=== PATIENT | female | born 1960 | race Caucasian/White ===

== ENCOUNTER 2022-01-15 16:01 | Outpatient (REF) | payer OTHER, SELFPAY | END 2022-01-15 16:02 | disposition home or self-care (01) | LOC: HO.MAMMO 16:01 | PROVIDERS: PCP Family Medicine; Visit Provider Family Medicine | DX: Z13.89 Encounter for screening for other disorder (principal) ==

== ENCOUNTER 2022-06-01 08:02 | Outpatient (REF) | payer OTHER, SELFPAY | END 2022-06-01 08:03 | disposition home or self-care (01) | LOC: HO.HOSX 08:02 | PROVIDERS: Visit Provider Physician Assistant | DX: Z13.89 Encounter for screening for other disorder (principal) ==

== ENCOUNTER 2023-08-17 17:59 | Outpatient (REF) | payer OTHER, SELFPAY ==
[2023-08-17 18:18] LABS: Appearance Urine Clear; Color Urine Dark Yellow; Glucose Urine UA 100 mg/dL (Negative); Leukocyte Esterase Urine Trace (Negative); Nitrite Urine Negative (Negative); Specific Gravity - Urine 1.025 (1.005-1.025); UMIC TRIGGER UA YES; Urine Blood Small (1+) (Negative); Urine Ketones Trace mg/dL (Negative); Urine Protein 300 (3+) mg/dL (Neg-Trace)
[2023-08-17 18:38] LABS: Creatinine Urine 217.95 mg/dL
[2023-08-17 18:56] LABS: Bacteria Urine Trace (None Seen); Granular Casts Urine Present; RBC Urine 0-2 /HPF (0-2); WBC Urine 0-5 /HPF (0-5)
== END 2023-08-17 18:00 | disposition home or self-care (01) ==
LOC: HO.HHCLNP 17:59
PROVIDERS: Visit Provider Family Medicine
DX: N39.3 Stress incontinence (female) (male) (principal); E11.65 Type 2 diabetes mellitus with hyperglycemia
CPT/HCPCS: 81001; 82043; 82570; 87086

== ENCOUNTER 2024-01-27 10:33 | Outpatient (REF) | payer OTHER, SELFPAY | END 2024-01-27 10:34 | disposition home or self-care (01) | LOC: HO.HOSX 10:33 | PROVIDERS: Visit Provider Orthopaedic Surgery | DX: Z13.89 Encounter for screening for other disorder (principal) ==

== ENCOUNTER 2024-02-23 07:32 | Outpatient (REF) | payer OTHER, SELFPAY | END 2024-02-23 07:33 | disposition home or self-care (01) | LOC: HO.HOSX 07:32 | PROVIDERS: Visit Provider Orthopaedic Surgery | DX: Z13.89 Encounter for screening for other disorder (principal) ==

== ENCOUNTER 2024-02-27 03:28 | Emergency (ER) | payer OTHER, SELFPAY ==
[2024-02-27 03:36] VITALS: BP 148/92; BP 154/73; PULSE 110; PULSE 94; RESP 16; TEMP 36.8; O2SAT 95; O2SAT 97; BMI 37.0
[2024-02-27 04:28] LABS: Basophils Absolute Auto 0.1 X10*3/uL (0.0-0.2); Basophils Percent Auto 0.8 % (0-2); Eosinophils Absolute Auto 0.2 X10*3/uL (0.0-0.4); Eosinophils Percent Auto 1.4 % (0-4); Hematocrit 45.7 % (37.0-47.0); Hemoglobin 15.8 g/dl (12.0-16.0); Imm Gran Abs Auto 0.11 X10*3/uL (0.00-0.03); Imm Gran Pct Auto 0.8 % (0.0-0.4); Lymphocytes Absolute Auto 3.2 X10*3/uL (1.2-4.9); Lymphocytes Percent Auto 24.3 % (20-40); MANUAL DIFF FLAG NO; Mean Corpuscular HGB Conc 34.6 g/dl (31.0-35.0); Mean Corpuscular Hemoglobin 31.2 pg (27.0-33.0); Mean Corpuscular Volume 90.3 fL (80.0-98.0); Mean Platelet Volume 9.9 fL (9.4-12.3); Monocytes Absolute Auto 1.2 X10*3/uL (0.1-1.2); Monocytes Percent Auto 9.2 % (2-11); Neutrophils Absolute Auto 8.4 x10*3/uL (2.0-8.3); Neutrophils Percent Auto 63.5 % (45-73); Platelet Count 296 X10*3/uL (160-400); Red Blood Count 5.06 X10*6/uL (4.20-5.50); Red Cell Distribution Width 13.6 % (11.0-16.0); White Blood Count 13.2 X10*3/uL (4.8-10.8)
[2024-02-27 04:43] LABS: Alanine Aminotransferase 30 U/L (0-31); Albumin Level 4.6 g/dL (3.5-5.0); Alkaline Phosphatase 104 U/L (39-117); Anion Gap 18 (12-20); Aspartate Amino Transferase 29 U/L (5-31); Bilirubin Total 0.6 mg/dL (0.0-1.0); Blood Urea Nitrogen 17 mg/dL (9-16); Calcium 10.2 mg/dL (8.4-10.2); Carbon Dioxide 21 mmol/L (22-29); Chloride 104 mmol/L (96-108); Creatinine Clr Calc Pharmacy 45.5; Estimated Glomerular Filt Rate 38; Glucose Random 130 mg/dL (60-115); Potassium 3.6 mmol/L (3.3-5.1); Sodium 139 mmol/L (135-145); Total Protein 7.9 g/dL (6.5-8.0)
== END 2024-02-27 09:09 | disposition left against medical advice (07) ==
PROVIDERS: Emergency Provider Emergency Medicine
DX: R60.0 Localized edema (principal); M79.672 Pain in left foot; M79.671 Pain in right foot; L53.9 Erythematous condition, unspecified; Z53.21 Procedure and treatment not carried out due to patient leaving prior to being seen by health care provider
CPT/HCPCS: 36415; 80053; 85025; 99281; 99283

== ENCOUNTER 2024-02-27 20:26 | Inpatient (IN) | payer OTHER, SELFPAY ==
--- NOTE | ~2024-02-27 | CT_ITS ---
EXAMINATION: CT head/brain wo IV con CT cervical spine wo IV con INDICATION INFORMATION: AMS, double vision hx of fall COMPARISON: Cervical spine radiograph 07/16/2017 TECHNIQUE: Separate noncontrast CT examinations of the head and cervical spine were performed. Coronal and sagittal reformats were obtained at the acquisition workstation. This CT examination was performed using dose optimization techniques as appropriate, variously including the following: * Automated exposure control * Adjustment of mA and/or kV according to patient size (this includes techniques or standardized protocols for targeted exams where dose is matched to indication/reason for exam; i.e. extremities or head) * Use of iterative reconstruction technique DLP: 1227 mGy-cm FINDINGS: HEAD: There is no evidence of acute intracranial hemorrhage or territorial infarction. [place] to white matter differentiation is well preserved. No abnormal mass effect or midline shift is seen. No extra-axial fluid collections are identified. No hydrocephalus. No significant volume loss. There is no abnormal attenuation within the brain parenchyma. The cerebellar tonsils are well positioned. No acute osseous or soft tissue abnormality. Visualized portions of the orbits are unremarkable. The mastoid air cells and visualized portions of the paranasal sinuses are well aerated. CERVICAL SPINE: No evidence of acute fracture or traumatic subluxation of the cervical spine. There is straightening of the normal cervical curvature with otherwise maintained sagittal alignment. Vertebral body heights and intervertebral disc spaces are maintained. The atlantoaxial and atlantooccipital articulations are intact. No prevertebral soft tissue swelling. There is no cervical lymphadenopathy. The visualized thyroid gland is unremarkable. The visualized lung apices are clear. CT/CT cervical spine wo IV con IMPRESSION: No acute intracranial pathology. No acute osseous abnormality within the cervical spine.
--- NOTE | ~2024-02-27 | XR_ITS ---
EXAMINATION: XR RIBS, BILATERAL CLINICAL INFORMATION: Follow-up fall, right rib pain COMPARISON: None available. TECHNIQUE: Chest one view. 5 views of bilateral ribs FINDINGS: Chest: Lungs are clear. No consolidation, pneumothorax, or pleural effusion. The cardiomediastinal silhouette and pulmonary vasculature are normal. Osseous structures are unremarkable. Multiple views of bilateral ribs reveal no visible acute fracture or bony abnormality.. XR/XR ribs BI min 4V w CXR1V IMPRESSION: Unremarkable chest examination. Unremarkable bilateral rib exam with no visible fracture.
[2024-02-27 20:32] VITALS: BP 136/76; BP 141/83; PULSE 82; PULSE 97; RESP 20; TEMP 36.8; O2SAT 95; O2SAT 99; BMI 42.5
--- NOTE | 2024-02-27 20:42 | ECG_ITS ---
Test Reason : DIZY Blood Pressure : / mmHG Vent. Rate : 088 BPM Atrial Rate : 088 BPM P-R Int : 178 ms QRS Dur : 090 ms QT Int : 382 ms P-R-T Axes : 058 -25 038 degrees QTc Int : 462 ms Normal sinus rhythm Normal ECG When compared with ECG of 13-DEC-2012 13:10, Incomplete right bundle branch block is no longer Present Referred By: Whitney Wu Electronically Signed By:Nate Taylor
--- NOTE | 2024-02-27 20:42 | ED.GENADULT ---
HPI - General Adult General Chief complaint: Extremity Injury, Lower Stated complaint: light headed/dizzy x2days, feet are numb, diabetic Time Seen by Provider: 02/27/24 20:41 Source: patient, EMS and RN notes reviewed Mode of arrival: EMS Limitations: altered mental status History of Present Illness ED Provider: Julieta Wu NP HPI narrative: Patient is a 63-year-old female with history of DM, asthma, HTN, hyperlipidemia, hypothyroidism, GERD, nicotine dependence, depression presenting to the emergency department with complaint of bilateral lower leg swelling, numbness and redness as well as dizziness and difficulty ambulating. She states that yesterday her neighbor, Lena, came over and she was falling into the doorway. Once in the emergency department she began complaining of double vision. Patient is not oriented and is poor historian. Mother reported to RN that patient was diagnosed with DM around 6 months ago and patient has had confusion for the past month. Reportedly patient has been receiving an unknown injection for weight loss. MD complaint: altered mental status, leg swelling Onset (ago): unknown Location: lower extremity Associated symptoms: confusion Related Data Home Medications ?Medication ?Instructions ?Recorded ?Confirmed aspirin 81 mg tablet,delayed 81 mg PO DAILY 07/13/20 07/13/20 release (Adult Low Dose Aspirin) calcium carbonate (Calcium 500) 500 mg PO DAILY 07/13/20 07/13/20 cetirizine 10 mg capsule (All Day 10 mg PO DAILY 07/13/20 07/13/20 Allergy (cetirizine)) clonazepam 1 mg tablet 1 mg PO DAILY 07/13/20 07/13/20 docusate sodium 100 mg capsule 100 mg PO DAILY 07/13/20 07/13/20 (DOK) levothyroxine 50 mcg tablet 50 mcg PO DAILY 07/13/20 07/13/20 lisinopril 10 mg tablet 10 mg PO DAILY 07/13/20 07/13/20 montelukast 10 mg tablet 10 mg PO DAILY 07/13/20 07/13/20 olanzapine 10 mg tablet 10 mg PO DAILY 07/13/20 07/13/20 pantoprazole 20 mg tablet,delayed 20 mg PO DAILY 07/13/20 07/13/20 release ropinirole 0.25 mg tablet 0.25 mg PO BEDTIME 07/13/20 07/13/20 rosuvastatin 40 mg tablet 40 mg PO DAILY 07/13/20 07/13/20 sertraline 100 mg tablet 100 mg PO DAILY 07/13/20 07/13/20 Allergies Allergy/AdvReac Type Severity Reaction Status Date / Time No Known Allergies Allergy Verified 02/27/24 20:44 [No Known Allergies*] Review of Systems Review of Systems: As per HPI. Yes all other systems are reviewed and are negative Neurologic: Denies Abnormal speech present and Reports confusion Psychiatric: Psychiatric: Reports confusion [facility] Past Medical History Medical History (Updated 02/28/24 @ 00:20 by Whitney Wu NP) GERD (gastroesophageal reflux disease) Glaucoma Asthma Depression Hypothyroidism Hyperlipidemia Hypertension Personal history of nicotine dependence Surgical History (Updated 02/17/22 @ 13:52 by Aurelia Soto PA-C) History of History of colonoscopy History of shoulder surgery (~2012) History of total hysterectomy with bilateral salpingo-oophorectomy (BSO) (~2005) Social History Social History Advance Directives: No Advance Directives Information Provided: No Physical Exam ED Vital Signs: Vital Signs - 24 hr 02/27/24 20:32 02/27/24 22:00 Temperature 98.2 F 97.6 F Pulse Rate 82 86 Respiratory Rate 20 20 Blood Pressure 141/83 H 145/86 H Pulse Oximetry 95 96 Oxygen Delivery Method Room Air Room Air BMI result Body Mass Index 42.5 Vital signs have been reviewed and appear to be correct. Blood pressure slightly elevated. Heart rate normal. Respiratory rate normal. Temperature normal. Oxygen saturation normal. Const General: cooperative, no acute distress, alert, awake and confusion Nutritional Appearance: overweight Orientation/consciousness: oriented to person and confusion Limitations: altered mental status HENMT Head: Yes normocephalic and Yes atraumatic Ears: hearing grossly normal bilaterally, external ears normal, TM's normal bilaterally and EAC's normal General nose exam: Normal external nose present Mouth: Normal oral and palatal mucosa present Throat: Yes uvula midline Eyes Pupils: Equal, round and reactive pupils present Neck Neck: Yes normal visual inspection, Yes full ROM, Yes no lymphadenopathy, Yes no meningeal signs, Yes trachea midline and Yes supple Chest Chest palpation & inspection: normal inspection of the chest and tenderness rib right posterior-axillary line involving the 7th rib, involving the 8th rib, involving the 9th rib and involving the 10th rib Resp Effort & Inspection: normal respiratory effort Auscultation: clear to auscultation bilaterally Cardio Rate: regular rate Rhythm: regular rhythm Heart sounds: S1 normal heart sound present and S2 normal heart sound present Peripheral pulses: Peripheral pulses 2+ throughout GI Palpation (GI): Soft to palpation and nontender Auscultation: normoactive bowel sounds General: Yes no CVA tenderness Back/Spine/Pelvis Back: no CVA tenderness Cervical Spine: normal cervical lordosis, cervical ROM normal, No Cervical spine tenderness and No step off deformity Thoracic/Lumbar Spine: thoracic and lumbar spine normal to inspection, No thoracic spinal tenderness and No lumbar spinal tenderness Skin Other: circumferential erythema and warmth to bilateral lower extremities General skin exam: elasticity normal and turgor normal Neuro General: oriented to person, tone normal, moves all extremities, Normal light touch and pain sensation, no meningeal signs, no focal motor deficits, CN's II-XI intact bilaterally, deep tendon reflexes 2+ bilaterally and confusion Cranial nerves: Yes Equal, round and reactive pupils present Speech: No Abnormal speech present Motor exam (neuro): 5/5 motor strength present throughout, Pronator motor function not present, no tremor noted, no asterixis, Motor fasciculations not present, Normal motor muscle tone present throughout and Motor abnormalities not present Extrem General: Yes full ROM and Yes capillary refill normal Right lower extremity: lower leg Details: erythema (circumferential lower leg), non-pitting edema Details: 1+ and warmth Location: of the proximal lower leg, of the mid lower leg and of the distal lower leg and foot Details: vascular exam Details: dorsalis pedis pulse present and posterior tibial pulse present Left lower extremity: lower leg Details: erythema (circumferential lower leg), non-pitting edema Details: 1+ and warmth Location: of the proximal lower leg, of the mid lower leg and of the distal lower leg and foot Details: vascular exam Details: dorsalis pedis pulse present and posterior tibial pulse present NIH Stroke Scale Internal: Initial- Upon Arrival Time: 22:18 Level of Consciousness: Alert Level of Consciousness Questions: Answers neither question correctly Level of Consciousness Commands: Performs neither task correctly Best Gaze: Normal Visual: No visual loss Facial Palsy: Normal Motor Arm (Right): No drift Motor Arm (Left): No drift Motor Leg (Right): No drift Motor Leg (Left): No drift Limb Ataxia: Absent Sensory: Normal Best Language: No aphasia Dysarthia: Normal Extinction and Inattention: No abnormality Score: 4 Medical Decision Making Medical Decision Making [facility] Narrative: Patient is a 63-year-old female with history of DM, asthma, HTN, hyperlipidemia, hypothyroidism, GERD, nicotine dependence, depression presenting to the emergency department with complaint of bilateral lower leg swelling, numbness and redness as well as dizziness and difficulty ambulating. On exam patient is awake, A+Ox1, VS WNL, afebrile, physical exam findings as above. NIHSS of 4, unknown onset of symptoms, mother reports confusion for 1 month and patient reports dizziness since yesterday or possibly earlier. Given reported symptoms and physical exam findings, initial differential includes CVA/ICH, electrolyte abnormality, drug or alcohol intoxication, encephalopathy, malignancy/mass, thyrotoxicosis, infection such as UTI or pneumonia, viral illness, adverse medication reaction, chronic venous stasis. Unknown if patient has history of psychiatric illness. Very limited past medical history available. Labs notable for slight leukocytosis without left shift, no significant electrolyte abnormalities, normal blood glucose level, CK of 1145. IV fluids ordered. Viral swabs negative. EKG shows normal sinus rhythm. X-ray chest notable for no evidence of pneumonia. X-ray ribs notable for no fractures. My interpretation is in agreement with the radiologist's interpretation. Urinalysis notable for 3+ blood, 21-50 WBCs, 4+ bacteria, 11-20 epithelial cells. While this could represent contamination, in the setting of altered mental status, will treat for UTI, IV ceftriaxone ordered. Urine drug screen pending. Admission discussed with Dr. Fraga who accepts patient to medicine service. Differential Diagnosis Differential Diagnoses: The differential diagnosis associated with the presentation includes As per [facility]. Admission/Observation Consideration of admission/observation: Escalation of care including admission/observation considered Consult Healthcare Provider Management of the patient was discussed with: Hospitalist Lab Data [facility] Lab Attestation statement: I reviewed the patient's lab results. As per [facility]. 02/27/24 21:18 02/27/24 21:18 Labs: Lab Results 02/27/24 02/27/24 02/27/24 Range/Units 21:03 21:18 23:04 WBC 11.3 H (4.8-10.8) X10*3/uL RBC 5.07 (4.20-5.50) X10*6/uL Hgb 15.6 (12.0-16.0) g/dl Hct 46.2 (37.0-47.0) % MCV 91.1 (80.0-98.0) fL MCH 30.8 (27.0-33.0) pg MCHC 33.8 (31.0-35.0) g/dl RDW 13.7 (11.0-16.0) % Plt Count 278 (160-400) X10*3/uL MPV 9.9 (9.4-12.3) fL Immature Gran % (Auto) 0.7 H (0.0-0.4) % Neut % (Auto) 71.6 (45-73) % Lymph % (Auto) 18.9 L (20-40) % [place] % (Auto) 6.8 (2-11) % Eos % (Auto) 1.3 (0-4) % Baso % (Auto) 0.7 (0-2) % Lymph # (Auto) 2.1 (1.2-4.9) X10*3/uL [place] # (Auto) 0.8 (0.1-1.2) X10*3/uL Eos # (Auto) 0.2 (0.0-0.4) X10*3/uL Baso # (Auto) 0.1 (0.0-0.2) X10*3/uL Abs Immat Gran (auto) 0.08 H (0.00-0.03) X10*3/uL Absolute Neuts (auto) 8.1 (2.0-8.3) x10*3/uL Absolute Nucleated RBC 0.000 (0.0-0.012) X10*3/uL Nucleated RBC % (auto) 0.0 (0.0-0.2) /100WBC PT 13.1 (11.1-13.3) SEC INR 1.1 (0.9-1.1) VBG pH (7.32-7.43) VBG pCO2 mmHg VBG pO2 mmHg VBG HCO3 (22-26) mmol/L VBG O2 Saturation % VBG Base Excess mmol/L Sodium 141 (135-145) mmol/L Potassium 3.4 (3.3-5.1) mmol/L Chloride 104 (96-108) mmol/L Carbon Dioxide 22 (22-29) mmol/L Anion Gap 18 (12-20) BUN 15 (9-16) mg/dL Creatinine 1.29 (0.5-1.4) mg/dL Estim Creat Clear Calc 54.1 Estimated GFR 42 POC Glucose 119 H (60-115) mg/dL Random Glucose 117 H (60-115) mg/dL Calcium 10.3 H (8.4-10.2) mg/dL Total Bilirubin 0.7 (0.0-1.0) mg/dL AST 33 H (5-31) U/L ALT 30 (0-31) U/L Alkaline Phosphatase 106 (39-117) U/L Ammonia 22 (13-55) umol/L Total Creatine Kinase 1145 H (26-140) U/L Troponin I High Sens < 2.7 (<3.5-17.0) ng/L Total Protein 8.2 H (6.5-8.0) g/dL Albumin 4.7 (3.5-5.0) g/dL TSH 1.79 (0.32-4.0) uIU/mL Urine Color Yellow Urine Appearance Turbid Urine pH 5.5 (5.0-9.0) Ur Specific [place] 1.025 (1.005-1.025) Urine Protein 300 (3+) H (Neg-Trace) mg/dL Urine Glucose (UA) Negative (Negative) mg/dL Urine Ketones 15 (Negative) mg/dL Urine Blood Large (3+) H (Negative) Urine Nitrite Negative (Negative) Ur Leukocyte Esterase Negative (Negative) Urine RBC 11-20 H (0-2) /HPF Urine WBC 21-50 H (0-5) /HPF Ur Squamous Epith Cells 11-20 (0-2) /HPF Urine Bacteria 4+ (None Seen) Hyaline Casts >20 (0-2) /LPF Ethyl Alcohol < 10 mg/dL Influenza Type A (PCR) NEGATIVE (Negative) Influenza Type B (PCR) NEGATIVE (Negative) RSV RNA Qual (PCR) NEGATIVE (Negative) SARS-CoV-2 RNA (RT-PCR) NEGATIVE (Negative) 02/27/24 Range/Units 23:08 WBC (4.8-10.8) X10*3/uL RBC (4.20-5.50) X10*6/uL Hgb (12.0-16.0) g/dl Hct (37.0-47.0) % MCV (80.0-98.0) fL MCH (27.0-33.0) pg MCHC (31.0-35.0) g/dl RDW (11.0-16.0) % Plt Count (160-400) X10*3/uL MPV (9.4-12.3) fL Immature Gran % (Auto) (0.0-0.4) % Neut % (Auto) (45-73) % Lymph % (Auto) (20-40) % [place] % (Auto) (2-11) % Eos % (Auto) (0-4) % Baso % (Auto) (0-2) % Lymph # (Auto) (1.2-4.9) X10*3/uL [place] # (Auto) (0.1-1.2) X10*3/uL Eos # (Auto) (0.0-0.4) X10*3/uL Baso # (Auto) (0.0-0.2) X10*3/uL Abs Immat Gran (auto) (0.00-0.03) X10*3/uL Absolute Neuts (auto) (2.0-8.3) x10*3/uL Absolute Nucleated RBC (0.0-0.012) X10*3/uL Nucleated RBC % (auto) (0.0-0.2) /100WBC PT (11.1-13.3) SEC INR (0.9-1.1) VBG pH 7.39 (7.32-7.43) VBG pCO2 36 mmHg VBG pO2 67 mmHg VBG HCO3 22 (22-26) mmol/L VBG O2 Saturation 92.0 % VBG Base Excess -1.7 mmol/L Sodium (135-145) mmol/L Potassium (3.3-5.1) mmol/L Chloride (96-108) mmol/L Carbon Dioxide (22-29) mmol/L Anion Gap (12-20) BUN (9-16) mg/dL Creatinine (0.5-1.4) mg/dL Estim Creat Clear Calc Estimated GFR POC Glucose (60-115) mg/dL Random Glucose (60-115) mg/dL Calcium (8.4-10.2) mg/dL Total Bilirubin (0.0-1.0) mg/dL AST (5-31) U/L ALT (0-31) U/L Alkaline Phosphatase (39-117) U/L Ammonia (13-55) umol/L Total Creatine Kinase (26-140) U/L Troponin I High Sens (<3.5-17.0) ng/L Total Protein (6.5-8.0) g/dL Albumin (3.5-5.0) g/dL TSH (0.32-4.0) uIU/mL Urine Color Urine Appearance Urine pH (5.0-9.0) Ur Specific [place] (1.005-1.025) Urine Protein (Neg-Trace) mg/dL Urine Glucose (UA) (Negative) mg/dL Urine Ketones (Negative) mg/dL Urine Blood (Negative) Urine Nitrite (Negative) Ur Leukocyte Esterase (Negative) Urine RBC (0-2) /HPF Urine WBC (0-5) /HPF Ur Squamous Epith Cells (0-2) /HPF Urine Bacteria (None Seen) Hyaline Casts (0-2) /LPF Ethyl Alcohol mg/dL Influenza Type A (PCR) (Negative) Influenza Type B (PCR) (Negative) RSV RNA Qual (PCR) (Negative) SARS-CoV-2 RNA (RT-PCR) (Negative) Independent Interpretation I performed an independent interpretation of an: EKG (normal sinus rhythm, rate 88bpm, normal [place] interval and QTc), Plain X-Ray and CT Scan Interpretation: No evidence of pneumonia or rib fractures on chest x-ray. No evidence of ICH or other acute abnormality on CT head, no fracture noted on CT C-spine. Radiology Impression Discussion of test interpretation with radiology: I have reviewed the radiologist's reading. Radiologist Impression: XR/XR ribs BI min 4V w CXR1V IMPRESSION: Unremarkable chest examination. Unremarkable bilateral rib exam with no visible fracture. CT/CT head/brain wo IV con IMPRESSION: No acute intracranial pathology. No acute osseous abnormality within the cervical spine. Independent Historian Clinical information obtained from an independent historian. History obtained from or confirmed by: Parent (mother spoke with RN via telephone) External Record Review External record reviewed: Inpatient record, Office record and Outpatient record Prescription Management I considered prescription management with: Antibiotic Discharge Plan Discharge Patient Disposition: Admitted As Inpatient Prescriptions: No Action aspirin [Adult Low Dose Aspirin] 81 mg tablet,delayed release (DR/EC) 81 mg PO DAILY calcium carbonate [Calcium 500] 500 mg calcium (1,250 mg) tablet 500 mg PO DAILY All Day Allergy (cetirizine) 10 mg capsule 10 mg PO DAILY clonazepam 1 mg tablet 1 mg PO DAILY docusate sodium [DOK] 100 mg capsule 100 mg PO DAILY levothyroxine 50 mcg tablet 50 mcg PO DAILY lisinopril 10 mg tablet 10 mg PO DAILY montelukast 10 mg tablet 10 mg PO DAILY olanzapine 10 mg tablet 10 mg PO DAILY pantoprazole 20 mg tablet,delayed release (DR/EC) 20 mg PO DAILY ropinirole 0.25 mg tablet 0.25 mg PO BEDTIME Rx Instructions: administer 1-3 hours before bedtime rosuvastatin 40 mg tablet 40 mg PO DAILY sertraline 100 mg tablet 100 mg PO DAILY Print Language: Tuvaluan
[2024-02-27 21:07] LABS: Glucose, Whole Blood 119 mg/dL (60-115)
[2024-02-27 21:26] LABS: MANUAL DIFF FLAG NO
[2024-02-27 21:28] LABS: Basophils Absolute Auto 0.1 X10*3/uL (0.0-0.2); Basophils Percent Auto 0.7 % (0-2); Eosinophils Absolute Auto 0.2 X10*3/uL (0.0-0.4); Eosinophils Percent Auto 1.3 % (0-4); Hematocrit 46.2 % (37.0-47.0); Hemoglobin 15.6 g/dl (12.0-16.0); Imm Gran Abs Auto 0.08 X10*3/uL (0.00-0.03); Imm Gran Pct Auto 0.7 % (0.0-0.4); Lymphocytes Absolute Auto 2.1 X10*3/uL (1.2-4.9); Lymphocytes Percent Auto 18.9 % (20-40); Mean Corpuscular HGB Conc 33.8 g/dl (31.0-35.0); Mean Corpuscular Hemoglobin 30.8 pg (27.0-33.0); Mean Corpuscular Volume 91.1 fL (80.0-98.0); Mean Platelet Volume 9.9 fL (9.4-12.3); Monocytes Absolute Auto 0.8 X10*3/uL (0.1-1.2); Monocytes Percent Auto 6.8 % (2-11); Neutrophils Absolute Auto 8.1 x10*3/uL (2.0-8.3); Neutrophils Percent Auto 71.6 % (45-73); Platelet Count 278 X10*3/uL (160-400); Red Blood Count 5.07 X10*6/uL (4.20-5.50); Red Cell Distribution Width 13.7 % (11.0-16.0); White Blood Count 11.3 X10*3/uL (4.8-10.8)
[2024-02-27 21:33] LABS: INTERNATIONAL NORM RATIO 1.1 (0.9-1.1); Prothrombin Time 13.1 SEC (11.1-13.3)
[2024-02-27 21:43] LABS: Alanine Aminotransferase 30 U/L (0-31); Albumin Level 4.7 g/dL (3.5-5.0); Alkaline Phosphatase 106 U/L (39-117); Anion Gap 18 (12-20); Aspartate Amino Transferase 33 U/L (5-31); Bilirubin Total 0.7 mg/dL (0.0-1.0); Blood Urea Nitrogen 15 mg/dL (9-16); Calcium 10.3 mg/dL (8.4-10.2); Carbon Dioxide 22 mmol/L (22-29); Chloride 104 mmol/L (96-108); Creatinine Clr Calc Pharmacy 54.1; Estimated Glomerular Filt Rate 42; Glucose Random 117 mg/dL (60-115); Potassium 3.4 mmol/L (3.3-5.1); Sodium 141 mmol/L (135-145); Total Protein 8.2 g/dL (6.5-8.0)
[2024-02-27 21:50] LABS: Troponin-I High Sensitivity < 2.7 ng/L (<3.5-17.0)
[2024-02-27 22:00] VITALS: BP 145/86; PULSE 86; RESP 20; TEMP 36.4; O2SAT 96
[2024-02-27 22:05] LABS: Influenza A PCR NEGATIVE (Negative); Influenza B PCR NEGATIVE (Negative); Resp Syncy Virus RNA Qual PCR NEGATIVE (Negative); SARS COV2 PCR INHOUSE NEGATIVE (Negative)
[2024-02-27 22:29] LABS: Ethanol < 10 mg/dL
--- NOTE | 2024-02-27 22:36 | PC.NURSE ---
pt ambulating well with walker and assist to bathroom
[2024-02-27 22:42] LABS: TSH reflex Free T4 1.79 uIU/mL (0.32-4.0)
[2024-02-27 23:15] LABS: Appearance Urine Turbid; Color Urine Yellow; Glucose Urine UA Negative (Negative); Leukocyte Esterase Urine Negative (Negative); Nitrite Urine Negative (Negative); PH 5.5 (5.0-9.0); Specific Gravity - Urine 1.025 (1.005-1.025); UMIC TRIGGER UACC YES; Urine Blood Large (3+) (Negative); Urine Ketones 15 mg/dL (Negative); Urine Protein 300 (3+) mg/dL (Neg-Trace)
[2024-02-27 23:17] LABS: VBG Base Excess -1.7 mmol/L; VBG HCO3 22 mmol/L (22-26); VBG pCO2 36 mmHg; VBG pH 7.39 (7.32-7.43); VBG pO2 67 mmHg
[2024-02-27 23:18] LABS: Ammonia 22 umol/L (13-55)
[2024-02-27 23:18] LABS: Venous Blood Gas Refer to POC result
[2024-02-27 23:28] LABS: Bacteria Urine 4+ (None Seen); Hyaline Casts Urine >20 /LPF (0-2); UACC Culture Trigger YES; WBC Urine 21-50 /HPF (0-5)
[2024-02-28] VITALS: BP 138/81; PULSE 79; RESP 16; TEMP 36.7; O2SAT 95
[2024-02-28] MEDS: 0.9 % Sodium Chloride 1,000 ML 999 ML IV (01:10)
[2024-02-28] MEDS: cefTRIAXone sodium 1 GM in 0.9 % Sodium Chloride 50 ML IV (01:12)
[2024-02-28] MEDS: vancomycin/NS 2,000 MG/500 ML PLAST..BAG 250 MG IV (01:47)
[2024-02-28] MEDS: Lactated Ringers 1,000 ML 80 ML IVCONT (02:55)
--- NOTE | 2024-02-28 03:52 | P.HPHOSP_ITS ---
History of Present Illness Date of Service: 02/28/24 Attending physician on admission: Junior Landeros Chief Complaint: Left leg swelling Laurie Reis is a 63 years old woman with past medical history significant for hypothyroidism, asthma, hyperlipidemia, sciatica/chronic back pain, morbid obesity, type 2 diabetes mellitus, depression and hyperlipidemia was brought to the emergency department via EMS due to worsening lower extremity edema, erythema and pain since yesterday afternoon. The patient seems to be confused. He said that she was scratched by her cat in the left tight. According to ED provider the patient was complaining of double vision. Patient denied any headache, chest pain, shortness on breath, abdominal pain, nausea, vomiting or diarrhea. In the ED, she was found to have stable vital signs. Blood workup showed leukocytosis that has been trending down 13.2 --> 12.3. Hemoglobin and platelets are normal. Initial creatinine was 1.42, repeat is 1.29. BUN is now normal. There are significant electrolyte imbalances. Total CK is 1145. Troponin is negative. TSH is normal. Urinalysis is consistent with UTI and and microscopic hematuria. Viral testing is negative for COVID-19, RSV and influenza. Head and C-spine CT scan showed no acute abnormalities. CXR is unremarkable. ECG showed normal sinus rhythm with no acute ischemic changes. ED tx: NS 1 L bolus, ceftriaxone 1 g IV Review of Systems 2 Review of Systems: Yes Unobtainable due to mental status FOR[facility], [facility] Medical History (Updated 02/28/24 @ 04:35 by Junior Landeros MD) GERD (gastroesophageal reflux disease) Glaucoma Asthma Depression Hypothyroidism Hyperlipidemia Hypertension Personal history of nicotine dependence Surgical History (Updated 02/17/22 @ 13:52 by Aurelia Soto PA-C) History of History of colonoscopy History of shoulder surgery (~2012) History of total hysterectomy with bilateral salpingo-oophorectomy (BSO) (~2005) Social History Advance Directives: No Advance Directives Information Provided: No Meds Allergies Allergy/AdvReac Type Severity Reaction Status Date / Time No Known Allergies Allergy Verified 02/27/24 20:44 [No Known Allergies*] Active Medications: Current Medications Acetaminophen (Acetaminophen 325 Mg Tablet) 975 mg PO Q6H PRN PRN Reason: mild pain, headache or fever Heparin Sodium (Porcine) (Heparin Sodium,Porcine 5,000 Unit/Ml Vial) 5,000 unit SUBCUT Q8H [facility] Lactated Ringer's (Lr) 1,000 mls @ 80 mls/hr IVCONT .[id number] [facility] Stop: 02/28/24 11:14 Last Admin: 02/28/24 02:55 Dose: 80 mls/hr Ceftriaxone Sodium 1 gm/ (Sodium Chloride) 50 mls @ 100 mls/hr IV Q24H [facility] Ondansetron HCl (Ondansetron Hcl 4 Mg/2 Ml Vial) 4 mg IVPUSH Q8H PRN PRN Reason: Nausea and Vomiting Pharmacy Consult (Consult Rx Vancomycin Dosing) 1 each MISCELLANE DAILY PRN PRN Reason: Consult order Sodium Chloride (0.9 % Sodium Chloride Flush 3 Ml Syringe) 3 ml IVFLUSH QSHIFT [facility] Home Medications ?Medication ?Instructions ?Recorded ?Confirmed ?Last Taken ?Type aspirin 81 mg tablet,delayed 81 mg PO DAILY 07/13/20 07/13/20 Unknown History release (Adult Low Dose Aspirin) calcium carbonate (Calcium 500) 500 mg PO DAILY 07/13/20 07/13/20 Unknown History cetirizine 10 mg capsule (All Day 10 mg PO DAILY 07/13/20 07/13/20 Unknown History Allergy (cetirizine)) clonazepam 1 mg tablet 1 mg PO DAILY 07/13/20 07/13/20 Unknown History docusate sodium 100 mg capsule 100 mg PO DAILY 07/13/20 07/13/20 Unknown History (DOK) levothyroxine 50 mcg tablet 50 mcg PO DAILY 07/13/20 07/13/20 Unknown History lisinopril 10 mg tablet 10 mg PO DAILY 07/13/20 07/13/20 Unknown History montelukast 10 mg tablet 10 mg PO DAILY 07/13/20 07/13/20 Unknown History olanzapine 10 mg tablet 10 mg PO DAILY 07/13/20 07/13/20 Unknown History pantoprazole 20 mg tablet,delayed 20 mg PO DAILY 07/13/20 07/13/20 Unknown History release ropinirole 0.25 mg tablet 0.25 mg PO BEDTIME 07/13/20 07/13/20 Unknown History rosuvastatin 40 mg tablet 40 mg PO DAILY 07/13/20 07/13/20 Unknown History sertraline 100 mg tablet 100 mg PO DAILY 07/13/20 07/13/20 Unknown History Physical Exam 2 Vital Signs and Narrative: Vital Signs: Last Vital Signs Temp 98.0 F 02/28/24 00:00 Pulse 79 02/28/24 00:00 Resp 16 02/28/24 00:00 BP 138/81 02/28/24 00:00 Pulse Ox 95 02/28/24 00:00 O2 Del Method Room Air 02/28/24 00:00 BMI result Body Mass Index 42.5 Constitutional - Awake and Alert. Confused. Cooperative. Obese. HEENT - Pupils equally round. Normal sclerae. Heart - S1S2, RRR. Distant sounds. Lungs - Normal lung expansion, Normal respiratory effort, No respiratory distress, CTA bilaterally Abdomen - NT / ND; +BS; No rebound or guarding Extremities - Bilateral lower extremities pitting edema. Left lower extremity: Erythema, increased warmth, some tenderness. Distal pulses 2 + intact. Left thigh: Healing lesions.. Skin - Warm/Dry Neurological - Alert & oriented only to person. No focal weakness grossly noted. Moving all extremities. Normal speech. Psychological - No agitation. Results Labs 02/27/24 21:18 02/27/24 21:18 Labs: Laboratory Results - last 24 hr 02/27/24 02/27/24 02/27/24 21:03 21:18 23:04 MCV 91.1 MCH 30.8 MCHC 33.8 RDW 13.7 Plt Count 278 MPV 9.9 Immature Gran % (Auto) 0.7 H Neut % (Auto) 71.6 Lymph % (Auto) 18.9 L Hardy % (Auto) 6.8 Eos % (Auto) 1.3 Baso % (Auto) 0.7 Lymph # (Auto) 2.1 Hardy # (Auto) 0.8 Eos # (Auto) 0.2 Baso # (Auto) 0.1 Abs Immat Gran (auto) 0.08 H Absolute Neuts (auto) 8.1 Absolute Nucleated RBC 0.000 Nucleated RBC % (auto) 0.0 PT 13.1 INR 1.1 VBG pH VBG pCO2 VBG pO2 VBG HCO3 VBG O2 Saturation VBG Base Excess Anion Gap 18 Estim Creat Clear Calc 54.1 Estimated GFR 42 POC Glucose 119 H Random Glucose 117 H Calcium 10.3 H Total Bilirubin 0.7 AST 33 H ALT 30 Alkaline Phosphatase 106 Ammonia 22 Total Creatine Kinase 1145 H Troponin I High Sens < 2.7 Total Protein 8.2 H Albumin 4.7 TSH 1.79 Urine Color Yellow Urine Appearance Turbid Urine pH 5.5 Ur Specific [place] 1.025 Urine Protein 300 (3+) H Urine Glucose (UA) Negative Urine Ketones 15 Urine Blood Large (3+) H Urine Nitrite Negative Ur Leukocyte Esterase Negative Urine RBC 11-20 H Urine WBC 21-50 H Ur Squamous Epith Cells 11-20 Urine Bacteria 4+ Hyaline Casts >20 Ethyl Alcohol < 10 Influenza Type A (PCR) NEGATIVE Influenza Type B (PCR) NEGATIVE RSV RNA Qual (PCR) NEGATIVE SARS-CoV-2 RNA (RT-PCR) NEGATIVE 02/27/24 23:08 MCV MCH MCHC RDW Plt Count MPV Immature Gran % (Auto) Neut % (Auto) Lymph % (Auto) Hardy % (Auto) Eos % (Auto) Baso % (Auto) Lymph # (Auto) Hardy # (Auto) Eos # (Auto) Baso # (Auto) Abs Immat Gran (auto) Absolute Neuts (auto) Absolute Nucleated RBC Nucleated RBC % (auto) PT INR VBG pH 7.39 VBG pCO2 36 VBG pO2 67 VBG HCO3 22 VBG O2 Saturation 92.0 VBG Base Excess -1.7 Anion Gap Estim Creat Clear Calc Estimated GFR POC Glucose Random Glucose Calcium Total Bilirubin AST ALT Alkaline Phosphatase Ammonia Total Creatine Kinase Troponin I High Sens Total Protein Albumin TSH Urine Color Urine Appearance Urine pH Ur Specific [place] Urine Protein Urine Glucose (UA) Urine Ketones Urine Blood Urine Nitrite Ur Leukocyte Esterase Urine RBC Urine WBC Ur Squamous Epith Cells Urine Bacteria Hyaline Casts Ethyl Alcohol Influenza Type A (PCR) Influenza Type B (PCR) RSV RNA Qual (PCR) SARS-CoV-2 RNA (RT-PCR) Imaging Radiologist's Impressions: Impressions Cervical Spine CT 02/27/24 22:15 IMPRESSION: No acute intracranial pathology. No acute osseous abnormality within the cervical spine. Head CT 02/27/24 22:15 IMPRESSION: No acute intracranial pathology. No acute osseous abnormality within the cervical spine. Ribs w/Chest X-Ray 02/27/24 22:30 IMPRESSION: Unremarkable chest examination. Unremarkable bilateral rib exam with no visible fracture. Assessment and Plan (1) Elevated CK: Status: Acute (2) Urinary tract infection: Qualifiers: Urinary tract infection type: acute cystitis Hematuria presence: w ithout hematuria Qualified Code(s): N30.00 - Acute cystitis without hematuria Status: Acute (3) Altered mental status: Qualifiers: Altered mental status type: disorientation Qualified Code(s): R41.0 - Disorientation, unspecified Status: Acute (4) Left leg cellulitis: Status: Acute Plan Laurie Reis is a 63 y/o woman admitted with: * Acute encephalopathy secondary to acute infections: UTI and left lower extremity cellulitis (scratched by a cat?). Admit to hospitalist service. Start empiric IV antibiotic therapy with Unasyn and vancomycin. Blood and urine cultures obtained -will follow results. Avoid sedatives such as pregabalin and clonazepam. * Acute kidney injury, improving s/p IVFs. Likely secondary to furosemide, lisinopril. Hold these medications. Continue to monitor renal function. Avoid nephrotoxic agents. * Rhabdomyolysis. Gentle IV fluids. Continue to monitor CPK. * Hypothyroidism. TSH is normal. Continue levothyroxine. * Type 2 diabetes mellitus. Hold metformin for now as the patient has MINA. Insulin sliding scale. Diabetic diet. * Hyperlipidemia. Continue statin. * Essential hypertension. Continue home meds, except lisinopril due to elevated creatinine. * Depression. Continue sertraline. * Morbid obesity. BMI 42.5 kg/m2. Weight loss. * Asthma. Asymptomatic at this time. DuoNeb as needed. Continue montelukast. DVT prophylaxis: Heparin Code status: Full Patient will need hospitalization for at least 2 midnights for UTI and left lower extremity cellulitis and UTI treatment with IV antibiotic therapy in the setting of acute encephalopathy/confusion in the setting of multiple underlying comorbidities. Quality Stroke Does the patient have a stroke diagnosis?: No VTE Prior VTE?: No VTE Risk Level:: Medical - moderate - high VTE Device Contraindication: Treatment Not Indicated VTE Drug Contraindication: N/A - Med Ordered
--- NOTE | 2024-02-28 04:40 | PC.NURSE ---
pt seeing thing that are not there do you see those people on the ceiling?, why is it raining here?, pt appears confused, calling family all night despite the time and getting upset they don't answer. emotionally labile, slightly paranoid, scared we are kicking her out. attempt to reassure pt many times.
[2024-02-28 05:05] LABS: MANUAL DIFF FLAG NO
[2024-02-28 05:06] LABS: Basophils Absolute Auto 0.1 X10*3/uL (0.0-0.2); Basophils Percent Auto 0.6 % (0-2); Eosinophils Absolute Auto 0.2 X10*3/uL (0.0-0.4); Eosinophils Percent Auto 1.8 % (0-4); Hematocrit 40.5 % (37.0-47.0); Hemoglobin 13.7 g/dl (12.0-16.0); Imm Gran Abs Auto 0.07 X10*3/uL (0.00-0.03); Imm Gran Pct Auto 0.6 % (0.0-0.4); Lymphocytes Absolute Auto 2.5 X10*3/uL (1.2-4.9); Lymphocytes Percent Auto 22.7 % (20-40); Mean Corpuscular HGB Conc 33.8 g/dl (31.0-35.0); Mean Corpuscular Hemoglobin 30.6 pg (27.0-33.0); Mean Corpuscular Volume 90.6 fL (80.0-98.0); Monocytes Absolute Auto 0.9 X10*3/uL (0.1-1.2); Monocytes Percent Auto 8.5 % (2-11); Neutrophils Absolute Auto 7.2 x10*3/uL (2.0-8.3); Neutrophils Percent Auto 65.8 % (45-73); Platelet Count 248 X10*3/uL (160-400); Red Blood Count 4.47 X10*6/uL (4.20-5.50); Red Cell Distribution Width 13.6 % (11.0-16.0); White Blood Count 10.9 X10*3/uL (4.8-10.8)
[2024-02-28 05:28] LABS: Alanine Aminotransferase 22 U/L (0-31); Albumin Level 3.8 g/dL (3.5-5.0); Alkaline Phosphatase 88 U/L (39-117); Anion Gap 19 (12-20); Aspartate Amino Transferase 26 U/L (5-31); Bilirubin Total 0.5 mg/dL (0.0-1.0); Blood Urea Nitrogen 14 mg/dL (9-16); Calcium 8.8 mg/dL (8.4-10.2); Carbon Dioxide 16 mmol/L (22-29); Chloride 110 mmol/L (96-108); Creatinine Clr Calc Pharmacy 61.9; Estimated Glomerular Filt Rate 49; Glucose Random 112 mg/dL (60-115); Potassium 3.5 mmol/L (3.3-5.1); Sodium 141 mmol/L (135-145); Total Protein 6.6 g/dL (6.5-8.0)
--- NOTE | 2024-02-28 06:54 | PHA.PROG ---
Admission Date/Time: February 28, 2024 00:57 Indication: SKIN INFECTION Weight in k.862 kg Adjusted body weight in Kg: [place] body weight in Kg: Obesity Dosing Indication % IBW: Serum Creatinine - Last 168 Hours 02/27/24 02/28/24 21:18 04:54 Creatinine 1.29 1.13 Estimated CrCl and GFR - Last 168 Hours 02/27/24 02/28/24 21:18 04:54 Estim Creat Clear Calc 54.1 61.9 Estimated GFR 42 49 Vancomycin Loading Dose: 2000 MG Current Vancomycin Dosing Regimen: 1250 MG Q24H Vancomycin Monitoring using AUC goal of 400 - 600 range with trough as surrogate marker: BRT=720, TROUGH=14.2 Date and Time for next Vancomycin Level to be drawn: 02/29/24 @2100 Pharmacist Comments on Vancomycin Plan: Vancomycin dosing will take advantage of [employer] as a clinical decision support tool that uses Bayesian modeling to calculate individual patient's pharmacokinetic parameters and forecast the patient's drug concentration time course with the target goal AUC 24 range of 400 - 600 mg/L/hr.
[2024-02-28 08:13] LABS: Glucose, Whole Blood 177 mg/dL (60-115)
[2024-02-28 08:41] VITALS: BP 131/69; PULSE 82; RESP 17; TEMP 36.4; O2SAT 96
--- NOTE | 2024-02-28 09:16 | PM.EVENT ---
Event Note Date of Service: 02/28/24 Event Note: Seen and evaluated feels better overall mildly anxious Cr improving, CK trending down Not septic DC IVF as she is building more fluids in LE Keep Abx , follow Cx follow BMP Time Spent With Patient Time: Total time managing care of this patient today ____ minutes.
[2024-02-28] MEDS: Insulin Lispro 100 UNIT/ML 3 ML VIAL SUBCUT ×2 (10:34→17:22)
[2024-02-28] MEDS: Heparin Sodium,Porcine 5,000 UNIT/ML VIAL 5000 UNIT SUBCUT ×2 (10:34→17:24)
[2024-02-28] MEDS: Ampicillin Sodium/Sulbactam Na 1.5 GM in 0.9 % Sodium Chloride 100 ML IV ×3 (10:35→21:15)
[2024-02-28] MEDS: Ammonium Lactate 12 % Lotion 226 GM BOTTLE 1 APPL TOPICAL ×2 (10:35→21:37)
--- NOTE | 2024-02-28 11:15 | PC.NURSE ---
pt moved to ED overflow. pt is alert, not oriented and confused. abx infused per orders. no complaints at this time.
[2024-02-28 12:10] LABS: Glucose, Whole Blood 137 mg/dL (60-115)
--- NOTE | 2024-02-28 13:03 | PHA.MEDREC ---
Pharmacy Consult ? Medication Reconciliation Pharmacy has completed the medication reconciliation. used list from [facility]. Spoke with mother on the phone and she confirmed that she does the injection (Trulicity) on Tuesdays.
--- NOTE | 2024-02-28 13:33 | PC.NURSE ---
pt incontinent of urine. full bed change and pt cleaned. pt noted to have red rash underneath folds of abdomen. barrier cream applied. purewick placed.
[2024-02-28 13:43] VITALS: BP 135/68; PULSE 93; RESP 20; TEMP 37.4; O2SAT 93
--- NOTE | 2024-02-28 15:54 | MHC.CM.PN ---
CM MET WITH PT IN ED OVERFLOW SHE APPEARS SLIGHTLY CONFUSED BUT SAYS NO WHEN CM ASKS IF ANYONE ELSE CAN BE CONTACTED PT REPORTS SHE LIVES ALONE AND IS INDEPENDENT WITH CARE SHE DENIES HAVING ANY IN HOME SERVICES, BUT SAYS SHE NEEDS SOME PT USES A WALKER TO AMBULATE SHE SAYS SHE HAS A HCP, COPY REQUESTED PCP: BILL LOPEZ IMM DELIVERED DCP: HOME WITH [facility] REFERRAL SHUTTLE TRANSPORT
[2024-02-28] MEDS: Sertraline HCL 100 MG TABLET PO (16:07)
[2024-02-28] MEDS: Omeprazole 20 MG CAPSULE.DR PO (16:07)
[2024-02-28 16:55] LABS: Glucose, Whole Blood 154 mg/dL (60-115)
[2024-02-28 17:56] LABS: Amphetamine Screen Urine Not Detected (Not Detect); Barbiturates, Urine Not Detected (Not Detect); Benzodiazepines Screen Urine Not Detected (Not Detect); Buprenorphine Scr Not Detected (Not Detect); Cannabinoid Screen Urine Not Detected (Not Detect); Cocaine Screen Urine Not Detected (Not Detect); Fentanyl, urine Not Detected (Not Detect); Methadone Screen, Urine Not Detected (Not Detect); Opiate Screen Urine Not Detected (Not Detect); Oxycodone Screen Urine Not Detected (Not Detect); Phencyclidine Screen Urine Not Detected (Not Detect)
[2024-02-28 20:40] LABS: Glucose, Whole Blood 135 mg/dL (60-115)
[2024-02-28] MEDS: Docusate Sodium 100 MG CAPSULE PO (21:16)
[2024-02-28] MEDS: clonazePAM 1 MG TABLET PO (21:16)
[2024-02-28] MEDS: Melatonin 3 MG TABLET 9 MG PO (21:16)
[2024-02-28 21:17] VITALS: BP 145/73
[2024-02-28] MEDS: Perphenazine 4 MG TABLET PO (21:17)
[2024-02-28] MEDS: Prazosin HCL 1 MG CAPSULE PO (21:17)
[2024-02-28] MEDS: Doxepin HCl 25 MG CAPSULE 50 MG PO (21:17)
[2024-02-28] MEDS: Fluticasone Propionate Nasal 16 GM SPRAY 1 SPRAY NOSTRIL-B (21:17)
[2024-02-28] MEDS: rOPINIRole HCL 1 MG TABLET PO (21:22)
[2024-02-28] MEDS: Pregabalin 75 MG CAPSULE PO (21:22)
[2024-02-28 21:23] VITALS: BP 145/73; PULSE 92; RESP 20; TEMP 37.7; O2SAT 95
--- NOTE | 2024-02-28 21:36 | PC.NURSE ---
assumed care at 1900. pt confused yelling out and trying to get oob, staff assisted pt back to bed, bed alarm on for safety
[2024-02-29] MEDS: 0.9 % Sodium Chloride Flush 3 ML SYRINGE IVFLUSH ×4 (00:08→23:37)
--- NOTE | 2024-02-29 00:45 | PC.NURSE ---
Lab called to reported pt has + blood cultures. Lab reported they will notify the hospitalist
[2024-02-29] MEDS: vancomycin HCL 1,250 MG in 0.9 % Sodium Chloride 250 ML 166.67 MG IV (01:51)
[2024-02-29] MEDS: Heparin Sodium,Porcine 5,000 UNIT/ML VIAL 5000 UNIT SUBCUT ×3 (01:55→17:16)
--- NOTE | 2024-02-29 01:55 | PC.NURSE ---
pt confused grabbing at staff, medicated per MAR
--- NOTE | 2024-02-29 02:30 | PC.NURSE ---
pt restless looking for her cellphone, pt took purwick out and was incontinent of urine, bed changed, a new purwick placed, repositioned for comfort and bed alarmed for safety. pt skin assessed, redness under abd and groin area reddened clear barrier cream applied
[2024-02-29] MEDS: Ampicillin Sodium/Sulbactam Na 1.5 GM in 0.9 % Sodium Chloride 100 ML IV ×4 (03:28→21:42)
--- NOTE | 2024-02-29 03:33 | PC.NURSE ---
pt medicated per MAR
--- NOTE | 2024-02-29 03:35 | PC.NURSE ---
pt medicated per MAR
--- NOTE | 2024-02-29 03:48 | PC.NURSE ---
Addendum entered by Kee Baker RN 02/29/24 04:07: sitter present Original Note: pt confused, combative with staff, pt bed alarm went off, pt observed standing, pt put back to bed with max 2 assist. Hospitalist notified and Nursing security shift supervisor notified . pt needs a sitter
--- NOTE | 2024-02-29 04:35 | PC.NURSE ---
pt verbally abusive to sitter
--- NOTE | 2024-02-29 04:45 | PC.NURSE ---
pt refused stephenie
[2024-02-29 04:50] VITALS: O2SAT 92
[2024-02-29] MEDS: OLANZapine 10 MG VIAL 5 MG IM (05:15)
--- NOTE | 2024-02-29 05:25 | PC.NURSE ---
pt trying to get OOB , sitter and tech to assist, security called, medicated with 5mg of Zyprexa IM. pt continues to yell and tries to climb OOB
--- NOTE | 2024-02-29 05:53 | PC.NURSE ---
pt continue to be combative refused labs and medications this am
[2024-02-29 07:14] LABS: Glucose, Whole Blood 156 mg/dL (60-115)
[2024-02-29 07:34] VITALS: BP 120/55; PULSE 73; RESP 17; TEMP 36.6; O2SAT 96
[2024-02-29] MEDS: Insulin Lispro 100 UNIT/ML 3 ML VIAL SUBCUT (07:40)
[2024-02-29] MEDS: Ammonium Lactate 12 % Lotion 226 GM BOTTLE 1 APPL TOPICAL ×2 (07:41→21:49)
[2024-02-29 09:10] LABS: Creatinine Clr Calc Pharmacy 72.8; Estimated Glomerular Filt Rate 59
[2024-02-29 09:18] LABS: Anion Gap 14 (12-20); Blood Urea Nitrogen 15 mg/dL (9-16); Calcium 9.1 mg/dL (8.4-10.2); Carbon Dioxide 21 mmol/L (22-29); Chloride 110 mmol/L (96-108); Creatinine Clr Calc Pharmacy 75.1; Estimated Glomerular Filt Rate > 60; Glucose Random 134 mg/dL (60-115); Potassium 3.3 mmol/L (3.3-5.1); Sodium 142 mmol/L (135-145)
[2024-02-29] MEDS: Pregabalin 75 MG CAPSULE PO ×2 (09:30→21:43)
[2024-02-29] MEDS: Aspirin Enteric Coated 81 MG TABLET.DR PO (09:30)
[2024-02-29] MEDS: Perphenazine 4 MG TABLET PO ×2 (09:30→21:43)
[2024-02-29] MEDS: Famotidine 20 MG TABLET PO (09:30)
[2024-02-29] MEDS: Docusate Sodium 100 MG CAPSULE PO ×2 (09:30→21:42)
[2024-02-29] MEDS: Sertraline HCL 100 MG TABLET PO (09:30)
[2024-02-29] MEDS: lisinopriL 10 MG TABLET PO (09:31)
[2024-02-29] MEDS: Montelukast Sodium 10 MG TABLET PO (09:31)
[2024-02-29] MEDS: clonazePAM 1 MG TABLET PO ×2 (09:31→21:43)
--- NOTE | 2024-02-29 09:43 | P.PNIM_ITS ---
Subjective Subjective Date of Service: 02/29/24 Interval History: more agitated and restless overnight requiring Zyprexa and Sitter 1 set blood cx growing GPC kidney function improved Review of Systems Review of Systems: Yes all other systems are reviewed and are negative Physical Exam 2 Vital Signs: Vital Signs: Last Vital Signs Temp 98 F 02/29/24 07:34 Pulse 73 02/29/24 07:34 Resp 17 02/29/24 07:34 BP 120/55 L 02/29/24 07:34 Pulse Ox 96 02/29/24 07:34 O2 Del Method Room Air 02/29/24 07:34 BMI result Body Mass Index 42.5 Const: Other: Constitutional : Awake, slow and sleepy, obese, not in distress Neck : Normal inspection, Supple Cardiovascular : RRR, no JVP, no lower extremity edema Respiratory : good bilateral air entry, no crackles, wheezes or rhonchi Gastrointestinal: soft, lax, Normal bowel sounds, Non tender Skin : Warm, Dry Neurological : Alert & confused, No focal deficit Objective Data Active Medications Acetaminophen (Acetaminophen 325 Mg Tablet) 975 mg PO Q6H PRN PRN Reason: mild pain, headache or fever Albuterol Sulfate (Albuterol Sulfate 90 Mcg 8 Gm Inhaler) 2 puff INHALE Q6H PRN PRN Reason: Shortness Of Breath Or Wheezing Aspirin (Aspirin Enteric Coated 81 Mg Tablet.Dr) 81 mg PO DAILY [facility] Last Admin: 02/29/24 09:30 Dose: 81 mg Documented By: DOUGLAS Baclofen (Baclofen 20 Mg Tablet) 20 mg PO BID PRN PRN Reason: Muscle Spasm Baclofen (Baclofen 20 Mg Tablet) 20 mg PO DAILY PRN PRN Reason: Muscle Spasm Clonazepam (Clonazepam 1 Mg Tablet) 1 mg PO BID [facility] Last Admin: 02/29/24 09:31 Dose: 1 mg Documented By: DOUGLAS Docusate Sodium (Docusate Sodium 100 Mg Capsule) 100 mg PO BID [facility] Last Admin: 02/29/24 09:30 Dose: 100 mg Documented By: DOUGLAS Doxepin HCl (Doxepin Hcl 25 Mg Capsule) 50 mg PO BEDTIME [facility] Last Admin: 02/28/24 21:17 Dose: 50 mg Documented By: ROSS Famotidine (Famotidine 20 Mg Tablet) 20 mg PO DAILY [facility] Last Admin: 02/29/24 09:30 Dose: 20 mg Documented By: DOUGLAS Fluticasone Propionate (Fluticasone Propionate Nasal 16 Gm [place]) 1 spray NOSTRIL-B BID [facility] Last Admin: 02/29/24 09:42 Dose: Not Given Documented By: DOUGLAS Non-Admin Reason: Patient Refused Glucose (Glucose Gel 15 Gm Gel..Gram.) 15 gm PO Q15M PRN; Protocol PRN Reason: per Hypoglycemia Standing Ord. Heparin Sodium (Porcine) (Heparin Sodium,Porcine 5,000 Unit/Ml Vial) 5,000 unit SUBCUT Q8H [facility] Last Admin: 02/29/24 09:31 Dose: 5,000 unit Documented By: DOUGLAS Ampicillin Sodium/Sulbactam (Sodium 1.5 gm/ Sodium Chloride) 100 mls @ 200 mls/hr IV Q6H [facility] Last Admin: 02/29/24 09:25 Dose: 200 mls/hr Documented By: DOUGLAS Dextrose (D10) 250 mls @ 750 mls/hr IV Q15M PRN; Protocol PRN Reason: per Hypoglycemia Standing Ord. Vancomycin HCl 1,250 mg/ (Sodium Chloride) 250 mls @ 166.667 mls/hr IV Q24H [facility] Last Infusion: 02/29/24 03:23 Dose: Infused Documented By: ROSS Insulin Human Lispro (Insulin Lispro 100 Unit/Ml 3 Ml Vial) 0 unit SUBCUT QIDACHS [facility]; Protocol Last Admin: 02/29/24 07:40 Dose: 2 unit Documented By: DOUGLAS Lactic Acid (Ammonium Lactate 12 % Lotion 226 Gm Bottle) 1 appl TOPICAL BID [facility]; Protocol Last Admin: 02/29/24 07:41 Dose: 1 appl Documented By: DOUGLAS Levothyroxine Sodium (Levothyroxine Sodium 50 Mcg Tablet) 50 mcg PO DAILY@0600 [facility] Last Admin: 02/29/24 05:52 Dose: Not Given Documented By: ROSS Non-Admin Reason: Patient Refused Lisinopril (Lisinopril 10 Mg Tablet) 10 mg PO DAILY [facility]; Protocol Last Admin: 02/29/24 09:31 Dose: 10 mg Documented By: DOUGLAS Melatonin (Melatonin 3 Mg Tablet) 9 mg PO BEDTIME PRN PRN Reason: insomnia Last Admin: 02/28/24 21:16 Dose: 9 mg Documented By: ROSS Montelukast Sodium (Montelukast Sodium 10 Mg Tablet) 10 mg PO DAILY [facility] Last Admin: 02/29/24 09:31 Dose: 10 mg Documented By: DOUGLAS Nicotine (Nicotine 21 Mg Patch.Td24) 21 mg TRANSDERMA DAILY [facility] Last Admin: 02/29/24 09:25 Dose: Not Given Documented By: DOUGLAS Non-Admin Reason: Patient Refused Non-Formulary Medication (Cromolyn) 1 drop EYE-BOTH Q6H [facility] Omeprazole (Omeprazole 20 Mg Capsule.Dr) 20 mg PO BID@0630,1630 [facility] Last Admin: 02/29/24 06:39 Dose: Not Given Documented By: ROSS Non-Admin Reason: Patient Refused Ondansetron HCl (Ondansetron Hcl 4 Mg/2 Ml Vial) 4 mg IVPUSH Q8H PRN PRN Reason: Nausea and Vomiting Perphenazine (Perphenazine 4 Mg Tablet) 4 mg PO BID [facility] Last Admin: 02/29/24 09:30 Dose: 4 mg Documented By: DOUGLAS Pharmacy Consult (Consult Rx Vancomycin Dosing) 1 each MISCELLANE DAILY PRN PRN Reason: Consult order Prazosin HCl (Prazosin Hcl 1 Mg Capsule) 1 mg PO BEDTIME [facility]; Protocol Last Admin: 02/28/24 21:17 Dose: 1 mg Documented By: ROSS Pregabalin (Pregabalin 75 Mg Capsule) 75 mg PO BID [facility] Last Admin: 02/29/24 09:30 Dose: 75 mg Documented By: DOUGLAS Ropinirole HCl (Ropinirole Hcl 1 Mg Tablet) 1 mg PO BEDTIME [facility] Last Admin: 02/28/24 21:22 Dose: 1 mg Documented By: ROSS Sertraline HCl (Sertraline Hcl 100 Mg Tablet) 100 mg PO DAILY [facility] Last Admin: 02/29/24 09:30 Dose: 100 mg Documented By: DOUGLAS Sodium Chloride (0.9 % Sodium Chloride Flush 3 Ml Syringe) 3 ml IVFLUSH QSHIFT [facility] Last Admin: 02/29/24 07:41 Dose: 3 ml Documented By: DOUGLAS Labs 02/28/24 04:54 02/29/24 08:38 Labs: Laboratory Results - last 24 hr 02/28/24 02/28/24 02/28/24 12:06 16:49 17:36 Anion Gap Estim Creat Clear Calc Estimated GFR POC Glucose 137 H 154 H Random Glucose Calcium Total Creatine Kinase Urine Opiates Screen Not Detected Ur Buprenorphine Scrn Not Detected Ur Oxycodone Screen Not Detected Urine Methadone Screen Not Detected Urine Fentanyl Screen Not Detected Ur Barbiturates Screen Not Detected Ur Phencyclidine Scrn Not Detected Ur Amphetamines Screen Not Detected U Benzodiazepines Scrn Not Detected Urine Cocaine Screen Not Detected U Marijuana (THC) Screen Not Detected 02/28/24 02/29/24 02/29/24 20:29 07:11 08:38 Anion Gap 14 Estim Creat Clear Calc 75.1 Estimated GFR POC Glucose 135 H 156 H Random Glucose Calcium Total Creatine Kinase Urine Opiates Screen Ur Buprenorphine Scrn Ur Oxycodone Screen Urine Methadone Screen Urine Fentanyl Screen Ur Barbiturates Screen Ur Phencyclidine Scrn Ur Amphetamines Screen U Benzodiazepines Scrn Urine Cocaine Screen U Marijuana (THC) Screen 02/29/24 02/29/24 08:38 08:38 Anion Gap Estim Creat Clear Calc 72.8 Estimated GFR > 60 59 POC Glucose Random Glucose 134 H Calcium 9.1 Total Creatine Kinase 692 H Urine Opiates Screen Ur Buprenorphine Scrn Ur Oxycodone Screen Urine Methadone Screen Urine Fentanyl Screen Ur Barbiturates Screen Ur Phencyclidine Scrn Ur Amphetamines Screen U Benzodiazepines Scrn Urine Cocaine Screen U Marijuana (THC) Screen Microbiology Microbiology Results: Microbiology 02/27/24 Unknown Urine Culture - Final Urine clean catch - Urine valdivia top 02/28/24 00:58 Blood Culture - Preliminary Blood - Venous No growth after 24 hours. 02/28/24 00:58 Blood Culture - Preliminary Blood - Venous Prelim: GPR Gram Stain only Assessment and Plan (1) Left leg cellulitis: Status: Acute (2) Elevated CK: Status: Acute (3) Urinary tract infection: Status: Acute (4) Rhabdomyolysis: Status: Acute (5) Acute kidney injury: Status: Acute Plan Laurie Reis is a 63 y/o woman admitted with: # Acute encephalopathy secondary to acute UTI and left lower extremity cellulitis (scratched by a cat?) IV Unasyn and vancomycin GPC in 1 set of Blood cx, to repeat pending urine cultures Avoid sedatives such as pregabalin and clonazepam. follow Vanco trough # Acute kidney injury resolved Likely secondary to furosemide, lisinopril. Avoid nephrotoxic agents. follow BMP # Rhabdomyolysis. improved, CK trended down DC IV fluids # Acute inpatient delerium requiried IM Zyprexa Keep sitter, dc if doing better reorientation, change room to one with a window PRN Zyprexa if needed # Hypothyroidism. TSH is normal. Continue levothyroxine. # Type 2 diabetes mellitus. Hold metformin for now as the patient has MINA. Insulin sliding scale. Diabetic diet. # Hyperlipidemia. Continue statin. # Essential hypertension. Continue home meds, except lisinopril due to elevated creatinine. # Depression. Continue sertraline. # Morbid obesity. BMI 42.5 kg/m2. advised Weight loss. # Asthma. Asymptomatic at this time. DuoNeb as needed. Continue montelukast. DVT prophylaxis: Heparin Code status: Full Patient will need hospitalization overnight for UTI and left lower extremity cellulitis and UTI treatment with IV antibiotic therapy in the setting of acute encephalopathy/confusion in the setting of multiple underlying comorbidities. Quality Stroke Does the patient have a stroke diagnosis?: No VTE Prior VTE?: No VTE Risk Level:: Medical - moderate - high VTE Device Contraindication: Treatment Not Indicated VTE Drug Contraindication: N/A - Med Ordered
[2024-02-29 11:09] LABS: Glucose, Whole Blood 94 mg/dL (60-115)
[2024-02-29 14:10] VITALS: BP 106/58; PULSE 64; RESP 16; TEMP 36.6; O2SAT 92
--- NOTE | 2024-02-29 16:54 | PC.NURSE ---
Patient awake and getting out of bed, patient not redirectable, is able to stand with minimal assistance. Patient assisted to commode and was able to urinate and have a bowel movement. Patient currently walking around room cleaning counter and bedside table. Patient continues to not be redirectable, but is stable on her feet. Dr Noel aware patient is out of bed, states that as long as patient is stable on her feet she can get out of bed.
[2024-02-29] MEDS: Omeprazole 20 MG CAPSULE.DR PO (17:17)
[2024-02-29 17:23] LABS: Glucose, Whole Blood 141 mg/dL (60-115)
[2024-02-29 20:48] LABS: Glucose, Whole Blood 79 mg/dL (60-115)
[2024-02-29 21:00] VITALS: BP 121/57; PULSE 65; RESP 18; TEMP 37.2; O2SAT 98
[2024-02-29 21:23] LABS: Glucose, Whole Blood 93 mg/dL (60-115)
[2024-02-29 21:42] VITALS: BP 121/57
[2024-02-29] MEDS: Prazosin HCL 1 MG CAPSULE PO (21:42)
[2024-02-29] MEDS: rOPINIRole HCL 1 MG TABLET PO (21:43)
[2024-02-29] MEDS: Doxepin HCl 25 MG CAPSULE 50 MG PO (21:43)
[2024-02-29] MEDS: Fluticasone Propionate Nasal 16 GM SPRAY 1 SPRAY NOSTRIL-B (21:43)
[2024-02-29] MEDS: Melatonin 3 MG TABLET 9 MG PO (22:32)
[2024-02-29 22:49] LABS: Glucose, Whole Blood 156 mg/dL (60-115)
[2024-02-29 23:22] VITALS: BP 100/46; PULSE 74; RESP 19; TEMP 36.6; O2SAT 92
[2024-02-29] MEDS: vancomycin HCL 1,500 MG in 0.9 % Sodium Chloride 500 ML 333.33 MG IV (23:37)
[2024-03-01] MEDS: Heparin Sodium,Porcine 5,000 UNIT/ML VIAL 5000 UNIT SUBCUT ×2 (01:05→08:54)
[2024-03-01 02:40] VITALS: BP 98/54; PULSE 80; RESP 19; TEMP 36.5; O2SAT 92
[2024-03-01] MEDS: Ampicillin Sodium/Sulbactam Na 1.5 GM in 0.9 % Sodium Chloride 100 ML IV ×2 (02:50→09:16)
[2024-03-01] MEDS: Levothyroxine Sodium 50 MCG TABLET PO (06:03)
[2024-03-01] MEDS: Omeprazole 20 MG CAPSULE.DR PO (06:03)
[2024-03-01 07:02] LABS: Hemoglobin 12.6 g/dl (12.0-16.0); Mean Corpuscular HGB Conc 33.2 g/dl (31.0-35.0); Mean Corpuscular Hemoglobin 30.9 pg (27.0-33.0); Mean Corpuscular Volume 93.1 fL (80.0-98.0); Mean Platelet Volume 10.5 fL (9.4-12.3); Platelet Count 213 X10*3/uL (160-400); Red Blood Count 4.08 X10*6/uL (4.20-5.50); Red Cell Distribution Width 14.2 % (11.0-16.0); White Blood Count 7.4 X10*3/uL (4.8-10.8)
[2024-03-01 07:13] LABS: Creatinine Clr Calc Pharmacy 74.4; Estimated Glomerular Filt Rate > 60
[2024-03-01 07:14] LABS: Anion Gap 15 (12-20); Blood Urea Nitrogen 13 mg/dL (9-16); Calcium 8.7 mg/dL (8.4-10.2); Carbon Dioxide 21 mmol/L (22-29); Chloride 108 mmol/L (96-108); Creatinine Clr Calc Pharmacy 79.4; Estimated Glomerular Filt Rate > 60; Glucose Random 109 mg/dL (60-115); Potassium 3.3 mmol/L (3.3-5.1); Sodium 141 mmol/L (135-145)
[2024-03-01 07:23] VITALS: BP 117/56; PULSE 74; RESP 18; TEMP 36.3; O2SAT 92
[2024-03-01 07:33] LABS: Glucose, Whole Blood 103 mg/dL (60-115)
[2024-03-01] MEDS: Sertraline HCL 100 MG TABLET PO (08:54)
[2024-03-01] MEDS: Famotidine 20 MG TABLET PO (08:54)
[2024-03-01] MEDS: clonazePAM 1 MG TABLET PO (08:54)
[2024-03-01] MEDS: Pregabalin 75 MG CAPSULE PO (08:54)
[2024-03-01 08:55] VITALS: BP 117/56
[2024-03-01] MEDS: lisinopriL 10 MG TABLET PO (08:55)
[2024-03-01] MEDS: Perphenazine 4 MG TABLET PO (08:55)
[2024-03-01] MEDS: Montelukast Sodium 10 MG TABLET PO (08:55)
[2024-03-01] MEDS: Docusate Sodium 100 MG CAPSULE PO (08:55)
[2024-03-01] MEDS: Aspirin Enteric Coated 81 MG TABLET.DR PO (08:55)
[2024-03-01] MEDS: 0.9 % Sodium Chloride Flush 3 ML SYRINGE IVFLUSH (08:56)
[2024-03-01] MEDS: Ammonium Lactate 12 % Lotion 226 GM BOTTLE 1 APPL TOPICAL (08:56)
[2024-03-01] MEDS: Fluticasone Propionate Nasal 16 GM SPRAY 1 SPRAY NOSTRIL-B (09:16)
--- NOTE | 2024-03-01 11:15 | MHC.CM.PN ---
pt home via shuttle [facility] notified of dc
[2024-03-01 11:21] LABS: Glucose, Whole Blood 76 mg/dL (60-115)
--- NOTE | 2024-03-01 11:44 | P.DS_ITS ---
DS: Providers Provider Date of Service: 03/01/24 Date of admission: 02/28/24 00:57 Primary care physician: Angelica Osborne MD DS: Diagnosis Discharge Diagnosis (1) Left leg cellulitis: Status: Acute (2) Elevated CK: Status: Acute (3) Urinary tract infection: Status: Acute (4) Rhabdomyolysis: Status: Acute (5) Acute kidney injury: Status: Acute DS: Summary Hospital Course Hospital Course: Admission note MISSY Reis is a 63 years old woman with past medical history significant for hyp othyroidism, asthma, hyperlipidemia, sciatica/chronic back pain, morbid obesity, type 2 diabetes mellitus, depression and hyperlipidemia was brought to the emergency department via EMS due to worsening lower extremity edema, erythema and pain since yesterday afternoon. The patient seems to be confused. He said that she was scratched by her cat in the left tight. According to ED provider the patient was complaining of double vision. Patient denied any headache, chest pain, shortness on breath, abdominal pain, nausea, vomiting or diarrhea. In the ED, she was found to have stable vital signs. Blood workup showed leukocytosis that has been trending down 13.2 --> 12.3. Hemoglobin and platelets are normal. Initial creatinine was 1.42, repeat is 1.29. BUN is now normal. There are significant electrolyte imbalances. Total CK is 1145. Troponin is negative. TSH is normal. Urinalysis is consistent with UTI and and microscopic hematuria. Viral testing is negative for COVID-19, RSV and influenza. Head and C-spine CT scan showed no acute abnormalities. CXR is unremarkable. ECG showed normal sinus rhythm with no acute ischemic changes. ED tx: NS 1 L bolus, ceftriaxone 1 g IV Hospital course # Acute encephalopathy secondary to acute UTI and left lower extremity cellulitis which resolved after treated with IV Unasyn and vancomycin as 1 set of Blood cx grew GNR likely contaminent with repeated labs negative up to time of discharge. cellulitis improved with less pain, erythema and swelling. # Acute kidney injury Likely secondary to furosemide, lisinopril that improved with IV fluids and holding nephrotoxic agents. follow BMP as outpatient. # acute Rhabdomyolysis. improved as CK trended down with IV fluids. # Acute inpatient delerium requiried IM Zyprexa with good response. more alert and itneractive after coming up to medical floor. oriented x3. Discharge plan Continue antibiotics for 1 more week keep your legs elevated apply moisturing cream follow with primary care as outpatient Time Attestation Discharge Coordination Time (in mins): 38 Quality: Safe Use of Opioids Does Pt have an Active Cancer Diagnosis on the Problem List?: No Quality: Stroke Does the patient have a stroke diagnosis?: No Physical Exam Vital Signs: Vital Signs: Last Vital Signs Temp 97.3 F 03/01/24 07:23 Pulse 74 03/01/24 07:23 Resp 18 03/01/24 07:23 BP 117/56 L 03/01/24 08:55 Pulse Ox 92 03/01/24 07:23 O2 Del Method Room Air 03/01/24 07:23 O2 Flow Rate 2 02/29/24 14:10 BMI result Body Mass Index 42.5 Const: Other: Constitutional : Awake, slow and sleepy, obese, not in distress Neck : Normal inspection, Supple Cardiovascular : RRR, no JVP, no lower extremity edema Respiratory : good bilateral air entry, no crackles, wheezes or rhonchi Gastrointestinal: soft, lax, Normal bowel sounds, Non tender Skin : Warm, Dry Neurological : Alert & confused, No focal deficit DS: Data Data Completed and Pending Labs on day of discharge: Laboratory Results - last 24 hr 02/29/24 02/29/24 02/29/24 17:14 20:37 20:46 WBC RBC Hgb Hct MCV MCH MCHC RDW Plt Count MPV Absolute Nucleated RBC Nucleated RBC % (auto) Sodium Potassium Chloride Carbon Dioxide Anion Gap BUN Creatinine Estim Creat Clear Calc Estimated GFR POC Glucose 141 H 79 Random Glucose Calcium Random Vancomycin 10.0 L 02/29/24 02/29/24 03/01/24 21:20 22:45 05:42 WBC 7.4 RBC 4.08 L Hgb 12.6 Hct 38.0 MCV 93.1 MCH 30.9 MCHC 33.2 RDW 14.2 Plt Count 213 MPV 10.5 Absolute Nucleated RBC 0.000 Nucleated RBC % (auto) 0.0 Sodium 141 Potassium 3.3 Chloride 108 Carbon Dioxide 21 L Anion Gap 15 BUN 13 Creatinine 0.88 Estim Creat Clear Calc Estimated GFR POC Glucose 93 156 H Random Glucose Calcium Random Vancomycin 03/01/24 03/01/24 03/01/24 05:42 05:42 05:42 WBC RBC Hgb Hct MCV MCH MCHC RDW Plt Count MPV Absolute Nucleated RBC Nucleated RBC % (auto) Sodium Potassium Chloride Carbon Dioxide Anion Gap BUN Creatinine 0.94 Estim Creat Clear Calc 79.4 74.4 Estimated GFR > 60 > 60 POC Glucose Random Glucose 109 Calcium 8.7 Random Vancomycin 03/01/24 03/01/24 07:25 11:15 WBC RBC Hgb Hct MCV MCH MCHC RDW Plt Count MPV Absolute Nucleated RBC Nucleated RBC % (auto) Sodium Potassium Chloride Carbon Dioxide Anion Gap BUN Creatinine Estim Creat Clear Calc Estimated GFR POC Glucose 103 76 Random Glucose Calcium Random Vancomycin Preliminary micro results at discharge 02/28/24 00:58 Blood Culture - Preliminary Blood - Venous Gram positive filippo 02/29/24 08:39 Blood Culture - Preliminary Blood - Venous No growth after 24 hours. 02/29/24 08:43 Blood Culture - Preliminary Blood - Venous No growth after 24 hours. 02/28/24 00:58 Blood Culture - Preliminary Blood - Venous No growth after 48 hours. Imaging Chest x-ray: Radiologist's impression: ITS Impressions Cervical Spine CT 02/27/24 22:15 IMPRESSION: No acute intracranial pathology. No acute osseous abnormality within the cervical spine. Head CT 02/27/24 22:15 IMPRESSION: No acute intracranial pathology. No acute osseous abnormality within the cervical spine. Ribs w/Chest X-Ray 02/27/24 22:30 IMPRESSION: Unremarkable chest examination. Unremarkable bilateral rib exam with no visible fracture. Discharge Plan Discharge Anticipated Discharge Date/Time: 03/01/24 11:37 Patient Disposition: Home, Self-Care Discharge Diagnosis: Acute kidney injury Cellulitis Referrals: Angelica Osborne MD [Primary Care Provider] - 1 Week Discharge Medications: New doxycycline monohydrate 100 mg capsule 100 mg PO BID Qty: 14 0RF cefuroxime axetil 500 mg tablet 500 mg PO BID Qty: 14 0RF Continued doxepin 50 mg capsule 50 mg PO BEDTIME ropinirole 1 mg tablet 1 mg PO BEDTIME prazosin 1 mg capsule 1 mg PO BEDTIME cromolyn 4 % drops 1 drp ophthalmic (eye) Q6H acetaminophen 650 mg tablet extended release 650 mg PO Q8H PRN (Reason: Pain) baclofen 20 mg tablet 20 mg PO BID PRN (Reason: Muscle Spasm) baclofen 20 mg tablet 20 mg PO DAILY PRN (Reason: Muscle Spasm) famotidine 20 mg tablet 20 mg PO DAILY perphenazine 4 mg tablet 4 mg PO BID nicotine 21 mg/24 hr patch 24 hour 1 patch topical QAM docusate sodium 100 mg capsule 100 mg PO BID albuterol sulfate [Ventolin HFA] 90 mcg/actuation HFA aerosol inhaler 2 inh inhalation Q6H PRN (Reason: Shortness Of Breath Or Wheezing) fluticasone propionate 50 mcg/actuation spray,suspension 1 spray intranasal BID metformin 500 mg tablet extended release 24 hr 1,000 mg PO BID nicotine (polacrilex) 2 mg lozenge 2 mg PO Q1-2H PRN (Reason: Nicotine Cravings) pregabalin 75 mg capsule 75 mg PO BID calcium carbonate-vitamin D3 600 mg-10 mcg (400 unit) tablet 1 tab PO BID melatonin 5 mg tablet 10 mg PO BEDTIME PRN (Reason: insomnia) Trulicity 1.5 mg/0.5 mL pen injector 1.5 mg subcut TU aspirin [Adult Low Dose Aspirin] 81 mg tablet,delayed release (DR/EC) 81 mg PO DAILY clonazepam 1 mg tablet 1 mg PO BID levothyroxine 50 mcg tablet 50 mcg PO DAILY lisinopril 10 mg tablet 10 mg PO DAILY montelukast 10 mg tablet 10 mg PO DAILY pantoprazole 20 mg tablet,delayed release (DR/EC) 20 mg PO BID rosuvastatin 40 mg tablet 40 mg PO BEDTIME sertraline 100 mg tablet 100 mg PO QAM Discharge Orders: Discharge Order (Routine); Ordered 03/01/24 Ordered By: Sue Noel Diet: Advance to usual diet Activity on Discharge: As tolerated Stand Alone Forms: Patient Portal Discharge page Print Language: Djiboutian Other Ambulatory Orders: Basic Metabolic Panel (Routine) Timeframe: 1 Week Facility: [facility] - Location: Laboratory Ordered By: Sue Noel Care Plan Goals: Continue antibiotics for 1 more week keep your legs elevated apply moisturing cream follow with primary care as outpatient Health Concerns: Read below Plan of Treatment: Read below Assessment: Read below
== END 2024-03-01 12:22 | disposition home or self-care (01) | DRG 603 ==
LOC: HO.ED 02-28 00:50 → HO.EDOVER 02-28 01:21 → HO.S3 02-29 21:36
PROVIDERS: Registered Nurse Emergency; Admitting Provider Internal Medicine; Emergency Provider Internal Medicine; PCP Family Medicine; Visit Provider Student in an Organized Health Care Education/Training Program
DX: L03.116 Cellulitis of left lower limb (principal); N39.0 Urinary tract infection, site not specified; F05 Delirium due to known physiological condition; M62.82 Rhabdomyolysis; N17.9 Acute kidney failure, unspecified; Z68.41 Body mass index [BMI] 40.0-44.9, adult; G93.49 Other encephalopathy; E03.9 Hypothyroidism, unspecified; F17.210 Nicotine dependence, cigarettes, uncomplicated; E78.5 Hyperlipidemia, unspecified; E66.01 Morbid (severe) obesity due to excess calories; R31.29 Other microscopic hematuria; I10 Essential (primary) hypertension; J45.909 Unspecified asthma, uncomplicated; Z71.6 Tobacco abuse counseling; Z20.822 Contact with and (suspected) exposure to COVID-19; Z79.82 Long term (current) use of aspirin; Z79.84 Long term (current) use of oral hypoglycemic drugs; Z79.85 Long-term (current) use of injectable non-insulin antidiabetic drugs; Z79.890 Hormone replacement therapy; Z79.899 Other long term (current) drug therapy
CPT/HCPCS: 0241U; 36415; 70450; 71111; 72125; 80048; 80053; 80202; 80307; 81001; 82140; 82550; 82565; 82803; 82947; 84443; 84484; 85025; 85027; 85610; 87040; 87086; 87205; 93005; 99285; J0295; J0696; J1644; J2359; J3370; J3371; J7120

== ENCOUNTER → 2024-02-27 20:42 | Outpatient (BNV) | payer OTHER, SELFPAY | PROVIDERS: Admitting Provider Internal Medicine; Emergency Provider Internal Medicine; Visit Provider Internal Medicine Cardiovascular Disease | DX: R42 Dizziness and giddiness (principal) | CPT/HCPCS: 93010 ==

== ENCOUNTER → 2024-02-28 00:57 | Outpatient (BNV) | payer OTHER, SELFPAY | PROVIDERS: Admitting Provider Internal Medicine; Emergency Provider Internal Medicine; Visit Provider Internal Medicine | DX: L03.116 Cellulitis of left lower limb (principal); N30.00 Acute cystitis without hematuria; R74.8 Abnormal levels of other serum enzymes; M62.82 Rhabdomyolysis; N17.9 Acute kidney failure, unspecified | CPT/HCPCS: 99222; 99232; 99239; 99499 ==

== ENCOUNTER 2024-04-18 11:23 | Outpatient (REF) | payer OTHER, SELFPAY | END 2024-04-18 11:24 | disposition home or self-care (01) | LOC: HO.HOSX 11:23 | PROVIDERS: Visit Provider Orthopaedic Surgery | DX: Z13.89 Encounter for screening for other disorder (principal) ==

== ENCOUNTER 2024-05-16 10:08 | Outpatient (REF) | payer OTHER, SELFPAY | END 2024-05-16 10:09 | disposition home or self-care (01) | LOC: HO.HOSX 10:08 | PROVIDERS: Visit Provider Orthopaedic Surgery | DX: Z13.89 Encounter for screening for other disorder (principal) ==

== ENCOUNTER 2024-11-06 16:05 | Outpatient (REF) | payer OTHER, SELFPAY ==
[2024-11-06 18:11] LABS: Alanine Aminotransferase 30 U/L (0-31); Albumin Level 4.4 g/dL (3.5-5.0); Alkaline Phosphatase 94 U/L (39-117); Anion Gap 10 (12-20); Aspartate Amino Transferase 23 U/L (5-31); Bilirubin Direct 0.1 mg/dL (0.0-0.5); Bilirubin Total 0.4 mg/dL (0.0-1.0); Blood Urea Nitrogen 11 mg/dL (9-16); Calcium 9.5 mg/dL (8.4-10.2); Carbon Dioxide 28 mmol/L (22-29); Chloride 105 mmol/L (96-108); Cholesterol 138 mg/dL (<200); Estimated Glomerular Filt Rate > 60; Glucose Random 85 mg/dL (60-115); HDL Cholesterol 36 mg/dL (>40); LDL Cholesterol Calculated 68 mg/dL (<100); Sodium 139 mmol/L (135-145); Total Protein 7.8 g/dL (6.5-8.0); Triglycerides 172 mg/dL (<150)
[2024-11-06 18:26] LABS: Creatinine Urine 106.99 mg/dL; Microalbum/Creatinine Ratio Ur 60.7 ug/mg cr (<30)
[2024-11-06 18:27] LABS: B Type Natriuretic Peptide 34 pg/mL (<100)
[2024-11-06 18:29] LABS: TSH reflex Free T4 0.66 uIU/mL (0.32-4.0)
[2024-11-06 19:07] LABS: Reflex LDLD? No
--- OUTSIDE RECORDS SUMMARY | 2024-11-06 19:43 | XMS_ITS | Encounter Summary ---
Author Organization [employer] Address [address] [place] [address] Care Team Providers Care Math And Science Division Chair Name Role Phone Angelica Osborne MD Primary Care Provider [phone] Mao Mota PharmD Unavailable [phone] Armando De La Cruz ROOF ASSEMBLER Unavailable Unavailable Reason for Visit * Reason Onset Date Comments appt/partials periodic exam 08/17/2024 Encounter Details Date Type Department Care Team (Late st Contact Info) Description 08/17/2024 Telephone [facility] [address] [place], [place] [phone] Narendra Michele, PB [address] [place], [place] [phone] appt/partials periodic exam Social History Tobacco Use Types Packs/Day Years Used Date Smoking Tobacco: Every Day Cigarettes 1.5 44 Passive Smoke Exposure: Current Smokeless Tobacco: Never Comments:Smokes 1-2 packs a day Depression Answer Date Recorded Patient Health Questionnaire-9 Score 0 03/23/2024 Patient Health Questionnaire-9 Score 0 03/23/2024 Last PHQ-9: Questionnaire Data Not on file 0 03/23/2024 Housing Stability Answer Date Recorded What is your housing situation today? I have bee nickerson 07/26/[address] you li ve. Do you have problems with any of the following? None of the above 07/26/2023 Food Insecurity Answer Date Recorded Within the past 12 months, y ou worried that your food would run out before you got money to buy more: Sometimes True 2022 Within the past 12 months,th e food you bought just didn't last and you didn't have enough money to get more: Sometimes True 07/26/2023 Transportation Answer Date Recorded In the past 12 months, has l ack of transportation kept you from medical appts, meetings, work or from getting things needed for daily living? No 07/26/2023 Utilities Answer Date Recorded In the past 12 months, has t he electric, gas, oil or water company threatened to shut off services in your home? No 07/26/2023 Depression Answer Date Recorded Patient Health Questionnaire-2 Score 0 03/23/2024 Comments Unknown Sex and Gender Information Value Date Recorded Sex Assigned at Female 08/10/2022 10:17 AM EDT Legal Sex Female 10:17 AM EDT Gender Identity Female 08/10/2022 10:17 AM EDT Sexual Orientation Choose not to disclose 2021 10:17 AM EDT documented as of this encounter Miscellaneous Notes * Telephone Encounter - Kellee Lazar - 08/17/2024 12:09 PM EST Patient wait listed on 08/01 for periodic exam and to talk with provider on new partials. She called in again today but there is currently nothing available on PAR side. It was explained to patient upon review that it would be a repair visit unless she is intending to pay out of pocket because the partials she currently has are a only a couple years old. She is interested in the repair. Please reach out to patient DR documented in this encounter Plan of Treatment Upcoming Encounters Date Type Department Care Team (Late st Contact Info) Description 11/17/2024 3:30 PM EST Office Visit [facility] [address] [place] [address] Yves Barron DDS [address] [place] [address] documented as of this encounter Goals Goal Patient Goal Type Associated Problems Recent Progress Patient-Stated? Author Quit using tobacco (cigarettes, smokeless, etc) Tobacco Use No Mao Mota, PharmD documented as of this encounter Visit Diagnoses Not on filedocumented in this encounter Additional Health Concerns Assessment Noted Time PHQ-9 Depression Total Score: 0 03/23/20 24 2:25 PM EDT documented as of this encounter Care Teams Math And Science Division Chair Relationship Specialty Start Date End Date Angelica Osborne MD [address] [place] [phone] PCP - General Family Medicine 10/11/18 Mao Mota, MerD [address] [place] [address] Pharmacist Internal Medicine 08/31/23 Armando De La Cruz FNP [address] [place] [address] Nurse Practitioner Family Medicine 08/31/23 documented as of this encounter
--- OUTSIDE RECORDS SUMMARY | 2024-11-06 19:43 | XMS_ITS | Encounter Summary ---
Author Organization [employer] [facility] Address [address] [facility] 7t [place] [address] Care Team Providers Care Construction Area Manager Name Role Phone Angelica Osborne MD Primary Care Provider [phone] Mao Mota PharmD Unavailable [phone] Armando De La Cruz CASINO GAMING WORKER Unavailable Unavailable Reason for Visit * Reason Comments Med Refill Encounter Details Date Type Department Care Team (Late st Contact Info) Description 10/06/2022 Refill [facility] MEDICINE [address] [place] [address] Angelica Osborne MD [address] [place], [place] [phone] Pain Social History Tobacco Use Types Packs/Day Years Used Date Smoking Tobacco: Never Assessed Comments Unknown Sex and Gender Information Value Date Recorded Sex Assigned at Female 08/10/2022 10:17 AM EDT Legal Sex Female 10:17 AM EDT Gender Identity Female 08/10/2022 10:17 AM EDT Sexual Orientation Choose not to disclose 2021 10:17 AM EDT documented as of this encounter Plan of Treatment Upcoming Encounters Date Type Department Care Team (Late st Contact Info) Description 11/17/2024 3:30 PM EST Office Visit [facility] ADULT DENTAL [address] [place] [address] Yves Barron DDS [address] [place] [address] documented as of this encounter Visit Diagnoses Diagnosis Pain Generalized pain documented in this encounter Care Teams Construction Area Manager Relationship Specialty Start Date End Date Angelica Osborne MD [address] [place] [address] PCP - General Family Medicine 10/11/18 Mao Mota, MerD [address] [place] [address] Pharmacist Internal Medicine 08/31/23 Armando De La Cruz FNP [address] [place] [address] Nurse Practitioner Family Medicine 08/31/23 documented as of this encounter
--- OUTSIDE RECORDS SUMMARY | 2024-11-06 19:43 | XMS_ITS | Encounter Summary ---
Author Organization [employer] Address [address] [facility] 7[address] [place] [address] Care Team Providers Care Boilers Inspector Name Role Phone Angelica Osborne MD Primary Care Provider [phone] Mao Mota PharmD Unavailable [phone] Armando De La Cruz ELECTRICIAN POWERHOUSE Unavailable Unavailable Encounter Details Date Type Department Care Team (Late Contact Info) Description 03/22/2023 Orders Only [facility] MEDICINE [address] [place], [place] [phone] Oadlys Frank LPN Social History Tobacco Use Types Packs/Day Years Used Date Smoking Tobacco: Every Day Cigarettes 0.5 44 Comments Unknown Sex and Gender Information Value Date Recorded Sex Assigned at Female 08/10/2022 10:17 AM EDT Legal Sex Female 10:17 AM EDT Gender Identity Female 08/10/2022 10:17 AM EDT Sexual Orientation Choose not to disclose 2021 10:17 AM EDT COVID-19 Exposure Response Date Recorded In the last 10 days, have yo u been in contact with someone who was confirmed or suspected to have Coronavirus/COVID-19? No / Unsure 03/09/2023 2:41 PM EDT documented as of this encounter Plan of Treatment Upcoming Encounters Date Type Department Care Team (Late Contact Info) Description 11/17/2024 3:30 PM EST Office Visit [facility] ADULT DENTAL [address] [place], [place] [phone] Yves Barron DDS [address] [place], [place] [phone] documented as of this encounter Visit Diagnoses Not on filedocumented in this encounter Additional Health Concerns Assessment Noted Time PHQ-9 Depression Total Score: 2 02/16/20 23 3:26 PM EDT documented as of this encounter Care Teams Boilers Inspector Relationship Specialty Start Date End Date Angelica Osborne MD [address] [place] [phone] PCP - General Family Medicine 10/11/18 Mao Mota, MerD [address] [place] [phone] Pharmacist Internal Medicine 08/31/23 Armando De La Cruz FNP [address] [place] [address] Nurse Practitioner Family Medicine 08/31/23 documented as of this encounter
--- OUTSIDE RECORDS SUMMARY | 2024-11-06 19:43 | XMS_ITS | Encounter Summary ---
Author Organization [employer] Address [address] [facility] 7t [place] [address] Care Team Providers Care Antisubmarine Weapons Officer Name Role Phone Angelica Osborne MD Primary Care Provider [phone] Mao Mota PharmD Unavailable [phone] Armando De La Cruz SUPERVISING FILM OR VIDEOTAPE EDITOR Unavailable Unavailable Reason for Visit * Reason Onset Date Comments Appointment Request 02/01/2023 Encounter Details Date Type Department Care Team (Late st Contact Info) Description 02/01/2023 Telephone [facility] MEDICINE [address] [place], [place] [phone] Angelica Osborne MD [address] [place], [place] [phone] Appointment Request Social History Tobacco Use Types Packs/Day Years [...] encounter Miscellaneous Notes * Telephone Encounter - Ramiro Rossi - 02/01/2023 3:51 PM EDT Tc from pt requesting to R/S appt on 02/02/23 ( HTN/asthma (r/s from 01/04/23) ) Please contact pt at [phone] documented in this encounter Plan of Treatment Upcoming Encounters Date Type Department Care Team (Late st Contact Info) Description 11/17/2024 3:30 PM EST Office Visit [facility] ADULT DENTAL [address] [place] [address] Yves Barron DDS [address] [place], [place] documented as of this encounter Visit Diagnoses Not on filedocumented in this encounter Additional Health Concerns Assessment Noted Time PHQ-9 Depression Total Score: 0 10/20/19 3:40 PM EST documented as of this encounter Care Teams Antisubmarine Weapons Officer Relationship Specialty Start Date End Date Angelica Osborne MD [address] [place], [place] PCP - General Family Medicine 10/11/18 Mao Mota, MerD [address] [place] [address] Pharmacist Internal Medicine 08/31/23 Armando De La Cruz FNP [address] [place] [address] Nurse Practitioner Family Medicine 08/31/23 documented as of this encounter
--- OUTSIDE RECORDS SUMMARY | 2024-11-06 19:43 | XMS_ITS | Encounter Summary ---
Author Organization [employer] Address [address] 7[address] [place] [address] Care Team Providers Care Precision Assembler Bench Name Role Phone Angelica Osborne MD Primary Care Provider [phone] Mao Mota PharmD Unavailable [phone] Armando De La Cruz REHAB THERAPIST Unavailable Unavailable Encounter Details Date Type Department Care Team ([facility] st Contact Info) Description 08/16/2024 Telephone [facility] MEDICINE [address] [place], [place] [phone] Angelica Osborne MD [address] [place], [place] [phone] Social History Tobacco Use Types Packs/Day Years [...] encounter Miscellaneous Notes * Telephone Encounter - Lena Guy RN - 08/17/2024 9:19 AM EST TC [place] to [facility] [place]uling to clarify the reason for ordering [facility] US Lower Extremity Venous Duplex. Per provider the imaging was ordered In part to r/o DVT-low suspicion for chronicitybut also venous insufficiency . Per [facility] the ordering reason needs to be either one or the other as both have different appt times. (Either to rule out DVT or venous insufficiency) * Telephone Encounter - Agatha Palma - 08/16/2024 12:16 PM EST Tc from [place] with [facility] scheduling requesting Clarification on order sent 08/11/24. Would like to know if order was made to rule out DVT. Best contact # [phone]. documented in this encounter Plan of Treatment Upcoming Encounters Date Type Department Care Team (Late st Contact Info) Description 11/17/2024 3:30 PM EST Office Visit [facility] ADULT DENTAL [address] [place] [address] Yves Barron DDS [address] [place] [address] documented as of this encounter Goals Goal [...] documented as of this encounter Care Teams Precision Assembler Bench Relationship Specialty Start Date End Date Angelica Osborne MD [address] [place] [address] PCP - General Family Medicine 10/11/18 Mao Mota, PharmD [address] [place] [address] Pharmacist Internal Medicine 08/31/23 Armando De La Cruz FNP [address] [place] [phone] Nurse Practitioner Family Medicine 08/31/23 documented as of this encounter
--- OUTSIDE RECORDS SUMMARY | 2024-11-06 19:43 | XMS_ITS | Encounter Summary ---
Author Organization [employer] Address [address] [facility] 7t [place] [address] Care Team Providers Care Pharmacy Technician Name Role Phone Angelica Osborne MD Primary Care Provider [phone] Mao Mota PharmD Unavailable [phone] Armando De La Cruz ASSOCIATE PROFESSOR OF GEOLOGY Unavailable Unavailable Encounter Details Date Type Department Care Team (Late st Contact Info) Description 02/17/2023 Telephone [facility] [address] [place], [place] [phone] Angelica Osborne MD [address] [place], [place] [phone] Social History Tobacco Use Types Packs/Day Years [...] Visit [facility] ADULT DENTAL [address] [place], [place] [phone] Yves Barron DDS [address] [place], [place] [phone] documented as of this encounter Visit Diagnoses Not on filedocumented in this encounter Additional Health Concerns Assessment Noted Time PHQ-9 Depression Total Score: 2 02/16/20 3:26 PM EDT documented as of this encounter Care Teams Pharmacy Technician Relationship Specialty Start Date End Date Angelica Osborne MD [address] [place] [address] PCP - General Family Medicine 10/11/18 Mao Mota, Margaux [address] [place] [address] Pharmacist Internal Medicine 08/31/23 Armando De La Cruz FNP [address] [place] [address] Nurse Practitioner Family Medicine 08/31/23 documented as of this encounter
--- OUTSIDE RECORDS SUMMARY | 2024-11-06 19:43 | XMS_ITS | Encounter Summary ---
Author Organization [employer] Address [address] [facility] [address] [place] [address] Care Team Providers Care Ball Point Splitter Name Role Phone Angelica Osborne MD Primary Care Provider [phone] Mao Mota PharmD Unavailable [phone] Armando De La Cruz DOT ETCHER Unavailable Unavailable Reason for Visit * Reason Onset Date Comments Appointment Request 08/10/2024 Encounter Details Date Type Department Care Team (Late st Contact Info) Description 08/10/2024 Telephone [facility] MEDICINE 230 [place], [place] [phone] Angelica Osborne MD 230 [place] [address] Appointment Request Social History Tobacco Use Types [...] encounter Miscellaneous Notes * Telephone Encounter - Angelica Chen - 08/10/2024 1:39 PM EDT Tc from pt requesting to r/s follow up extended appt scheduled for today 08/10/24, appt was a no show. Pt is requesting afternoons. Please contact at [phone] documented in this encounter Plan of Treatment Upcoming Encounters Date Type Department Care Team (Late st Contact Info) Description 11/17/2024 3:30 PM EST Office Visit [facility] ADULT DENTAL [address] [place] [address] Yves Barron DDS 230 [place] [address] documented as of this encounter Goals Goal Patient Goal Type Associated Problems Recent Progress Patient-Stated? Author Quit using tobacco (cigarettes, smokeless, etc) Tobacco Use No Mao Mota, MerD documented as of this encounter Visit Diagnoses Not on filedocumented in this encounter Additional Health Concerns Assessment Noted Time PHQ-9 Depression Total Score: 0 03/23/20 24 2:25 PM EDT documented as of this encounter Care Teams Ball Point Splitter Relationship Specialty Start Date End Date Angelica Osborne MD [address] [place] [address] PCP - General Family Medicine 10/11/18 Mao Mota, PharmD [address] [place] [address] Pharmacist Internal Medicine 08/31/23 Armando De La Cruz FNP [address] [place] [address] Nurse Practitioner Family Medicine 08/31/23 documented as of this encounter
--- OUTSIDE RECORDS SUMMARY | 2024-11-06 19:43 | XMS_ITS | Encounter Summary ---
Author Organization [employer] Address [address] [facility] 7t [place] [address] Care Team Providers Care Staff Design Engineer Name Role Phone Angelica Osborne MD Primary Care Provider [phone] Mao Mota PharmD Unavailable [phone] Armando De La Cruz CHANNEL PROCESS SUPERVISOR Unavailable Unavailable Reason for Visit * Reason Comments Med Refill Encounter Details Date Type Department Care Team (Late st Contact Info) Description 08/23/2024 Refill [facility] MEDICINE 230 [place], [place] [phone] Angelica Osborne MD 230 [place], [place] [phone] Type 2 diabetes mellitus with hyperglycemia, without long-term current use of insulin ([facility]) Social History Tobacco Use Types Packs/Day Years [...] 11/17/2024 3:30 PM EST Office Visit [facility] ADULT DENTAL 230 [place] [address] Yves Barron DDS 230 [place] [address] documented as of this encounter Goals Goal Patient Goal Type Associated Problems Recent Progress Patient-Stated? Author Quit using tobacco (cigarettes, smokeless, etc) Tobacco Use No Mao Mota, MerD documented as of this encounter Visit Diagnoses Diagnosis Type 2 diabetes mellitus with hyperglycemia, without long-term current use of insulin ([facility]) documented in this encounter Additional Health Concerns Assessment Noted Time PHQ-9 Depression Total Score: 0 03/23/20 24 2:25 PM EDT documented as of this encounter Care Teams Staff Design Engineer Relationship Specialty Start Date End Date Angelica Osborne MD [address] [place] [address] PCP - General Family Medicine 10/11/18 Mao Mota, MerD [address] [place] [address] Pharmacist Internal Medicine 08/31/23 Armando De La Cruz FNP 230 [place] [address] Nurse Practitioner Family Medicine 08/31/23 documented as of this encounter
--- OUTSIDE RECORDS SUMMARY | 2024-11-06 19:44 | XMS_ITS | Encounter Summary ---
Author Organization [employer] Address [address] [facility] [address] [place] [address] Care Team Providers Care Rn Infusion Name Role Phone Angelica Osborne MD Primary Care Provider [phone] Mao Mota PharmD Unavailable [phone] Armando De La Cruz STUDENT ACCOUNTS COORDINATOR Unavailable Unavailable Reason for Visit * Reason Onset Date Comments Nurse Triage 09/06/2023 Encounter Details Date Type Department Care Team (Late st Contact Info) Description 09/06/[address] [facility] MEDICINE 230 [place], [place] [phone] Angelica Osborne MD 230 [place] [address] Nurse Triage Social History Tobacco Use Types Packs/Day Years Used Date Smoking Tobacco: Every Day Cigarettes 1.5 44 Passive Smoke Exposure: Current Smokeless Tobacco: Never Comments:Smokes 1-2 packs a day Depression Answer Date Recorded Patient Health Questionnaire-9 Score 3 06/08/2023 Housing Stability Answer Date Recorded What is [...] Date Recorded Patient Health Questionnaire-2 Score 0 06/08/2023 Comments Unknown Sex and Gender Information Value Date Recorded Sex Assigned at Female 08/10/2022 10:17 AM EDT Legal Sex Female 10:17 AM EDT Gender Identity Female 08/10/2022 10:17 AM EDT Sexual Orientation Choose not to disclose 2021 10:17 AM EDT documented as of this encounter Miscellaneous Notes * Telephone Encounter - Rebekah Noble RN - 09/06/2023 4:17 PM EST Triage call Pt reports right earache. Pt denies drainage. Pt reports the pain comes from pimples that are in the ear the canal area and they get swollen and cause blockage. Pt denies redness, swelling on outside of ear. Pt is offered WIC today but declines request apt next month. Apt with PSYCH RN Christopher 09/17/23 @ 115pm. Advised to try ice/ heat to ear for discomfort, tylenol/ibuprofen. Protocol Used: Earache (Adult) Protocol-Based Disposition: See in Office or Video Visit Today or Tomorrow Override (Final) Disposition: See in Office or Video Visit within 2 Weeks Override Reason: Other Override Notes: patient requests apt next month Positive Triage Questions: * All other earaches (Exceptions: Earache lasting < 1 hour, and earache from air travel.) * Patient wants to be seen * All higher-acuity triage questions were negative Care Advice Discussed: * Pain Medicines * Pain Medicines - Extra Notes and Warnings * Apply Cold to the Area for Pain * Avoid Earplugs * Contagiousness * Reasons To Call Back - Earache last more than 1 hour - High fever, severe headache, or stiff neck occurs - You become worse * Telephone Encounter - Elian Rocha - 09/06/2023 3:54 PM EST Symptom: Earache and discharge from right ear Outcome: Schedule an urgent appointment (within 1 hour) or talk to a nurse or provider soon Reason: Severe pain now The caller accepted this outcome documented in this encounter Plan of Treatment Upcoming Encounters Date Type Department Care Team (Late st Contact Info) Description 11/17/2024 3:30 PM EST Office Visit [facility] ADULT DENTAL [address] [place] [address] Yves Barron DDS [address] [place] [address] documented as of this encounter Goals Goal Patient Goal Type Associated Problems Recent Progress Patient-Stated? Author Quit using tobacco (cigarettes, smokeless, etc) Tobacco Use No Mao Mota, PharmD documented as of this encounter Visit Diagnoses Not on filedocumented in this encounter Additional Health Concerns Assessment Noted Time PHQ-9 Depression Total Score: 3 06/08/20 23 2:22 PM EDT documented as of this encounter Care Teams Rn Infusion Relationship Specialty Start Date End Date Angelica Osborne MD 230 [place] [address] PCP - General Family Medicine 10/11/18 Mao Mota, PharmD [address] [place] [address] Pharmacist Internal Medicine 08/31/23 Armando De La Cruz FNP [address] [place] [address] Nurse Practitioner Family Medicine 08/31/23 documented as of this encounter
--- OUTSIDE RECORDS SUMMARY | 2024-11-06 19:44 | XMS_ITS | Encounter Summary ---
Author Organization [employer] Address [address] [facility] [address] [place] [address] Care Team Providers Care Director Operating Name Role Phone Angelica Osborne MD Primary Care Provider [phone] Mao Mota PharmD Unavailable [phone] Armando De La Cruz COMPUTER TYPESETTER KEYLINER Unavailable Unavailable Encounter Details Date Type Department Care Team (Latest Contact Info) Description 11/06/2024 Travel Social History Tobacco Use Types Packs/Day Years [...] t he electric, gas, oil or water [employer] threatened to shut off services in your [...] Description 11/17/2024 3:30 PM EST Office Visit [facility] ADULT DENTAL 230 [place], [place] [phone] Yves Barron DDS 230 [place] [address] documented as of this encounter Goals Goal [...] documented as of this encounter Care Teams Director Operating Relationship Specialty Start Date End Date Angelica Osborne MD 230 [place] [address] PCP - General Family Medicine 10/11/18 Mao Mota, PharmD [address] [place] [address] Pharmacist Internal Medicine 08/31/23 Armando De La Cruz FNP [address] [place] [address] Nurse Practitioner Family Medicine 08/31/23 documented as of this encounter
--- OUTSIDE RECORDS SUMMARY | 2024-11-06 19:44 | XMS_ITS | Encounter Summary ---
Author Organization [employer] Address 75 [facility] 7t [place] [address] Care Team Providers Care Jewelry Consultant Name Role Phone Angelica Osborne MD Primary Care Provider [phone] Mao Mota PharmD Unavailable [phone] Armando De La Cruz SECURITY SUPERVISOR Unavailable Unavailable Reason for Visit * Reason Onset Date Comments Med Refill Appointment 04/07/2023 LVM-Re: her appt for today as [id number] @2pm. Encounter Details Date Type Department Care Team (Late Contact Info) Description 04/07/2023 Refill [facility] MEDICINE [address] [place], [place] [phone] Angelica Osborne MD 230 [place], [place] [phone] Social History Tobacco Use Types Packs/Day Years [...] Description 11/17/2024 3:30 PM EST Office Visit [facility] ADULT DENTAL [address] [place] [address] Yves Braron DDS [address] [place] [address] documented as of this encounter Visit Diagnoses Not on filedocumented in this encounter Additional Health Concerns Assessment Noted Time PHQ-9 Depression Total Score: 2 02/16/20 23 3:26 PM EDT documented as of this encounter Care Teams Jewelry Consultant Relationship Specialty Start Date End Date Angelica Osborne MD [address] [place], [place] [phone] PCP - General Family Medicine 10/11/18 Mao Mota, MerD [address] [place] [address] Pharmacist Internal Medicine 08/31/23 Armando De La Cruz FNP [address] [place] [address] Nurse Practitioner Family Medicine 08/31/23 documented as of this encounter
--- OUTSIDE RECORDS SUMMARY | 2024-11-06 19:44 | XMS_ITS | Clinical Summary ---
Author Organization [facility] Address [address] [place] [address] Care Team Providers Care Fly Finisher Name Role Phone Unavailable Primary Care Provider Unavailabl e Social History Tobacco Use Types Packs/Day Years Used Date Smoking Tobacco: Never Assessed Sex and Gender Information Value Date Recorded Sex Assigned at Not on file Gender Identity Not on file Sexual Orientation Not on file Plan of Treatment Health Maintenance Due Date Last Done Comments Breast Cancer Screening 1962 DTaP,Tdap,and Td Vaccines (1 - Tdap) 1981 Cervical Cancer Screening: P ap Smear 1983 Zoster Vaccines (1 of 2) 2012 COVID-19 Vaccine (2023-2 5 season) 2024 Influenza Vaccine (#1) 2024 RSV Immunization Patients 60 + Years Old (1 - 1-dose 75+ series) 2037 HIB Vaccines Aged Out No longer eligi ble based on patient's age to complete this topic HPV Vaccines Aged Out No longer eligi ble based on patient's age to complete this topic Hepatitis A Vaccines Aged Out No long er eligible based on patient's age to complete this topic Hepatitis B Vaccines Aged Out No long er eligible based on patient's age to complete this topic IPV Vaccines Aged Out No longer eligi ble based on patient's age to complete this topic MMR Vaccines Aged Out No longer eligi ble based on patient's age to complete this topic Meningococcal ACWY Vaccine Aged Out N o longer eligible based on patient's age to complete this topic Pneumococcal Vaccine: Pediat rics (0 to 5 Years) and At-Risk Patients (6 to 64 Years) Aged Out No longer eligible b ased on patient's age to complete this topic RSV Immunization Patients Un mike 20 months Aged Out No longer eligible b ased on patient's age to complete this topic Varicella Vaccines Aged Out No longer eligible based on patient's age to complete this topic
--- OUTSIDE RECORDS SUMMARY | 2024-11-06 19:44 | XMS_ITS | Encounter Summary ---
Author Organization [employer] Address [address] [facility] [address]t [place] [address] Care Team Providers Care Gold Leaf Layer Name Role Phone Angelica Osborne MD Primary Care Provider Mao Mota PharmD Unavailable [phone] Armando De La Cruz DEPORTATION EXAMINER Unavailable Unavailable Reason for Visit * Reason Onset Date Comments Appointment Confirmation 10/13/2024 I sahu d the patient and there was no answer. I wanted to confirm her us appt for 10/31 and confirm if she needed transportation. There was no answer so left a vm to patient stating about the appointment and to please call us back for transportation. Encounter Details Date Type Department Care Team (Late st Contact Info) Description 10/13/2024 Telephone [facility] 230 [place], [place] [phone] [place], [place] Appointment Confirmation (I called the patient and there was no answer. I wanted to confirm her us appt for 10/31 and confirm if she needed transportation. There was no answer so left a vm to patient stating about the appointment and to please call us back for transportation.) Social History Tobacco Use Types Packs/Day Years [...] encounter Miscellaneous Notes * Telephone Encounter - Vickey Lima MA - 10/13/2024 9:50 AM EST I called the patient and there was no answer. I wanted to confirm her us appt for 10/31 and confirm if she needed transportation. There was no answer so left a vm to patient stating about the appointment and to please call us back for transportation. documented in this encounter Plan of Treatment Upcoming Encounters Date Type Department Care Team (Late st Contact Info) Description 11/17/2024 3:30 PM EST Office Visit [facility] ADULT DENTAL [address] [place] [address] Yves Barron DDS [address] [place] [address] documented as of this encounter Goals Goal [...] documented as of this encounter Care Teams Gold Leaf Layer Relationship Specialty Start Date End Date Angelica Osborne MD [address] [place] [address] PCP - General Family Medicine 10/11/18 Mao Mota, PharmD [address] [place] [address] Pharmacist Internal Medicine 08/31/23 Armando De La Cruz FNP [address] [place] [address] Nurse Practitioner Family Medicine 08/31/23 documented as of this encounter
--- OUTSIDE RECORDS SUMMARY | 2024-11-06 19:44 | XMS_ITS | Encounter Summary ---
Author Organization [employer] Address [address] [facility] [address] 7[address] [place] [address] Care Team Providers Care Supervisor Press Room Name Role Phone Angelica Osborne MD Primary Care Provider [phone] Mao Mota PharmD Unavailable [phone] Armando De La Cruz TABLET COATER Unavailable Unavailable Reason for Visit * Reason Onset Date Comments Nurse Triage 12/13/2023 Encounter Details Date Type Department Care Team (Late st Contact Info) Description 12/13/2023 Telephone [facility] MEDICINE 230 [place], [place] [phone] Angelica Osborne MD 230 [place] [address] Nurse Triage Social History Tobacco Use Types Packs/Day Years Used Date Smoking Tobacco: Every Day Cigarettes 1.5 44 Passive Smoke Exposure: Current Smokeless Tobacco: Never Comments:Smokes 1-2 packs a day Depression Answer Date Recorded Patient Health Questionnaire-9 Score 4 12/07/2023 Patient Health Questionnaire-9 Score 4 12/07/2023 Last PHQ-9: Questionnaire Data Not on file 0 12/07/2023 Housing Stability Answer Date Recorded What is [...] Date Recorded Patient Health Questionnaire-2 Score 0 12/07/2023 Comments Unknown Sex and Gender Information Value Date Recorded Sex Assigned at Female 08/10/2022 10:17 AM EDT Legal Sex Female 10:17 AM EDT Gender Identity Female 08/10/2022 10:17 AM EDT Sexual Orientation Choose not to disclose 2021 10:17 AM EDT documented as of this encounter Miscellaneous Notes * Telephone Encounter - Rebekah Noble RN - 12/13/2023 2:00 PM EST Triage call Pt reports bilateral knee pain, unable to ambulate very far. Bilateral knees reported to be reddened , swollen and warm to touch. Pt reports no pain medication and tylenol/motrin ineffective. Pt is offered to come to [facility] today but, declines. Pt is unable to come to clinic. Insted visit is requested. Pt agrees with this visit and Insurance is verified as active. Protocol Used: Knee Pain (Adult) Protocol-Based Disposition: See in Office or Video Visit Today Video visit not offered Positive Triage Questions: * Severe pain (e.g., excruciating, unable to walk) * Very swollen knee joint * All higher-acuity triage questions were negative Care Advice Discussed: * Reassurance and Education - Knee Pain * Pain Medicines * Pain Medicines - Extra Notes and Warnings * Reasons To Call Back - Moderate pain (e.g., limping) lasts more than 3 days - Mild pain lasts more than 7 days - Signs of infection occur (e.g., spreading redness, warmth, fever) - You become worse * Use a Cold Pack for Pain * Use Heat After 48 Hours for Pain * Telephone Encounter - Kemi Urena - 12/13/2023 1:23 PM EST Symptom: Knee Pain - Not From Injury Outcome: Schedule an urgent appointment (within 1 hour) or talk to a nurse or provider soon Reason: Trouble walking The caller accepted this outcome Please contact pt at [phone] documented in this encounter Plan of Treatment Upcoming Encounters Date Type Department Care Team (Late st Contact Info) Description 11/17/2024 3:30 PM EST Office Visit [facility] ADULT DENTAL 230 [place] [address] Yves Barron DDS 230 [place] [address] documented as of this encounter Goals Goal Patient Goal Type Associated Problems Recent Progress Patient-Stated? Author Quit using tobacco (cigarettes, smokeless, etc) Tobacco Use No Mao Mota, PharmD documented as of this encounter Visit Diagnoses Not on filedocumented in this encounter Additional Health Concerns Assessment Noted Time PHQ-9 Depression Total Score: 4 12/07/19 24 11:31 AM EST documented as of this encounter Care Teams Supervisor Press Room Relationship Specialty Start Date End Date Angelica Osborne MD [address] [place] [address] PCP - General Family Medicine 10/11/18 Mao Mota, PharmD [address] [place] [address] Pharmacist Internal Medicine 08/31/23 Armando De La Cruz FNP [address] [place], [place] Nurse Practitioner Family Medicine 08/31/23 documented as of this encounter
--- OUTSIDE RECORDS SUMMARY | 2024-11-06 19:44 | XMS_ITS | Encounter Summary ---
Author Organization [employer] Address [address] [facility] [address] [place] [address] Care Team Providers Care Wrapping Checker Name Role Phone Angelica Osborne MD Primary Care Provider [phone] Mao Mota PharmD Unavailable [phone] Armando De La Cruz INVENTORY TRANSCRIBER Unavailable Unavailable Reason for Visit * Reason Onset Date Comments Lab Orders 10/09/2024 Encounter Details Date Type Department Care Team (Late st Contact Info) Description 10/09/2024 Telephone [facility] MEDICINE 230 [place], [place] [phone] Angelica Osborne MD 230 [place], [place] [phone] Lab Orders Social History Tobacco Use Types Packs/Day Years [...] encounter Miscellaneous Notes * Telephone Encounter - Carole Grier RN - 10/10/2024 9:21 AM EST Telephone call to pt to check to see if she has appt scheduled for ultrasound or TTE. Per triage note yesterday, pt reached out and was given the number to contact [facility] ultrasound dept and said that she would do so. Will retask to call again. * Telephone Encounter - Carole Grier RN - 10/09/2024 2:08 PM EST Telephone call x2 to pt, no answer, left voicemail to call back [facility]. Will retask to call again. Per chart, TTE is still pending review by [facility] and ultrasound was approved. Will reach out to diagnostic specialists for status update. * Telephone Encounter - Carole Grier RN - 10/09/2024 10:01 AM EST Telephone call x1 to pt to confirm if STAT imaging completed for TTE and bilateral lower leg US. Noanswer, left voicemail to call back. Per [employer], no recent imaging. Will task to call again. * Telephone Encounter - Carole Grier RN - 10/09/2024 9:58 AM EST ----- Message from Brian Rocha MD sent at 10/05/2024 2:18 PM EST ----- Pt of Dr. Osborne, pt referred for care management. I ordered a TTE and Bilat LE US to rule out DVT. Please make sure pt has them done and of not please discuss with PCP. documented in this encounter Plan of Treatment Upcoming Encounters Date Type Department Care Team (Late st Contact Info) Description 11/17/2024 3:30 PM EST Office Visit [facility] ADULT DENTAL 230 [place] [address] Yves Barron DDS [address] [place] [address] documented as of this encounter Goals Goal Patient Goal Type Associated Problems Recent Progress Patient-Stated? Author Quit using tobacco (cigarettes, smokeless, etc) Tobacco Use No Mao Mota, Margaux documented as of this encounter Visit Diagnoses Not on filedocumented in this encounter Additional Health Concerns Assessment Noted Time PHQ-9 Depression Total Score: 0 03/23/20 24 2:25 PM EDT documented as of this encounter Care Teams Wrapping Checker Relationship Specialty Start Date End Date Angelica Osborne MD [address] [place] [address] PCP - General Family Medicine 10/11/18 Mao Mota, PharmD [address] [place] [address] Pharmacist Internal Medicine 08/31/23 Armando De La Cruz FNP [address] [place] [address], [place] [address] Nurse Practitioner Family Medicine 08/31/23 documented as of this encounter
--- OUTSIDE RECORDS SUMMARY | 2024-11-06 19:44 | XMS_ITS | Encounter Summary ---
Author Organization [employer] Address [address] [place] [address] Care Team Providers Care Banking Paralegal Name Role Phone Angelica Osborne MD Primary Care Provider [phone] Mao Mota PharmD Unavailable [phone] Armando De La Cruz Unavailable Unavailable Reason for Visit * Reason Comments Med Refill Encounter Details Date Type Department Care Team (Late st Contact Info) Description 11/05/2023 Refill [facility] [address] [place] [address] Armando De La Cruz FNP Major depression with psychotic features (CMS/HCC) Social History Tobacco Use Types Packs/Day Years Used Date Smoking Tobacco: Every Day Cigarettes 1.5 44 Passive Smoke Exposure: Current Smokeless Tobacco: Never Comments:Smokes 1-2 packs a day Depression Answer Date Recorded Patient Health Questionnaire-9 Score 0 09/20/2023 Patient Health Questionnaire-9 Score 0 09/20/2023 Last PHQ-9: Questionnaire Data Not on file 1 11/21/2022 Housing Stability Answer Date Recorded What is [...] Date Recorded Patient Health Questionnaire-2 Score 0 09/20/2023 Comments Unknown Sex and Gender Information Value [...] Description 11/17/2024 3:30 PM EST Office Visit [facility] [address] [place] [address] Yves Barron DDS [address] [place] [address] documented as of this encounter Goals Goal Patient Goal Type Associated Problems Recent Progress Patient-Stated? Author Quit using tobacco (cigarettes, smokeless, etc) Tobacco Use No Mao Mota, MerD documented as of this encounter Visit Diagnoses Diagnosis Major depression with psychotic features (CMS/HCC) documented in this encounter Additional Health Concerns Assessment Noted Time PHQ-9 Depression Total Score: 0 09/20/20 23 3:31 PM EST documented as of this encounter Care Teams Banking Paralegal Relationship Specialty Start Date End Date Angelica Osborne MD [address] [place] [address] PCP - General Family Medicine 10/11/18 Mao Mota, PharmD [address] [place] [address] 139[address] Pharmacist Internal Medicine 08/31/23 Armando De La Cruz FNP [address] [place] [address] Nurse Practitioner Family Medicine 08/31/23 documented as of this encounter
--- OUTSIDE RECORDS SUMMARY | 2024-11-06 19:44 | XMS_ITS | Encounter Summary ---
Author Organization [employer] Address [address] [place] [address] Care Team Providers Care Registered Nurse Fetal Name Role Phone Angelica Osborne MD Primary Care Provider [phone] Mao Mota PharmD Unavailable [phone] Armando De La Cruz PLANT CHANGER Unavailable Unavailable Encounter Details Date Type Department Care Team (Latest Contact Info) Description 11/06/2024 3:30 PM EST Office Visit [facility] MEDICINE [address] [place], [place] [phone] Angelica Osborne MD [address] [place], [place] [phone] Essential hypertension (Primary Dx); Mild persistent asthma without complication; Fibromyalgia; Bilateral lower extremity edema; Type 2 diabetes mellitus with hyperglycemia, without long-term current use of insulin (CMS/HCC); Acquired hypothyroidism; Transaminitis; Tobacco dependence; Smoking greater than 20 pack years; Major depression with psychotic features (CMS/HCC); Lumbar back pain with radiculopathy affecting lower extremity; Dyslipidemia Social History Tobacco Use Types Packs/Day Years Used Date Smoking Tobacco: Every Day Cigarettes 1.5 44 Passive Smoke Exposure: Current Smokeless Tobacco: Never Tobacco Cessation:Ready to Q uit: Not Asked; Counseling Given: Not Answered Comments:Smokes 1-2 packs a day Depression Answer [...] AM EDT documented as of this encounter Last Filed Vital Signs Vital Sign Reading Time Taken Comments Blood Pressure 121/73 11/06/2024 3:29 PM EST Pulse 88 11/06/2024 3:29 PM EST Temperature 36.5 ??C (97.7 ??F) 11/06/2024 3:29 PM ES T Respiratory Rate 20 11/06/2024 3:29 PM EST Oxygen Saturation 95% 11/06/2024 3:29 PM EST Inhaled Oxygen Concentration - - Weight 98.5 kg (217 lb 3.2 oz) 11/06/2024 3:29 P M EST Height 160 cm (5' 3 ) 11/06/2024 3:29 PM EST Body Mass Index 38.48 11/06/2024 3:29 PM EST documented in this encounter Miscellaneous Notes * Assessment & Plan Note - Kan Rankin - 11/06/2024 4:18 PM ESTAssociated Problem(s): Tobacco dependence Work on smoking cessation Pt declined lung CA screening * Assessment & Plan Note - Kan Rankin - 11/06/2024 4:18 PM ESTAssociated Problem(s): Smoking greater than 20 pack years - Smoking > 20 pack years - Referred to lung cancer screening chest CT, but pt declined - will readdress at next visit * Assessment & Plan Note - Kan Rankin - 11/06/2024 4:18 PM ESTAssociated Problem(s): Major depression with psychotic features (CMS/HCC) She is notsleeping well, apparently missing Doxepin 50 mg, urged her to request all meds be dispensed in Med[facility]. No changes at this time, continue Prazosin 1 mg at bedtime, Perphenazine 4 mg BID, Clonazepam 1 mg BID, Sertraline 100 mg daily, Doxepin 50 mg at bedtime, Melatonin 10 mg at bedtime, Ropinirole 1 mg at bedtime. Since this provider will be retiring, patient is now referred back to PCPfor further medication management. Any issues or concerns, call [facility]. All her questions were answered and I have wished her well. She agrees with the plan. * Assessment & Plan Note - Kan Rankin - 11/06/2024 4:17 PM ESTAssociated Problem(s): Lumbar back pain with radiculopathy affecting lower extremity -Pt is still having significant pain -increase pregabalin from 75 mg BID to 100 mg bid -Increase Baclofen 10 mg TID to 20 mg tid * Assessment & Plan Note - Kan Rankin - 11/06/2024 4:17 PM ESTAssociated Problem(s): Dyslipidemia - lipid profile on 03/09/23 TC 160; TG 367; HDL 45; LDL 71 - current medication: Rosuvastatin 40 mg at bedtime - continue working on lifestyle modification * Assessment & Plan Note - Kan Rankin - 11/06/2024 4:17 PM ESTAssociated Problem(s): Type 2 diabetes mellitus (CMS/HCC) hb1AC 7.9 02/2023 Fasting CBGS not checking , in the afternnon CBGS 200 after meals Today capillary hb1AC 7.1 and CBG 145 -TSH,chem,lipids,microalb, ordered by PCP yesterday -advised to have test in fasting -continue Metformin 1000 mg BID -discussed w pt about other PO options instead of GLP1 as farxiga vs trying to change from GLP1 to mounjaro to see if pt better tolerates med and to gain effect of weight loss -pt agrees to try Mounjaro -will start lowest dose to see if tolerates to continue increasing med ,advised to stop Trulicity once med is approved -advised to check CBGs in fasting and 2 h after biggest meal -has apt w PCP on 09/26/2024 * Assessment & Plan Note - Kan Rankin - 11/06/2024 4:16 PM ESTAssociated Problem(s): Acquired hypothyroidism - current replacement: levothyroxine 50 mcg daily - 03/09/23 TSH 2.77 mIU/L * Assessment & Plan Note - Kan Rankin - 11/06/2024 4:16 PM ESTAssociated Problem(s): Fibromyalgia - Pain in shoulders, back, neck, thighs, hips, and legs - MITA weakly positive 1:40, negative RF, normal ESR and CRP - Increase Lyrica (pregabalin) to 75 mg BID. Discussed about judicious use - Increase baclofen to 20 mg tid prn - Treatment Hx: Gabapentin was changed to pregabalin in 2022. Muscle relaxant was changed from cyclobenzaprine to baclofen in 2022 - encouraged to stay physically active - acupuncture was recommended * Assessment & Plan Note - Kan Rankin - 11/06/2024 4:16 PM ESTAssociated Problem(s): Bilateral lower extremity edema seems to have chronic LE swelling ,denies acute symptoms Possible from venous insufficiency but pt does sleeps w 3 pillows ,denies SOB nor CP,can not specify if needs pillow for back/neck conform or breathing Plan: advised to Raise legs when sleeping or resting TTE and Bl LE venous US referred today again ordered BNP Start laxis 20 mg daily (pt not taking it ) Advised to CMP done after resumed lasix to consider compression stokings if neg workup Will refer to Care management, She also would benefit from f/u with PCP soon * Assessment & Plan Note - Kan Rankin - 11/06/2024 4:15 PM ESTAssociated Problem(s): Essential hypertension -Goal BP < 140/90 per JNC-8, and <130/80 per ACC/AHA. -BP at goal today -Discussed about the importance of lifestyle modification and medication adherence. -Medication: lisinopril 10 mg daily -Continue checking home BP -Treatment Hx: Discontinued HCTZ in Jun 2017 due to declined renal function. Improved renal function after its discontinuation and judicious use of NSAIDs -Follow-up in 3 -6 mo * Assessment & Plan Note - Kan Rankin - 11/06/2024 4:15 PM ESTAssociated Problem(s): Asthma -Continue working on smoking cessation -Continue albuterol HFA prn -Consider PFT documented in this encounter Plan of Treatment Upcoming Encounters Date Type Department Care Team (Late st Contact Info) Description 11/17/2024 3:30 PM EST Office Visit [facility] ADULT D[facility] [address] [place] [employer], [place] [phone] Yves Barron, HAILY [address] [place] [address] documented as of this encounter Goals Goal Patient Goal Type Associated Problems Recent Progress Patient-Stated? Author Quit using tobacco (cigarettes, smokeless, etc) Tobacco Use Mao Sims, Margaux documented as of this encounter Procedures Procedure Name Priority Date/Time Associated Diagnosis Comments POCT GLYCOSYLATED HEMOGLOBIN (HGB A1C) Routine 11/06/2024 3:56 PM EST Type 2 diabetes mellitus with hyperglycemia, without long-term current use of insulin ([facility]) POCT GLUCOSE Routine 11/06/2024 3:56 PM EST Type 2 diabetes mellitus with hyperglycemia, without long-term current use of insulin ([facility]) documented in this encounter Results * (ABNORMAL) POCT glycosylated hemoglobin (Hgb A1c) (11/06/2024 3:56 PM EST) Hemoglobin A1C 7.1(A) 4.0 - 6.0 % QC Media Lot # [id number] Lot# Expiration Date Blood Capillary blood specimen / Unknown 11/06/2024 3:56 PM EST Result [facility] us Angelica Osborne MD POINT OF CARE TEST ENTER/EDIT OR DERABLES Final Result * POCT glucose manually resulted (11/06/2024 3:56 PM EST) Glucose Blood, POC 95 60 - 200 mg/dL QC Media Lot # [id number] Lot# Expiration Date ,025 Blood Capillary blood specimen / Unknown 11/06/2024 3:56 PM EST us Angelica Osborne MD POINT OF CARE TEST ENTER/EDIT OR DERABLES Final Result documented in this encounter Visit Diagnoses Diagnosis Essential hypertension- Primary Unspecified essential hypertension Mild persistent asthma without complication Fibromyalgia Unspecified myalgia and myositis Bilateral lower extremity edema Type 2 diabetes mellitus with hyperglycemia, without long-term current use of insulin (CMS/HCC) Acquired hypothyroidism Unspecified hypothyroidism Transaminitis Nonspecific elevation of levels of transaminase or lactic acid dehydrogenase (LDH) Tobacco dependence Tobacco use disorder Smoking greater than 20 pack years Major depression with psychotic features (CMS/HCC) Lumbar back pain with radiculopathy affecting lower extremity Dyslipidemia Other and unspecified hyperlipidemia documented in this encounter Additional Health Concerns Assessment Noted Time PHQ-9 Depression Total Score: 0 03/23/20 24 2:25 PM EDT documented as of this encounter Care Teams Registered Nurse Fetal Relationship Specialty Start Date End Date Angelica Osborne MD [address] [place] [address] PCP - General Family Medicine 10/11/18 Mao Mota, MerD [address] [place] [address]21 Pharmacist Internal Medicine 08/31/23 Armando De La Cruz FNP [address] [place] [address] Nurse Practitioner Family Medicine 08/31/23 documented as of this encounter
--- OUTSIDE RECORDS SUMMARY | 2024-11-06 19:44 | XMS_ITS | Encounter Summary ---
Author Organization [employer] Address [address] [place] [address] Care Team Providers Care Armoured Car Escort Name Role Phone Angelica Osborne MD Primary Care Provider [phone] Mao Mota PharmD Unavailable [phone] Armando De La Cruz GAUGER CHIEF DELIVERY Unavailable Unavailable Encounter Details Date Type Department Care Team ([facility] st Contact Info) Description 10/09/2024 Telephone [facility] MED[facility]INE [address] [place], [place] [phone] Angelica Osborne MD [address] [place], [place] [phone] Social History Tobacco Use Types Packs/Day Years [...] Description 11/17/2024 3:30 PM EST Office Visit [facility] ADULT D[facility] [address] [place] [address] Yves Barron DDS [address] [place] [address] documented as of this encounter Goals Goal [...] documented as of this encounter Care Teams Armoured Car Escort Relationship Specialty Start Date End Date Angelica Osborne MD [address] [place] [phone] PCP - General Family Medicine 10/11/18 Mao Mota, PharmD [address] [place] [address] Pharmacist Internal Medicine 08/31/23 Armando De La Cruz FNP [address] [place] [address] Nurse Practitioner Family Medicine 08/31/23 documented as of this encounter
--- OUTSIDE RECORDS SUMMARY | 2024-11-06 19:44 | XMS_ITS | Encounter Summary ---
Author Organization [employer] Address [address] [facility] 7t [place] [address] Care Team Providers Care Rib Stiffener And Heel Dipper Name Role Phone Angelica Osborne MD Primary Care Provider Mao Mota PharmD Unavailable [phone] Armando De La Cruz FLAMER AFTER LASTING Unavailable Unavailable Reason for Visit * Reason Onset Date Comments Medication Question 06/08/2023 Encounter Details Date Type Department Care Team (Late st Contact Info) Description 06/08/2023 Telephone [facility] MEDICINE [address] [place], [place] [phone] Angelica Osborne MD [address] [place], [place] [phone] Medication Question Social History Tobacco Use Types Packs/Day Years Used Date Smoking Tobacco: Every Day Cigarettes 0.5 44 Depression Answer Date Recorded Patient Health Questionnaire-9 Score 3 06/08/2023 Depression Answer Date Recorded Patient Health Questionnaire-2 Score 0 06/08/2023 Comments Unknown Sex and Gender Information Value Date Recorded Sex Assigned at Female 08/10/2022 10:17 AM EDT Legal Sex Female 10:17 AM EDT Gender Identity Female 08/10/2022 10:17 AM EDT Sexual Orientation Choose not to disclose 2021 10:17 AM EDT documented as of this encounter Miscellaneous Notes * Telephone Encounter - Darby Mann RN - 06/08/2023 1:49 PM EDT T/C returned to pt re below message. Advised pt she does not meet requirements for CGM, pt stated she wants to go on inulin bc her BG has been around 120-170 with it spiking to 200 every 2 weeks or more. Pt has upcoming appointment with PCP. Pt verbalized understanding and denied having any furtherquestions or concerns at this time. * Telephone Encounter - Caryn Diaznez - 06/08/2023 12:08 PM EDT Tc from patient requesting to get a new script for a reader and sensor instead of using the test strips. documented in this encounter Plan of Treatment Upcoming Encounters Date Type Department Care Team (Late st Contact Info) Description 11/17/2024 3:30 PM EST Office Visit [facility] ADULT DENTAL [address] [place] [address] Yves Barron DDS [address] [place] [address] documented as of this encounter Visit Diagnoses Not on filedocumented in this encounter Additional Health Concerns Assessment Noted Time PHQ-9 Depression Total Score: 3 06/08/20 23 2:22 PM EDT documented as of this encounter Care Teams Rib Stiffener And Heel Dipper Relationship Specialty Start Date End Date Angelica Osborne MD [address] [place] [address] PCP - General Family Medicine 10/11/18 Mao Moat, Margaux [address] [place] [address]265 Pharmacist Internal Medicine 08/31/23 Armando De La Cruz FNP [address] [place] [address] Nurse Practitioner Family Medicine 08/31/23 documented as of this encounter
--- OUTSIDE RECORDS SUMMARY | 2024-11-06 19:44 | XMS_ITS | Encounter Summary ---
Author Organization [employer] Address [address] 7[address] [place] [address] Care Team Providers Care Financial Project Manager Name Role Phone Angelica Osborne MD Primary Care Provider [phone] Mao Mota PharmD Unavailable [phone] Armando De La Cruz CAP JEWEL PLATE ASSEMBLER Unavailable Unavailable Reason for Visit * Reason Onset Date Comments appt slip mailed 11/01/2024 Encounter Details Date Type Department Care Team (Late st Contact Info) Description 11/01/2024 Telephone [facility] ADULT DENTAL [address] [place], [place] [phone] Yves Barron DDS [address] [place], [place] [phone] appt slip mailed Social History Tobacco Use Types Packs/Day Years [...] * Telephone Encounter - Kellee Lazar - 11/01/2024 10:55 AM EST Patient is requesting for an appt slip to be mailed to her home. documented in this encounter Plan of Treatment Upcoming Encounters Date Type Department Care Team (Late st Contact Info) Description 11/17/2024 3:30 PM EST Office Visit [facility] ADULT DENTAL [address] [place] [address] Yves Barron DDS [address] [place] [address] documented as of this encounter Goals Goal [...] documented as of this encounter Care Teams Financial Project Manager Relationship Specialty Start Date End Date Angelica Osborne MD [address] [place] [address] PCP - General Family Medicine 10/11/18 Mao Mota, MerD [address] [place] [address] Pharmacist Internal Medicine 08/31/23 Armando De La Cruz FNP [address] [place] [address] Nurse Practitioner Family Medicine 08/31/23 documented as of this encounter
--- OUTSIDE RECORDS SUMMARY | 2024-11-06 19:44 | XMS_ITS | Encounter Summary ---
Author Organization [employer] Address [address] 7[address] [place] [address] Care Team Providers Care Coffee Weigher Name Role Phone Aneglica Osborne MD Primary Care Provider [phone] Mao Mota PharmD Unavailable [phone] Armando De La Cruz CROP SPECIALIST Unavailable Unavailable Reason for Visit * Reason Onset Date Comments PA 06/27/2024 Durable Medical Equipment 06/27/2024 Shower chair Encounter Details Date Type Department Care Team (Late st Contact Info) Description 06/27/2024 Telephone [facility] MEDICINE [address] [place], [place] [phone] Angelica Osboren MD [address] [place], [place] [phone] [place]; Durable Medical Equipment (Shower chair) Social History Tobacco Use Types Packs/Day Years [...] encounter Miscellaneous Notes * Telephone Encounter - Luna Aguirre - 06/29/2024 9:53 AM EDT Please see message below and advise. If agree with DME, please provide dx and notes to support the need. Thank you * Telephone Encounter - Agatha Palma - 06/27/2024 1:33 PM EDT Tc from pt requesting a DME supply for a shower chair. documented in this encounter Plan of Treatment Upcoming Encounters Date Type Department Care Team (Late st Contact Info) Description 11/17/2024 3:30 PM EST Office Visit [facility] ADULT DENTAL [address] [place] [address] Yves Barron DDS [address] [place] [address] documented as of this encounter Goals Goal [...] documented as of this encounter Care Teams Coffee Weigher Relationship Specialty Start Date End Date Angelica Osborne MD [address] [place] [address] PCP - General Family Medicine 10/11/18 Mao Mota, MerD [address] [place] [address] Pharmacist Internal Medicine 08/31/23 Armando De La Cruz FNP [address] [place] [address] Nurse Practitioner Family Medicine 08/31/23 documented as of this encounter
--- OUTSIDE RECORDS SUMMARY | 2024-11-06 19:44 | XMS_ITS | Encounter Summary ---
Author Organization [employer] Address [address] [facility] [address] 7[address] [place] [address] Care Team Providers Care Strategic Partnership Specialist Name Role Phone Angelica Osborne MD Primary Care Provider [phone] Mao Mota PharmD Unavailable [phone] Armando De La Cruz SOCIAL MEDIA SPECIALIST Unavailable Unavailable Reason for Visit * Reason Onset Date Comments Nurse Triage 01/25/2024 Encounter Details Date Type Department Care Team (Late st Contact Info) Description 01/25/2024 Telephone [facility] MEDICINE [address] [place], [place] [phone] Angelica Osborne MD [address] [place], [place] [phone] Nurse Triage Social History Tobacco Use Types Packs/Day Years Used Date Smoking Tobacco: Every Day Cigarettes 1.5 44 Passive Smoke Exposure: Current Smokeless Tobacco: Never Comments:Smokes 1-2 packs a day Depression Answer Date Recorded Patient Health Questionnaire-9 Score 0 01/20/2024 Patient Health Questionnaire-9 Score 0 01/20/2024 Last PHQ-9: Questionnaire Data Not on file 0 01/20/2024 Housing Stability Answer Date Recorded What is [...] Date Recorded Patient Health Questionnaire-2 Score 0 01/20/2024 Comments Unknown Sex and Gender Information Value Date Recorded Sex Assigned at Female 08/10/2022 10:17 AM EDT Legal Sex Female 10:17 AM EDT Gender Identity Female 08/10/2022 10:17 AM EDT Sexual Orientation Choose not to disclose 2021 10:17 AM EDT documented as of this encounter Miscellaneous Notes * Telephone Encounter - Rebekah Noble RN - 01/25/2024 1:18 PM EDT Triage call Pt reports edema of bilateral feet and ankles. Pt reports difficulty walking and standing but, this apparently was what caused it to begin with. Pt reports applying ice isn't helping. Pt is advised to keep feet up while resting and Pt agrees. Pt reports some redness but, no warmth to touch. Pt reports pressing on the areas leaves a dent . Pt is advised to come to [facility] open till 8pm today, 830am-800pm tomorrow. Pt agrees with disposition and home care advised. Insurance is verified as active. Protocol Used: Leg Swelling and Edema (Adult) Protocol-Based Disposition: See in Office or Video Visit within 3 Days Video visit not offered Positive Triage Question: * Mild swelling of both ankles (i.e., pedal edema) AND new-onset or worsening * All higher-acuity triage questions were negative Care Advice Discussed: * Reasons To Call Back - Swelling becomes worse - Swelling becomes red or painful to the touch - Calf pain occurs and becomes constant - You become worse * Telephone Encounter - Elian Rocha - 01/25/2024 12:34 PM EDT Symptom: Foot or Ankle Swelling Outcome: Schedule an urgent appointment (within 1 hour) or talk to a nurse or provider soon Reason: Trouble walking The caller accepted this outcome documented in this encounter Plan of Treatment Upcoming Encounters Date Type Department Care Team (Late st Contact Info) Description 11/17/2024 3:30 PM EST Office Visit [facility] ADULT DENTAL [address] [place] [address] Yves Barron DDS [address] [place] [address] documented as of this encounter Goals Goal Patient Goal Type Associated Problems Recent Progress Patient-Stated? Author Quit using tobacco (cigarettes, smokeless, etc) Tobacco Use No Mao Mota, PharmD documented as of this encounter Visit Diagnoses Not on filedocumented in this encounter Additional Health Concerns Assessment Noted Time PHQ-9 Depression Total Score: 0 01/20/20 24 2:31 PM EDT documented as of this encounter Care Teams Strategic Partnership Specialist Relationship Specialty Start Date End Date Angelica Osborne MD [address] [place] [address] PCP - General Family Medicine 10/11/18 Mao Mota, PharmD [address] [place] [phone] Pharmacist Internal Medicine 08/31/23 Armando De La Cruz FNP [address] [place] [address] Nurse Practitioner Family Medicine 08/31/23 documented as of this encounter
--- OUTSIDE RECORDS SUMMARY | 2024-11-06 19:44 | XMS_ITS | Clinical Summary ---
Author Organization [employer] Address [address] [facility] [address] [place] [address] Care Team Providers Care Terminal Clerk Name Role Phone Angelica Osborne MD Primary Care Provider [phone] Mao Mota PharmD Unavailable [phone] Armando De La Cruz IT PORTFOLIO MANAGER Unavailable Unavailable Allergies No known active allergies Medications Diclofenac Sodium (Voltaren) 1 % gelIndications:Pa in Apply 2 g topically every 6 (six) hours if needed (for pain). 50 g 022 Active ketotifen (Zaditor) 0.025 % ophthalmic solution PLACE 1 INTO THE AFFECTED EYE(S) TWICE DAILY DIRECTED Active albuterol (2.5 MG/3ML) 0.083% nebulizer solution inhale 3 milliliter (2.5MG) by nebulization route every 4-6 hours as needed for difficulty breathing, up to 4 times/day as needed 90 mL 1 023 Active Alcohol Swabs (Alcohol Prep) padsIndications:T ype 2 diabetes mellitus with hyperglycemia, without long-term current use of insulin ([facility]) Check blood sugar every morning and as needed 100 each 11 023 Active Continuous Blood Gluc Transmit (Dexcom G6 transmitter) misc 1 each by Other route continuously. 1 each 023 Active Continuous Blood Gluc Sensor (Dexcom G6 Sensor) misc Use as directed 3 each 023 Active Continuous Blood Gluc Report Analyst (Dexcom G6 soda tester) device Use as directed 1 each 023 Active nicotine polacrilex (Nicotine Mini) 2 MG lozengeIndication s:Tobacco dependence Dissolve 1 lozenge by mouth every 1-2 hours as needed for cravings 72 lozenge 1 024 Active Additional Information Patient not taking.Reported on 08/11/2024 pantoprazole (ProtoNix) 20 MG EC tablet TAKE 1 TABLET BY MOUTH TWICE DAILY IN THE MORNING AND IN THE EVENING 180 tablet 3 024 Active Additional Information Patient not taking.Reported on 08/11/2024 levothyroxine (Synthroid, Levoxyl) 50 MCG tablet TAKE 1 TABLET BY MOUTH EVERY MORNING 90 tablet 3 024 Active rosuvastatin (Crestor) 40 MG tablet TAKE 1 TABLET BY MOUTH AT BEDTIME 90 tablet 3 024 Active docusate sodium (Colace) 100 MG capsuleIndication s:Constipation, unspecified constipation type TAKE 1 CAPSULE BY MOUTH TWICE DAILY IN THE MORNING AND IN THE EVENING 180 capsule 3 024 Active Additional Information Patient not taking.Reported on 08/11/2024 nicotine (Nicoderm, Step 1) 21 MG/24HR patchIndications: Tobacco dependence APPLY 1 PATCH TOPICALLY TO THE SKIN IN THE MORNING. DO NOT SMOKE WHILE USING PATCH. 42 patch 024 Active Additional Information Patient not taking.Reported on 08/11/2024 Aspirin Adult Low Strength 81 MG EC tablet TAKE 1 TABLET BY MOUTH EVERY MORNING 90 tablet 3 024 Active doxepin (SINEquan) 50 MG capsuleIndication s:Major depression with psychotic features (CMS/HCC) Take 1 capsule (50 mg) by mouth at bedtime. 90 capsule 3 024 Active melatonin (Melatonin Extra Strength) 10 MG tablet Take 1 tablet (10 mg) by mouth at bedtime. 90 tablet 3 024 Active perphenazine 4 MG tabletIndications :Major depression with psychotic features (CMS/HCC) Take 1 tablet (4 mg) by mouth 2 times daily. 180 tablet 3 024 Active prazosin (Minipress) 1 MG capsule Take 1 capsule (1 mg) by mouth at bedtime. For bad dreams. 90 capsule 3 024 Active rOPINIRole (Requip) 1 MG tablet Take 1 tablet (1 mg) by mouth at bedtime. 90 tablet 3 024 Active sertraline (Zoloft) 100 MG tabletIndications :Major depression with psychotic features ([facility]) Take 1 tablet (100 mg) by mouth in the morning. 90 tablet 3 Active lisinopril 10 MG tablet TAKE 1 TABLET BY MOUTH EVERY MORNING 90 tablet 3 Active Blood Glucose Monitoring Suppl (FreeStyle Lite) w/Device kitIndications:Ty pe 2 diabetes mellitus with hyperglycemia, without long-term current use of insulin ([facility]) 1 kit Once per day. 1 kit Active famotidine (Pepcid) 20 MG tablet TAKE 1 TABLET BY MOUTH ONCE DAILY 90 tablet 3 024 Active Calcium Carb-Cholecalcife rol 600-10 MG-MCG tablet TAKE 1 TABLET BY MOUTH TWICE DAILY IN THE MORNING AND IN THE EVENING 180 tablet 3 Active Additional Information Patient not taking.Reported on 08/11/2024 metFORMIN XR (Glucophage-XR) 500 MG 24 hr tabletIndications :Type 2 diabetes mellitus with hyperglycemia, without long-term current use of insulin ([facility]) TAKE 2 TABLETS BY MOUTH BEFORE BREAKFAST AND EVENING MEAL DO NOT BREAK, CRUSH, DISSOLVE OR CHEW 120 tablet 11 Active fluticasone (Flonase) 50 MCG/ACT nasal sprayIndications: Allergic rhinitis, unspecified seasonality, unspecified trigger INHALE 1 SPRAY IN EACH NOSTRIL TWICE DAILY IN THE MORNING AND IN THE EVENING 48 g Active cromolyn (Opticrom) 4 % ophthalmic solutionIndicatio ns:Other chronic allergic conjunctivitis of both eyes INSTILL 1 DROP INTO THE AFFECTED EYE(S) EVERY 6 HOURS DIRECTED 10 mL 1 024 Active Tirzepatide (Mounjaro) 2.5 MG/0.5ML solution auto-injectorIndi cations:Type 2 diabetes mellitus with hyperglycemia, without long-term current use of insulin ([facility]) Inject 2.5 mg under the skin 1 (one) time per week. 0.5 mL 2 Active baclofen (Lioresal) 20 MG tablet TAKE 1 TABLET BY MOUTH TWICE DAILY NEEDED MAY TAKE ADDITIONAL TABLET NEEDED FOR MUSCLE SPASMS 90 tablet 3 Active glucose blood (OneTouch Verio) test stripIndications: Type 2 diabetes mellitus with hyperglycemia, without long-term current use of insulin ([facility]) TEST BLOOD SUGAR EVERY MORNING BEFORE BREAKFAST DIRECTED 100 strip 11 Active Lancets (OneTouch Delica Plus [id number]) miscIndications:T ype 2 diabetes mellitus with hyperglycemia, without long-term current use of insulin ([facility]) TEST BLOOD SUGAR EVERY MORNING DIRECTED 100 each 11 Active Ventolin HFA 108 (90 Base) MCG/ACT inhaler INHALE 2 PUFFS EVERY 6 HOURS NEEDED FOR WHEEZING OR SHORTNESS OF BREATH 18 g 1 Active clonazePAM (KlonoPIN) 1 MG tabletIndications :Major depression with psychotic features ([facility]) Take 1 tablet (1 mg) by mouth 2 times daily. Do not start before 2024. 60 tablet 5 Active chlorhexidine (Peridex) 0.12 % solutionIndicatio ns:Ill-fitting dentures Swish 15 mL morning and night for 1 minute. Spit, do not swallow. Do not eat or drink for 30 minutes following use. 473 mL Active furosemide (Lasix) 20 MG tabletIndications :Bilateral lower extremity edema Take 1 tablet (20 mg) by mouth Once per day. 30 tablet Active bacitracin 500 UNIT/GM ointmentIndicatio ns:Scratches Use BID x 7 days 14 g 024 Active cetirizine (ZyrTEC) 10 MG tabletIndications :Allergic rhinitis, unspecified seasonality, unspecified trigger TAKE 1 TABLET BY MOUTH EVERY MORNING 90 tablet 1 024 Active montelukast (Singulair) 10 MG tablet TAKE 1 TABLET BY MOUTH EVERY EVENING 30 tablet 11 Active pregabalin (Lyrica) 100 MG capsule Take 1 capsule (100 mg) by mouth 2 times daily. 60 capsule 3 025 2025 Active acetaminophen (Tylenol Extra Strength) 500 MG tablet Take 2 tablets (1,000 mg) by mouth every 8 (eight) hours if needed for mild pain. 90 tablet 1 Active Urea 39 % cream Apply topically once daily 227 g Active acetaminophen (Tylenol 8 Hour) 650 MG ER tablet TAKE 1 TABLET BY MOUTH EVERY 8 HOURS NEEDED MILD PAIN 60 tablet 5 023 2024 Discontinued montelukast (Singulair) 10 MG tablet TAKE 1 TABLET BY MOUTH EVERY EVENING 30 tablet 11 024 2024 Discontinued cetirizine (ZyrTEC) 10 MG tabletIndications :Allergic rhinitis, unspecified seasonality, unspecified trigger Take 1 tablet (10 mg) by mouth in the morning. 90 tablet 1 024 2023 Discontinued pregabalin (Lyrica) 75 MG capsule TAKE 1 CAPSULE BY MOUTH TWICE DAILY 60 capsule 5 024 2024 Discontinued Active Problems Problem Noted Date Diagnosed Date Swollen ankles 10/05/2024 Post-nasal drip 10/05/2024 Ill-fitting dentures 10/05/2024 Scratches 10/05/2024 Assessment & Plan (10/05/2024 2:19 PM EST): Patient with multiple scratches right hand from her cat, no discharge, no tenderness Will send a triple ointment abx to prevent infection Bilateral lower extremity edema 08/12/2024 Assessment & Plan (11/06/2024 4:16 PM EST): seems to have chronic LE swelling ,denies [...] would benefit from f/u with PCP soon Assessment & Plan (10/05/2024 2:16 PM EST): Patient is here at out [facility] with c/o bilateral LE edema , seen for this here at [facility] as well by Dr. Gore back August 11. Unfortunately it appears pt did not follow through with any of the recommendations from Dr. Gore seems to have chronic LE swelling ,denies [...] would benefit from f/u with PCP soon Assessment & Plan (08/12/2024 3:28 PM EDT): -seems to have chronic LE swelling ,denies acute symptoms Possible from venous insufficiency but pt does sleeps w 3 pillows ,denies SOB nor CP,can not specify if needs pillow for back/neck conform or breathing -advised to Raise legs when sleeping or resting -TTE and Bl LE venous US referred today -ordered proBNP -Resume laxis 20 mg daily -Advised to get chem done order by PCP in 7 to 10 days after resumed lasix -to consider compression stokings if neg workup Personal history of nicotine dependence 08/04/20 Right knee pain 08/04/2024 Transaminitis 02/29/2024 Type 2 diabetes mellitus 03/10/2023 Assessment & Plan (11/06/2024 4:17 PM EST): hb1AC 7.9 02/2023 Fasting CBGS not checking [...] meal -has apt w PCP on 09/26/2024 Assessment & Plan (08/12/2024 3:27 PM EDT): hb1AC 7.9 02/2023 Fasting CBGS not checking [...] meal -has apt w PCP on 09/26/2024 Assessment & Plan (10/26/2023 12:32 PM EST): - Dx February 2023, A1C 7.9% on 03/09/23 and RBG > 200 - A1C 8.4% on 06/22/23, trendig up - Current Glucose monitoring system - Glucometer: Freestyle. Will send script for Davi since she will start injectable medication and may qualify for CGM. - Increase metformin ER 1000 mg bid - Increase dulaglutide 1.5 mg weekly - Lipid profile: 03/09/23 TC 160; TG 367; HDL 45; LDL 71 - Microalbumin: 08/18/23 ordered - Eye exam: Referred - Feet exam: 03/09/23 - Immunizations: Pt had an adverse reaction to COVID vaccine. Pt does not want COVID vaccine Assessment & Plan (08/22/2023 6:55 AM EST): - Dx February 2023, A1C 7.9% on 03/09/23 and RBG > 200 - A1C 8.4% on 06/22/23, trendig up - Current Glucose monitoring system - Glucometer: Freestyle. Will send script for Davi since she will start injectable medication and may qualify for CGM. - Increase metformin ER 1000 mg bid - Increase dulaglutide 1.5 mg weekly - Lipid profile: 03/09/23 TC 160; TG 367; HDL 45; LDL 71 - Microalbumin: 08/18/23 ordered - Eye exam: Referred - Feet exam: 03/09/23 - Immunizations: Pt had an adverse reaction to COVID vaccine. Pt does not want COVID vaccine Assessment & Plan (07/17/2023 6:55 AM EDT): - Dx February 2023, A1C 7.9% on 03/09/23 and RBG > 200 - A1C 8.4% on 06/22/23, trendig up - Current Glucose monitoring system - Glucometer: Freestyle. Will send script for Davi since she will start injectable medication and may qualify for CGM. - Continue metformin ER 500 mg bid, consider increasing to 1 g bid - Start dulaglutide 0.75 mg weekly - Lipid profile: 03/09/23 TC 160; TG 367; HDL 45; LDL 71 - Microalbumin: Pt has not done it yet - Eye exam: Refer - Feet exam: 03/09/23 - Immunizations: Pt had an adverse reaction to COVID vaccine. Pt does not want COVID vaccine Assessment & Plan (03/10/2023 1:35 PM EDT): - RBG > 200 meets the criteria for Dx of diabetes mellitus - Will check A1C and create a management plan - Work on lifestyle modifications - Glucose monitoring system - Glucometer: Freestyle. Script sent - Lipid profile: - Microalbumin: - Eye exam: - Feet exam: - Immunizations: Adverse reaction to COVID-19 vaccine 03/10/2023 Fibromyalgia 03/09/2023 Assessment & Plan (11/06/2024 4:16 PM EST): - Pain in shoulders, back, neck, thighs, [...] stay physically active - acupuncture was recommended Assessment & Plan (08/22/2023 6:54 AM EST): - Pain in shoulders, back, neck, thighs, [...] stay physically active - acupuncture was recommended Assessment & Plan (03/10/2023 1:55 PM EDT): - Pain in shoulders, back, neck, thighs, hips, and legs - MITA weakly positive 1:40, negative RF, normal ESR and CRP - Increase Lyrica (pregabalin) to 50 mg BID. Discussed about judicious use - Change muscle relaxant, from cyclobenzaprine to baclofen - encouraged to stay physically active Smoking greater than 20 pack years 03/09/2023 Assessment & Plan (11/06/2024 4:18 PM EST): - Smoking > 20 pack years - Referred to lung cancer screening chest CT, but pt declined - will readdress at next visit Assessment & Plan (07/17/2023 6:59 AM EDT): - Smoking > 20 pack years - Referred to lung cancer screening chest CT, but pt declined - will readdress at next visit Assessment & Plan (03/10/2023 2:16 PM EDT): - Smoking > 20 pack years - Refer to lung cancer screening chest CT Urinary incontinence 03/09/2023 Assessment & Plan (08/22/2023 6:51 AM EST): - likely mixed and multifactorial (hyperglycemia, stress, and neurogenic) - will check UCx and UA - Rx depends size 10 as requested Assessment & Plan (03/10/2023 1:46 PM EDT): - likely mixed and multifactorial (hyperglycemia, stress, and neurogenic) - will check UCx and UA Seasonal allergic rhinitis 03/09/2023 Assessment & Plan (03/09/2023 4:51 PM EDT): -continue cetirizine -continue current nasal spray -continue Singulair -continue working on smoking cessation Tobacco dependence 01/04/2023 Assessment & Plan (11/06/2024 4:18 PM EST): Work on smoking cessation Pt declined lung CA screening Assessment & Plan (10/26/2023 12:33 PM EST): Work on smoking cessation Pt declined lung CA screening Assessment & Plan (08/22/2023 6:56 AM EST): Work on smoking cessation Pt declined lung CA screening Assessment & Plan (07/17/2023 6:56 AM EDT): Work on smoking cessation Assessment & Plan (03/09/2023 4:46 PM EDT): Work on smoking cessation Restless leg syndrome 01/04/2023 Assessment & Plan (08/22/2023 6:47 AM EST): - continue ropinirole for RLS - pt is on pregabalin for fibromyalgia / chronic pain Assessment & Plan (03/10/2023 1:37 PM EDT): - continue ropinirole for RLS - pt is on pregabalin for fibromyalgia / chronic pain Benign paroxysmal positional vertigo 08/31/2017 Lumbar back pain with radicu lopathy affecting lower extremity 10/06/2016 Assessment & Plan (11/06/2024 4:17 PM EST): -Pt is still having significant pain -increase pregabalin from 75 mg BID to 100 mg bid -Increase Baclofen 10 mg TID to 20 mg tid Assessment & Plan (08/22/2023 6:58 AM EST): -Pt is still having significant pain -increase pregabalin from 50 mg BID to 75 mg bid -Increase Baclofen 10 mg TID to 20 mg tid Assessment & Plan (03/09/2023 4:45 PM EDT): -Pt is still having significant pain -pt requested Lyrica increase; will increase to 50 mg BID -will change Flexeril to Baclofen to 10 mg TID Dysthymia 11/26/2015 Acquired hypothyroidism 08/27/2015 Assessment & Plan (11/06/2024 4:16 PM EST): - current replacement: levothyroxine 50 mcg daily - 03/09/23 TSH 2.77 mIU/L Assessment & Plan (10/26/2023 12:32 PM EST): - current replacement: levothyroxine 50 mcg daily - 03/09/23 TSH 2.77 mIU/L Assessment & Plan (08/22/2023 6:56 AM EST): - current replacement: levothyroxine 50 mcg daily - 03/09/23 TSH 2.77 mIU/L Assessment & Plan (07/17/2023 6:56 AM EDT): - current replacement: levothyroxine 50 mcg daily - 03/09/23 TSH 2.77 - continue current replacement Assessment & Plan (03/10/2023 2:03 PM EDT): - current replacement: levothyroxine 50 mcg daily - check thyroid function test Essential hypertension 08/27/2015 Assessment & Plan (11/06/2024 4:15 PM EST): -Goal BP < 140/90 per JNC-8, and <130/80 per ACC/AHA. -BP at goal today -Discussed about the importance of lifestyle modification and medication adherence. -Medication: lisinopril 10 mg daily -Continue checking home BP -Treatment Hx: Discontinued HCTZ in Jun 2017 due to declined renal function. Improved renal function after its discontinuation and judicious use of NSAIDs -Follow-up in 3 -6 mo Assessment & Plan (10/26/2023 12:32 PM EST): -Goal BP < 140/90 per JNC-8, and <130/80 per ACC/AHA. -BP elevated today -Discussed about the importance of lifestyle modification and medication adherence. -Medication: lisinopril 10 mg daily -Continue checking home BP -Treatment Hx: Discontinued HCTZ in Jun 2017 due to declined renal function. Improved renal function after its discontinuation and judicious use of NSAIDs -Follow-up in 3 -6 mo Assessment & Plan (08/22/2023 6:49 AM EST): -Goal BP < 140/90 per JNC-8, and <130/80 per ACC/AHA. -BP elevated today -Discussed about the importance of lifestyle modification and medication adherence. -Medication: lisinopril 10 mg daily -Continue checking home BP -Treatment Hx: Discontinued HCTZ in Jun 2017 due to declined renal function. Improved renal function after its discontinuation and judicious use of NSAIDs -Follow-up in 3 -6 mo Assessment & Plan (07/17/2023 6:41 AM EDT): -Goal BP < 140/90 per JNC-8, and <130/80 per ACC/AHA. -BP elevated today -Discussed about the importance of lifestyle modification and medication adherence. -Medication: lisinopril 10 mg daily -Continue checking home BP -Treatment Hx: Discontinued HCTZ in Jun 2017 due to declined renal function. Improved renal function after its discontinuation and judicious use of NSAIDs -Follow-up in 3 -6 mo Assessment & Plan (03/10/2023 1:40 PM EDT): -Goal BP < 140/90 per JNC-8, and <130/80 per ACC/AHA. -BP elevated today -Discussed about the importance of lifestyle modification and medication adherence. -Medication: lisinopril 10 mg daily -Continue checking home BP -Treatment Hx: Discontinued HCTZ in Jun 2017 due to declined renal function. Improved renal function after its discontinuation and judicious use of NSAIDs -Follow-up in 3 -6 mo Migraine 02/25/2015 Dyslipidemia 12/04/2014 Assessment & Plan (11/06/2024 4:17 PM EST): - lipid profile on 03/09/23 TC 160; TG 367; HDL 45; LDL 71 - current medication: Rosuvastatin 40 mg at bedtime - continue working on lifestyle modification Assessment & Plan (10/26/2023 12:34 PM EST): - lipid profile on 03/09/23 TC 160; TG 367; HDL 45; LDL 71 - current medication: Rosuvastatin 40 mg at bedtime - continue working on lifestyle modification Assessment & Plan (08/22/2023 6:58 AM EST): - lipid profile on 03/09/23 TC 160; TG 367; HDL 45; LDL 71 - current medication: Rosuvastatin 40 mg at bedtime - continue working on lifestyle modification Assessment & Plan (07/17/2023 7:04 AM EDT): - lipid profile on 03/09/23 TC 160; TG 367; HDL 45; LDL 71 - current medication: Rosuvastatin 40 mg at bedtime - continue working on lifestyle modification Assessment & Plan (03/09/2023 4:46 PM EDT): - continue crestor - will check labs today - work on lifestyle modifications Obesity 09/21/2013 Allergic rhinitis 05/09/2012 Assessment & Plan (03/10/2023 2:06 PM EDT): - continue working on smoking cessation - continue cetirizine - continue montelukast - continue fluticasone nasal - continue ipratropium nasal - continue cromolyn eye gtt prn - continue ketotifen gtt prn Anxiety 05/09/2012 Assessment & Plan (03/10/2023 2:15 PM EDT): - MDD with anxiety Asthma 05/09/2012 Assessment & Plan (11/06/2024 4:15 PM EST): -Continue working on smoking cessation -Continue albuterol HFA prn -Consider PFT Assessment & Plan (03/09/2023 4:50 PM EDT): -Continue working on smoking cessation -Continue albuterol HFA prn -Consider PFT Constipation 05/09/2012 Assessment & Plan (08/22/2023 6:49 AM EST): - multifactorial (thyroid, sedentary lifestyle, diet, medications) - practice fiber-rich diet, keep medications minimum necessary - continue docusate - pt declines colonoscopy; ordering cologuard Assessment & Plan (03/10/2023 1:46 PM EDT): - multifactorial (thyroid, sedentary lifestyle, diet, medications) - practice fiber-rich diet, keep medications minimum necessary - continue docusate - pt declines colonoscopy; ordering cologuard Chronic sinusitis 05/09/2012 Glaucoma 05/09/2012 Headache 05/09/2012 Assessment & Plan (03/10/2023 1:38 PM EDT): - chronic, episodic - likely tension - improve sleep hygiene Insomnia 05/09/2012 Assessment & Plan (08/22/2023 6:48 AM EST): - continue melatonin - check home sleep study Assessment & Plan (03/10/2023 1:38 PM EDT): - continue melatonin - consider sleep study since pt has gained weight Shoulder pain 01/08/2009 Assessment & Plan (03/10/2023 1:52 PM EDT): - chronic - history of left shoulder surgery for left shoulder rotator cuff impingement in December 2012 Major depression with psychotic features 000 Assessment & Plan (11/06/2024 4:18 PM EST): She is notsleeping well, apparently missing Doxepin [...] retiring, patient is now referred back to PCP for further medication management. Any issues or concerns, call [facility]. All her questions were answered and I have wished her well. She agrees with the plan. Assessment & Plan (03/23/2024 3:28 PM EDT): She is notsleeping well, apparently missing Doxepin [...] retiring, patient is now referred back to PCP for further medication management. Any issues or concerns, call [facility]. All her questions were answered and I have wished her well. She agrees with the plan. Assessment & Plan (01/20/2024 3:24 PM EDT): Recently started having bad dreams that awaken her from sleep without obvious provoking factor: no new medications, no life changes. Taking all meds as directed (gets in Medboxes). Will add Prazosin 1 mg at bedtime. Continue Perphenazine 4 mg BID, Clonazepam 1 mg BID, Sertraline 100 mg daily, Doxepin 50 mg at bedtime, Melatonin 10 mg at bedtime, Ropinirole 1 mg at bedtime. On 09/20/2023 pt was informed that provider would be retiring, but we would make every effort to ensure continuity of care. Meanwhile F/U with me in 2 months. She agrees with the plan. Assessment & Plan (12/07/2023 12:26 PM EST): Not sleeping well, but suspect r/t poorly controlled DM and/or possible sleep apnea. Urged to discuss with Pharmacy [facility] and PCP. No med changes for now: Will continue Perphenazine 4 mg BID, Clonazepam 1 mg BID, Sertraline 100 mg daily, Doxepin 50 mg at bedtime, Melatonin 10 mg at bedtime, Ropinirole 1 mg at bedtime. On 09/20/2023 pt was informed that provider would be retiring, but we would make every effort to ensure continuity of care. F/U re sleep in 4-6 weeks. She agrees with the plan. Assessment & Plan (10/26/2023 12:33 PM EST): - following with Armando - Hx psychiatric hospitalization for MDD with suicidal ideation - current medications: Perphenazine; sertraline; clonazepam; doxepin; melatonin - continue following with Armando and therapist Assessment & Plan (09/20/2023 5:25 PM EST): Still doing well. Not interested in counseling. Will continue Perphenazine 4 mg BID, Clonazepam 1 mg BID, Sertraline 100 mg daily, Doxepin 50 mg at bedtime, Melatonin 10 mg at bedtime, Ropinirole 1 mg at bedtime. Today 09/20/2023 pt was informed that provider would be retiring in approx 1/2 year, but we would make every effort to ensure continuity of care. F/U 2 months. She agrees with the plan. Assessment & Plan (08/22/2023 6:57 AM EST): - following with Armando - Hx psychiatric hospitalization for MDD with suicidal ideation - current medications: Perphenazine; sertraline; clonazepam; doxepin; melatonin - continue following with Armando and therapist Assessment & Plan (06/08/2023 3:27 PM EDT): Still doing OK despite recent health issues including new Dx of DM. Continue Perphenazine 4 mg BID, Clonazepam 1 mg BID, Sertraline 100 mg daily, Doxepin 50 mg at bedtime, Melatonin 10 mg at bedtime, Ropinirole 1 mg at bedtime. F/U 2 months. She agrees with the plan. Assessment & Plan (03/10/2023 2:15 PM EDT): - following with Armando - Hx psychiatric hospitalization for MDD with suicidal ideation - current medications: Perphenazine; sertraline; clonazepam; doxepin; melatonin - continue following with Armando and therapist Assessment & Plan (02/15/2023 5:01 PM EDT): Not doing as well, with increased distractibility. Not sleeping well and decreased involvement in activities attributed to pain from sciatica. She will F/U with her PCP about this. No change in her medications at this time, continue Perphenazine 4 mg BID, Clonazepam 1 mg BID, Sertraline 100 mg daily, Doxepin 50 mg at bedtime, Melatonin 10 mg at bedtime, Ropinirole 1 mg at bedtime. F/U 2 months. She agrees with the plan. Assessment & Plan (12/01/2022 4:01 PM EST): Doing well. Continue medications as usual. F/U 2 months. She agrees with the plan. Assessment & Plan (10/20/2022 5:31 PM EST): Not doing as well with increased agitation. Pt herself believes she needs A mood stabilizer! Will increase to Perphenazine 4 mg BID. Other meds continued as usual. F/U 1 month. She agrees with the plan. Resolved Problems Problem Noted Date Diagnosed Date Resolved Date Hyperglycemia 03/09/2023 07/17/2023 Assessment & Plan (03/09/2023 4:47 PM EDT): Pt had significant weight gain - pt is taking perphenazine - will check HgA1c - if she has DM, will ask her to check BG everyday and discuss about medications Backache 05/09/2012 01/04/2023 Encounters Date Type Department Care Team Description 11/06/2024 3:30 PM EST Office Visit [facility] [address] [place] [phone] Angelica Osborne MD Essential hypertension (Primary Dx); Mild persistent asthma without complication; Fibromyalgia; Bilateral lower extremity edema; Type 2 diabetes mellitus with hyperglycemia, without long-term current use of insulin (CMS/HCC); Acquired hypothyroidism; Transaminitis; Tobacco dependence; Smoking greater than 20 pack years; Major depression with psychotic features (CMS/HCC); Lumbar back pain with radiculopathy affecting lower extremity; Dyslipidemia 11/06/2024 Travel 11/02/[address] [address] Angelica Osborne MD 11/01/2024 Telephone [facility]ULT DENTAL [address] [place] [phone] Yves Barron DDS appt slip mailed 10/13/2024 Telephone [facility] [address] [place] [phone] Vickey Lima [place] Appointment Confirmation (I called the patient and there was no answer. I wanted to confirm her us appt for 10/31 and confirm if she needed transportation. There was no answer so left a vm to patient stating about the appointment and to please call us back for transportation.) 10/10/2024 Refill [facility] [address] [place] [address] Angelica Osborne MD Allergic rhinitis, unspecified seasonality, unspecified trigger 10/09/[address] [address] Angelica Osborne MD Nurse Triage 10/09/[address] [address] Angelica Osborne MD 10/09/[address] [address] Angelica Osborne MD Lab Orders 10/05/2024 1:40 PM EST Office Visit [facility] [address] [address] Brian Longoria MD Bilateral lower extremity edema (Primary Dx); Scratches; Encounter for immunization 10/05/2024 11:30 AM EST Office Visit [facility] ADULT [facility]ENT[facility] [address] [place] [phone] Yves Barron DDS Swollen ankles (Primary Dx); Post-nasal drip; Ill-fitting dentures 10/05/2024 Telephone [facility] [address] [address] Vickey Lima [place] Appointment (Appointment for stat us) 09/21/[address] [address] Julia Urena MA chart prep 09/14/2024 Refill [facility] [address] [place] [address] Diana Zuniga MD 09/12/2024 Refill [facility] [address] [place] [address] Angelica Osborne MD Major depression with psychotic features ([facility]) 09/05/2024 Telephone [facility] [address] [place] [address] María Moreland DC Durable Medical Equipment 09/05/2024 Telephone [facility] [address] [place] [address] AnicetoMaría stone DC Durable Medical Equipment 09/05/2024 Refill [facility] [address] [place] [address] Angelica Osborne MD 09/01/2024 Telephone [facility] [address] [place] [address] Angelica Osborne MD Durable Medical Equipment 08/29/2024 Refill [facility] [address] [place] [address] Angelica Osborne MD Type 2 diabetes mellitus with hyperglycemia, without long-term current use of insulin ([facility]) 08/23/2024 Refill [facility] [address] [place] [address] Angelica Osborne MD Type 2 diabetes mellitus with hyperglycemia, without long-term current use of insulin ([facility]) 08/17/2024 Refill [facility] [address] [place] [address] Angelica Osborne MD 08/17/2024 Orders Only [facility] [address] [place] [address] Diana Zuniga MD Lower extremity edema (Primary Dx) 08/17/2024 Telephone [facility] [address] [place] [address] Narendra Michele, PB appt/partials periodic exam 08/17/2024 Refill [facility] [place] [address] Angelica Osborne MD 08/16/2024 Telephone [facility] [place] [place] [address] Angelica Osborne MD 08/11/2024 1:00 PM EDT Office Visit [facility] [place] [address] Diana Zuniga MD Type 2 diabetes mellitus with hyperglycemia, without long-term current use of insulin ([facility]) (Primary Dx); Lower extremity edema; Class 3 severe obesity due to excess calories with serious comorbidity and body mass index (BMI) of 40.0 to 44.9 in adult ([facility]); Bilateral lower extremity edema 08/11/2024 Travel 08/10/2024 Telephone [facility] [place] [address] Angelica Osborne MD Nurse Triage 08/10/[address] [address] Angelica Osborne MD Appointment Request 08/10/2024 Telephone [facility] [place], [place] [phone] Angelica Osborne MD No Show 08/09/2024 Refill [facility] [place], [place] [phone] Angelica Obsorne MD from Last 3 Months Immunizations Name Administration Dates Next Due Influenza Injectable Quadriv alant Preservative Free IIV4 MDCK 07/03/2022,07/01/2019 Influenza injectable quadriv alent preservative free 06/22/2023,07/15/2021,06/23/2020,06/21,07/19/2017,06/22/2016 Influenza, IIV3, injectable 07/07/2011,0 07/09/2010,09/03/2009,08/07,07/19/2007,08/30/2006 Influenza, Split (incl. leno fied surface antigen) 07/03/2013,07/21/2012 Influenza, seasonal, injecta ble, preservative free 10/05/2024,06/14/2016,06/10/2015 Moderna Covid-19 Vaccine 12+ 03/01/2021,01/01/20 21 Pneumococcal Conjugate PCV 20 03/09/2023 Pneumococcal Polysaccharide PPSV23 12/10/2011, TD (adult), 2 Lf tetanus tox oid, preservative free, adsorbed 05/01/2022,05/01/2022,11/25/2006 Tdap 12/10/2011 Zoster, Recombinant 05/20/2020,05/19/2020 Family History Medical History Relation Name Comments Diabetes type II Mother Diabetes type II Sister Heart disease Sister Relation Name Status Comments Mother Alive Sister Social History Tobacco Use Types Packs/Day Years [...] not to disclose 2021 10:17 AM EDT Last Filed Vital Signs Vital Sign Reading [...] Mass Index 38.48 11/06/2024 3:29 PM EST Plan of Treatment Upcoming Encounters Date Type Department Care Team (Late st Contact Info) Description 11/17/2024 3:30 PM EST Office Visit [facility] ADULT D[facility] [address] [place] [address] Yves Braron, DDS [address] [place] [address] Health Maintenance Due Date Last Done Comments CT Colonography 1962 Dental X-Ray: Bitewings 1962 FIT DNA/Cologuard 1962 FIT 1962 FOBT 1962 HIV Screening 1962 Sigmoidoscopy 1962 Diabetes: Foot Exam 1972 Eye Exam 1972 Hepatitis C Screening 1980 Hepatitis A Vaccines (1 of 2 - Risk 2-dose series) 1981 Lung Cancer Screening 2012 Dental Prophylaxis 07/18/2016 01/16/2016 Dental X-Ray: Full Mouth 07/27/2018 07/26/2015 Mammogram 06/28/2020 06/28/2018 Zoster Vaccines (2 of 2) 07/15/2020 05/20/2020, 08/0 06/2020 RSV Patients and Patients Aged 60 years or older (1 - Risk 60-74 years 1-dose series) 2022 Dental Oral Exam 09/20/2022 03/20/2022, 07/26/2015 Colonoscopy 06/08/2023 06/08/2013 Colorectal Cancer Screening 06/08/2023 Lipid Panel 03/09/2024 11/06/2024, 02/10, 02/03/2022 SDOH Screening 03/09/2024 03/09/2023 COVID-19 Vaccine ( season) 2024 03/01/2021, 12/31/2020 Diabetes: Urine Protein Screening 08/17/2024 11/06/2024, 08/17/2023 Diabetes: Hemoglobin A1C 02/04/2025 025, 08/11/2024, 06/22/2023, Additional history exists Depression Screening 03/23/2025 03/23/2024, 03/23/20 24 Alcohol/Substance Use Screening 11/06/2025 11/06/2024 Tobacco Screening 11/06/2025 11/06/2024 DTaP/Tdap/Td Vaccines (4 - Td or Tdap) 05/01/2032 05/01/2022, 05/01/2022, 12/10/2011, Additional history exists Pneumococcal Vaccine: Pediatrics (0 to 5 Years) and At-Risk Patients (6 to 64 Years) Completed 03/09/2023, 12/10/2011, 11/25/2006 Influenza Vaccine Completed 10/05/2024, , 07/03/2022, Additional history exists HIB Vaccines Aged Out No longer eligi [...] patient's age to complete this topic Meningococcal Vaccine Aged Out No alvaro semaj eligible based on patient's age to complete this topic RSV under 20 months Aged Out No longe r eligible based on patient's age to complete this topic Rotavirus Vaccines Aged Out No longer eligible based on patient's age to complete this topic Goals Goal Patient Goal Type Associated Problems Recent Progress Patient-Stated? Author Quit using tobacco (cigarettes, smokeless, etc) Tobacco Use Mao Sims PharmD Procedures Procedure Name Priority Date/Time Associated Diagnosis Comments B TYPE NATRIURETIC PEPTIDE (BNP) Routine 11/06/2024 4:14 PM EST Bilateral lower extremity edema TSH W/REFLEX TO FT4 Routine 11/06/2024 4 :14 PM EST Acquired hypothyroidism ALBUMIN, RANDOM URINE W/CREATININE Routine 11/06/2024 4:14 PM EST Essential hypertension CREATINE KINASE, TOTAL Routine 11/06/2024 4:14 PM EST MINA (acute kidney injury) (CMS/HCC) HEPATIC FUNCTION PANEL Routine 11/06/2024 4:14 PM EST Dyslipidemia LIPID PANEL WITH REFLEX TO DIRECT LDL Routine 11/06/2024 4:14 PM EST Dyslipidemia BASIC METABOLIC PANEL Routine 11/06/2024 4:14 PM EST MINA (acute kidney injury) (CMS/HCC) Non-traumatic rhabdomyolysis POCT GLYCOSYLATED HEMOGLOBIN (HGB A1C) Routine 11/06/2024 3:56 PM EST Type 2 diabetes mellitus with hyperglycemia, without long-term current use of insulin (CMS/HCC) POCT GLUCOSE Routine 11/06/2024 3:56 PM EST Type 2 diabetes mellitus with hyperglycemia, without long-term current use of insulin (CMS/HCC) ADJUNCTIVE GENERAL SERVICES - PROFESSIONAL VISITS - CASE PRESENTATION, SUBSEQUENT TO DETAILED AND EXTENSIVE TREATMENT PLANNING Routine 10/05/2024 11:30 AM EST ADJUNCTIVE GENERAL SERVICES - UNCLASSIFIED TREATMENT - PALLIATIVE TREATMENT OF DENTAL PAIN - PER VISIT Routine 10/05/2024 11:30 AM EST DENTURE FOLLOWUP Routine 10/05/2024 11:3 0 AM EST POCT GLYCATED HEMOGLOBIN, TOTAL Routine 08/11/2024 1:38 PM EDT Type 2 diabetes mellitus with hyperglycemia, without long-term current use of insulin (CMS/HCC) POCT GLUCOSE Routine 08/11/2024 1:37 PM EDT Type 2 diabetes mellitus with hyperglycemia, without long-term current use of insulin ([facility]) PERIODIC ORAL EVALUATION - ESTABLISHED PATIENT Routine 03/20/2022 12:00 AM EDT BI MAMMOGRAM SCREENING BILATERAL Routine 06/28/2018 5:47 PM EDT PROPHYLAXIS - ADULT Routine 01/16/2016 1 2:00 AM EDT PANORAMIC RADIOGRAPHIC IMAGE Routine 07/26/2015 12:00 AM EDT HM COLONOSCOPY Routine 06/08/2013 from Last 3 Months or Most Recently Relevant to Health Maintenance Results * TSH with Reflex to Free T4 (11/06/2024 4:14 PM EST) TSH reflex Free T4 0.66 0.32 - 4.0 uIU/mL [facility] Blood 11/06/2024 4:14 PM EST 11/06/2024 5:49 PM EST us Angelica Osborne MD LAB BLOOD ORDERABLES Final Resul t [facility] [address] [place] [phone] * (ABNORMAL) Lipid Panel with Reflex to Direct LDL (11/06/2024 4:14 PM EST) Triglycerides 172(H) <150 mg/dL [facility] Comment:Desirable Triglyceri de: less than 150 mg/dLBorderline High Triglyceride 150-199 mg/dLHigh Triglyceride: 200-499 mg/dLVery High Triglyceride: greater than or equal to 5OO mg/dL Cholesterol 138 <200 mg/dL [facility] Comment:Desirable Cholestero l: less than 200 mg/dLBorderline High Cholesterol: 200-239 mg/dLHigh Cholesterol: greater than 239 mg/dL LDL Cholesterol Calculated 68 <100 mg/dL [facility] Comment:Desirable LDL: less than 100 mg/dLNear Optimal/Above Optimal LDL: 110- 129 mg/dLBorderline High LDL: 130-159 mg/dLHigh LDL: 160-189 mg/dLVery High LDL: greater than or equal to 190 mg/dL HDL Cholesterol 36(L) >40 mg/dL [facility] Comment:Desirable HDL: great er than 40 mg/dL Note: This HDL assay may give artificially low results in patients with liver disease. Blood 11/06/2024 4:14 PM EST 11/06/2024 5:49 PM EST us Angelica Osborne MD LAB BLOOD ORDERABLES Final Resul t Performing Organization Address [facility] Co de Phone Number [facility] [address] [place] [phone] * (ABNORMAL) Albumin, Random Urine W/Creatinine (11/06/2024 4:14 PM EST) Creatinine, Urine 106.99 mg/dL [facility] Microalbumin Urine 65.0 mg/L [facility] Microalbum Creatinine Ratio Ur 60.7(H) <30 ug/mg cr [facility] Comment:Albumin/Creatinine R atio Reference Ranges: Normal: < 30 ug/mg creatinine Microalbuminuria: 30 - 300 ug/mg creatinineClinical Albuminuria: > 300 ug/mg creatinine Urine 11/06/2024 4:14 PM EST 11/06/2024 5:52 PM EST us Angelica Osborne MD LAB URINE ORDERABLES Final Resul t Performing Organization Address [facility]/ZIP Co de Phone Number [facility] [address] [place] [address] [phone] * B Type Natriuretic Peptide (BNP) (11/06/2024 4:14 PM EST) B Type Natriuretic Peptide 34 <100 pg/mL [facility] Comment:For those patients w ho are being treated with Natrecor(nesiritide, recombinant BNP), BNP testing should beperformed at least two hours post treatment in order toensure that only endogenous levels of BNP are detected. Blood Venous blood specimen / Unknown 11/06/2024 4:14 PM EST 11/06/2024 5:49 PM EST Brian Rcoha MD LAB BLOOD ORDERABLES Final Result Performing Organization Address [facility] Co de Phone Number [facility] [address] [place] [phone] * Creatine Kinase, Total (11/06/2024 4:14 PM EST) Creatine Kinase Total 102 26 - 140 U/L [facility] Blood Venous blood specimen / Unknown 11/06/2024 4:14 PM EST 11/06/2024 5:49 PM EST Angelica Osborne MD LAB BLOOD ORDERABLES Final Resul t Performing Organization Address [facility] Co de Phone Number [facility] [address] [place] [phone] * Hepatic Function Panel (11/06/2024 4:14 PM EST) Bilirubin, Total 0.4 0.0 - 1.0 mg/dL [facility] Bilirubin, Direct 0.1 0.0 - 0.5 mg/dL [facility] Aspartate Amino Transferase 23 5 - 31 U/L [facility] Alanine Aminotransferase 30 0 - 31 U/L [facility] Total Protein 7.8 6.5 - 8.0 g/dL [facility] Albumin Level 4.4 3.5 - 5.0 g/dL [facility] Alkaline Phosphatase 94 39 - 117 U/L [facility] Blood Venous blood specimen / Unknown 11/06/2024 4:14 PM EST 11/06/2024 5:49 PM EST Angelica Osborne MD LAB BLOOD ORDERABLES Final Resul t Performing Organization Address [facility] de Phone Number [facility] [address] [place] [phone] * (ABNORMAL) Basic Metabolic Panel (11/06/2024 4:14 PM EST) Sodium 139 135 - 145 mmol/L [facility] Potassium 4.0 3.3 - 5.1 mmol/L [facility] Chloride 105 96 - 108 mmol/L [facility] Carbon Dioxide 28 22 - 29 mmol/L [facility] Anion Gap 10(L) 12 - 20 [facility] Urea Nitrogen (BUN) 11 9 - 16 mg/dL [facility] Creatinine, Serum 0.93 0.5 - 1.4 mg/dL [facility] Estimated Glomerular Filt Rate >60 [facility] Comment:Chronic Kidney Disea se: Estimated GFR < 60 mL/min/1.98q3Lkozhj Kidney Disease: Estimated GFR < 15 mL/min/1.73m2 Glucose 85 60 - 115 mg/dL [facility] Calcium 9.5 8.4 - 10.2 mg/dL [facility] Blood Venous blood specimen / Unknown 11/06/2024 4:14 PM EST 11/06/2024 5:49 PM EST Angelica Osborne MD LAB BLOOD ORDERABLES Final Resul t Performing Organization Address [facility] Co de Phone Number [facility] [address] [place] [phone] * (ABNORMAL) POCT glycosylated hemoglobin (Hgb A1c) (11/06/2024 3:56 PM EST) Hemoglobin A1C 7.1(A) 4.0 - 6.0 % QC Media Lot # [id number] Lot# Expiration Date ,421 Blood Capillary blood specimen / Unknown 11/06/2024 3:56 PM EST us Angelica Osborne MD POINT OF CARE TEST ENTER/EDIT OR DERABLES Final Result * POCT glucose manually resulted (11/06/2024 3:56 PM EST) Only the most recent of2 resultswithin the time period is included. Glucose Blood, POC 95 60 - 200 mg/dL QC Media Lot # [id number] Lot# Expiration Date ,025 Blood Capillary blood specimen / Unknown 11/06/2024 3:56 PM EST Angelica Osborne MD POINT OF CARE TEST ENTER/EDIT OR DERABLES Final Result * (ABNORMAL) POCT HGB A1C (08/11/2024 1:38 PM EDT) Hemoglobin A1C 7.1(A) 4.0 - 6.0 % QC Media Lot # [id number] Lot# Expiration Date ,026 Blood 08/11/2024 1:38 PM EDT Diana Gonzalez MD POINT OF CARE GUSTABO T ENTER/EDIT ORDERABLES Final Result * DIGITAL BILATERAL SCREEN 1 (06/28/2018 5:47 PM EDT) Anatomical Region Laterality Modality Breast Bilateral Mammography 06/28/2018 5:47 PM EDT Narrative 06/28/2018 5:50 PM EDT Refer to the Notes tab for result details [facility] Procedure: DIGITAL BILATERAL SCREEN 1 Procedure Note Provider, MD Daniele - 01/02/2023 Refer to the Notes tab for result details [facility] Procedure: DIGITAL BILATERAL SCREEN 1 us Angelica Osborne MD IMG BI PROCEDURES Final Result * Hm Colonoscopy (06/08/2013) Colonoscopy Normal Normal Daniele Oakes MD HEALTH MAINTENANCE Final Result from Last 3 Months or Most Recently Relevant to Health Maintenance Insurance [facility] - [facility] Care Teams Terminal Clerk Relationship Specialty Start Date End Date Angelica Osborne MD [address] [place] [phone] PCP - General Family Medicine 10/11/18 Mao Mota, PharmD [address] [place] [address] Pharmacist Internal Medicine 08/31/23 Armando De La Cruz FNP [address] [place] [address] Nurse Practitioner Family Medicine 08/31/23
--- OUTSIDE RECORDS SUMMARY | 2024-11-06 19:44 | XMS_ITS | Encounter Summary ---
Author Organization [employer] Address [address] [place] [address] Care Team Providers Care Child Care Teacher Name Role Phone Angelica Osborne MD Primary Care Provider [phone] Mao Mota PharmD Unavailable [phone] Armando De La Cruz ACCOUNT PROCESSOR Unavailable Unavailable Encounter Details Date Type Department Care Team ([facility] st Contact Info) Description 07/26/2023 Orders Only [facility] [address] [place], [place] [phone] Angelica Osborne MD [address] [place], [place] [phone] Social History Tobacco Use Types Packs/Day Years Used Date Smoking Tobacco: Every Day Cigarettes 0.5 44 Passive Smoke Exposure: Current Smokeless Tobacco: Never Depression Answer Date Recorded Patient Health Questionnaire-9 [...] Description 11/17/2024 3:30 PM EST Office Visit [facility] ADULT DENTAL [address] [place] [address] Yves Barron DDS [address] [place] [address] documented as of this encounter Visit Diagnoses Not on filedocumented in this encounter Additional Health Concerns Assessment Noted Time PHQ-9 Depression Total Score: 3 06/08/20 23 2:22 PM EDT documented as of this encounter Care Teams Child Care Teacher Relationship Specialty Start Date End Date Angelica Osborne MD [address] [place] [address] PCP - General Family Medicine 10/11/18 Mao Mota, MerD [address] [place] [phone] Pharmacist Internal Medicine 08/31/23 Armando De La Cruz FNP [address] [place] [phone] Nurse Practitioner Family Medicine 08/31/23 documented as of this encounter
--- OUTSIDE RECORDS SUMMARY | 2024-11-06 19:44 | XMS_ITS | Encounter Summary ---
Author Organization [employer] Address [address] [facility] [address] [place] [address] Care Team Providers Care Valve Inspector Name Role Phone Angelica Osborne MD Primary Care Provider [phone] Mao Mota PharmD Unavailable [phone] Armando De La Cruz INFORMATION ASSURANCE ENGINEER Unavailable Unavailable Reason for Visit * Reason Onset Date Comments Medication Question 06/30/2023 Encounter Details Date Type Department Care Team (Late st Contact Info) Description 06/30/2023 Telephone [facility] [address] [place], [place] [phone] Angelica Osborne MD [address] [place], [place] [phone] Medication Question Social History Tobacco Use Types [...] encounter Miscellaneous Notes * Telephone Encounter - Caryn Colindres - 06/30/2023 3:28 PM EDT Tc from patient calling in regards to nicotine patches and gum script talked about in the last visit on 06/22/23. documented in this encounter Plan of Treatment Upcoming Encounters Date Type Department Care Team (Late st Contact Info) Description 11/17/2024 3:30 PM EST Office Visit [facility] ADULT D[facility]AL [address] [place] [address] Yves Barron DDS [address] [place] [address] documented as of this encounter Visit Diagnoses Not on filedocumented in this encounter Additional Health Concerns Assessment Noted Time PHQ-9 Depression Total Score: 3 06/08/20 2:22 PM EDT documented as of this encounter Care Teams Valve Inspector Relationship Specialty Start Date End Date Angelica Osborne MD [address] [place] [address] PCP - General Family Medicine 10/11/18 Mao Mota, MerD [address] [place] [address] Pharmacist Internal Medicine 08/31/23 Armando De La Cruz FNP [address] [place] [phone] Nurse Practitioner Family Medicine 08/31/23 documented as of this encounter
--- OUTSIDE RECORDS SUMMARY | 2024-11-06 19:44 | XMS_ITS | Encounter Summary ---
Author Organization [employer] Address [address] [place] [address] Care Team Providers Care Tap Out Operator Name Role Phone Angelica Osborne MD Primary Care Provider [phone] Mao Mota PharmD Unavailable [phone] Armando De La Cruz TRAFFIC DIRECTOR Unavailable Unavailable Reason for Visit * Reason Comments Med Refill Encounter Details Date Type Department Care Team (Late st Contact Info) Description 10/10/2024 Refill [facility] [address] [place], [place] [phone] Angelica Osborne MD [address] [place], [place] [phone] Allergic rhinitis, unspecified seasonality, unspecified trigger Social History Tobacco Use Types Packs/Day Years [...] Description 11/17/2024 3:30 PM EST Office Visit [facility] [address] [place], [place] [phone] Yves Barron DDS [address] [place] [address] documented as of this encounter Goals Goal Patient Goal Type Associated Problems Recent Progress Patient-Stated? Author Quit using tobacco (cigarettes, smokeless, etc) Tobacco Use No Mao Mota, Margaux documented as of this encounter Visit Diagnoses Diagnosis Allergic rhinitis, unspecified seasonality, unspecified trigger documented in this encounter Additional Health Concerns Assessment Noted Time PHQ-9 Depression Total Score: 0 03/23/20 24 2:25 PM EDT documented as of this encounter Care Teams Tap Out Operator Relationship Specialty Start Date End Date Angelica Osborne MD [address] [place] [phone] PCP - General Family Medicine 10/11/18 Mao Mota, MerD [address] [place] [phone] Pharmacist Internal Medicine 08/31/23 Armando De La Cruz FNP [address] [place] [address] Nurse Practitioner Family Medicine 08/31/23 documented as of this encounter
--- OUTSIDE RECORDS SUMMARY | 2024-11-06 19:44 | XMS_ITS | Encounter Summary ---
Author Organization [employer] Address [address] [place] [address] 7t [place] [address] Care Team Providers Care Lead Bi Developer Name Role Phone Angelica Osborne MD Primary Care Provider [phone] Mao Mota PharmD Unavailable [phone] Armando De La Cruz MANAGER SOCIAL SERVICES Unavailable Unavailable Encounter Details Date Type Department Care Team (Late st Contact Info) Description 10/07/2022 Orders Only [facility] 230 [place], [place] [phone] [place], RN [address] [place], [place] [phone] Social History Tobacco Use Types Packs/Day Years [...] Description 11/17/2024 3:30 PM EST Office Visit [facility] 230 [place], [place] [phone] Yves Barron DDS [address] [place], [place] [phone] documented as of this encounter Visit Diagnoses Not on filedocumented in this encounter Care Teams Lead Bi Developer Relationship Specialty Start Date End Date Angelica Osborne MD [address] [place] [phone] PCP - General Family Medicine 10/11/18 Mao Mota, MerD [address] [place] [phone] Pharmacist Internal Medicine 08/31/23 Armando De La Cruz FNP [address] [place] [address] Nurse Practitioner Family Medicine 08/31/23 documented as of this encounter
--- OUTSIDE RECORDS SUMMARY | 2024-11-06 19:44 | XMS_ITS | Encounter Summary ---
Author Organization [employer] Address [address] 7[address] [place] [address] Care Team Providers Care Associate Director Name Role Phone Angelica Osborne MD Primary Care Provider [phone] Mao Mota PharmD Unavailable [phone] Armando De La Cruz R PROGRAMMER Unavailable Unavailable Reason for Visit * Reason Comments Med Refill Encounter Details Date Type Department Care Team (Late st Contact Info) Description 08/13/2023 Refill [facility] 230 [place], [place] [phone] Angelica Osborne MD 230 [place], [place] [phone] Social History Tobacco Use Types Packs/Day Years [...] Description 11/17/2024 3:30 PM EST Office Visit [facility] D[facility] 230 [place] [address] Yves Barron DDS [address] [place] [address] documented as of this encounter Visit Diagnoses Not on filedocumented in this encounter Additional Health Concerns Assessment Noted Time PHQ-9 Depression Total Score: 3 06/08/20 23 2:22 PM EDT documented as of this encounter Care Teams Associate Director Relationship Specialty Start Date End Date Angelica Osborne MD [address] [place] [phone] PCP - General Family Medicine 10/11/18 Mao Mota, Margaux [address] [place] [phone] Pharmacist Internal Medicine 08/31/23 Armando De La Cruz FNP [address] [place] [address] Nurse Practitioner Family Medicine 08/31/23 documented as of this encounter
--- OUTSIDE RECORDS SUMMARY | 2024-11-06 19:44 | XMS_ITS | Encounter Summary ---
Author Organization [employer] Address [address] [facility] [address] 7t [place] [address] Care Team Providers Care Aegis Console Operator Track Name Role Phone Angelica Osborne MD Primary Care Provider [phone] Mao Mota PharmD Unavailable [phone] Armando De La Cruz HOLDER PILE DRIVING Unavailable Unavailable Reason for Visit * Reason Onset Date Comments Nurse Triage 10/09/2024 Encounter Details Date Type Department Care Team (Late st Contact Info) Description 10/09/2024 Telephone [facility] [address] [place], [place] [phone] Angelica Osborne MD 230 [place], [place] [phone] Nurse Triage Social History Tobacco Use Types [...] encounter Miscellaneous Notes * Telephone Encounter - April Marcus RN - 10/09/2024 1:26 PM EST Called pt. She states that she went to Urgent care last week at [facility] and they ordered her to get an ultrasound done of her lower extremity and she does not know where to go. Upon looking at [facility], I do see a left lower extremity doppler US was ordered to R/O clot due to edema in lower left leg. Pt still has edema but, it is the same as last week. I gave pt. Phone number to [facility] and toldher to ask for US dept. So that she can get an appt. And get the test done. Pt can bear weight on leg and denies any hard lumps along vein. Pt. Will call [facility] now to get an appt scheduled. documented in this encounter Plan of Treatment Upcoming Encounters Date Type Department Care Team (Late st Contact Info) Description 11/17/2024 3:30 PM EST Office Visit [facility] D[facility] [address] [place] [address] Yves Barron DDS [address] [place] [address] documented as of this encounter Goals Goal [...] documented as of this encounter Care Teams Aegis Console Operator Track Relationship Specialty Start Date End Date Angelica Osborne MD 230 [place] [address] PCP - General Family Medicine 10/11/18 Mao Mota, PharmD [address] [place] [phone] Pharmacist Internal Medicine 08/31/23 Armando De La Cruz FNP [address] [place] [phone] Nurse Practitioner Family Medicine 08/31/23 documented as of this encounter
--- OUTSIDE RECORDS SUMMARY | 2024-11-06 19:44 | XMS_ITS | Encounter Summary ---
Author Organization [employer] Address [address] [facility] [address] [place] [address] Care Team Providers Care Project Buyer Name Role Phone Angelica Osborne MD Primary Care Provider [phone] Mao Mota PharmD Unavailable [phone] Armando De La Cruz Unavailable Unavailable Reason for Visit * Reason Comments Med Refill Encounter Details Date Type Department Care Team (Late st Contact Info) Description 02/27/2024 Refill [facility] [address] [place] [address] Armando De La Cruz FNP Major depression [...] Description 11/17/2024 3:30 PM EST Office Visit [facility] DENT[facility] [address] [place] [address] Yves Barron DDS [address] [place] [address] documented as of this encounter Goals Goal [...] documented as of this encounter Care Teams Project Buyer Relationship Specialty Start Date End Date Angelica Osborne MD [address] [place] [phone] PCP - General Family Medicine 10/11/18 Mao Mota, PharmD [address] [place] [phone] Pharmacist Internal Medicine 08/31/23 Armando De La Cruz FNP [address] [place] [address] Nurse Practitioner Family Medicine 08/31/23 documented as of this encounter
--- OUTSIDE RECORDS SUMMARY | 2024-11-06 19:44 | XMS_ITS | Encounter Summary ---
Author Organization [employer] Address [address] [facility] 7t [place] [address] Care Team Providers Care Certified Medical Biller Name Role Phone Angelica Osborne MD Primary Care Provider [phone] Mao Mota PharmD Unavailable [phone] Armando De La Cruz INSTRUCTOR ROBOTICS Unavailable Unavailable Reason for Visit * Reason Comments Med Refill Encounter Details Date Type Department Care Team (Late st Contact Info) Description 11/02/2024 Refill [facility] [address] [place], [place] [phone] Angelica Osborne MD [address] [place], [place] [phone] Social History Tobacco Use Types Packs/Day Years [...] Description 11/17/2024 3:30 PM EST Office Visit [facility] AD[facility] DENTAL [address] [place] [phone] Yves Barron DDS [address] [place] [address] documented as of this encounter Goals Goal [...] documented as of this encounter Care Teams Certified Medical Biller Relationship Specialty Start Date End Date Angelica Osborne MD [address] [place] [phone] PCP - General Family Medicine 10/11/18 Mao oMta, Margaux [address] [place] [phone] Pharmacist Internal Medicine 08/31/23 Armando De La Cruz FNP [address] [place] [address] [place] [address] Nurse Practitioner Family Medicine 08/31/23 documented as of this encounter
--- OUTSIDE RECORDS SUMMARY | 2024-11-06 19:44 | XMS_ITS | Data Portability ---
Author Organization [employer] [place] [facility] - [facility] Address [address] [place] [phone] Care Team Providers Care Outdoor Advertising Leasing Agent Name Role Phone [facility] Referring Provider HIM CCA OTHER Assessment Encounter Date Assessment Date Assessment LastModified by Organization Details LastModified Time 02/17/2023 02/17/2023 I have reviewed and agree with the Assessment and Plan as documented by the Junior Automation Engineer. I provided real-time medical direction via phone for this encounter, and was available for additional phone based assistance as needed. Patient seen for acute on chronic typical sciatic pain. No weakness numbness tingling trauma fevers bowel or bladder sxs. Txd w/ toradol. To follow up with care team. [email or web address] Not available 03/25/2023 13:24:49 12/13/2023 12/13/2023 I provided real -time medical direction via phone for this encounter, and was available for additional phone based assistance as needed. I have reviewed and agree with the Assessment and Plan as documented by the Junior Automation Engineer. Patient given the opportunity to ask questions. Call to this service for assessment of knee pain As per above, patient with known OA of both knees. Having usual pain that is not responding to Tylenol. Has responded to Toradol. Last 03/02. Per clicker operator on the scene, the patient has no concerns for the injection. Specially not on AC. No liver or kidney disease. Assessment: OA of both knees Plan: Toradol 30 mg IM times one We discussed the diagnostic uncertainty of home visits and the risk associated with this. In this case, the patient and I felt this to be an acceptable and reasonable amount of risk given the benefit of avoiding an ED visit. We discussed the need to seek care urgently/emerge ntly in the setting of any new or worsening serious symptoms [email or web address] Not available 12/13/2023 17:58:54 01/17/2024 01/17/2024 I have reviewed and agree with the assessment and plan as documented by the clicker operator. I provided real-time medical direction for this encounter and was immediately available to provide additional phone-based assistance as needed. 63F presenting with sciatic pain to right side. No new trauma or injury. Pt denies taking any OTC medication, no tylenol or NSAIDS this week. She states she has taken one dose last week with no improvement. O/E: pt appears well, no acute distress. Vitals at baseline. Pain to right side, no obvious deformity. Suspect mild sciatica, pt advised to use naproxen BID to assist with pain. Will provide 1 dose of Toradol today, however encouraged to use OTC regularly as we cannot continuously administer Toradol. Also advised to add in Tylenol regularly, along with heat/ice. Red flags and return precautions discussed. [email or web address] Not available 01/17/2024 20:09:48 Plan of Treatment Reminders Order Date Submit Date Provider Last Modified By Organization Details Last Modified Time Details Appointments None recorded. Lab None recorded. Referral None recorded. Procedures None recorded. Surgeries None recorded. Imaging None recorded. Medication Orders ketorolac 30 mg/mL (1 mL) injection solution 2022 023 pallfather Not available 3 16:40:05 ketorolac 30 mg/mL (1 mL) injection solution 2023 024 [email or web address] Not available 4 17:56:52 ketorolac 30 mg/mL injection solution 2023 024 paysola Not available 4 20:09:49 naproxen 500 mg tablet 2023 024 [facility], [address] [place] [address], [id number], 4 08:48:32 Claritin 10 mg tablet 2023 024 [facility], [address], [place], [id number], 4 15:55:56 Patient TargetsNo targets recorded. Patient InstructionsNo instructions recorded. Reason for Referral None Reported. Medical Equipment None Reported. Medications Name Sig Start Date Stop Date Status Note LastModified by Organization Details LastModified Time medbox status USE DIRECTED active Not Available Not Available No t Available cyclobenzapr ine 10 mg tablet TAKE 1 TABLET BY MOUTH UP TO THREE TIMES DAILY NEEDED FOR MUSCLE SPASMS active Not Available Not Available No t Available doxepin 50 mg capsule TAKE 1 CAPSULE BY MOUTH AT BEDTIME active Not Available Not Available No t Available perphenazine 2 mg tablet TAKE 1 TABLET BY MOUTH TWICE DAILY IN THE MORNING AND AT BEDTIME active Not Available Not Available No t Available ropinirole 1 mg tablet TAKE 1 TABLET BY MOUTH AT BEDTIME active Not Available Not Available No t Available nicotine 14 mg/24 hr daily transdermal patch APPLY 1 PATCH TOPICALLY TO THE SKIN IN THE MORNING DO NOT SMOKE WHILE USING PATCH active Not Available Not Available No t Available albuterol sulfate 2.5 mg/3 mL (0.083 %) solution for nebulization INHALE 1 AMPULE USING A NEBULIZER EVERY 4 TO 6 HOURS NEEDED DIFFICULTY BREATHING. USE UP TO FOUR TIMES DAILY. active Not Available Not Available No t Available cetirizine 10 mg tablet TAKE 1 TABLET BY MOUTH EVERY MORNING active Not Available Not Available No t Available nicotine (polacrilex) 2 mg gum CHEW 1 PIECE OF GUM BY MOUTH EVERY 1-2 HOURS NEEDED FOR CRAVINGS active Not Available Not Available No t Available doxepin 25 mg capsule TAKE 1 CAPSULE BY MOUTH AT BEDTIME active Not Available Not Available No t Available ketotifen 0.025 % (0.035 %) eye drops PLACE 1 INTO THE AFFECTED EYE(S) TWICE DAILY DIRECTED active Not Available Not Available Not Available prazosin 1 mg capsule TAKE 1 CAPSULE BY MOUTH AT BEDTIME FOR NIGHTMARES active Not Available Not Available N ot Available sertraline 100 mg tablet TAKE 1 TABLET BY MOUTH EVERY MORNING active Not Available Not Available No t Available clonazepam 1 mg tablet TAKE 1 TABLET BY MOUTH TWICE DAILY IN THE MORNING AND AT BEDTIME active Not Available Not Available No t Available cromolyn 4 % eye drops INSTILL 1 DROP INTO THE AFFECTED EYE(S) EVERY 6 HOURS DIRECTED active Not Available Not Available No t Available triamcinolon e acetonide 0.5 % topical ointment APPLY TO THE AFFECTED AREA(S) SPARINGLY TWICE DAILY active Not Available Not Available Not Available aspirin 81 mg tablet,delay ed release TAKE 1 TABLET BY MOUTH EVERY MORNING active Not Available Not Available No t Available acetaminophe n 500 mg tablet TAKE 2 TABLETS BY MOUTH EVERY 8 HOURS NEEDED active Not Available Not Available No t Available acetaminophe n ER 650 mg tablet,exten ded release TAKE 1 TABLET BY MOUTH EVERY 8 HOURS NEEDED FOR MILD PAIN active Not Available Not Available No t Available baclofen 20 mg tablet TAKE 1 TABLET BY MOUTH TWICE DAILY NEEDED MAY TAKE ADDITIONAL TABLET NEEDED FOR MUSCLE SPASMS active Not Available Not Available No t Available pantoprazole 20 mg tablet,delay ed release TAKE 1 TABLET BY MOUTH TWICE DAILY IN THE MORNING AND IN THE EVENING active Not Available Not Available No t Available meloxicam 7.5 mg tablet TAKE 1 TABLET BY MOUTH ONCE OR TWICE DAILY NEEDED FOR PAIN active Not Available Not Available No t Available famotidine 20 mg tablet TAKE 1 TABLET BY MOUTH ONCE DAILY active Not Available Not Available No t Available nicotine (polacrilex) 4 mg gum CHEW 1 PIECE OF GUM DIRECTED NEEDED FOR SMOKING active Not Available Not Available No t Available baclofen 10 mg tablet TAKE 1 TABLET BY MOUTH THREE TIMES DAILY NEEDED active Not Available Not Available No t Available hydrocortiso ne 1 % topical cream APPLY TO THE AFFECTED AREA(S) TOPICALLY TWICE DAILY active Not Available Not Available Not Available doxycycline monohydrate 100 mg capsule TAKE 1 CAPSULE BY MOUTH TWICE DAILY UNTIL FINISHED active Not Available Not Available No t Available levothyroxin e 50 mcg tablet TAKE 1 TABLET BY MOUTH EVERY MORNING active Not Available Not Available No t Available lisinopril 10 mg tablet TAKE 1 TABLET BY MOUTH EVERY MORNING active Not Available Not Available No t Available perphenazine 4 mg tablet TAKE 1 TABLET BY MOUTH TWICE DAILY IN THE MORNING AND IN THE EVENING active Not Available Not Available No t Available nicotine 21 mg/24 hr daily transdermal patch APPLY 1 PATCH TOPICALLY TO THE SKIN IN THE MORNING DO NOT SMOKE WHILE USING PATCH active Not Available Not Available No t Available docusate sodium 100 mg capsule TAKE 1 CAPSULE BY MOUTH TWICE DAILY IN THE MORNING AND IN THE EVENING active Not Available Not Available No t Available montelukast 10 mg tablet TAKE 1 TABLET BY MOUTH EVERY EVENING active Not Available Not Available No t Available furosemide 20 mg tablet TAKE 1 TABLET BY MOUTH ONCE DAILY FOR 14 DAYS active Not Available Not Available No t Available cefuroxime axetil 500 mg tablet TAKE 1 TABLET BY MOUTH TWICE DAILY UNTIL FINISHED active Not Available Not Available No t Available celecoxib 100 mg capsule TAKE 1 CAPSULE BY MOUTH EVERY DAY active Not Available Not Available No t Available fluticasone propionate 50 mcg/actuatio n nasal spray,suspen sarah INHALE 1 SPRAY IN EACH NOSTRIL TWICE DAILY IN THE MORNING AND IN THE EVENING active Not Available Not Available No t Available metformin ER 500 mg tablet,exten ded release 24 hr TAKE 2 TABLETS BY MOUTH BEFORE BREAKFAST AND EVENING MEAL DO NOT BREAK, CRUSH, DISSOLVE OR CHEW active Not Available Not Available No t Available loratadine 10 mg tablet TAKE 1 TABLET BY MOUTH EVERY DAY active Not Available Not Available No t Available naproxen 500 mg tablet Take 1 tablet twice a day by oral route for 5 days. active Not Available Not Available No t Available Ventolin HFA 90 mcg/actuatio n aerosol inhaler INHALE 2 PUFFS BY MOUTH EVERY 6 HOURS NEEDED SHORTNESS OF BREATH OR FOR WHEEZING active Not Available Not Available No t Available neomycin-pierre ymyxin-hydro keyona 3.5 mg-10,000 unit/mL-1 % ear drops,susp PLACE 3 TO 4 DROPS INTO THE AFFECTED EAR(S) FOUR TIMES DAILY FOR 10 DAYS active Not Available Not Available Not Available nicotine (polacrilex) 2 mg buccal lozenge DISSOLVE 1 LOZENGE BY MOUTH EVERY 1 TO 2 HOURS NEEDED FOR CRAVINGS active Not Available Not Available No t Available rosuvastatin 40 mg tablet TAKE 1 TABLET BY MOUTH AT BEDTIME active Not Available Not Available No t Available Alcohol Prep Pads USE EVERY MORNING AND NEEDED active Not Available Not Available No t Available pregabalin 25 mg capsule TAKE 1 CAPSULE BY MOUTH TWICE DAILY IN THE MORNING AND AT BEDTIME active Not Available Not Available No t Available pregabalin 50 mg capsule TAKE 1 CAPSULE BY MOUTH TWICE DAILY IN THE MORNING AND AT BEDTIME active Not Available Not Available No t Available pregabalin 75 mg capsule TAKE 1 CAPSULE BY MOUTH TWICE DAILY active Not Available Not Available No t Available chlorhexidin e gluconate 0.12 % mouthwash RINSE WITH 15ml BY MOUTH FOR 30 SECONDS THEN SPIT OUT TWICE DAILY AFTER MEALS active Not Available Not Available No t Available calcium 600 mg (as carbonate)-v itamin D3 10 mcg (400 unit) tablet TAKE 1 TABLET BY MOUTH TWICE DAILY IN THE MORNING AND IN THE EVENING active Not Available Not Available No t Available FreeStyle [place] Lite kit USE DIRECTED TO TEST BLOOD SUGAR EVERY DAY active Not Available Not Available No t Available melatonin 5 mg tablet TAKE 2 TABLETS BY MOUTH EVERY DAY AT BEDTIME NEEDED FOR SLEEP active Not Available Not Available No t Available ketorolac 30 mg/mL injection solution Inject 15 mg. 2023 active Not Available Not Available Not Avai lable OneTouch Verio test strips TEST BLOOD SUGAR EVERY MORNING BEFORE BREAKFAST DIRECTED active Not Available Not Available Not Available Trulicity 1.5 mg/0.5 mL subcutaneous pen injector INJECT ONE PEN (=1.5MG) SUBCUTANEOU SLY ONCE A WEEK DIRECTED active Not Available Not Available No t Available Trulicity 0.75 mg/0.5 mL subcutaneous pen injector INJECT ONE PEN (=0.75MG) SUBCUTANEOU SLY ONCE A WEEK DIRECTED active Not Available Not Available No t Available OneTouch Verio Flex Meter active Not Available Not Available Not Available OneTouch Delica Plus Lancet 33 gauge TEST BLOOD SUGAR EVERY MORNING DIRECTED active Not Available Not Available No t Available Vitals Date Recorded Respiratory rate Heart rate Body height Body temperature Body weight Oxygen saturation Oxygen saturation in Arterial blood by Pulse oximetry Systolic blood pressure Diastolic blood pressure Provider Name and Address Organization Details Last Updated DateTime 4 18 /min 74 /min 160.02 cm 97.9 [degF] 147278. 12 g 95 % 95 % 124 mm[Hg] 80 mm[Hg] Not Available [facility] [employer] 4 17:49:55 Date Recorded Body temperature Heart rate Respiratory rate Oxygen saturation Oxygen saturation in Arterial blood by Pulse oximetry Body weight Systolic blood pressure Diastolic blood pressure Provider Name and Address Organization Details Last Updated DateTime 4 98.3 [degF] 78 /min 18 /min 99 % 99 % 99841.9 2 g 118 mm[Hg] 80 mm[Hg] Not Available [facility] [employer] [employer] 4 14:27:35 Date Recorded Body weight Oxygen saturation Oxygen saturation in Arterial blood by Pulse oximetry Respiratory rate Heart rate Body height Systolic blood pressure Diastolic blood pressure Provider Name and Address Organization Details Last Updated DateTime 4 564853. 776 g 96 % 96 % 16 /min 90 /min 160.02 cm 166 mm[Hg] 95 mm[Hg] Not Available [facility] [employer] 4 20:03:18 Date Recorded Body weight Oxygen saturation Oxygen saturation in Arterial blood by Pulse oximetry Respiratory rate Heart rate Body temperature Systolic blood pressure Diastolic blood pressure Provider Name and Address Organization Details Last Updated DateTime 4 72626.4 g 97 % 97 % 16 /min 86 /min 98.6 [degF] 128 mm[Hg] 66 mm[Hg] Not Available [employer] 4 15:30:37 Date Recorded Heart rate Respiratory rate Body weight Oxygen saturation Oxygen saturation in Arterial blood by Pulse oximetry Body temperature Body temperature Heart rate Oxygen saturation Oxygen saturation in Arterial blood by Pulse oximetry Respiratory rate Body weight Systolic blood pressure Diastolic blood pressure Systolic blood pressure Diastolic blood pressure Provider Name and Address Organization Details Last Updated DateTime 3 99 /min 14 /min 71892.2 4 g 97 % 97 % 97.1 [degF] 97.1 [degF] 99 /min 97 % 97 % 14 /min 23188.2 4 g 139 mm[Hg] 99 mm[Hg] 139 mm[Hg] 99 mm[Hg] Not Available [email or web address] 3 16:55:01 Social History None recorded. Functional Status None recorded. Mental Status None recorded. Family History Nothing Reported. Medical History No medical history recorded. Gynecological HistoryNo gynecological history recorded. Obstetrics History GPAL:G 0 P 0 0 0 0 Past Encounters Encounter ID Performer Location Encounter Start Date Encounter Closed Date Diagnosis/Indication Diagnosis SNOMED-CT Code Diagnosis ICD10 Code Diagnosis Note [id number] Jose Manuel Lopes MD [facility] [address] [place] [id number] 08/04/2022 19:20:44 08/05/2022 10:20:40 Right side sciatica [id number] 03470 M54.31 [id number] Fredi Calzada [facility] [address] [place] [id number] 08/04/2022 19:21:13 02/09/2024 14:59:18 [id number] Juan Bermudez MD [facility] [address] [place] [id number] 02/17/2023 16:38:14 02/18/2023 15:18:20 Sciatica [id number] M54.32 [id number] Alyssa Avendaño MD [facility] [address] [place] [id number] 12/13/2023 17:49:53 12/13/2023 18:53:04 Osteoarthritis of knee [id number] M17.9 [id number] Phan Sauceda MD [facility] [address] [place] [id number] 12/17/2023 14:27:33 12/19/2023 16:25:27 Low back pain 799783678 M54.50 This 63-year-ol d female has had a flare-up of her lower back pain for the past several days. NSAIDs and Tylenol have been ineffectiv e. I ordered Toradol 30 mg IM. She will follow-up with her PCP. The patient agreed with this plan. [id number] Nicole Barnett MD [facility] [address] [place] [id number] 01/17/2024 20:03:15 01/18/2024 10:19:23 Right side sciatica [id number] [id number] M54.31 [id number] Linda Bansal MD [facility] [address] [place] [id number] 04/26/2024 15:30:35 04/26/2024 22:16:56 Pruritic disorder [id number] L29.9 63 year old female being evaluated for a week of full body pruritus. Patient reports no fever/chil ls, new exposures or rashes. Patient previously had this and tried a medication at night that made her too somnolent, reports does not want another medication that will cause her too sleep. Exam notable for normal vital signs, skin exam without rash. Presentati on consistent with pruritis of unclear etiology, possibly related to systemic cause vs allergy, recommend claritin daily and FU primary for blood work. I have reviewed and agree with the assessment and plan as documented by the clicker operator. I provided real-time medical direction for this encounter and was immediatel y available to provide additional phone-base d assistance as needed. We discussed the diagnostic uncertaint y of home visits and associated risks. We discussed the need to seek care urgently/e mergently in the setting of any new or worsening symptoms. Health Concerns Section Related Observation LastModified by Organization Detai ls LastModified Time None Recorded Concern Status LastModified by Organization Details LastModified Time None Recorded Advance Directives Directive None Recorded Payers Encounter Date Sequence Insurance Name Policy Number Policy Pelayo Covered Member ID Pelayo Member ID Guarantor Name 02/17/2023 1 [facility] - DOS PRIOR TO 2023 - DUAL ELIGIBLE (MEDICARE REPLACEMENT/ADV ANTAGE - HMO) Laurie Reis [id number] Laurie Reis 12/13/2023 1 [facility] - DOS ON OR AFTER 2023 - DUAL ELIGIBLE - [employer] OPTIONS AND ONE CARE (MEDICARE REPLACEMENT/ADV ANTAGE - HMO) Laurie Reis [id number] Laurie Reis 12/17/2023 1 [facility] - DOS ON OR AFTER 2023 - DUAL ELIGIBLE - [employer] OPTIONS AND ONE CARE (MEDICARE REPLACEMENT/ADV ANTAGE - HMO) Laurie Reis [id number] Laurie Reis 01/17/2024 1 [facility] - DOS ON OR AFTER 2023 - DUAL ELIGIBLE - [employer] OPTIONS AND ONE CARE (MEDICARE REPLACEMENT/ADV ANTAGE - HMO) Laurie Reis [id number] Laurie Reis 04/26/2024 1 [facility] - DOS ON OR AFTER 2023 - DUAL ELIGIBLE - [employer] OPTIONS AND ONE CARE (MEDICARE REPLACEMENT/ADV ANTAGE - HMO) Laurie Reis [id number] Laurie Reis Notes Date Note Type Note Provider Name and Address Organization Details Recorded Time 02/17/2023 text/html [facility] Nursing Assessment: Reason For Request: Pain Chief Complaints: Pain PMH: COPD/Asthma Allergies: No Known Pain Assessment: Level 10 out of 10 Comments: Verified identity by Member c/o lower back pain to left leg. Member has chronic sciatica. Member is having trouble ambulating. Member takes lyrica for pain but has breakthrough pain .................. .................. .................. .................. .................. .................. .................. ............... Junior Automation Engineer Note From Leo Russ: Pt caox3 answers door with steady gait. Pt complains of acute on chronic lower back pain x years, has been worse lately. Pt has chronic sciatica. Pt states her legs are heavy as well. Pt states insetd came by a few months ago and gave her toradol which she says worked great. Pt denies other pain or complaints Pt pink warm and dry, secondary exam unremarkable [facility] orders 30mg toradol IM. Med administered as noted. PLadvised to follow up with PCP krista Red flags and pt education discussed. .................. .................. .................. .................. .................. .................. .................. ............... Disposition: Fulfilled Juan Bermudez MD [address] [place] [address],[address], [place], [phone], [employer] 03/25/2023 13:24:57 12/13/2023 text/html HPI: Pt reports severe bilateral knee pain, unable to ambulate well. Tylenol/motrin don't help the pain. Bilateral knees , reddened and swollen. Pt unable to come to [facility] facility and is requesting a visit. .................. .................. .................. .................. .................. .................. .................. ............... [facility] Nurse Triage Notes (Zan Hartley): Comments: HPI was reviewed and no additional information was needed .................. .................. .................. .................. .................. .................. .................. ............... Junior Automation Engineer Note From Margaux Garcia: Sent to a call for a pt complaining of bilateral knee pain. [facility] arrives on scene, pt is alert and oriented, airway is patent. Pt complains of chronic bilateral knee pain. Pt complains of increased atraumatic knee pain starting last night. Pt states they are prescribed Tylenol 650mg TID, but haven't been taking it because it doesn't work. Pt denies history of kidney disease, taking any blood thinners, or taking Advil. Pt states she has gotten Toradol in the past which has been effective, and requests another injection today. BP:124/80, P:74, RR:18, SpO2:95% RA, T:97.9; Head: unremarkable; Lung sounds: clear bilaterally; Abdomen: soft, non-tender, no distention; Back: unremarkable; Extremities: no deformities, erythema noted; Skin: pink, warm, dry; [facility] consulted and orders Ketorolac 30mg IM. Ketorolac 30mg IM administered without incident. Pt advised to follow up with PCP for further evaluation/treatme nt plan. Red flags discussed. Pt has no further questions. .................. .................. .................. .................. .................. .................. .................. ............... Disposition: Fulfilled Alyssa Avendaño MD [address] [facility],[address], [place], [phone], [employer] 12/13/2023 17:59:18 12/17/2023 text/html HPI: Call to Laurie Reis, reports having lower back pain that is radiating to both legs x 1 day. Per pt no recent injury or fall. No abdominal pain, urinary sx, frequency or pain with urination. No weakness reported. No meds taken for pain. Pt offered same day appt. Pt declines wishes to be referred to [facility]. .................. .................. .................. .................. .................. .................. .................. ............... [facility] Nurse Triage Notes (Abida Peacock): Comments: CRC RN DID NOT NEED FURTHER INFO< ROMMEL Sauceda MD [address] [facility],[address], [place], [phone], [employer] 12/17/2023 14:31:25 01/17/2024 text/html HPI: Member with sciatica pain that started 1 week ago. Type of pain is chronic. Requestor unclear specific location of pain currently. No recent falls or trauma. Reports that member is taking OTC with no relief. .................. .................. .................. .................. .................. .................. .................. ............... Junior Automation Engineer Note From Jeff Izquierdo: Pt reports acute on chronic bilateral sciatic nerve pain. Pt is requesting IM ketorolac which has worked in the past. Pt does not take any PO pain relief. Pt is alert, NAD. VSS. Afebrile. Non focal neuro exam. Normal gait. [facility] contacted and pt treated with ketorolac 15 mg IM, right deltoid. Pt educated on adverse reactions that repeated ketorolac can cause. Pt instructed to begin taking the naproxen bid when she receives it from the pharmacy. .................. .................. .................. .................. .................. .................. .................. ............... Disposition: Maxim Barnett MD [address] [facility],[address], [place], [phone], [employer] 01/17/2024 20:51:46 04/26/2024 text/html HPI: overall itching, no visible rash or lesion Member has all over itching. Member does not have any redness/ lesions. Member does not have any food allergies or medical allergies. Member has not had any changes in medications. The member has not done any yard work or engaged in outside activities. Member did not report that she has changed her soap or detergent .................. .................. .................. .................. .................. .................. .................. ............... [facility] Nurse Triage Notes (Abida Peacock): Comments: CRC RN DID NOT NEED FURTHER INFO .................. .................. .................. .................. .................. .................. .................. ............... Junior Automation Engineer Note From Royal Milner: Pt co itching all over with no rash or lesions. Neg insect bites visible. Pt denies throat swelling or sob, cp , dizziness, cough. Pt sts felt itchy for past week. No new detergents or meds. Pt sts tried Benadryl with no relief and lotion with no relief. Baseline vitals assessed. Skin evaluation. No appearance of rash. [facility] contacted and RX for claratin called in. Pt has appt with pcp on Wednesday. Pt advised to get blood drawn to liver function when she goes to appt. Pt education on signs indicating the ER. .................. .................. .................. .................. .................. .................. .................. ............... Disposition: Fulfilled Linda Bansal MD [address] [facility],[address], [place], [address], MIKI MAIER 04/26/2024 19:07:10 OBGyn Episode No OBEpisode recorded.
== END 2024-11-06 16:06 | disposition home or self-care (01) ==
LOC: HO.HHCL 16:05
PROVIDERS: Family Medicine; Visit Provider Internal Medicine
DX: R60.0 Localized edema (principal); N17.9 Acute kidney failure, unspecified; M62.82 Rhabdomyolysis; E78.5 Hyperlipidemia, unspecified; I10 Essential (primary) hypertension; E03.9 Hypothyroidism, unspecified
CPT/HCPCS: 36415; 80048; 80061; 80076; 82043; 82550; 82570; 83880; 84443

== ENCOUNTER 2024-12-26 17:33 | Emergency (ER) | payer OTHER, SELFPAY ==
--- NOTE | ~2024-12-26 | XR_ITS ---
CLINICAL HISTORY: prod cough sob 2 view chest x-ray Comparison: CR/GA - CHEST 2 VIEWS [id number] - 12/20/14 13:28 EDT Findings: Lungs are well inflated. Mediastinal contours, cardiac silhouette, and pulmonary vasculature are within normal limits. No focal areas of consolidation. No pleural effusion. IMPRESSION: 1. No acute findings. This document has been electronically signed by: Johnny Scott MD on 12/26/2024 22:48:35
--- NOTE | ~2024-12-26 | XR_ITS ---
CLINICAL HISTORY: trauma 3 view left foot Comparison: None Findings: Bones intact. No dislocations. No significant loss of joint space, osteophytes, or erosions. No ankle effusion. No radiopaque foreign body. There is soft tissue swelling of the forefoot of the foot. IMPRESSION: 1. No acute fracture deformity. 2. Soft tissue swelling of the forefoot This document has been electronically signed by: Alonso Barrow MD on 12/26/2024 19:07:49
[2024-12-26 17:43] VITALS: BP 170/90; PULSE 109; O2SAT 94
[2024-12-26 18:07] VITALS: BP 129/80; PULSE 96; RESP 20; TEMP 36.4; O2SAT 93; BMI 37.9
--- NOTE | 2024-12-26 18:10 | ED_ITS ---
HPI - General Adult General Chief complaint: Extremity Injury, Lower Stated complaint: toe pain Time Seen by Provider: 12/26/24 21:34 Source: patient Mode of arrival: ambulatory Limitations: no limitations History of Present Illness ED Provider: DR. Alex HPI narrative: Patient is a 64-year-old female with a history of diabetes, COPD, hypothyroidism, hypertension, hyperlipidemia who presents with left 2nd toe pain x2 days. Patient states she noticed it was purple, denies injury. On exam there was bruising noted over the left 2nd digit , no trauma, no stub. Patient also was complaining of cough and congestion, no fever, chills. Related Data Home Medications ?Medication ?Instructions ?Recorded ?Confirmed aspirin 81 mg tablet,delayed 81 mg PO DAILY 07/13/20 02/28/24 release (Adult Low Dose Aspirin) clonazepam 1 mg tablet 1 mg PO BID 07/13/20 02/28/24 levothyroxine 50 mcg tablet 50 mcg PO DAILY 07/13/20 02/28/24 lisinopril 10 mg tablet 10 mg PO DAILY 07/13/20 02/28/24 montelukast 10 mg tablet 10 mg PO DAILY 07/13/20 02/28/24 pantoprazole 20 mg tablet,delayed 20 mg PO BID 07/13/20 02/28/24 release rosuvastatin 40 mg tablet 40 mg PO BEDTIME 07/13/20 02/28/24 sertraline 100 mg tablet 100 mg PO QAM 07/13/20 02/28/24 acetaminophen 650 mg 650 mg PO Q8H PRN Pain 02/28/24 02/28/24 tablet,extended release albuterol sulfate 90 mcg/actuation 2 inh inhalation Q6H PRN Shortness 02/28/24 02/28/24 aerosol inhaler (Ventolin HFA) Of Breath Or Wheezing baclofen 20 mg tablet 20 mg PO BID PRN Muscle Spasm 02/28/24 02/28/24 baclofen 20 mg tablet 20 mg PO DAILY PRN Muscle Spasm 02/28/24 02/28/24 calcium 600 mg (as 1 tab PO BID 02/28/24 02/28/24 carbonate)-vitamin D3 10 mcg (400 unit) tablet cromolyn 4 % eye drops 1 drp ophthalmic (eye) Q6H 02/28/24 02/28/24 docusate sodium 100 mg capsule 100 mg PO BID 02/28/24 02/28/24 doxepin 50 mg capsule 50 mg PO BEDTIME 02/28/24 02/28/24 dulaglutide 1.5 mg/0.5 mL 1.5 mg subcut TU 02/28/24 02/28/24 subcutaneous pen injector (Trulicity) famotidine 20 mg tablet 20 mg PO DAILY 02/28/24 02/28/24 fluticasone propionate 50 1 spray intranasal BID 02/28/24 02/28/24 mcg/actuation nasal spray,suspension melatonin 5 mg tablet 10 mg PO BEDTIME PRN insomnia 02/28/24 02/28/24 metformin 500 mg tablet,extended 1,000 mg PO BID 02/28/24 02/28/24 release 24 hr nicotine (polacrilex) 2 mg buccal 2 mg PO Q1-2H PRN Nicotine Cravings 02/28/24 02/28/24 lozenge nicotine 21 mg/24 hr daily 1 patch topical QAM 02/28/24 02/28/24 transdermal patch perphenazine 4 mg tablet 4 mg PO BID 02/28/24 02/28/24 prazosin 1 mg capsule 1 mg PO BEDTIME 02/28/24 02/28/24 pregabalin 75 mg capsule 75 mg PO BID 02/28/24 02/28/24 ropinirole 1 mg tablet 1 mg PO BEDTIME 02/28/24 02/28/24 Previous Rx's ?Medication ?Instructions ?Recorded cefuroxime axetil 500 mg tablet 500 mg PO BID #14 tabs 03/01/24 doxycycline monohydrate 100 mg 100 mg PO BID #14 caps 03/01/24 capsule cefuroxime axetil 250 mg tablet 250 mg PO BID 7 days #14 tabs 12/26/24 Allergies Allergy/AdvReac Type Severity Reaction Status Date / Time No Known Allergies Allergy Verified 12/26/24 18:10 [No Known Allergies*] Review of Systems 2 Review of Systems: all other systems are reviewed and are negative Constitutional: Reports as per HPI and Reports no additional constitutional complaints Eyes: Reports as per HPI and Reports no additional eye complaints Reports system reviewed and no additional complaints, except as documented Cardiovascular: Reports as per HPI and Reports no additional cardiovascular complaints Respiratory: Reports as per HPI and Reports no additional respiratory complaints Gastrointestinal: Reports as per HPI and Reports no additional gastrointestinal complaints Genitourinary: Reports no additional female genitourinary complaints Musculoskeletal: Reports no additional musculoskeletal complaints Skin/Breast: Reports system reviewed and no additional complaints, except as docu Psychiatric: Reports no additional psychiatric complaints Endocrine: Reports no additional endocrine complaints Hematologic/Lymphatic: Reports no additional hematologic/lymphatic complaints Allergic/Immunologic: Reports no additional allergic/immunologic complaints Reports system reviewed and no additional complaints, except as documented and Reports Abnormal speech present [facility] Past Medical History Medical History GERD (gastroesophageal reflux disease) Glaucoma Asthma Depression Hypothyroidism Hyperlipidemia Hypertension Personal history of nicotine dependence Surgical History History of History of colonoscopy History of shoulder surgery (~2012) History of total hysterectomy with bilateral salpingo-oophorectomy (BSO) (~2005) Social History Social History Household Members: None Housing: Apartment Do you presently have visiting nurse or other home services: No Patient Tobacco Use Status: Current someday Tobacco user Smoked in Last 30 Days: Yes Use of substances other than those prescribed or required for medical reasons: No Advance Directives: No Advance Directives Information Provided: No Do you have a plan to hurt others: No Plan Patient : No service: No Physical Exam ED Vital Signs: Vital Signs - 24 hr 12/26/24 18:07 12/26/24 21:43 Temperature 97.5 F 98.9 F Pulse Rate 96 86 Respiratory Rate 20 18 Blood Pressure 129/80 139/66 Pulse Oximetry 93 95 Oxygen Delivery Method Room Air Room Air BMI result Body Mass Index 37.9 Vital signs have been reviewed and appear to be correct. Blood pressure elevated. Heart rate normal. Respiratory rate normal. Temperature normal. Oxygen saturation normal. Appearance: Alert. Oriented X3. No acute distress. Head: Normal external exam. Normocephalic. Atraumatic. No Jiménez signs noted. No raccoon eyes noted Eyes: PERRLA. EOMI. Conjunctiva and sclera normal. Eyelids normal. ENT: TM's Normal. Pharynx normal. Uvula midline. Moist mucous membranes. No trismus noted. No drooling noted. No muffled voice noted. Neck: Normal inspection. Neck supple. FROM. No adenopathy. Thyroid Normal. No meningeal signs. No neck mass noted. CVS: Normal heart rate and rhythm. Heart sound normal. No murmurs noted. Pulses normal throughout. Respiratory: No respiratory distress. Painless inspiration. Breath sounds normal. No wheezes/rales/rhonchi noted. Chest nontender. No accessory muscle usage noted or decreased air movement noted. Abdomen: Soft and nontender. Bowel sounds normal in all 4 quadrants. No distention noted. No organomegaly noted. No visible injury noted. Back: No CVA tenderness. Full range of motion noted. Skin: Skin warm and dry. Normal skin color. Normal skin turgor. No rashes/lesions/lacerations noted. Extremities: left foot: 2Nd toe no deformity, mild ecchymosis over the middle phalanx, no deformity full range of motion, no swelling, left foot vascular exam is intact, strong left PT /DP, cap refill less than 2 seconds, foot is warm to touch with no ischemic changes. Neuro: Oriented X 3. Cranial nerve exam: II-XII are grossly intact No motor deficit. No sensory deficit. Reflexes normal. Course Course Course Narrative: This is a rapid medical exam performed by Alejandra Valera PA-C. , there was no open wound, the foot is warm and well perfused. We will order an x-ray. The patient was stable and can return to the waiting room pending her full medical assessment. Reevaluation(s) Reevaluation #1: 64-year-old female came in with 2nd toe pain with no history of injury, x-ray is showing no acute fracture, neurovascular exam is unremarkable. Patient also complaining of chest pain, unremarkable workup, unremarkable chest x-ray, mild leukocytosis with no significant left shift. UA reveals UTI will start Ceftin, no CVA tenderness. Time: 23:19 Medical Decision Making Differential Diagnosis Differential Diagnoses: The differential diagnosis associated with the presentation includes ( Left toe fracture, left foot ischemic changes, neurovascular compromise exam, ACS, pneumonia, pneumothorax, pleural effusion, UTI.) Admission/Observation Consideration of admission/observation: Escalation of care including admission/observation considered Lab Data MDM Lab Attestation statement: I reviewed the patient's lab results. 12/26/24 22:16 12/26/24 22:16 Labs: Lab Results 12/26/24 Range/Units 22:16 WBC 13.4 H (4.8-10.8) X10*3/uL RBC 5.44 D (4.20-5.50) X10*6/uL Hgb 16.7 H D (12.0-16.0) g/dl Hct 48.1 H D (37.0-47.0) % MCV 88.4 (80.0-98.0) fL MCH 30.7 (27.0-33.0) pg MCHC 34.7 (31.0-35.0) g/dl RDW 13.4 (11.0-16.0) % Plt Count 280 D (160-400) X10*3/uL MPV 10.4 (9.4-12.3) fL Immature Gran % (Auto) 0.5 H (0.0-0.4) % Neut % (Auto) 58.6 (45-73) % Lymph % (Auto) 32.1 (20-40) % [place] % (Auto) 7.4 (2-11) % Eos % (Auto) 0.8 (0-4) % Baso % (Auto) 0.6 (0-2) % Lymph # (Auto) 4.3 (1.2-4.9) X10*3/uL [place] # (Auto) 1.0 (0.1-1.2) X10*3/uL Eos # (Auto) 0.1 (0.0-0.4) X10*3/uL Baso # (Auto) 0.1 (0.0-0.2) X10*3/uL Abs Immat Gran (auto) 0.07 H (0.00-0.03) X10*3/uL Absolute Neuts (auto) 7.8 (2.0-8.3) x10*3/uL Absolute Nucleated RBC 0.000 (0.0-0.012) X10*3/uL Nucleated RBC % (auto) 0.0 (0.0-0.2) /100WBC Sodium 142 (135-145) mmol/L Potassium 4.0 (3.3-5.1) mmol/L Chloride 107 (96-108) mmol/L Carbon Dioxide 24 (22-29) mmol/L Anion Gap 15 (12-20) BUN 11 (9-16) mg/dL Creatinine 0.83 (0.5-1.4) mg/dL Estim Creat Clear Calc 77.9 Estimated GFR > 60 Random Glucose 93 (60-115) mg/dL Calcium 10.1 D (8.4-10.2) mg/dL Total Bilirubin 0.7 (0.0-1.0) mg/dL Direct Bilirubin 0.2 (0.0-0.5) mg/dL AST 21 (5-31) U/L ALT 35 H (0-31) U/L Alkaline Phosphatase 106 (39-117) U/L Troponin I High Sens < 2.7 (<3.5-17.0) ng/L Total Protein 8.1 H (6.5-8.0) g/dL Albumin 4.7 (3.5-5.0) g/dL Lipase 14 (8-78) U/L Urine Color Yellow Urine Appearance Clear Urine pH 5.5 (5.0-9.0) Ur Specific N[place] 1.020 (1.005-1.025) Urine Protein 30 (1+) H (Neg-Trace) mg/dL Urine Glucose (UA) Negative (Negative) mg/dL Urine Ketones Trace (Negative) mg/dL Urine Blood Negative (Negative) Urine Nitrite Positive H (Negative) Ur Leukocyte Esterase Moderate (2+) H (Negative) Urine RBC 3-5 H (0-2) /HPF Urine WBC 6-10 (0-5) /HPF Ur Squamous Epith Cells 6-10 (0-2) /HPF Urine Bacteria 4+ (None Seen) Hyaline Casts 0-2 (0-2) /LPF Independent Interpretation I performed an independent interpretation of an: Plain X-Ray ( Left foot/chest: No acute findings) Radiology Impression Discussion of test interpretation with radiology: I have reviewed the radiologist's reading. Discharge Plan Discharge Clinical Impression: UTI (urinary tract infection), Chest pain, Hematoma of second toe Patient Disposition: Home, Self-Care Instructions: Urinary Tract Infection in Women (ED), Contusion in Adults (ED) Prescriptions: New cefuroxime axetil 250 mg tablet 250 mg PO BID 7 Days Qty: 14 0RF No Action doxepin 50 mg capsule 50 mg PO BEDTIME ropinirole 1 mg tablet 1 mg PO BEDTIME prazosin 1 mg capsule 1 mg PO BEDTIME cromolyn 4 % drops 1 drp ophthalmic (eye) Q6H acetaminophen 650 mg tablet extended release 650 mg PO Q8H PRN (Reason: Pain) baclofen 20 mg tablet 20 mg PO BID PRN (Reason: Muscle Spasm) baclofen 20 mg tablet 20 mg PO DAILY PRN (Reason: Muscle Spasm) famotidine 20 mg tablet 20 mg PO DAILY perphenazine 4 mg tablet 4 mg PO BID nicotine 21 mg/24 hr patch 24 hour 1 patch topical QAM docusate sodium 100 mg capsule 100 mg PO BID albuterol sulfate [Ventolin HFA] 90 mcg/actuation HFA aerosol inhaler 2 inh inhalation Q6H PRN (Reason: Shortness Of Breath Or Wheezing) fluticasone propionate 50 mcg/actuation spray,suspension 1 spray intranasal BID metformin 500 mg tablet extended release 24 hr 1,000 mg PO BID nicotine (polacrilex) 2 mg lozenge 2 mg PO Q1-2H PRN (Reason: Nicotine Cravings) pregabalin 75 mg capsule 75 mg PO BID calcium carbonate-vitamin D3 600 mg-10 mcg (400 unit) tablet 1 tab PO BID melatonin 5 mg tablet 10 mg PO BEDTIME PRN (Reason: insomnia) Trulicity 1.5 mg/0.5 mL pen injector 1.5 mg subcut TU doxycycline monohydrate 100 mg capsule 100 mg PO BID Qty: 14 0RF cefuroxime axetil 500 mg tablet 500 mg PO BID Qty: 14 0RF aspirin [Adult Low Dose Aspirin] 81 mg tablet,delayed release (DR/EC) 81 mg PO DAILY clonazepam 1 mg tablet 1 mg PO BID levothyroxine 50 mcg tablet 50 mcg PO DAILY lisinopril 10 mg tablet 10 mg PO DAILY montelukast 10 mg tablet 10 mg PO DAILY pantoprazole 20 mg tablet,delayed release (DR/EC) 20 mg PO BID rosuvastatin 40 mg tablet 40 mg PO BEDTIME sertraline 100 mg tablet 100 mg PO QAM Referrals: Matt Sultana PA [Primary Care Provider] - Print Language: Turkmen
[2024-12-26 21:43] VITALS: BP 139/66; PULSE 86; RESP 18; TEMP 37.2; O2SAT 95
--- NOTE | 2024-12-26 21:43 | ECG_ITS ---
Test Reason : CHEST PAIN Blood Pressure : */* mmHG Vent. Rate : 77 BPM Atrial Rate : * BPM P-R Int : * ms QRS Dur : 88 ms QT Int : 382 ms P-R-T Axes : * -27 36 degrees QTcB Int : 432 ms Normal sinus rhythm Normal ECG When compared with ECG of 27-Feb-2024 20:53, No significant changes seen Referred By: Alton Alex Electronically Signed By: Nate Taylor
[2024-12-26 22:22] LABS: Basophils Absolute Auto 0.1 X10*3/uL (0.0-0.2); Basophils Percent Auto 0.6 % (0-2); Eosinophils Absolute Auto 0.1 X10*3/uL (0.0-0.4); Eosinophils Percent Auto 0.8 % (0-4); Hematocrit 48.1 % (37.0-47.0); Hemoglobin 16.7 g/dl (12.0-16.0); Imm Gran Abs Auto 0.07 X10*3/uL (0.00-0.03); Imm Gran Pct Auto 0.5 % (0.0-0.4); Lymphocytes Absolute Auto 4.3 X10*3/uL (1.2-4.9); Lymphocytes Percent Auto 32.1 % (20-40); MANUAL DIFF FLAG NO; Mean Corpuscular HGB Conc 34.7 g/dl (31.0-35.0); Mean Corpuscular Hemoglobin 30.7 pg (27.0-33.0); Mean Corpuscular Volume 88.4 fL (80.0-98.0); Mean Platelet Volume 10.4 fL (9.4-12.3); Monocytes Percent Auto 7.4 % (2-11); Neutrophils Absolute Auto 7.8 x10*3/uL (2.0-8.3); Neutrophils Percent Auto 58.6 % (45-73); Platelet Count 280 X10*3/uL (160-400); Red Blood Count 5.44 X10*6/uL (4.20-5.50); Red Cell Distribution Width 13.4 % (11.0-16.0); White Blood Count 13.4 X10*3/uL (4.8-10.8)
[2024-12-26 22:24] LABS: Color Urine Yellow
[2024-12-26 22:25] LABS: Appearance Urine Clear; Glucose Urine UA Negative (Negative); Leukocyte Esterase Urine Moderate (2+) (Negative); Nitrite Urine Positive (Negative); PH 5.5 (5.0-9.0); UMIC TRIGGER UACC YES; Urine Blood Negative (Negative); Urine Ketones Trace mg/dL (Negative); Urine Protein 30 (1+) mg/dL (Neg-Trace)
[2024-12-26 22:36] LABS: Alanine Aminotransferase 35 U/L (0-31); Albumin Level 4.7 g/dL (3.5-5.0); Alkaline Phosphatase 106 U/L (39-117); Anion Gap 15 (12-20); Aspartate Amino Transferase 21 U/L (5-31); Bilirubin Direct 0.2 mg/dL (0.0-0.5); Bilirubin Total 0.7 mg/dL (0.0-1.0); Blood Urea Nitrogen 11 mg/dL (9-16); Calcium 10.1 mg/dL (8.4-10.2); Carbon Dioxide 24 mmol/L (22-29); Chloride 107 mmol/L (96-108); Creatinine Clr Calc Pharmacy 77.9; Estimated Glomerular Filt Rate > 60; Glucose Random 93 mg/dL (60-115); Lipase 14 U/L (8-78); Sodium 142 mmol/L (135-145); Total Protein 8.1 g/dL (6.5-8.0)
[2024-12-26 22:38] LABS: Bacteria Urine 4+ (None Seen); Hyaline Casts Urine 0-2 /LPF (0-2); UACC Culture Trigger YES
[2024-12-26 22:44] LABS: Troponin-I High Sensitivity < 2.7 ng/L (<3.5-17.0)
[2024-12-26 23:35] VITALS: BP 149/85; PULSE 86; RESP 16; TEMP 36.4; O2SAT 94
[2024-12-26] MEDS: cefuroxime axetiL 250 MG TABLET PO (23:46)
[2024-12-27 00:27] VITALS: BP 149/85; PULSE 86; RESP 16; TEMP 36.4; O2SAT 94
== END 2024-12-26 23:51 | disposition home or self-care (01) ==
PROVIDERS: Emergency Provider Emergency Medicine; PCP Physician Assistant
DX: N39.0 Urinary tract infection, site not specified (principal); R07.9 Chest pain, unspecified; M79.675 Pain in left toe(s); I10 Essential (primary) hypertension; E78.5 Hyperlipidemia, unspecified; E11.9 Type 2 diabetes mellitus without complications; J44.9 Chronic obstructive pulmonary disease, unspecified; Z79.899 Other long term (current) drug therapy
CPT/HCPCS: 36415; 71046; 73630; 80048; 80076; 81001; 83690; 84484; 85025; 87086; 93005; 99283; 99284

== ENCOUNTER → 2024-12-26 18:08 | Outpatient (BNV) | payer OTHER, SELFPAY | PROVIDERS: Visit Provider Radiology Diagnostic Radiology | DX: M79.672 Pain in left foot (principal) | CPT/HCPCS: 73630 ==

== ENCOUNTER → 2024-12-26 21:43 | Outpatient (BNV) | payer OTHER, SELFPAY | PROVIDERS: Emergency Provider Emergency Medicine; PCP Physician Assistant; Visit Provider Internal Medicine Cardiovascular Disease | DX: R07.9 Chest pain, unspecified (principal) | CPT/HCPCS: 93010 ==

== ENCOUNTER 2024-12-29 09:55 | Inpatient (IN) | payer OTHER, SELFPAY ==
[2024-12-29] VITALS (13 sets, daily range): BP systolic 91–162; BP diastolic 29–102; PULSE 67–113; RESP 14–22; TEMP 36.5–37.2; O2SAT 92–98; BMI 38.5
--- NOTE | 2024-12-29 | EEG_ITS ---
This is a 16-channel EEG with an EKG lead. The patient is reported awake and restless during the tracing. Background EEG rhythm is mixed theta, beta, low to medium amplitude with no obvious asymmetry or paroxysmal tendency. Frequent lead and muscle artifacts are noted. Photic stimulation does not produce any significant abnormality. Hyperventilation is not performed. Cardiac lead does not reveal any significant abnormality. IMPRESSION: Mild slowing with no evidence of seizure disorder. MD LOLA Mena/PA / [phone]
--- NOTE | 2024-12-29 | ECG_ITS ---
Test Reason : ams Blood Pressure : */* mmHG Vent. Rate : 96 BPM Atrial Rate : 96 BPM P-R Int : 162 ms QRS Dur : 90 ms QT Int : 370 ms P-R-T Axes : 60 -36 53 degrees QTcB Int : 467 ms Normal sinus rhythm Left axis deviation Low voltage QRS Abnormal ECG When compared with ECG of 26-Dec-2024 21:50, No significant changes seen Referred By: Generic ED Physician Electronically Signed By: Nate Taylor
--- NOTE | ~2024-12-29 | XR_ITS ---
EXAMINATION: XR CHEST 1 VIEW HISTORY: sepsis, source unclear COMPARISON: Comparison is made with the prior examination dated 12/26/2024. FINDINGS: A single AP portable view of the chest performed at 12:08 PM is submitted. There are low lung volumes. The lungs are clear. There is no pleural effusion, pneumothorax, or pulmonary vascular congestion. The heart is normal in size. There is degenerative disc disease of the spine. XR/XR chest 1V IMPRESSION: Low lung volumes. No acute cardiopulmonary abnormality. Electronically signed by: Manan Long MD 12/29/2024 12:33 PM EDT
--- NOTE | ~2024-12-29 | MR_ITS ---
CLINICAL HISTORY: Encephalopathy, possible new onset seizure MR Brain without gadolinium Comparison: 12/29/2024 Findings: The patient refused to complete the examination with only coronal T1 weighted images presented. No intracranial mass or hemorrhage. No hydrocephalus. Vascular flow voids are intact. The orbits are normal. The sinuses and mastoid air cells are clear. No focal bone lesion. IMPRESSION: Limited exam with no acute findings This document has been electronically signed by: Adam Rogers MD on 12/30/2024 08:08:09
--- NOTE | ~2024-12-29 | CT_ITS ---
EXAMINATION: CT HEAD WITHOUT CONTRAST CLINICAL INFORMATION: acute altered mental status change COMPARISON: February 27, 2024. TECHNIQUE: Contiguous axial imaging was performed from the skull base to vertex without intravenous administration of contrast. This CT examination was performed using dose optimization techniques as appropriate, variously including the following: *Automated exposure control *Adjustment of mA and/or kV according to patient size (this includes techniques or standardized protocols for targeted exams where dose is matched to indication/reason for exam; i.e. extremities or head) *Use of iterative reconstruction technique DLP: 712.53 mGy-cm FINDINGS: No acute intracranial hemorrhage, mass effect, midline shift, hydrocephalus or herniation. Underwood-white matter differentiation is normal. Sellar/suprasellar region demonstrated no gross masses or hemorrhage. Craniocervical junction is intact. No acute fractures in the bony calvarium. No air-fluid levels in the included paranasal sinuses. Tympanic cavities and mastoid air cells are aerated. Calcified plaques in the cavernous segments both ICAs. CT/CT head/brain wo IV con IMPRESSION: No acute intracranial hemorrhage. Stable appearance of the brain. Electronically signed by: Vj Nobles MD 12/29/2024 03:18 PM EDT
--- NOTE | ~2024-12-29 | US_ITS ---
EXAMINATION: US TRIPLEX LOWER EXTREMITY, LEFT CLINICAL INFORMATION: Edema, left lower extremity. COMPARISON: None available. TECHNIQUE: Color-flow triplex imaging with spectral analysis and compression Doppler were performed on the left lower extremity. FINDINGS: Respiratory variation, normal compression and augmented flow are noted throughout the visualized common femoral vein, superficial femoral vein, profunda femoral vein, popliteal vein and midcalf peroneal and posterior tibial venous segments . There is no Bonilla's cyst. US/US venous duplex LE IMPRESSION: No acute deep venous thrombosis involving the left lower extremity. Negative for DVT. Electronically signed by: Vj Nobles MD 12/29/2024 01:46 PM EDT
--- NOTE | ~2024-12-29 | CT_ITS ---
EXAMINATION: CT CHEST ANGIOGRAPHY WITH IV CONTRAST, CT ABDOMEN PELVIS WITH IV CONTRAST HISTORY: hypoxia, A-a gradient, swollen left leg, elevated lactate of unclear etiology. COMPARISON: There are no prior studies available for comparison. TECHNIQUE: Helical CT scan of the chest was performed following administration of intravenous contrast. The contrast bolus was timed to optimally opacify the pulmonary arteries. Thin sections were obtained through the pulmonary arteries. Subsequently, images were obtained from the lung bases through the proximal thighs. Coronal and sagittal reformatted images were generated. 3D/MIP reconstructed images are also obtained and reviewed. This CT exam was performed with one or more of the following dose reduction techniques: automated exposure control, adjustment of the mA and/or kV according to patient size, use of iterative reconstruction technique. DLP: 1684 mGy-cm CHEST: THYROID: The thyroid gland is unremarkable. PULMONARY ARTERIES: No intraluminal filling defects are identified within the pulmonary arteries to suggest pulmonary emboli. LUNGS: There are emphysematous changes in both upper lobes. There is dependent atelectasis bilaterally. MEDIASTINUM: There is no mediastinal lymphadenopathy. RUBIO: There is no hilar lymphadenopathy. CARDIOVASCULATURE: The heart is normal in size. There is no pericardial effusion. The thoracic aorta is normal in caliber. DEGREE OF CORONARY CALCIFICATION: none PLEURA: There is no pleural effusion. No pneumothorax. MAIN AIRWAYS: The mainstem bronchi and proximal branches are patent. AXILLA: There is no axillary lymphadenopathy. ABDOMEN/PELVIS: LIVER: The liver is normal in size and contour, but demonstrates heterogeneously decreased attenuation, consistent with steatosis. No liver mass is identified. The hepatic and portal veins are patent. GALL BLADDER / BILE DUCTS: The gallbladder is unremarkable. There is no intra or extrahepatic biliary ductal dilatation. SPLEEN: The spleen is normal in size. No focal splenic lesion is identified. PANCREAS: The pancreas is unremarkable in appearance. ADRENAL GLANDS: Within normal limits. KIDNEYS/RETROPERITONEUM: No renal calculi are identified. There is no hydronephrosis. No renal masses are identified. LYMPH NODES: No abdominal or pelvic lymphadenopathy. VASCULATURE: The abdominal aorta demonstrates atherosclerotic calcification, but is normal in caliber. MESENTERY/PERITONEUM: No free air or free fluid. No masses. STOMACH: The stomach is collapsed, limiting evaluation. SMALL BOWEL: The small bowel is normal in caliber. COLON: The colon is unremarkable. APPENDIX: Normal. URINARY BLADDER/PELVIC ORGANS: The urinary bladder is unremarkable. The patient is status post hysterectomy. BONES / SOFT TISSUES: There is degenerative disc disease of the spine. CT/CT abdomen pelvis w IV con IMPRESSION: 1. No evidence of pulmonary emboli. Mild emphysema and dependent atelectasis.. 2. Hepatic steatosis. Otherwise unremarkable contrast-enhanced CT of the abdomen and pelvis. Electronically signed by: Manan Long MD 12/29/2024 03:27 PM EDT
--- NOTE | 2024-12-29 10:16 | PC.NURSE ---
jose from home after pt was assessed by [place] [employer]/sent in to be evaluated for increased AMS. per EMS, pt has a house alarm where she was testing to see if it worked/triggered alarm to PD. unknown baseline. denies drugs/etoh. slur in speech via EMS. FAST = 1. swelling/redness noted to left foot. upon ED arrival - pt alert and oriented but seems to be a poor historian. answering questions/following commands appropriately. vss and up to date. nsr on the cadiac monitor. pt verbalizes recent +UTI/being treated w/ PO abx. pt reports compliance w/ abx but unsure d/t being a poor historian. 20gIV placed in the left forearm - labs obtained/sent to lab. ekg performed by tech. pt on RA w/o difficulty. no sob/wob noted. respirations even/unlabored. plan of care ongoing. call morton placed within reach.
[2024-12-29 10:22] LABS: MANUAL DIFF FLAG NO
[2024-12-29 10:32] LABS: Basophils Absolute Auto 0.1 X10*3/uL (0.0-0.2); Basophils Percent Auto 0.6 % (0-2); Eosinophils Absolute Auto 0.2 X10*3/uL (0.0-0.4); Eosinophils Percent Auto 1.2 % (0-4); Hematocrit 45.6 % (37.0-47.0); Hemoglobin 15.7 g/dl (12.0-16.0); Imm Gran Abs Auto 0.06 X10*3/uL (0.00-0.03); Imm Gran Pct Auto 0.5 % (0.0-0.4); Lymphocytes Absolute Auto 2.1 X10*3/uL (1.2-4.9); Lymphocytes Percent Auto 17.2 % (20-40); Mean Corpuscular HGB Conc 34.4 g/dl (31.0-35.0); Mean Corpuscular Hemoglobin 30.3 pg (27.0-33.0); Mean Platelet Volume 10.6 fL (9.4-12.3); Monocytes Absolute Auto 0.9 X10*3/uL (0.1-1.2); Monocytes Percent Auto 7.3 % (2-11); Neutrophils Absolute Auto 9.1 x10*3/uL (2.0-8.3); Neutrophils Percent Auto 73.2 % (45-73); Platelet Count 263 X10*3/uL (160-400); Red Blood Count 5.18 X10*6/uL (4.20-5.50); Red Cell Distribution Width 13.2 % (11.0-16.0); White Blood Count 12.4 X10*3/uL (4.8-10.8)
[2024-12-29 10:34] LABS: Ammonia 38 umol/L (13-55)
[2024-12-29 10:40] LABS: Alanine Aminotransferase 33 U/L (0-31); Albumin Level 4.5 g/dL (3.5-5.0); Alkaline Phosphatase 103 U/L (39-117); Anion Gap 19 (12-20); Aspartate Amino Transferase 42 U/L (5-31); Bilirubin Direct 0.2 mg/dL (0.0-0.5); Bilirubin Total 0.9 mg/dL (0.0-1.0); Blood Urea Nitrogen 18 mg/dL (9-16); C Reactive Protein 3.81 mg/dL (< or = 0.50); Calcium 9.7 mg/dL (8.4-10.2); Carbon Dioxide 18 mmol/L (22-29); Chloride 103 mmol/L (96-108); Estimated Glomerular Filt Rate > 60; Glucose Random 113 mg/dL (60-115); Magnesium 2.2 mg/dL (1.6-2.6); Potassium 3.6 mmol/L (3.3-5.1); Sodium 136 mmol/L (135-145); Total Protein 8.2 g/dL (6.5-8.0)
[2024-12-29 10:41] LABS: Ethanol < 10 mg/dL
--- NOTE | 2024-12-29 10:43 | ED_ITS ---
HPI - General Adult General Chief complaint: Altered Mental Status Stated complaint: CONFUSION, AMS PER EMS Time Seen by Provider: 12/29/24 10:43 History of Present Illness ED Provider: Antonieta LOUIS narrative: The patient is a 64-year-old woman who was brought to the hospital by ambulance from her apartment complex. The circumstances of the EMS call are not entirely clear. It seems that some kind of alarm and the patient's building went off. This prompted a call to police. The patient seemed confused and so an ambulance was called and she was brought here. Apparently on arrival the patient was at first extremely talkative and was talking in a way that seemed somewhat confused. There was no obvious focality to the patient's presentation. The nurse says that there was an abrupt change in the patient's mental status. The patient suddenly seemed unresponsive. The nurse says that the patient has been on the observed for about 2 minutes when the nurse found the patient unresponsive. A point of care was done and it was 131. It was at that time that I first encountered the patient. She was somewhat slumped over and looks somewhat dusky. With a sternal rub she came to and seemed confused. She seemed disoriented. However she was able to answer simple questions and said that she did not have a headache, neck stiffness, chest pain, shortness of breath, or abdominal pain. She says she has been having some pain in her left foot. Reviewing her chart it seems the patient was here 2 days ago. She had apparently presented complaining of pain and bruising in her 2nd toe at that visit. She had a negative x-ray. She also gave a urine sample that was potentially indicative of a UTI and she was started on cefuroxime. She was discharged. Related Data Home Medications ?Medication ?Instructions ?Recorded ?Confirmed aspirin 81 mg tablet,delayed 81 mg PO DAILY 07/13/20 02/28/24 release (Adult Low Dose Aspirin) clonazepam 1 mg tablet 1 mg PO BID 07/13/20 02/28/24 levothyroxine 50 mcg tablet 50 mcg PO DAILY 07/13/20 02/28/24 lisinopril 10 mg tablet 10 mg PO DAILY 07/13/20 02/28/24 montelukast 10 mg tablet 10 mg PO DAILY 07/13/20 02/28/24 pantoprazole 20 mg tablet,delayed 20 mg PO BID 07/13/20 02/28/24 release rosuvastatin 40 mg tablet 40 mg PO BEDTIME 07/13/20 02/28/24 sertraline 100 mg tablet 100 mg PO QAM 07/13/20 02/28/24 acetaminophen 650 mg 650 mg PO Q8H PRN Pain 02/28/24 02/28/24 tablet,extended release albuterol sulfate 90 mcg/actuation 2 inh inhalation Q6H PRN Shortness 02/28/24 02/28/24 aerosol inhaler (Ventolin HFA) Of Breath Or Wheezing baclofen 20 mg tablet 20 mg PO BID PRN Muscle Spasm 02/28/24 02/28/24 baclofen 20 mg tablet 20 mg PO DAILY PRN Muscle Spasm 02/28/24 02/28/24 calcium 600 mg (as 1 tab PO BID 02/28/24 02/28/24 carbonate)-vitamin D3 10 mcg (400 unit) tablet cromolyn 4 % eye drops 1 drp ophthalmic (eye) Q6H 02/28/24 02/28/24 docusate sodium 100 mg capsule 100 mg PO BID 02/28/24 02/28/24 doxepin 50 mg capsule 50 mg PO BEDTIME 02/28/24 02/28/24 dulaglutide 1.5 mg/0.5 mL 1.5 mg subcut TU 02/28/24 02/28/24 subcutaneous pen injector (Trulicity) famotidine 20 mg tablet 20 mg PO DAILY 02/28/24 02/28/24 fluticasone propionate 50 1 spray intranasal BID 02/28/24 02/28/24 mcg/actuation nasal spray,suspension melatonin 5 mg tablet 10 mg PO BEDTIME PRN insomnia 02/28/24 02/28/24 metformin 500 mg tablet,extended 1,000 mg PO BID 02/28/24 02/28/24 release 24 hr nicotine (polacrilex) 2 mg buccal 2 mg PO Q1-2H PRN Nicotine Cravings 02/28/24 02/28/24 lozenge nicotine 21 mg/24 hr daily 1 patch topical QAM 02/28/24 02/28/24 transdermal patch perphenazine 4 mg tablet 4 mg PO BID 02/28/24 02/28/24 prazosin 1 mg capsule 1 mg PO BEDTIME 05/20/24 05/20/24 pregabalin 75 mg capsule 75 mg PO BID 02/28/24 02/28/24 ropinirole 1 mg tablet 1 mg PO BEDTIME 02/28/24 02/28/24 Previous Rx's ?Medication ?Instructions ?Recorded cefuroxime axetil 500 mg tablet 500 mg PO BID #14 tabs 03/01/24 doxycycline monohydrate 100 mg 100 mg PO BID #14 caps 03/01/24 capsule cefuroxime axetil 250 mg tablet 250 mg PO BID 7 days #14 tabs 12/26/24 Allergies Allergy/AdvReac Type Severity Reaction Status Date / Time No Known Allergies Allergy Verified 12/29/24 10:01 [No Known Allergies*] Review of Systems 2 Review of Systems: Yes Unobtainable due to mental status PMFSH Past Medical History Medical History GERD (gastroesophageal reflux disease) Glaucoma Asthma Depression Hypothyroidism Hyperlipidemia Hypertension Personal history of nicotine dependence Surgical History History of History of colonoscopy History of shoulder surgery (~2012) History of total hysterectomy with bilateral salpingo-oophorectomy (BSO) (~2005) Social History Social History Household Members: None Housing: Apartment Do you presently have visiting nurse or other home services: No Alcohol intake: never Patient Tobacco Use Status: Current someday Tobacco user Smoked in Last 30 Days: No Use of substances other than those prescribed or required for medical reasons: No Advance Directives: No Advance Directives Information Provided: Yes Do you have a plan to hurt others: No Plan Patient : No service: No Physical Exam ED Vital Signs: Vital Signs - 24 hr 12/29/24 09:59 12/29/24 11:17 12/29/24 11:42 Temperature 98.3 F 97.8 F 97.9 F Pulse Rate 96 101 H 94 Respiratory Rate 18 18 18 Blood Pressure 132/94 H 142/97 H 91/61 Pulse Oximetry 96 93 96 Oxygen Delivery Method Room Air Room Air Room Air 12/29/24 12:11 12/29/24 14:46 Temperature 97.7 F 98.1 F Pulse Rate 91 84 Respiratory Rate 22 H 20 Blood Pressure 94/62 119/68 Pulse Oximetry 92 94 Oxygen Delivery Method Room Air Room Air BMI result Body Mass Index 38.5 Const Other: When I 1st encountered the patient she seemed slumped over and did not respond to verbal stimuli but then she woke up with a sternal rub. She seemed confused and looked a bit dusky. She does not appear in obvious respiratory distress however. HENMT Other: Face is symmetrical. Mucous membranes moist. Eyes Other: Pupils were midsize and equal, extraocular movements were intact, conjunctivae clear Neck Other: No neck tenderness, full range of motion of the neck without difficulty, no adenopathy, no nuchal rigidity Resp Effort & Inspection: normal respiratory effort Auscultation: clear to auscultation bilaterally Cardio Rate: regular rate Rhythm: regular rhythm Heart sounds: S1 normal heart sound present and S2 normal heart sound present GI Other: The abdomen is soft and does not seem obviously tender. Skin Other: Initially I thought the patient's general appearance looked somewhat dusky. The left leg seems somewhat generally swollen and there is some mild impression of edema to the left foot in the left lower leg. However there was no redness that is strongly suggestive of a cellulitis. Neuro Other: When I 1st came upon the patient she was slumped over and did not respond to verbal stimuli. However she awoke with a sternal rub. She seemed confused but did not seem to have focal findings. Pupils were round equal, eye movements were intact, face was symmetrical, she had no dysarthria, she had symmetrical tone in her extremities. She has a supple neck. Extrem Other: The arms are unremarkable and symmetrical. I felt the left leg had some generalized swelling and mild redness in both the thigh, the lower leg, and the foot. Medications Administered Discontinued Medications Generic Name Dose Route Start Last Admin Trade Name Freq PRN Reason Stop Dose Admin Piperacillin Sod/Tazobactam 100 mls @ 200 mls/hr 12/29/24 11:35 12/29/24 13:12 Sod 4.5 gm/ Sodium Chloride IV 12/29/24 12:04 Infused ONCE ONE Infusion Vancomycin HCl 2,000 mg in 500 mls @ 250 mls/hr 12/29/24 11:37 12/29/24 13:52 Vancomycin/Ns IV 12/29/24 13:36 Infused ONCE ONE Infusion Sodium Chloride 1,000 mls @ 999 mls/hr 12/29/24 11:45 12/29/24 13:14 Ns IV 12/29/24 12:45 Infused .Q1H1M TREY Infusion Sodium Chloride 1,000 mls @ 999 mls/hr 12/29/24 12:15 12/29/24 13:52 Ns IV 12/29/24 13:15 Infused .Q1H1M TREY Infusion Sodium Chloride 1,000 mls @ 999 mls/hr 12/29/24 12:15 12/29/24 13:13 Ns IV 12/29/24 13:15 Infused .Q1H1M TREY Infusion Iohexol 100 ml 12/29/24 14:29 12/29/24 14:30 Iohexol 350 Mg/Ml 100 Ml Infus..Btl IV 12/29/24 14:30 85 ml ONCE ONE Administration Medical Decision Making Medical Decision Making [facility] Narrative: The patient's presentation is complex. I did not see the patient initially on arrival. I saw her approximately 40 minutes after arrival. She had apparently arrived awake and alert and very talkative but possibly confused. I was asked to see your when she was found to be apparently unresponsive. The nurse estimates that the patient was unobserved for about 2 minutes before the nurse noticed that there has been an abrupt change in mental status at around 10:40. When I 1st saw the patient she was unresponsive but awoke to a sternal rub. Her blood sugar was 131. At that point additional labs were run. Interestingly she had a basic metabolic panel drawn before this event drawn at 10:16. This showed a carbon dioxide of 18 and an anion gap of 19. The blood drawn after the event showed a carbon dioxide of 13 with a an anion gap of 27. Also at this time a lactate was 11. The problem with the patient was not initially apparent. There had not been any visible signs of seizure activity. Additionally she has been here 2 days ago for a possible UTI. Therefore labs including a lactate and blood cultures were drawn. The lactate was elevated at 11. Venous blood gas showed a pH of 7.14 with a pCO2 of 33. The patient was given empiric antibiotics of Zosyn and vancomycin and she was also given IV fluids. She was observed. She had swelling of the left leg that was quite diffuse and so an ultrasound was obtained. I was somewhat surprised that she did not have a DVT. The appearance of the leg is not highly suggestive of an infectious process. Ultimately the patient's condition seemed stable while she was given IV fluids and antibiotics. An ABG done at 12:36 showed a pH of 7.4 with a pCO2 29. A basic metabolic panel at 13:40 showed a normal anion gap with a carbon dioxide of 20. Procalcitonin was 0.06. The patient remains confused. At this point I suspect she is postictal. A CTA of the chest and a CT of the abdomen and pelvis are pending as is a head CT. I will be signing the patient out to my colleague at change of shift. Are current working hypothesis is that the patient had a seizure. Perhaps the patient had had a seizure earlier in the day which caused her initial confusion. She is therefore being started on levetiracetam. Lab Data 12/29/24 10:16 12/29/24 13:40 Labs: Lab Results 12/29/24 12/29/24 12/29/24 Range/Units 10:16 10:42 10:52 WBC 12.4 H (4.8-10.8) X10*3/uL RBC 5.18 (4.20-5.50) X10*6/uL Hgb 15.7 (12.0-16.0) g/dl Hct 45.6 (37.0-47.0) % MCV 88.0 (80.0-98.0) fL MCH 30.3 (27.0-33.0) pg MCHC 34.4 (31.0-35.0) g/dl RDW 13.2 (11.0-16.0) % Plt Count 263 (160-400) X10*3/uL MPV 10.6 (9.4-12.3) fL Immature Gran % (Auto) 0.5 H (0.0-0.4) % Neut % (Auto) 73.2 H (45-73) % Lymph % (Auto) 17.2 L (20-40) % [place] % (Auto) 7.3 (2-11) % Eos % (Auto) 1.2 (0-4) % Baso % (Auto) 0.6 (0-2) % Lymph # (Auto) 2.1 (1.2-4.9) X10*3/uL [place] # (Auto) 0.9 (0.1-1.2) X10*3/uL Eos # (Auto) 0.2 (0.0-0.4) X10*3/uL Baso # (Auto) 0.1 (0.0-0.2) X10*3/uL Abs Immat Gran (auto) 0.06 H (0.00-0.03) X10*3/uL Absolute Neuts (auto) 9.1 H (2.0-8.3) x10*3/uL Absolute Nucleated RBC 0.000 (0.0-0.012) X10*3/uL Nucleated RBC % (auto) 0.0 (0.0-0.2) /100WBC ESR 16 (0-20) MM/HR Hold Blue Top O2 Saturation ABG pH at Pt Temp (7.35-7.45) ABG pH (Temp Correct) ABG pCO2 at Pt Temp (32-45) mmHg ABG pO2 at Pt Temp (83-108) mmHg ABG HCO3 (22-26) mmol/L ABG Base Excess (Actual) mmol/L VBG pH (7.32-7.43) VBG pCO2 mmHg VBG pO2 mmHg VBG HCO3 (22-26) mmol/L VBG O2 Saturation % VBG Base Excess mmol/L Carboxyhemoglobin % % Sodium 136 138 (135-145) mmol/L Potassium 3.6 3.6 (3.3-5.1) mmol/L Chloride 103 102 (96-108) mmol/L Carbon Dioxide 18 L 13 L (22-29) mmol/L Anion Gap 19 27 H (12-20) BUN 18 H 16 (9-16) mg/dL Creatinine 0.87 1.11 (0.5-1.4) mg/dL Estim Creat Clear Calc 75.0 58.7 Estimated GFR > 60 50 POC Glucose 131 H (60-115) mg/dL Random Glucose 113 130 H (60-115) mg/dL Lactic Acid 11.9 H* (0.5-2.0) mmol/L Lactic Acid F/U @ 2Hr (0.5-2.0) mmol/L Calcium 9.7 9.7 (8.4-10.2) mg/dL Magnesium 2.2 2.5 (1.6-2.6) mg/dL Total Bilirubin 0.9 (0.0-1.0) mg/dL Direct Bilirubin 0.2 (0.0-0.5) mg/dL AST 42 H (5-31) U/L ALT 33 H (0-31) U/L Alkaline Phosphatase 103 (39-117) U/L Ammonia 38 (13-55) umol/L Total Creatine Kinase 613 H (26-140) U/L Troponin I High Sens < 2.7 (<3.5-17.0) ng/L C-Reactive Protein 3.81 H (< or = 0.50) mg/dL B-Natriuretic Peptide 25 (<100) pg/mL Total Protein 8.2 H (6.5-8.0) g/dL Albumin 4.5 (3.5-5.0) g/dL Lipase 15 (8-78) U/L Beta-Hydroxybutyrate (0.02-0.27) mmol/L Procalcitonin 0.06 ng/mL Urine Color Urine Appearance Urine pH (5.0-9.0) Ur Specific Reserve (1.005-1.025) Urine Protein (Neg-Trace) mg/dL Urine Glucose (UA) (Negative) mg/dL Urine Ketones (Negative) mg/dL Urine Blood (Negative) Urine Nitrite (Negative) Ur Leukocyte Esterase (Negative) Urine RBC (0-2) /HPF Urine WBC (0-5) /HPF Ur Squamous Epith Cells (0-2) /HPF Urine Bacteria (None Seen) Hyaline Casts (0-2) /LPF Urine Opiates Screen (Not Detect) Ur Buprenorphine Scrn (Not Detect) ng/mL Ur Oxycodone Screen (Not Detect) ng/mL Urine Methadone Screen (Not Detect) ng/mL Urine Fentanyl Screen (Not Detect) Ur Barbiturates Screen (Not Detect) Ur Phencyclidine Scrn (Not Detect) Ur Amphetamines Screen (Not Detect) U Benzodiazepines Scrn (Not Detect) Urine Cocaine Screen (Not Detect) U Marijuana (THC) Screen (Not Detect) Ethyl Alcohol < 10 mg/dL Influenza Type A (PCR) NEGATIVE (Negative) Influenza Type B (PCR) NEGATIVE (Negative) RSV RNA Qual (PCR) NEGATIVE (Negative) SARS-CoV-2 RNA (RT-PCR) NEGATIVE (Negative) 12/29/24 12/29/24 12/29/24 Range/Units 10:56 10:59 11:18 WBC (4.8-10.8) X10*3/uL RBC (4.20-5.50) X10*6/uL Hgb (12.0-16.0) g/dl Hct (37.0-47.0) % MCV (80.0-98.0) fL MCH (27.0-33.0) pg MCHC (31.0-35.0) g/dl RDW (11.0-16.0) % Plt Count (160-400) X10*3/uL MPV (9.4-12.3) fL Immature Gran % (Auto) (0.0-0.4) % Neut % (Auto) (45-73) % Lymph % (Auto) (20-40) % [place] % (Auto) (2-11) % Eos % (Auto) (0-4) % Baso % (Auto) (0-2) % Lymph # (Auto) (1.2-4.9) X10*3/uL [place] # (Auto) (0.1-1.2) X10*3/uL Eos # (Auto) (0.0-0.4) X10*3/uL Baso # (Auto) (0.0-0.2) X10*3/uL Abs Immat Gran (auto) (0.00-0.03) X10*3/uL Absolute Neuts (auto) (2.0-8.3) x10*3/uL Absolute Nucleated RBC (0.0-0.012) X10*3/uL Nucleated RBC % (auto) (0.0-0.2) /100WBC ESR (0-20) MM/HR Hold Blue Top SEE NOTE O2 Saturation ABG pH at Pt Temp (7.35-7.45) ABG pH (Temp Correct) ABG pCO2 at Pt Temp (32-45) mmHg ABG pO2 at Pt Temp (83-108) mmHg ABG HCO3 (22-26) mmol/L ABG Base Excess (Actual) mmol/L VBG pH 7.14 L* (7.32-7.43) VBG pCO2 33 mmHg VBG pO2 64 mmHg VBG HCO3 11 L (22-26) mmol/L VBG O2 Saturation 84.0 % VBG Base Excess -16.0 mmol/L Carboxyhemoglobin % % Sodium (135-145) mmol/L Potassium (3.3-5.1) mmol/L Chloride (96-108) mmol/L Carbon Dioxide (22-29) mmol/L Anion Gap (12-20) BUN (9-16) mg/dL Creatinine (0.5-1.4) mg/dL Estim Creat Clear Calc Estimated GFR POC Glucose (60-115) mg/dL Random Glucose (60-115) mg/dL Lactic Acid (0.5-2.0) mmol/L Lactic Acid F/U @ 2Hr (0.5-2.0) mmol/L Calcium (8.4-10.2) mg/dL Magnesium (1.6-2.6) mg/dL Total Bilirubin (0.0-1.0) mg/dL Direct Bilirubin (0.0-0.5) mg/dL AST (5-31) U/L ALT (0-31) U/L Alkaline Phosphatase (39-117) U/L Ammonia (13-55) umol/L Total Creatine Kinase (26-140) U/L Troponin I High Sens (<3.5-17.0) ng/L C-Reactive Protein (< or = 0.50) mg/dL B-Natriuretic Peptide (<100) pg/mL Total Protein (6.5-8.0) g/dL Albumin (3.5-5.0) g/dL Lipase (8-78) U/L Beta-Hydroxybutyrate (0.02-0.27) mmol/L Procalcitonin ng/mL Urine Color Yellow Urine Appearance Cloudy Urine pH 5.5 (5.0-9.0) Ur Specific Reserve 1.020 (1.005-1.025) Urine Protein 30 (1+) H (Neg-Trace) mg/dL Urine Glucose (UA) Negative (Negative) mg/dL Urine Ketones 40 (Negative) mg/dL Urine Blood Negative (Negative) Urine Nitrite Negative (Negative) Ur Leukocyte Esterase Small (1+) H (Negative) Urine RBC 0-2 (0-2) /HPF Urine WBC 21-50 H (0-5) /HPF Ur Squamous Epith Cells 11-20 (0-2) /HPF Urine Bacteria None Seen (None Seen) Hyaline Casts 3-5 (0-2) /LPF Urine Opiates Screen Not Detected (Not Detect) Ur Buprenorphine Scrn Not Detected (Not Detect) ng/mL Ur Oxycodone Screen Not Detected (Not Detect) ng/mL Urine Methadone Screen Not Detected (Not Detect) ng/mL Urine Fentanyl Screen Not Detected (Not Detect) Ur Barbiturates Screen Not Detected (Not Detect) Ur Phencyclidine Scrn Not Detected (Not Detect) Ur Amphetamines Screen Not Detected (Not Detect) U Benzodiazepines Scrn Not Detected (Not Detect) Urine Cocaine Screen Not Detected (Not Detect) U Marijuana (THC) Screen Not Detected (Not Detect) Ethyl Alcohol mg/dL Influenza Type A (PCR) (Negative) Influenza Type B (PCR) (Negative) RSV RNA Qual (PCR) (Negative) SARS-CoV-2 RNA (RT-PCR) (Negative) 12/29/24 12/29/24 12/29/24 Range/Units 12:36 13:40 13:49 WBC (4.8-10.8) X10*3/uL RBC (4.20-5.50) X10*6/uL Hgb (12.0-16.0) g/dl Hct (37.0-47.0) % MCV (80.0-98.0) fL MCH (27.0-33.0) pg MCHC (31.0-35.0) g/dl RDW (11.0-16.0) % Plt Count (160-400) X10*3/uL MPV (9.4-12.3) fL Immature Gran % (Auto) (0.0-0.4) % Neut % (Auto) (45-73) % Lymph % (Auto) (20-40) % [place] % (Auto) (2-11) % Eos % (Auto) (0-4) % Baso % (Auto) (0-2) % Lymph # (Auto) (1.2-4.9) X10*3/uL [place] # (Auto) (0.1-1.2) X10*3/uL Eos # (Auto) (0.0-0.4) X10*3/uL Baso # (Auto) (0.0-0.2) X10*3/uL Abs Immat Gran (auto) (0.00-0.03) X10*3/uL Absolute Neuts (auto) (2.0-8.3) x10*3/uL Absolute Nucleated RBC (0.0-0.012) X10*3/uL Nucleated RBC % (auto) (0.0-0.2) /100WBC ESR (0-20) MM/HR Hold Blue Top O2 Saturation TNP ABG pH at Pt Temp 7.40 (7.35-7.45) ABG pH (Temp Correct) TNP ABG pCO2 at Pt Temp 29 L (32-45) mmHg ABG pO2 at Pt Temp 64 L (83-108) mmHg ABG HCO3 18 L (22-26) mmol/L ABG Base Excess (Actual) -4.7 mmol/L VBG pH 7.31 L (7.32-7.43) VBG pCO2 39 mmHg VBG pO2 39 mmHg VBG HCO3 20 L (22-26) mmol/L VBG O2 Saturation 60.0 % VBG Base Excess -5.3 mmol/L Carboxyhemoglobin % % Sodium 139 (135-145) mmol/L Potassium 3.9 (3.3-5.1) mmol/L Chloride 107 (96-108) mmol/L Carbon Dioxide 20 L (22-29) mmol/L Anion Gap 16 (12-20) BUN 16 (9-16) mg/dL Creatinine 0.81 (0.5-1.4) mg/dL Estim Creat Clear Calc 80.5 Estimated GFR > 60 POC Glucose (60-115) mg/dL Random Glucose 78 (60-115) mg/dL Lactic Acid (0.5-2.0) mmol/L Lactic Acid F/U @ 2Hr 1.2 (0.5-2.0) mmol/L Calcium 8.5 D (8.4-10.2) mg/dL Magnesium (1.6-2.6) mg/dL Total Bilirubin (0.0-1.0) mg/dL Direct Bilirubin (0.0-0.5) mg/dL AST (5-31) U/L ALT (0-31) U/L Alkaline Phosphatase (39-117) U/L Ammonia (13-55) umol/L Total Creatine Kinase (26-140) U/L Troponin I High Sens < 2.7 (<3.5-17.0) ng/L C-Reactive Protein (< or = 0.50) mg/dL B-Natriuretic Peptide (<100) pg/mL Total Protein (6.5-8.0) g/dL Albumin (3.5-5.0) g/dL Lipase (8-78) U/L Beta-Hydroxybutyrate 2.25 H (0.02-0.27) mmol/L Procalcitonin ng/mL Urine Color Urine Appearance Urine pH (5.0-9.0) Ur Specific Reserve (1.005-1.025) Urine Protein (Neg-Trace) mg/dL Urine Glucose (UA) (Negative) mg/dL Urine Ketones (Negative) mg/dL Urine Blood (Negative) Urine Nitrite (Negative) Ur Leukocyte Esterase (Negative) Urine RBC (0-2) /HPF Urine WBC (0-5) /HPF Ur Squamous Epith Cells (0-2) /HPF Urine Bacteria (None Seen) Hyaline Casts (0-2) /LPF Urine Opiates Screen (Not Detect) Ur Buprenorphine Scrn (Not Detect) ng/mL Ur Oxycodone Screen (Not Detect) ng/mL Urine Methadone Screen (Not Detect) ng/mL Urine Fentanyl Screen (Not Detect) Ur Barbiturates Screen (Not Detect) Ur Phencyclidine Scrn (Not Detect) Ur Amphetamines Screen (Not Detect) U Benzodiazepines Scrn (Not Detect) Urine Cocaine Screen (Not Detect) U Marijuana (THC) Screen (Not Detect) Ethyl Alcohol mg/dL Influenza Type A (PCR) (Negative) Influenza Type B (PCR) (Negative) RSV RNA Qual (PCR) (Negative) SARS-CoV-2 RNA (RT-PCR) (Negative) 12/29/24 Range/Units 13:52 WBC (4.8-10.8) X10*3/uL RBC (4.20-5.50) X10*6/uL Hgb (12.0-16.0) g/dl Hct (37.0-47.0) % MCV (80.0-98.0) fL MCH (27.0-33.0) pg MCHC (31.0-35.0) g/dl RDW (11.0-16.0) % Plt Count (160-400) X10*3/uL MPV (9.4-12.3) fL Immature Gran % (Auto) (0.0-0.4) % Neut % (Auto) (45-73) % Lymph % (Auto) (20-40) % [place] % (Auto) (2-11) % Eos % (Auto) (0-4) % Baso % (Auto) (0-2) % Lymph # (Auto) (1.2-4.9) X10*3/uL [place] # (Auto) (0.1-1.2) X10*3/uL Eos # (Auto) (0.0-0.4) X10*3/uL Baso # (Auto) (0.0-0.2) X10*3/uL Abs Immat Gran (auto) (0.00-0.03) X10*3/uL Absolute Neuts (auto) (2.0-8.3) x10*3/uL Absolute Nucleated RBC (0.0-0.012) X10*3/uL Nucleated RBC % (auto) (0.0-0.2) /100WBC ESR (0-20) MM/HR Hold Blue Top O2 Saturation ABG pH at Pt Temp (7.35-7.45) ABG pH (Temp Correct) ABG pCO2 at Pt Temp (32-45) mmHg ABG pO2 at Pt Temp (83-108) mmHg ABG HCO3 (22-26) mmol/L ABG Base Excess (Actual) mmol/L VBG pH (7.32-7.43) VBG pCO2 mmHg VBG pO2 mmHg VBG HCO3 (22-26) mmol/L VBG O2 Saturation % VBG Base Excess mmol/L Carboxyhemoglobin % 4.3 % Sodium (135-145) mmol/L Potassium (3.3-5.1) mmol/L Chloride (96-108) mmol/L Carbon Dioxide (22-29) mmol/L Anion Gap (12-20) BUN (9-16) mg/dL Creatinine (0.5-1.4) mg/dL Estim Creat Clear Calc Estimated GFR POC Glucose (60-115) mg/dL Random Glucose (60-115) mg/dL Lactic Acid (0.5-2.0) mmol/L Lactic Acid F/U @ 2Hr (0.5-2.0) mmol/L Calcium (8.4-10.2) mg/dL Magnesium (1.6-2.6) mg/dL Total Bilirubin (0.0-1.0) mg/dL Direct Bilirubin (0.0-0.5) mg/dL AST (5-31) U/L ALT (0-31) U/L Alkaline Phosphatase (39-117) U/L Ammonia (13-55) umol/L Total Creatine Kinase (26-140) U/L Troponin I High Sens (<3.5-17.0) ng/L C-Reactive Protein (< or = 0.50) mg/dL B-Natriuretic Peptide (<100) pg/mL Total Protein (6.5-8.0) g/dL Albumin (3.5-5.0) g/dL Lipase (8-78) U/L Beta-Hydroxybutyrate (0.02-0.27) mmol/L Procalcitonin ng/mL Urine Color Urine Appearance Urine pH (5.0-9.0) Ur Specific Reserve (1.005-1.025) Urine Protein (Neg-Trace) mg/dL Urine Glucose (UA) (Negative) mg/dL Urine Ketones (Negative) mg/dL Urine Blood (Negative) Urine Nitrite (Negative) Ur Leukocyte Esterase (Negative) Urine RBC (0-2) /HPF Urine WBC (0-5) /HPF Ur Squamous Epith Cells (0-2) /HPF Urine Bacteria (None Seen) Hyaline Casts (0-2) /LPF Urine Opiates Screen (Not Detect) Ur Buprenorphine Scrn (Not Detect) ng/mL Ur Oxycodone Screen (Not Detect) ng/mL Urine Methadone Screen (Not Detect) ng/mL Urine Fentanyl Screen (Not Detect) Ur Barbiturates Screen (Not Detect) Ur Phencyclidine Scrn (Not Detect) Ur Amphetamines Screen (Not Detect) U Benzodiazepines Scrn (Not Detect) Urine Cocaine Screen (Not Detect) U Marijuana (THC) Screen (Not Detect) Ethyl Alcohol mg/dL Influenza Type A (PCR) (Negative) Influenza Type B (PCR) (Negative) RSV RNA Qual (PCR) (Negative) SARS-CoV-2 RNA (RT-PCR) (Negative) Discharge Plan Discharge Clinical Impression: Altered mental status Patient Disposition: Still a Patient Prescriptions: No Action cefuroxime axetil 250 mg tablet 250 mg PO BID 7 Days Qty: 14 0RF doxepin 50 mg capsule 50 mg PO BEDTIME ropinirole 1 mg tablet 1 mg PO BEDTIME prazosin 1 mg capsule 1 mg PO BEDTIME cromolyn 4 % drops 1 drp ophthalmic (eye) Q6H acetaminophen 650 mg tablet extended release 650 mg PO Q8H PRN (Reason: Pain) baclofen 20 mg tablet 20 mg PO BID PRN (Reason: Muscle Spasm) baclofen 20 mg tablet 20 mg PO DAILY PRN (Reason: Muscle Spasm) famotidine 20 mg tablet 20 mg PO DAILY perphenazine 4 mg tablet 4 mg PO BID nicotine 21 mg/24 hr patch 24 hour 1 patch topical QAM docusate sodium 100 mg capsule 100 mg PO BID albuterol sulfate [Ventolin HFA] 90 mcg/actuation HFA aerosol inhaler 2 inh inhalation Q6H PRN (Reason: Shortness Of Breath Or Wheezing) fluticasone propionate 50 mcg/actuation spray,suspension 1 spray intranasal BID metformin 500 mg tablet extended release 24 hr 1,000 mg PO BID nicotine (polacrilex) 2 mg lozenge 2 mg PO Q1-2H PRN (Reason: Nicotine Cravings) pregabalin 75 mg capsule 75 mg PO BID calcium carbonate-vitamin D3 600 mg-10 mcg (400 unit) tablet 1 tab PO BID melatonin 5 mg tablet 10 mg PO BEDTIME PRN (Reason: insomnia) Trulicity 1.5 mg/0.5 mL pen injector 1.5 mg subcut TU doxycycline monohydrate 100 mg capsule 100 mg PO BID Qty: 14 0RF cefuroxime axetil 500 mg tablet 500 mg PO BID Qty: 14 0RF aspirin [Adult Low Dose Aspirin] 81 mg tablet,delayed release (DR/EC) 81 mg PO DAILY clonazepam 1 mg tablet 1 mg PO BID levothyroxine 50 mcg tablet 50 mcg PO DAILY lisinopril 10 mg tablet 10 mg PO DAILY montelukast 10 mg tablet 10 mg PO DAILY pantoprazole 20 mg tablet,delayed release (DR/EC) 20 mg PO BID rosuvastatin 40 mg tablet 40 mg PO BEDTIME sertraline 100 mg tablet 100 mg PO QAM Print Language: Belarusian
--- NOTE | 2024-12-29 10:46 | PC.NURSE ---
pt assisted onto bed butts to obtain urine specimen. upon reassessment back into room to take the pt off of the bedpan, pt noted to be turned onto her right side/not responding to verbal stimuli. pt's face seemingly cyanotic/drooling out of the side of her mouth. pt minimally responsive to physical stimuli/sternal rub. great force applied to sternum for pt to become somewhat somnolent. pt not answering questions/following commands appropriately/speaking w/ slurred voice. vitals obtained displaying wnl. nsr on the quality assurance monitor body. pt remained on RA w/o difficulty. SPO2 @ 92%. sitting upright to promote patent airway. no sob/wob noted. respirations even/unlabored. POC obtained displaying 131mg/dL. provider notified/aware. additional 18gIV placed in the right AC - labs obtained/sent to lab. urine specimen sent to lab. rectal temp wnl. plan of care ongoing. call morton placed within reach.
[2024-12-29 11:00] LABS: Glucose, Whole Blood 131 mg/dL (60-115)
--- NOTE | 2024-12-29 11:05 | PC.NURSE ---
Report received from BETTYE Narayan. Taken over care at this time.
[2024-12-29 11:08] LABS: Erythrocyte Sedimentation Rate 16 MM/HR (0-20)
[2024-12-29 11:17] LABS: Venous Blood Gas Refer to POC result
[2024-12-29 11:18] LABS: Anion Gap 27 (12-20); Blood Urea Nitrogen 16 mg/dL (9-16); Calcium 9.7 mg/dL (8.4-10.2); Carbon Dioxide 13 mmol/L (22-29); Chloride 102 mmol/L (96-108); Creatinine Clr Calc Pharmacy 58.7; Estimated Glomerular Filt Rate 50; Glucose Random 130 mg/dL (60-115); Lipase 15 U/L (8-78); Magnesium 2.5 mg/dL (1.6-2.6); Potassium 3.6 mmol/L (3.3-5.1); Sodium 138 mmol/L (135-145)
[2024-12-29 11:22] LABS: B Type Natriuretic Peptide 25 pg/mL (<100)
[2024-12-29 11:24] LABS: Lactic Acid 11.9 mmol/L (0.5-2.0)
[2024-12-29 11:28] LABS: Troponin-I High Sensitivity < 2.7 ng/L (<3.5-17.0)
[2024-12-29 11:35] LABS: Appearance Urine Cloudy; Color Urine Yellow; Glucose Urine UA Negative (Negative); Leukocyte Esterase Urine Small (1+) (Negative); Nitrite Urine Negative (Negative); PH 5.5 (5.0-9.0); UMIC TRIGGER UACC YES; Urine Blood Negative (Negative); Urine Ketones 40 mg/dL (Negative); Urine Protein 30 (1+) mg/dL (Neg-Trace)
[2024-12-29 11:38] LABS: Bacteria Urine None Seen (None Seen); RBC Urine 0-2 /HPF (0-2); UACC Culture Trigger YES; WBC Urine 21-50 /HPF (0-5)
[2024-12-29 11:39] LABS: Influenza A PCR NEGATIVE (Negative); Influenza B PCR NEGATIVE (Negative); Resp Syncy Virus RNA Qual PCR NEGATIVE (Negative); SARS COV2 PCR INHOUSE NEGATIVE (Negative)
[2024-12-29 11:43] LABS: Amphetamine Screen Urine Not Detected (Not Detect); Barbiturates, Urine Not Detected (Not Detect); Benzodiazepines Screen Urine Not Detected (Not Detect); Buprenorphine Scr Not Detected (Not Detect); Cannabinoid Screen Urine Not Detected (Not Detect); Cocaine Screen Urine Not Detected (Not Detect); Fentanyl, urine Not Detected (Not Detect); Methadone Screen, Urine Not Detected (Not Detect); Opiate Screen Urine Not Detected (Not Detect); Oxycodone Screen Urine Not Detected (Not Detect); Phencyclidine Screen Urine Not Detected (Not Detect)
[2024-12-29] MEDS: vancomycin/NS 2,000 MG/500 ML PLAST..BAG 250 MG IV (12:05)
[2024-12-29] MEDS: 0.9 % Sodium Chloride 1,000 ML 999 ML IV ×3 (12:05→12:56)
[2024-12-29] MEDS: Piperacillin Sodium/Tazobactam 4.5 GM in 0.9 % Sodium Chloride 100 ML IV (12:06)
--- NOTE | 2024-12-29 12:29 | PC.NURSE ---
CT notified about pts pending ct, per CT, pt should be next.
[2024-12-29 12:41] LABS: ABG Base Excess -4.7 mmol/L; ABG HCO3 18 mmol/L (22-26); ABG pCO2 29 mmHg (32-45); ABG pO2 64 mmHg (83-108)
[2024-12-29 13:00] LABS: Reflex Lactate? Lactic Acid Added
[2024-12-29 13:46] LABS: VBG pCO2 33 mmHg; VBG pH 7.14 (7.32-7.43); VBG pO2 64 mmHg
[2024-12-29 13:47] LABS: VBG HCO3 11 mmol/L (22-26)
[2024-12-29 13:52] LABS: VBG Base Excess -5.3 mmol/L; VBG HCO3 20 mmol/L (22-26); VBG pCO2 39 mmHg; VBG pH 7.31 (7.32-7.43); VBG pO2 39 mmHg
[2024-12-29 13:52] LABS: Venous Blood Gas Refer to POC result
[2024-12-29 13:54] LABS: Carbon Monoxide 4.3
[2024-12-29 13:55] LABS: Carbon Monoxide POC 4.3 %
[2024-12-29 13:57] LABS: ABG Refer to POC result
--- NOTE | 2024-12-29 14:00 | PC.NURSE ---
Spoke to MD Adler, in regards to see if pt was a code sepsis. stated she in not a code sepsis.
[2024-12-29 14:11] LABS: Procalcitonin 0.06 ng/mL
[2024-12-29 14:19] LABS: ~Lactic Acid-LAB USE ONLY 1.2 mmol/L (0.5-2.0)
[2024-12-29 14:20] LABS: Beta-Hydroxybutyrate 2.25 mmol/L (0.02-0.27)
[2024-12-29 14:22] LABS: Anion Gap 16 (12-20); Blood Urea Nitrogen 16 mg/dL (9-16); Calcium 8.5 mg/dL (8.4-10.2); Carbon Dioxide 20 mmol/L (22-29); Chloride 107 mmol/L (96-108); Creatinine Clr Calc Pharmacy 80.5; Estimated Glomerular Filt Rate > 60; Glucose Random 78 mg/dL (60-115); Potassium 3.9 mmol/L (3.3-5.1); Sodium 139 mmol/L (135-145)
[2024-12-29] MEDS: iohexoL 350 MG/ML 100 ML INFUS..BTL IV (14:30)
[2024-12-29 14:31] LABS: Troponin-I High Sensitivity < 2.7 ng/L (<3.5-17.0)
--- NOTE | 2024-12-29 14:59 | PC.NURSE ---
Spoke to pharmacist Daniel Muñoz to be made.
[2024-12-29] MEDS: levETIRAcetam 2,000 MG in 0.9 % Sodium Chloride 100 ML 480 MG IV (16:22)
--- NOTE | 2024-12-29 16:28 | P.HPHOSP_ITS ---
History of Present Illness Date of Service: 12/29/24 Attending physician on admission: Óscar Pereira Chief Complaint: Confusion Pt is a 64-year-old female with a PMH significant for COPD not on home O2, HLD, HTN, lak-adszqyl-ssewdzndv type 2 diabetes, hypothyroidism sciatica/chronic back pain, GERD, and mood disorder who presents to the ED from home after being assessed by [place] police department for increasing confusion. Pt apparently triggered her apartment alarm as a test to see if police department would arrive. PD found pt seemingly confused and called EMS to have her brought to the ED for further evaluation. When pt arrived to the ED was confused but speaking in full sentences. Pt was found unresponsive in bed sometime later by RN. Pt soon awoke/came to and seemed confused, unable to speak articulately. Pt was then loaded with Keppra though has no known seizure hx. Pt seen and evaluated in her room where she is alert and oriented to self and place, though not to time or situation. Pt appears confused with tangential and nonsensical speech, the pt is easy to redirect and answers appropriately and follows commands. Pt currently denies any acute medical complaints. No headache, neck stiffness, acute vision changes. Denies fever, chills. No nausea, vomiting, abdominal pain. Denies shortness or breath or difficulty breathing. No cough. Denies chest pain/pressure, palpitations. ? In the ED pt was tachycardic up to 101, tachypneic up to 22, and initially hypertensive at 142/97. Labs were significant for leukocytosis 12.4, initial lactic acid 11.9 with repeat 1.2 AST 42, ALT 33, CPK 613, CRP 3.81, and beta hydroxybutyrate 2.25. Stable H&H. No significant electrolyte abnormalities. Renal function WNL. Serial troponins negative. Initial VBG pH 7.14, POC 33, and bicarb of 11 with repeat 7.31, pCO2 39, and bicarb 20. UA without nitrites or bacteria, though a small amount of leukocyte esterase and 21-50 wbc's. Tox screen negative. Tested negative for flu, COVID, RSV. Tox screen and ethyl alcohol negative. CXR showed acute cardiopulmonary abnormality. CTA of head negative for acute intracranial hemorrhage. CTA of chest negative for pulmonary emboli, but showed mild emphysema independent atelectasis. CT of abdomen and pelvis showed hepatic steatosis otherwise negative for acute abdomen and pelvis. EKG demonstrated normal sinus rhythm without evidence of ST elevations or depressions. Pt was treated with IVF, vancomycin, Zosyn, and loaded with Keppra 2 g IV. Pt will be admitted to the hospital for treatment and further evaluation of acute encephalopathy of unclear etiology, most concerning for new onset seizure. Review of Systems 2 Review of Systems: Negative except for that which is stated in the [facility] Medical History GERD (gastroesophageal reflux disease) Glaucoma Asthma Depression Hypothyroidism Hyperlipidemia Hypertension Personal history of nicotine dependence Surgical History History of History of colonoscopy History of shoulder surgery (~2012) History of total hysterectomy with bilateral salpingo-oophorectomy (BSO) (~2005) Social History Household Members: None Housing: Apartment Do you presently have visiting nurse or other home services: No Alcohol intake: never Patient Tobacco Use Status: Current someday Tobacco user Smoked in Last 30 Days: No Use of substances other than those prescribed or required for medical reasons: No Advance Directives: No Advance Directives Information Provided: Yes Do you have a plan to hurt others: No Plan Patient : No service: No Meds Allergies Allergy/AdvReac Type Severity Reaction Status Date / Time No Known Allergies Allergy Verified 12/29/24 10:01 [No Known Allergies*] Home Medications ?Medication ?Instructions ?Recorded ?Confirmed ?Last Taken ?Type aspirin 81 mg tablet,delayed 81 mg PO DAILY 07/13/20 12/29/24 Unknown History release (Adult Low Dose Aspirin) clonazepam 1 mg tablet 1 mg PO BID 07/13/20 12/29/24 Unknown History levothyroxine 50 mcg tablet 50 mcg PO DAILY@0600 07/13/20 12/29/24 Unknown History lisinopril 10 mg tablet 10 mg PO DAILY 07/13/20 12/29/24 Unknown History montelukast 10 mg tablet 10 mg PO BEDTIME 07/13/20 12/29/24 Unknown History pantoprazole 20 mg tablet,delayed 20 mg PO BID@0630,1630 07/13/20 12/29/24 Unknown History release rosuvastatin 40 mg tablet 40 mg PO BEDTIME 07/13/20 12/29/24 Unknown History sertraline 100 mg tablet 100 mg PO DAILY 07/13/20 12/29/24 Unknown History acetaminophen 650 mg 650 mg PO Q8H PRN Pain 02/28/24 12/29/24 Unknown History tablet,extended release albuterol sulfate 90 mcg/actuation 2 inh inhalation Q6H PRN Shortness 02/28/24 12/29/24 Unknown History aerosol inhaler (Ventolin HFA) Of Breath Or Wheezing baclofen 20 mg tablet 20 mg PO BID PRN Muscle Spasm 02/28/24 12/29/24 Unknown History baclofen 20 mg tablet 20 mg PO DAILY PRN Muscle Spasm 02/28/24 12/29/24 Unknown History calcium 600 mg (as 1 tab PO BID 02/28/24 12/29/24 Unknown History carbonate)-vitamin D3 10 mcg (400 unit) tablet docusate sodium 100 mg capsule 100 mg PO BID 02/28/24 12/29/24 Unknown History doxepin 50 mg capsule 50 mg PO BEDTIME 02/28/24 12/29/24 Unknown History famotidine 20 mg tablet 20 mg PO DAILY 02/28/24 12/29/24 Unknown History fluticasone propionate 50 1 spray intranasal BID 02/28/24 12/29/24 Unknown History mcg/actuation nasal spray,suspension melatonin 5 mg tablet 10 mg PO BEDTIME PRN insomnia 02/28/24 02/28/24 Unknown History metformin 500 mg tablet,extended 1,000 mg PO BID 02/28/24 12/29/24 Unknown History release 24 hr perphenazine 4 mg tablet 4 mg PO BID 02/28/24 12/29/24 Unknown History prazosin 1 mg capsule 1 mg PO BEDTIME 02/28/24 12/29/24 Unknown History ropinirole 1 mg tablet 1 mg PO BEDTIME 02/28/24 12/29/24 Unknown History cetirizine 10 mg tablet 10 mg PO DAILY 12/29/24 12/29/24 Unknown History chlorhexidine gluconate 0.12 % 15 ml PO BID 12/29/24 12/29/24 Unknown History mouthwash furosemide 20 mg tablet 20 mg PO DAILY 12/29/24 12/29/24 Unknown History pregabalin 100 mg capsule 100 mg PO BID 12/29/24 12/29/24 Unknown History tirzepatide 2.5 mg/0.5 mL 2.5 mg subcut QWEEK 12/29/24 12/29/24 Unknown History subcutaneous pen injector ([place]) urea 39 % topical cream 1 appl topical DAILY 12/29/24 12/29/24 Unknown History Physical Exam 2 Vital Signs and Narrative: Vital Signs: Last Vital Signs Temp 98.1 F 12/29/24 14:46 Pulse 84 12/29/24 14:46 Resp 20 12/29/24 14:46 BP 119/68 12/29/24 14:46 Pulse Ox 94 12/29/24 14:46 O2 Del Method Room Air 12/29/24 14:46 BMI result Body Mass Index 38.5 General: AOx3, no acute distress Resp: CTA bilaterally CVS: S1, S2, RRR GI: +BS, NT, no distention Skin: Warm, dry Neuro: Cranial nerves II-XII grossly intact bilaterally. Motor grossly intact bilaterally Extremities: 2+ left leg edema Psych: Confused with tangential and nonsensical thoughts. Easily redirectable. Answering appropriately. Results Labs 12/29/24 10:16 12/29/24 13:40 Labs: Laboratory Results - last 24 hr 12/29/24 12/29/24 12/29/24 10:16 10:42 10:52 MCV 88.0 MCH 30.3 MCHC 34.4 RDW 13.2 Plt Count 263 MPV 10.6 Immature Gran % (Auto) 0.5 H Neut % (Auto) 73.2 H Lymph % (Auto) 17.2 L [place] % (Auto) 7.3 Eos % (Auto) 1.2 Baso % (Auto) 0.6 Lymph # (Auto) 2.1 [place] # (Auto) 0.9 Eos # (Auto) 0.2 Baso # (Auto) 0.1 Abs Immat Gran (auto) 0.06 H Absolute Neuts (auto) 9.1 H Absolute Nucleated RBC 0.000 Nucleated RBC % (auto) 0.0 ESR 16 Hold Blue Top O2 Saturation ABG pH at Pt Temp ABG pH (Temp Correct) ABG pCO2 at Pt Temp ABG pO2 at Pt Temp ABG HCO3 ABG Base Excess (Actual) VBG pH VBG pCO2 VBG pO2 VBG HCO3 VBG O2 Saturation VBG Base Excess Carboxyhemoglobin % Anion Gap 19 27 H Estim Creat Clear Calc 75.0 58.7 Estimated GFR > 60 50 POC Glucose 131 H Random Glucose 113 130 H Lactic Acid 11.9 H* Lactic Acid F/U @ 2Hr Calcium 9.7 9.7 Magnesium 2.2 2.5 Total Bilirubin 0.9 Direct Bilirubin 0.2 AST 42 H ALT 33 H Alkaline Phosphatase 103 Ammonia 38 Total Creatine Kinase 613 H C-Reactive Protein 3.81 H B-Natriuretic Peptide 25 Total Protein 8.2 H Albumin 4.5 Lipase 15 Beta-Hydroxybutyrate Procalcitonin 0.06 Urine Color Urine Appearance Urine pH Ur Specific [place] Urine Protein Urine Glucose (UA) Urine Ketones Urine Blood Urine Nitrite Ur Leukocyte Esterase Urine RBC Urine WBC Ur Squamous Epith Cells Urine Bacteria Hyaline Casts Urine Opiates Screen Ur Buprenorphine Scrn Ur Oxycodone Screen Urine Methadone Screen Urine Fentanyl Screen Ur Barbiturates Screen Ur Phencyclidine Scrn Ur Amphetamines Screen U Benzodiazepines Scrn Urine Cocaine Screen U Marijuana (THC) Screen Ethyl Alcohol < 10 Influenza Type A (PCR) NEGATIVE Influenza Type B (PCR) NEGATIVE RSV RNA Qual (PCR) NEGATIVE SARS-CoV-2 RNA (RT-PCR) NEGATIVE 12/29/24 12/29/24 12/29/24 10:56 10:59 11:18 MCV MCH MCHC RDW Plt Count MPV Immature Gran % (Auto) Neut % (Auto) Lymph % (Auto) [place] % (Auto) Eos % (Auto) Baso % (Auto) Lymph # (Auto) [place] # (Auto) Eos # (Auto) Baso # (Auto) Abs Immat Gran (auto) Absolute Neuts (auto) Absolute Nucleated RBC Nucleated RBC % (auto) ESR Hold Blue Top SEE NOTE O2 Saturation ABG pH at Pt Temp ABG pH (Temp Correct) ABG pCO2 at Pt Temp ABG pO2 at Pt Temp ABG HCO3 ABG Base Excess (Actual) VBG pH 7.14 L* VBG pCO2 33 VBG pO2 64 VBG HCO3 11 L VBG O2 Saturation 84.0 VBG Base Excess -16.0 Carboxyhemoglobin % Anion Gap Estim Creat Clear Calc Estimated GFR POC Glucose Random Glucose Lactic Acid Lactic Acid F/U @ 2Hr Calcium Magnesium Total Bilirubin Direct Bilirubin AST ALT Alkaline Phosphatase Ammonia Total Creatine Kinase C-Reactive Protein B-Natriuretic Peptide Total Protein Albumin Lipase Beta-Hydroxybutyrate Procalcitonin Urine Color Yellow Urine Appearance Cloudy Urine pH 5.5 Ur Specific [place] 1.020 Urine Protein 30 (1+) H Urine Glucose (UA) Negative Urine Ketones 40 Urine Blood Negative Urine Nitrite Negative Ur Leukocyte Esterase Small (1+) H Urine RBC 0-2 Urine WBC 21-50 H Ur Squamous Epith Cells 11-20 Urine Bacteria None Seen Hyaline Casts 3-5 Urine Opiates Screen Not Detected Ur Buprenorphine Scrn Not Detected Ur Oxycodone Screen Not Detected Urine Methadone Screen Not Detected Urine Fentanyl Screen Not Detected Ur Barbiturates Screen Not Detected Ur Phencyclidine Scrn Not Detected Ur Amphetamines Screen Not Detected U Benzodiazepines Scrn Not Detected Urine Cocaine Screen Not Detected U Marijuana (THC) Screen Not Detected Ethyl Alcohol Influenza Type A (PCR) Influenza Type B (PCR) RSV RNA Qual (PCR) SARS-CoV-2 RNA (RT-PCR) 12/29/24 12/29/24 12/29/24 12:36 13:40 13:49 MCV MCH MCHC RDW Plt Count MPV Immature Gran % (Auto) Neut % (Auto) Lymph % (Auto) [place] % (Auto) Eos % (Auto) Baso % (Auto) Lymph # (Auto) [place] # (Auto) Eos # (Auto) Baso # (Auto) Abs Immat Gran (auto) Absolute Neuts (auto) Absolute Nucleated RBC Nucleated RBC % (auto) ESR Hold Blue Top O2 Saturation TNP ABG pH at Pt Temp 7.40 ABG pH (Temp Correct) TNP ABG pCO2 at Pt Temp 29 L ABG pO2 at Pt Temp 64 L ABG HCO3 18 L ABG Base Excess (Actual) -4.7 VBG pH 7.31 L VBG pCO2 39 VBG pO2 39 VBG HCO3 20 L VBG O2 Saturation 60.0 VBG Base Excess -5.3 Carboxyhemoglobin % Anion Gap 16 Estim Creat Clear Calc 80.5 Estimated GFR > 60 POC Glucose Random Glucose 78 Lactic Acid Lactic Acid F/U @ 2Hr 1.2 Calcium 8.5 D Magnesium Total Bilirubin Direct Bilirubin AST ALT Alkaline Phosphatase Ammonia Total Creatine Kinase C-Reactive Protein B-Natriuretic Peptide Total Protein Albumin Lipase Beta-Hydroxybutyrate 2.25 H Procalcitonin Urine Color Urine Appearance Urine pH Ur Specific [place] Urine Protein Urine Glucose (UA) Urine Ketones Urine Blood Urine Nitrite Ur Leukocyte Esterase Urine RBC Urine WBC Ur Squamous Epith Cells Urine Bacteria Hyaline Casts Urine Opiates Screen Ur Buprenorphine Scrn Ur Oxycodone Screen Urine Methadone Screen Urine Fentanyl Screen Ur Barbiturates Screen Ur Phencyclidine Scrn Ur Amphetamines Screen U Benzodiazepines Scrn Urine Cocaine Screen U Marijuana (THC) Screen Ethyl Alcohol Influenza Type A (PCR) Influenza Type B (PCR) RSV RNA Qual (PCR) SARS-CoV-2 RNA (RT-PCR) 12/29/24 13:52 MCV MCH MCHC RDW Plt Count MPV Immature Gran % (Auto) Neut % (Auto) Lymph % (Auto) [place] % (Auto) Eos % (Auto) Baso % (Auto) Lymph # (Auto) [place] # (Auto) Eos # (Auto) Baso # (Auto) Abs Immat Gran (auto) Absolute Neuts (auto) Absolute Nucleated RBC Nucleated RBC % (auto) ESR Hold Blue Top O2 Saturation ABG pH at Pt Temp ABG pH (Temp Correct) ABG pCO2 at Pt Temp ABG pO2 at Pt Temp ABG HCO3 ABG Base Excess (Actual) VBG pH VBG pCO2 VBG pO2 VBG HCO3 VBG O2 Saturation VBG Base Excess Carboxyhemoglobin % 4.3 Anion Gap Estim Creat Clear Calc Estimated GFR POC Glucose Random Glucose Lactic Acid Lactic Acid F/U @ 2Hr Calcium Magnesium Total Bilirubin Direct Bilirubin AST ALT Alkaline Phosphatase Ammonia Total Creatine Kinase C-Reactive Protein B-Natriuretic Peptide Total Protein Albumin Lipase Beta-Hydroxybutyrate Procalcitonin Urine Color Urine Appearance Urine pH Ur Specific [place] Urine Protein Urine Glucose (UA) Urine Ketones Urine Blood Urine Nitrite Ur Leukocyte Esterase Urine RBC Urine WBC Ur Squamous Epith Cells Urine Bacteria Hyaline Casts Urine Opiates Screen Ur Buprenorphine Scrn Ur Oxycodone Screen Urine Methadone Screen Urine Fentanyl Screen Ur Barbiturates Screen Ur Phencyclidine Scrn Ur Amphetamines Screen U Benzodiazepines Scrn Urine Cocaine Screen U Marijuana (THC) Screen Ethyl Alcohol Influenza Type A (PCR) Influenza Type B (PCR) RSV RNA Qual (PCR) SARS-CoV-2 RNA (RT-PCR) Imaging Radiologist's Impressions: Impressions Chest X-Ray 12/29/24 12:05 IMPRESSION: Low lung volumes. No acute cardiopulmonary abnormality. Electronically signed by: Manan Long MD 12/29/2024 12:33 PM EDT RP Abdomen/Pelvis CT 12/29/24 12:44 IMPRESSION: 1. No evidence of pulmonary emboli. Mild emphysema and dependent atelectasis.. 2. Hepatic steatosis. Otherwise unremarkable contrast-enhanced CT of the abdomen and pelvis. Electronically signed by: Manan Long MD 12/29/2024 03:27 PM EDT RP Chest CTA 12/29/24 12:44 IMPRESSION: 1. No evidence of pulmonary emboli. Mild emphysema and dependent atelectasis.. 2. Hepatic steatosis. Otherwise unremarkable contrast-enhanced CT of the abdomen and pelvis. Electronically signed by: Manan Long MD 12/29/2024 03:27 PM EDT RP Venous Duplex 12/29/24 13:06 IMPRESSION: No acute deep venous thrombosis involving the left lower extremity. Negative for DVT. Electronically signed by: Vj Nobles MD 12/29/2024 01:46 PM EDT RP Head CT 12/29/24 14:11 IMPRESSION: No acute intracranial hemorrhage. Stable appearance of the brain. Electronically signed by: Vj Nobles MD 12/29/2024 03:18 PM EDT RP Assessment and Plan (1) Acute encephalopathy: Status: Acute Plan Pt is a 64-year-old female with a PMH significant for COPD not on home O2, HLD, HTN, miy-wkapeej-wtxnviuur type 2 diabetes, hypothyroidism sciatica/chronic back pain, GERD, and mood disorder who presents to the ED from home after being assessed by [place] police department for increasing confusion. Pt will be admitted to the hospital for treatment and further evaluation of acute encephalopathy of unclear etiology, most concerning for new onset seizure. Acute encephalopathy Pt found with AMS by PD earlier today, baseline unknown Had episode of unresponsiveness in ED with increased confused upon waking Unclear etiology: New onset seizure vs acute UTI with sepsis CT of head, abd/pelvis, and CTA of chest negative for acute abnormalities Tox screen and ethyl alcohol negative Pt treated with sepsis bolus fluids and started broad-spectrum antibiotics as well as loaded with Keppra 2 g IV in the ED Will empirically treat with vancomycin and ceftriaxone, started 12/29/2022 Keppra 1000 mg IV b.i.d. MRI of head/brain EEG Neurology consult Will check ammonia Seizure precautions Monitor on strap buckler machine mentation Acute UTI meeting SIRS criteria Pt presented to the ED 3 days prior on 12/26 and was diagnosed with acute UTI Sent home on cefuroxime Previous UA culture positive for gram negative rods Meets SIRS criteria with leukocytosis, tachycardia, tachypnea; lactic acid 11.9 Was given sepsis bolus fluids in ED and started on broad spectrum antibiotics Will cover with ceftriaxone as above Acute lactic acidosis, resolved Lactic acid 11.9 at time of presentation, improved to 1.2 after sepsis bolus fluids Likely secondary to seizure rather than sepsis Left leg edema 2+ left leg edema US doppler negative for DVT Continue home Lasix COPD Not in acute exacerbation Continue home inhalers Rur-ykmgdjn-iilddlmwe type 2 diabetes Hold metformin Sliding-scale insulin Diabetic diet HTN Continue lisinopril HLD Continue statin Hypothyroidism Continue levothyroxine Mood disorder Continue sertraline, Lyrica GERD Continue famotidine Full Code Attending:?Dr. Pereira DVT Prophylaxis: Lovenox Pt will require a hospitalization of at least two nights for treatment of?acute encephalopathy of unclear etiology: New onset seizure vs acute UTI with sepsis. Pt will require hospital level care for close monitoring of cardiac function, labs, and mentation, administration of IV antibiotics and IV antiepileptics, as well as specialist consultation with Neurology and additional workup with MRI and EEG. Quality Stroke Does the patient have a stroke diagnosis?: No VTE Prior VTE?: No VTE Risk Level:: Medical - moderate - high VTE Device Contraindication: Treatment Not Indicated VTE Drug Contraindication: N/A - Med Ordered
--- NOTE | 2024-12-29 16:30 | PC.NURSE ---
RN did swallow screen on pt, prior to feed pt.
--- NOTE | 2024-12-29 16:38 | PC.NURSE ---
MD Fuentes of for pt to eat and drink. Pt. given sandwich and water.
--- NOTE | 2024-12-29 17:08 | PHA.MEDREC ---
Addendum entered by Josias Nieves [facility] ED 12/29/24 17:29: med rec reviewed Original Note: Pharmacy Consult ? Medication Reconciliation Pharmacy has completed the medication reconciliation. Patient is AMS. Utilized list from [facility] pharmacy to confirm med list.
--- NOTE | 2024-12-29 17:11 | PC.NURSE ---
Pt. using cellphone and no s/s of pain or distress. Pt. informed she is awaiting admit and bed assignment. All questions answered.
--- NOTE | 2024-12-29 17:36 | PC.NURSE ---
Alexa- Mother: [phone].
[2024-12-29 18:19] LABS: Ammonia 27 umol/L (13-55)
[2024-12-29] MEDS: cefTRIAXone sodium 1 GM VIAL IVPUSH (18:48)
[2024-12-29 18:58] LABS: Acetaminophen LAB < 3 mcg/mL (<30); Salicylate < 5.0 mg/dL (15-30)
--- NOTE | 2024-12-29 19:39 | PC.NURSE ---
MRI form completed with assistance from mother Gianfranco Lo. Had BETTYE Kaur, Verify information and compliance.
--- NOTE | 2024-12-29 20:52 | PC.NURSE ---
Cherelle Simon about pt's bp trending down, and has no complaints. No new orders at this time.
--- NOTE | 2024-12-29 21:08 | PC.NURSE ---
Pt. off to MRI.
--- NOTE | 2024-12-29 21:50 | PC.NURSE ---
Pt. refused MRI per certified performance technologist, informed MD. No new orders.
[2024-12-29 21:59] LABS: Glucose, Whole Blood 57 mg/dL (60-115)
[2024-12-29] MEDS: Atorvastatin Calcium 80 MG TABLET PO (22:00)
[2024-12-29] MEDS: Docusate Sodium 100 MG CAPSULE PO (22:00)
[2024-12-29] MEDS: Montelukast Sodium 10 MG TABLET PO (22:00)
[2024-12-29] MEDS: rOPINIRole HCL 1 MG TABLET PO (22:00)
[2024-12-29] MEDS: Pregabalin 100 MG CAPSULE PO (22:00)
[2024-12-29] MEDS: Albumin Human 25 % 100 ML 133.33 ML IV (22:00)
--- NOTE | 2024-12-29 22:12 | PC.NURSE ---
Informed MD that pt. BS was 57, was informed to give juice and food and to recheck in 1 hour. Informed techs to recheck and will continue to monitor.
[2024-12-29] MEDS: Perphenazine 4 MG TABLET PO (22:24)
[2024-12-29] MEDS: Albumin Human 25 % 100 ML IV (23:19)
--- NOTE | 2024-12-29 23:25 | PC.NURSE ---
Informed MD that pts glucose recheck is 97.
--- NOTE | 2024-12-29 23:36 | PC.NURSE ---
Pt. is resting with eyes closed, IV Albumin infusing, call morton within reach, Pt. has no s/s of pain or distress.
[2024-12-30] VITALS (12 sets, daily range): BP systolic 88–129; BP diastolic 33–70; PULSE 59–75; RESP 12–19; TEMP 36.3–37.2; O2SAT 86–96
--- NOTE | 2024-12-30 00:24 | PC.NURSE ---
Report given to BETTYE Moise.
[2024-12-30 00:30] LABS: Glucose, Whole Blood 97 mg/dL (60-115)
--- NOTE | 2024-12-30 00:37 | PC.NURSE ---
Addendum entered by Judy Mckeon 12/30/24 00:43: Per Dr. Sahni BP above 90 systolic okay. Pt appears to be sleeping, equal, non-labored respirations. Pt awakens with lactile stimuli. Original Note: This freelance writer assumed care of this Pt at this time.
--- NOTE | 2024-12-30 01:01 | PC.NURSE ---
O2 noted to be 86% on RA, 3L via NC placed with improvement to 92%. No apparent distress noted.
[2024-12-30] MEDS: 0.9 % Sodium Chloride Flush 3 ML SYRINGE IVFLUSH ×2 (01:10→17:55)
[2024-12-30] MEDS: vancomycin HCL 1,250 MG in 0.9 % Sodium Chloride 250 ML 166.67 MG IV (01:11)
--- NOTE | 2024-12-30 02:03 | MHC.EDTECH ---
[facility] told Dr. Sahni that the MRI would not be ready till later in the day 12/30/24 or tomorrow 12/31/24
--- NOTE | 2024-12-30 04:54 | PC.NURSE ---
Pt appears to be sleeping, equal, non-labored respirations.
[2024-12-30] MEDS: Levothyroxine Sodium 50 MCG TABLET PO (05:28)
[2024-12-30] MEDS: Omeprazole 20 MG CAPSULE.DR PO ×2 (05:30→17:54)
[2024-12-30 06:05] LABS: Hematocrit 36.1 % (37.0-47.0); Hemoglobin 12.4 g/dl (12.0-16.0); Mean Corpuscular HGB Conc 34.3 g/dl (31.0-35.0); Mean Corpuscular Hemoglobin 30.5 pg (27.0-33.0); Mean Corpuscular Volume 88.7 fL (80.0-98.0); Mean Platelet Volume 10.2 fL (9.4-12.3); Platelet Count 178 X10*3/uL (160-400); Red Blood Count 4.07 X10*6/uL (4.20-5.50); Red Cell Distribution Width 13.5 % (11.0-16.0); White Blood Count 8.3 X10*3/uL (4.8-10.8)
[2024-12-30 06:21] LABS: Anion Gap 10 (12-20); Blood Urea Nitrogen 12 mg/dL (9-16); Calcium 8.5 mg/dL (8.4-10.2); Carbon Dioxide 23 mmol/L (22-29); Chloride 112 mmol/L (96-108); Creatinine Clr Calc Pharmacy 84.7; Estimated Glomerular Filt Rate > 60; Glucose Random 82 mg/dL (60-115); Potassium 3.4 mmol/L (3.3-5.1); Sodium 142 mmol/L (135-145)
[2024-12-30 07:35] LABS: Glucose, Whole Blood 99 mg/dL (60-115)
--- NOTE | 2024-12-30 07:55 | PC.NURSE ---
patient a&ox3, rr equal/non labored- lungs clear throughout, pts bp was soft- held metoprolol this am, additionally pts POC was 59- held insulin and holding jardiance until after pt eats breakfast and repeat poc is obtained, hospitalist Eli notified. IVF running until completion and will be stopped as order was not renewed. Call morton within reach, plan of care ongoing.
[2024-12-30] MEDS: clonazePAM 1 MG TABLET PO ×2 (08:36→21:18)
[2024-12-30] MEDS: Pregabalin 100 MG CAPSULE PO ×2 (08:36→21:18)
[2024-12-30] MEDS: lisinopriL 10 MG TABLET PO (08:36)
[2024-12-30] MEDS: Perphenazine 4 MG TABLET PO ×2 (08:36→21:19)
[2024-12-30] MEDS: levETIRAcetam in NaCl (iso-os) 1,000 MG/100 ML PIGGYBACK 400 MG IV ×2 (08:36→21:13)
[2024-12-30] MEDS: Sertraline HCL 100 MG TABLET PO (08:37)
[2024-12-30] MEDS: Aspirin Enteric Coated 81 MG TABLET.DR PO (08:37)
[2024-12-30] MEDS: Docusate Sodium 100 MG CAPSULE PO (08:37)
[2024-12-30] MEDS: Furosemide 20 MG TABLET PO (08:37)
[2024-12-30] MEDS: Calcium + Vitamin D 250 MG TABLET PO ×2 (08:37→21:19)
[2024-12-30] MEDS: Famotidine 20 MG TABLET PO (08:37)
[2024-12-30] MEDS: Loratadine 10 MG TABLET PO (08:37)
--- NOTE | 2024-12-30 10:09 | PC.NURSE ---
patient a&ox3, electronic device monitor intact nsr on monitor, pt has been excessively ringing for a multitude of reasons, despite this nurse and tech attempting to bundle care patient continues to ring which is behavioral given if her call morton isnt immediately answered she defecates or urinates herself and begins screaming. The patients beed has been changed multiple times so far this shift, she has also been moved to an inpt bed. pts lungs have rhonchi- clears with cough, rr equal/non labored, vss, seizure precautions intact/fall precautions intact, call morton within reach, plan of care ongoing.
[2024-12-30 10:16] LABS: Vancomycin Random 20.4 mcg/mL (15-20)
--- NOTE | 2024-12-30 10:28 | HE.PHANOTE ---
RE VANCO DOSING: LEVEL ELEVATED AT 20.4 AFTER ONLY LOADING DOSE OF 2 GM AND 1250 MG DOSE GIVEN OVERNIGHT. DOSE REDUCED TO 1000 MG Q12 AND WILL RECHECK TOMORROW 12/31 @1000 ALONG WITH CONTINUED MONITORING OF RENAL FUNCTION.
[2024-12-30 10:34] LABS: Ethylene Glycol NONE DETECTED (NONE DETECTED)
--- NOTE | 2024-12-30 10:47 | PC.NURSE ---
pt had vanco ordered for 12pm, vanco trough was drawn and was 20.4, Dr. Pereira was notified and this nurse was instructed to hold the 12pm dose of vanco.
[2024-12-30 11:59] LABS: Glucose, Whole Blood 100 mg/dL (60-115)
--- NOTE | 2024-12-30 13:00 | PC.NURSE ---
pt currently sleeping rr-equal/non labored, pts bp was noted to be low by this nurse, upon examination the bp cuff was not appropriately placed on the arm, upon her waking we will redo and document the BP.
[2024-12-30 15:34] LABS: Analysis Performed on: WHOLE BLOOD; Methyl Alcohol Level NONE DETECTED (NONE DETECTED)
--- NOTE | 2024-12-30 15:37 | P.PNIM_ITS ---
Subjective Subjective Date of Service: 12/30/24 Interval History: Somewhat clearer this a.m.. No acute events overnight. Inappropriate affect Review of Systems Denies chest pain Denies shortness of breath Denies nausea vomiting diarrhea Denies fever chills Physical Exam 2 Vital Signs: Vital Signs: Last Vital Signs Temp 97.3 F 12/30/24 14:55 Pulse 59 12/30/24 14:55 Resp 16 12/30/24 14:55 BP 102/49 L 12/30/24 14:55 Pulse Ox 93 12/30/24 14:55 O2 Del Method Nasal Cannula 12/30/24 14:55 O2 Flow Rate 3 12/30/24 14:55 BMI result Body Mass Index 38.5 Const: Other: Awake alert nonsensical Resp: Other: Clear to auscultation bilaterally no rales rhonchi or wheezes Cardio: Other: No S4; positive S1-S2; no S3 murmurs rubs or gallops GI: Other: Soft and attention nondistended normoactive bowel sounds Extrem: Other: No edema bilaterally Objective Data Active Medications Acetaminophen (Acetaminophen 325 Mg Tablet) 650 mg PO Q6H PRN PRN Reason: Pain, Mild 1-3,fever,headache Albuterol Sulfate (Albuterol Sulfate 90 Mcg 8 Gm Inhaler) 2 puff INHALE Q6H PRN PRN Reason: Shortness Of Breath Or Wheezing Aspirin (Aspirin Enteric Coated 81 Mg Tablet.Dr) 81 mg PO DAILY [facility] Last Admin: 12/30/24 08:37 Dose: 81 mg Documented By: MOLLY Atorvastatin Calcium (Atorvastatin Calcium 80 Mg Tablet) 80 mg PO BEDTIME [facility] Last Admin: 12/29/24 22:00 Dose: 80 mg Documented By: WAGNER Baclofen (Baclofen 20 Mg Tablet) 20 mg PO BID PRN PRN Reason: Muscle Spasm Baclofen (Baclofen 20 Mg Tablet) 20 mg PO DAILY PRN PRN Reason: Muscle Spasm Calcium Carbonate (Calcium Carbonate 750 Mg Tab.Chew) 750 mg PO Q4H PRN PRN Reason: Heartburn Calcium Carbonate/Cholecalciferol (Calcium + Vitamin D 250 Mg Tablet) 250 mg PO BID [facility] Last Admin: 12/30/24 08:37 Dose: 250 mg Documented By: MOLLY Ceftriaxone Sodium (Ceftriaxone Sodium 1 Gm Vial) 1 gm IVPUSH Q24H [facility] Last Admin: 12/29/24 18:48 Dose: 1 gm Documented By: WAGNER Clonazepam (Clonazepam 1 Mg Tablet) 1 mg PO BID [facility] Last Admin: 12/30/24 08:36 Dose: 1 mg Documented By: MOLLY Dextrose (Dextrose 50 % 25 Gm/50 Ml Syringe) 25 gm IVPUSH Q15M PRN; Protocol PRN Reason: per Hypoglycemia Standing Ord. Docusate Sodium (Docusate Sodium 100 Mg Capsule) 100 mg PO BID [facility] Last Admin: 12/30/24 08:37 Dose: 100 mg Documented By: MOLLY Enoxaparin Sodium (Enoxaparin Sodium 40 Mg/0.4 Ml Syringe) 40 mg SUBCUT Q24H [facility] Last Admin: 12/29/24 20:26 Dose: Not Given Documented By: WAGNER Non-Admin Reason: Patient Refused Famotidine (Famotidine 20 Mg Tablet) 20 mg PO DAILY [facility] Last Admin: 12/30/24 08:37 Dose: 20 mg Documented By: MOLLY Fluticasone Propionate (Fluticasone Propionate Nasal 16 Gm Clune) 1 spray NOSTRIL-B BID [facility] Last Admin: 12/30/24 10:07 Dose: Not Given Documented By: MOLLY Non-Admin Reason: Patient Refused Furosemide (Furosemide 20 Mg Tablet) 20 mg PO DAILY [facility]; Protocol Last Admin: 12/30/24 08:37 Dose: 20 mg Documented By: MOLLY Glucose (Glucose Gel 15 Gm Gel..Gram.) 15 gm PO Q15M PRN; Protocol PRN Reason: per Hypoglycemia Standing Ord. Levetiracetam (Keppra) 1,000 mg in 100 mls @ 400 mls/hr IV Q12H [facility] Last Infusion: 12/30/24 08:51 Dose: Infused Documented By: MOLLY Vancomycin HCl 1,000 mg/ (Sodium Chloride) 270 mls @ 270 mls/hr IV Q12H [facility] Insulin Human Lispro (Insulin Lispro 100 Unit/Ml 3 Ml Vial) 0 unit SUBCUT QIDACHS [facility]; Protocol Last Admin: 12/30/24 13:04 Dose: Not Given Documented By: MOLLY Non-Admin Reason: No Insulin Coverage Levothyroxine Sodium (Levothyroxine Sodium 50 Mcg Tablet) 50 mcg PO DAILY@0600 [facility] Last Admin: 12/30/24 05:28 Dose: 50 mcg Documented By: LALA Lisinopril (Lisinopril 10 Mg Tablet) 10 mg PO DAILY [facility]; Protocol Last Admin: 12/30/24 08:36 Dose: 10 mg Documented By: MOLLY Loratadine (Loratadine 10 Mg Tablet) 10 mg PO DAILY [facility] Last Admin: 12/30/24 08:37 Dose: 10 mg Documented By: MOLLY Magnesium Hydroxide (Milk Of Magnesia 30 Ml Oral.Susp) 30 ml PO DAILY PRN PRN Reason: Constipation Melatonin (Melatonin 3 Mg Tablet) 6 mg PO BEDTIME PRN PRN Reason: Insomnia Montelukast Sodium (Montelukast Sodium 10 Mg Tablet) 10 mg PO BEDTIME [facility] Last Admin: 12/29/24 22:00 Dose: 10 mg Documented By: WAGNER Omeprazole (Omeprazole 20 Mg Capsule.) 20 mg PO BID@0630,1630 [facility] Last Admin: 12/30/24 05:30 Dose: 20 mg Documented By: LALA Perphenazine (Perphenazine 4 Mg Tablet) 4 mg PO BID [facility] Last Admin: 12/30/24 08:36 Dose: 4 mg Documented By: MOLLY Pharmacy Consult (Consult Rx Vancomycin Dosing) 1 each MISCELLANE DAILY PRN PRN Reason: Consult order Prazosin HCl (Prazosin Hcl 1 Mg Capsule) 1 mg PO BEDTIME [facility]; Protocol Last Admin: 12/29/24 22:22 Dose: Not Given Documented By: WAGNER Non-Admin Reason: bp: 95/29 Pregabalin (Pregabalin 100 Mg Capsule) 100 mg PO BID [facility] Last Admin: 12/30/24 08:36 Dose: 100 mg Documented By: MOLLY Ropinirole HCl (Ropinirole Hcl 1 Mg Tablet) 1 mg PO BEDTIME [facility] Last Admin: 12/29/24 22:00 Dose: 1 mg Documented By: WAGNER Sertraline HCl (Sertraline Hcl 100 Mg Tablet) 100 mg PO DAILY [facility] Last Admin: 12/30/24 08:37 Dose: 100 mg Documented By: MOLLY Sodium Chloride (0.9 % Sodium Chloride Flush 3 Ml Syringe) [facility] Admin: 12/30/24 09:55 Dose: Not Given Documented By: TALIA Non-Admin Reason: IV Running Labs 12/30/24 05:48 12/30/24 05:48 Labs: Laboratory Results - last 24 hr 12/29/24 12/29/24 12/29/24 12:36 13:40 17:59 MCV MCH MCHC RDW Plt Count MPV Absolute Nucleated RBC Nucleated RBC % (auto) O2 Saturation TNP Anion Gap Estim Creat Clear Calc Estimated GFR POC Glucose Random Glucose Calcium Ammonia 27 Random Vancomycin Salicylates < 5.0 L Acetaminophen < 3 Ethylene Glycol NONE DETECTED Volat Analys Perform On WHOLE BLOOD Methyl Alcohol Level NONE DETECTED 12/29/24 12/29/24 12/30/24 21:52 23:18 05:48 MCV 88.7 MCH 30.5 MCHC 34.3 RDW 13.5 Plt Count 178 D MPV 10.2 Absolute Nucleated RBC 0.000 Nucleated RBC % (auto) 0.0 O2 Saturation Anion Gap 10 L Estim Creat Clear Calc 84.7 Estimated GFR > 60 POC Glucose 57 L* 97 Random Glucose 82 Calcium 8.5 Ammonia Random Vancomycin Salicylates Acetaminophen Ethylene Glycol Volat Analys Perform On Methyl Alcohol Level 12/30/24 12/30/24 12/30/24 07:31 09:51 11:57 MCV MCH MCHC RDW Plt Count MPV Absolute Nucleated RBC Nucleated RBC % (auto) O2 Saturation Anion Gap Estim Creat Clear Calc Estimated GFR POC Glucose 99 100 Random Glucose Calcium Ammonia Random Vancomycin 20.4 H Salicylates Acetaminophen Ethylene Glycol Volat Analys Perform On Methyl Alcohol Level Microbiology Microbiology Results: Microbiology 12/29/24 10:58 Blood Culture - Preliminary Blood - Venous No growth after 24 hours. 12/29/24 10:52 Blood Culture - Preliminary Blood - Venous No growth after 24 hours. 12/29/24 13:40 Urine Culture - Final Urine clean catch - Clean Catch Midstream Assessment and Plan (1) Acute encephalopathy: Status: Acute (2) E. coli UTI: Status: Acute Plan Pt is a 64-year-old female with a PMH significant for COPD not on home O2, HLD, HTN, [id number] type 2 diabetes, hypothyroidism sciatica/chronic back pain, GERD, and mood disorder who presents to the ED from home after being assessed by [place] [employer] for increasing confusion. Pt will be admitted to the hospital for treatment and further evaluation of acute encephalopathy of unclear etiology, most concerning for new onset seizure. 1.Acute encephalopathy -vancomycin/ceftriaxone, started 12/29/2022.... We will DC vancomycin -EEG -Neurology consult 2.Acute UTI meeting SIRS criteria -states she did not finish oral antibiotics given on the -urine culture 12/26 E coli pansensitive -DC vancomycin continue ceftriaxone 3. Question seizure activity -continue IV Keppra 1000 mg q.12 -await neuro consult 4.Vuj-ozsrvse-hrtbtaugq type 2 diabetes -acceptable control on current therapies -lispro correctional scale -adjust as indicated Full Code Sarix Patient will require ongoing hospitalization for IV ceftriaxone to treat UTI causing acute encephalopathy and to complete workup for seizure disorder Quality Stroke Does the patient have a stroke diagnosis?: No VTE Prior VTE?: No VTE Risk Level:: Medical - moderate - high VTE Device Contraindication: Treatment Not Indicated VTE Drug Contraindication: N/A - Med Ordered
--- NOTE | 2024-12-30 16:38 | MHC.CM.PN ---
PT REPORTS SHE LIVES ALONE AND IS INDEPENDENT WITH SELF CARE SHE HAS A FRUIT OR NUT GROWER FOR CLEANING TWICE PER WEEK AND MOW ONCE PER WEEK SHE USES A WALKER AND ALSO HAS A CANE COPY OF HCP REQUESTED PCP: BILL MCGREGOR DELIVERED DCP: HOME, [facility] PT STATES HER BROTHER MAY BE ABLE TO TRANSPORT, HE ALSO HAS THE KEYS TO HER APARTMENT
[2024-12-30 16:53] LABS: Glucose, Whole Blood 160 mg/dL (60-115)
[2024-12-30] MEDS: cefTRIAXone sodium 1 GM VIAL IVPUSH (17:54)
[2024-12-30] MEDS: Insulin Lispro 100 UNIT/ML 3 ML VIAL SUBCUT (17:55)
--- NOTE | 2024-12-30 19:15 | PC.NURSE ---
assumed care of patient, patient incont of urine and stool. per patient ambulatory at home with walker, patient cleaned and helped to bedside commode
[2024-12-30 20:35] LABS: Glucose, Whole Blood 88 mg/dL (60-115)
[2024-12-30] MEDS: Enoxaparin Sodium 40 MG/0.4 ML SYRINGE SUBCUT (21:17)
[2024-12-30] MEDS: rOPINIRole HCL 1 MG TABLET PO (21:18)
[2024-12-30] MEDS: Atorvastatin Calcium 80 MG TABLET PO (21:18)
[2024-12-30] MEDS: Montelukast Sodium 10 MG TABLET PO (21:18)
[2024-12-30] MEDS: Prazosin HCL 1 MG CAPSULE PO (21:19)
[2024-12-30] MEDS: Fluticasone Propionate Nasal 16 GM SPRAY 1 SPRAY NOSTRIL-B (21:21)
[2024-12-30] MEDS: Baclofen 20 MG TABLET PO (21:33)
[2024-12-31] VITALS (8 sets, daily range): BP systolic 90–134; BP diastolic 50–67; PULSE 64–90; RESP 16–18; TEMP 36.4–37.1; O2SAT 92–96
[2024-12-31] MEDS: Melatonin 3 MG TABLET 6 MG PO ×2 (01:42→20:52)
--- NOTE | 2024-12-31 03:59 | PM.EVENT ---
Event Note Date of Service: 12/31/24 Event Note: hypotension due to meds not sepsis, will give 1L NS, hold lisiinopril Time Spent With Patient Time: Total time managing care of this patient today ____ minutes.
[2024-12-31] MEDS: Omeprazole 20 MG CAPSULE.DR PO ×2 (04:20→17:39)
[2024-12-31] MEDS: 0.9 % Sodium Chloride 1,000 ML 999 ML IV (04:20)
[2024-12-31] MEDS: Levothyroxine Sodium 50 MCG TABLET PO (04:20)
[2024-12-31 07:51] LABS: Creatinine Clr Calc Pharmacy 89.3; Estimated Glomerular Filt Rate > 60
[2024-12-31 07:52] LABS: Vancomycin Random 6.5 mcg/mL (15-20)
[2024-12-31 08:17] LABS: Alanine Aminotransferase 21 U/L (0-31); Albumin Level 3.6 g/dL (3.5-5.0); Anion Gap 12 (12-20); Aspartate Amino Transferase 31 U/L (5-31); Bilirubin Total 0.4 mg/dL (0.0-1.0); Blood Urea Nitrogen 12 mg/dL (9-16); Calcium 8.6 mg/dL (8.4-10.2); Carbon Dioxide 23 mmol/L (22-29); Chloride 112 mmol/L (96-108); Glucose Random 98 mg/dL (60-115); Potassium 3.8 mmol/L (3.3-5.1); Sodium 143 mmol/L (135-145)
[2024-12-31 08:23] LABS: Glucose, Whole Blood 102 mg/dL (60-115)
[2024-12-31 08:43] LABS: MANUAL DIFF FLAG NO
[2024-12-31 08:47] LABS: Basophils Absolute Auto 0.1 X10*3/uL (0.0-0.2); Basophils Percent Auto 0.9 % (0-2); Eosinophils Absolute Auto 0.2 X10*3/uL (0.0-0.4); Eosinophils Percent Auto 2.5 % (0-4); Hematocrit 38.1 % (37.0-47.0); Hemoglobin 12.7 g/dl (12.0-16.0); Imm Gran Abs Auto 0.04 X10*3/uL (0.00-0.03); Imm Gran Pct Auto 0.6 % (0.0-0.4); Lymphocytes Absolute Auto 2.2 X10*3/uL (1.2-4.9); Lymphocytes Percent Auto 34.2 % (20-40); Mean Corpuscular HGB Conc 33.3 g/dl (31.0-35.0); Mean Corpuscular Hemoglobin 30.5 pg (27.0-33.0); Mean Corpuscular Volume 91.6 fL (80.0-98.0); Monocytes Absolute Auto 0.6 X10*3/uL (0.1-1.2); Monocytes Percent Auto 10.1 % (2-11); Neutrophils Absolute Auto 3.3 x10*3/uL (2.0-8.3); Neutrophils Percent Auto 51.7 % (45-73); Platelet Count 179 X10*3/uL (160-400); Red Blood Count 4.16 X10*6/uL (4.20-5.50); Red Cell Distribution Width 13.5 % (11.0-16.0); White Blood Count 6.3 X10*3/uL (4.8-10.8)
[2024-12-31 09:42] LABS: Alkaline Phosphatase 71 U/L (39-117)
[2024-12-31] MEDS: 0.9 % Sodium Chloride Flush 3 ML SYRINGE IVFLUSH ×3 (09:59→19:35)
[2024-12-31] MEDS: Calcium + Vitamin D 250 MG TABLET PO ×2 (10:00→19:32)
[2024-12-31] MEDS: Aspirin Enteric Coated 81 MG TABLET.DR PO (10:00)
[2024-12-31] MEDS: Docusate Sodium 100 MG CAPSULE PO ×2 (10:01→19:33)
[2024-12-31] MEDS: clonazePAM 1 MG TABLET PO ×2 (10:01→19:32)
[2024-12-31] MEDS: Famotidine 20 MG TABLET PO (10:01)
[2024-12-31] MEDS: Furosemide 20 MG TABLET PO (10:01)
[2024-12-31] MEDS: levETIRAcetam in NaCl (iso-os) 1,000 MG/100 ML PIGGYBACK 400 MG IV ×2 (10:02→20:52)
[2024-12-31] MEDS: Loratadine 10 MG TABLET PO (10:02)
[2024-12-31] MEDS: Sertraline HCL 100 MG TABLET PO (10:03)
[2024-12-31] MEDS: Pregabalin 100 MG CAPSULE PO ×2 (10:03→19:33)
[2024-12-31] MEDS: Perphenazine 4 MG TABLET PO ×2 (10:03→19:33)
[2024-12-31] MEDS: Fluticasone Propionate Nasal 16 GM SPRAY 1 SPRAY NOSTRIL-B ×2 (10:04→19:35)
[2024-12-31 11:51] LABS: Glucose, Whole Blood 103 mg/dL (60-115)
--- NOTE | 2024-12-31 13:46 | P.PNIM_ITS ---
Subjective Subjective Date of Service: 12/31/24 Interval History: Much clear today. Able to recount that she took none of the p.o. meds given for her previous UTI Review of Systems Denies chest pain Denies shortness of breath Denies nausea vomiting diarrhea Denies fever chills Physical Exam 2 Vital Signs: Vital Signs: Last Vital Signs Temp 97.8 F 12/31/24 11:38 Pulse 64 12/31/24 11:38 Resp 18 12/31/24 11:38 BP 97/50 L 12/31/24 11:38 Pulse Ox 94 12/31/24 11:38 O2 Del Method Room Air 12/31/24 11:38 O2 Flow Rate 3 12/30/24 14:55 BMI result Body Mass Index 38.5 Const: Other: Awake alert nonsensical Resp: Other: Clear to auscultation bilaterally no rales rhonchi or wheezes Cardio: Other: No S4; positive S1-S2; no S3 murmurs rubs or gallops GI: Other: Soft and attention nondistended normoactive bowel sounds Extrem: Other: No edema bilaterally Objective Data Active Medications Acetaminophen (Acetaminophen 325 Mg Tablet) 650 mg PO Q6H PRN PRN Reason: Pain, Mild 1-3,fever,headache Albuterol Sulfate (Albuterol Sulfate 90 Mcg 8 Gm Inhaler) 2 puff INHALE Q6H PRN PRN Reason: Shortness Of Breath Or Wheezing Aspirin (Aspirin Enteric Coated 81 Mg Tablet.Dr) 81 mg PO DAILY [facility] Last Admin: 12/31/24 10:00 Dose: 81 mg Documented By: LAW Atorvastatin Calcium (Atorvastatin Calcium 80 Mg Tablet) 80 mg PO BEDTIME [facility] Last Admin: 12/30/24 21:18 Dose: 80 mg Documented By: TEZ Baclofen (Baclofen 20 Mg Tablet) 20 mg PO BID PRN PRN Reason: Muscle Spasm Last Admin: 12/30/24 21:33 Dose: 20 mg Documented By: TEZ Baclofen (Baclofen 20 Mg Tablet) 20 mg PO DAILY PRN PRN Reason: Muscle Spasm Calcium Carbonate (Calcium Carbonate 750 Mg Tab.Chew) 750 mg PO Q4H PRN PRN Reason: Heartburn Calcium Carbonate/Cholecalciferol (Calcium + Vitamin D 250 Mg Tablet) 250 mg PO BID [facility] Last Admin: 12/31/24 10:00 Dose: 250 mg Documented By: ALFONSORP Ceftriaxone Sodium (Ceftriaxone Sodium 1 Gm Vial) 1 gm IVPUSH Q24H [facility] Last Admin: 12/30/24 17:54 Dose: 1 gm Documented By: TALIA Clonazepam (Clonazepam 1 Mg Tablet) 1 mg PO BID [facility] Last Admin: 12/31/24 10:01 Dose: 1 mg Documented By: JANKIMOESTEFANI Dextrose (Dextrose 50 % 25 Gm/50 Ml Syringe) 25 gm IVPUSH Q15M PRN; Protocol PRN Reason: per Hypoglycemia Standing Ord. Docusate Sodium (Docusate Sodium 100 Mg Capsule) 100 mg PO BID [facility] Last Admin: 12/31/24 10:01 Dose: 100 mg Documented By: JANKIMORP Enoxaparin Sodium (Enoxaparin Sodium 40 Mg/0.4 Ml Syringe) 40 mg SUBCUT Q24H [facility] Last Admin: 12/30/24 21:17 Dose: 40 mg Documented By: TEZ Famotidine (Famotidine 20 Mg Tablet) 20 mg PO DAILY [facility] Last Admin: 12/31/24 10:01 Dose: 20 mg Documented By: JANKIMOESTEFANI Fluticasone Propionate (Fluticasone Propionate Nasal 16 Gm [place]) 1 spray NOSTRIL-B BID [facility] Last Admin: 12/31/24 10:04 Dose: 1 spray Documented By: ALFONSORP Furosemide (Furosemide 20 Mg Tablet) 20 mg PO DAILY [facility]; Protocol Last Admin: 12/31/24 10:01 Dose: 20 mg Documented By: LAW Glucose (Glucose Gel 15 Gm Gel..Gram.) 15 gm PO Q15M PRN; Protocol PRN Reason: per Hypoglycemia Standing Ord. Levetiracetam (Keppra) 1,000 mg in 100 mls @ 400 mls/hr IV Q12H [facility] Last Infusion: 12/31/24 10:17 Dose: Infused Documented By: LAW Insulin Human Lispro (Insulin Lispro 100 Unit/Ml 3 Ml Vial) 0 unit SUBCUT QIDACHS [facility]; Protocol Last Admin: 12/31/24 11:56 Dose: Not Given Documented By: LAW Non-Admin Reason: No Insulin Coverage Levothyroxine Sodium (Levothyroxine Sodium 50 Mcg Tablet) 50 mcg PO DAILY@0600 [facility] Last Admin: 12/31/24 04:20 Dose: 50 mcg Documented By: HARINI Lisinopril (Lisinopril 10 Mg Tablet) 10 mg PO DAILY [facility]; Protocol Last Admin: 12/30/24 08:36 Dose: 10 mg Documented By: MOLLY Loratadine (Loratadine 10 Mg Tablet) 10 mg PO DAILY [facility] Last Admin: 12/31/24 10:02 Dose: 10 mg Documented By: JANKIMORP Magnesium Hydroxide (Milk Of Magnesia 30 Ml Oral.Susp) 30 ml PO DAILY PRN PRN Reason: Constipation Melatonin (Melatonin 3 Mg Tablet) 6 mg PO BEDTIME PRN PRN Reason: Insomnia Last Admin: 12/31/24 01:42 Dose: 6 mg Documented By: HARINI Montelukast Sodium (Montelukast Sodium 10 Mg Tablet) 10 mg PO BEDTIME [facility] Last Admin: 12/30/24 21:18 Dose: 10 mg Documented By: TEZ Omeprazole (Omeprazole 20 Mg Capsule.) 20 mg PO BID@0630,1630 [facility] Last Admin: 12/31/24 04:20 Dose: 20 mg Documented By: HARINI Perphenazine (Perphenazine 4 Mg Tablet) 4 mg PO BID [facility] Last Admin: 12/31/24 10:03 Dose: 4 mg Documented By: JANKIMORP Prazosin HCl (Prazosin Hcl 1 Mg Capsule) 1 mg PO BEDTIME [facility]; Protocol Last Admin: 12/30/24 21:19 Dose: 1 mg Documented By: TEZ Pregabalin (Pregabalin 100 Mg Capsule) 100 mg PO BID [facility] Last Admin: 12/31/24 10:03 Dose: 100 mg Documented By: JANKIMORP Ropinirole HCl (Ropinirole Hcl 1 Mg Tablet) 1 mg PO BEDTIME [facility] Last Admin: 12/30/24 21:18 Dose: 1 mg Documented By: TEZ Sertraline HCl (Sertraline Hcl 100 Mg Tablet) 100 mg PO DAILY [facility] Last Admin: 12/31/24 10:03 Dose: 100 mg Documented By: JANKIMORP Sodium Chloride (0.9 % Sodium Chloride Flush 3 Ml Syringe) [facility] Admin: 12/31/24 09:59 Dose: 3 ml Documented By: PODMORP Labs 12/31/24 08:15 12/31/24 07:26 Labs: Laboratory Results - last 24 hr 12/29/24 12/30/24 12/30/24 13:40 16:50 20:24 MCV MCH MCHC RDW Plt Count MPV Immature Gran % (Auto) Neut % (Auto) Lymph % (Auto) [place] % (Auto) Eos % (Auto) Baso % (Auto) Lymph # (Auto) [place] # (Auto) Eos # (Auto) Baso # (Auto) Abs Immat Gran (auto) Absolute Neuts (auto) Absolute Nucleated RBC Nucleated RBC % (auto) Anion Gap Estim Creat Clear Calc Estimated GFR POC Glucose 160 H 88 Random Glucose Calcium Total Bilirubin AST ALT Alkaline Phosphatase Total Protein Albumin Random Vancomycin Volat Analys Perform On WHOLE BLOOD Methyl Alcohol Level NONE DETECTED 12/31/24 12/31/24 12/31/24 07:26 08:00 08:15 MCV 91.6 MCH 30.5 MCHC 33.3 RDW 13.5 Plt Count 179 MPV 11.0 Immature Gran % (Auto) 0.6 H Neut % (Auto) 51.7 Lymph % (Auto) 34.2 [place] % (Auto) 10.1 Eos % (Auto) 2.5 Baso % (Auto) 0.9 Lymph # (Auto) 2.2 [place] # (Auto) 0.6 Eos # (Auto) 0.2 Baso # (Auto) 0.1 Abs Immat Gran (auto) 0.04 H Absolute Neuts (auto) 3.3 Absolute Nucleated RBC 0.000 Nucleated RBC % (auto) 0.0 Anion Gap 12 Estim Creat Clear Calc 89.3 Estimated GFR > 60 POC Glucose 102 Random Glucose 98 Calcium 8.6 Total Bilirubin 0.4 AST 31 ALT 21 Alkaline Phosphatase 71 Total Protein 6.0 L Albumin 3.6 Random Vancomycin 6.5 L Volat Analys Perform On Methyl Alcohol Level 12/31/24 11:37 MCV MCH MCHC RDW Plt Count MPV Immature Gran % (Auto) Neut % (Auto) Lymph % (Auto) [place] % (Auto) Eos % (Auto) Baso % (Auto) Lymph # (Auto) [place] # (Auto) Eos # (Auto) Baso # (Auto) Abs Immat Gran (auto) Absolute Neuts (auto) Absolute Nucleated RBC Nucleated RBC % (auto) Anion Gap Estim Creat Clear Calc Estimated GFR POC Glucose 103 Random Glucose Calcium Total Bilirubin AST ALT Alkaline Phosphatase Total Protein Albumin Random Vancomycin Volat Analys Perform On Methyl Alcohol Level Microbiology Microbiology Results: Microbiology 12/29/24 10:58 Blood Culture - Preliminary Blood - Venous No growth after 48 hours. 12/29/24 10:52 Blood Culture - Preliminary Blood - Venous No growth after 48 hours. 12/29/24 13:40 Urine Culture - Final Urine clean catch - Clean Catch Midstream Assessment and Plan (1) Acute encephalopathy: Status: Acute (2) E. coli UTI: Status: Acute Plan Pt is a 64-year-old female with a PMH significant for COPD not on home O2, HLD, HTN, [id number] type 2 diabetes, hypothyroidism sciatica/chronic back pain, GERD, and mood disorder who presents to the ED from home after being assessed by [place] [employer] department for increasing confusion. Pt will be admitted to the hospital for treatment and further evaluation of acute encephalopathy of unclear etiology, most concerning for new onset seizure. 1.Acute encephalopathy -vancomycin/ceftriaxone, started 12/29/2022.... We will DC vancomycin -EEG -Neurology if appropriate 2.Acute UTI meeting SIRS criteria -states she did not finish oral antibiotics given on the -urine culture 12/26 E coli pansensitive -DC vancomycin continue ceftriaxone(2) 3. Question seizure activity -continue IV Keppra 1000 mg q.12 -await neuro consult 4.Pvt-[id number]-[id number] type 2 diabetes -acceptable control on current therapies -lispro correctional scale -adjust as indicated Full Code Lovenox Patient will require ongoing hospitalization for IV ceftriaxone to treat UTI causing acute encephalopathy and to complete workup for seizure disorder Quality Stroke Does the patient have a stroke diagnosis?: No VTE Prior VTE?: No VTE Risk Level:: Medical - moderate - high VTE Device Contraindication: Treatment Not Indicated VTE Drug Contraindication: N/A - Med Ordered
[2024-12-31 16:11] LABS: Glucose, Whole Blood 98 mg/dL (60-115)
[2024-12-31] MEDS: cefTRIAXone sodium 1 GM VIAL IVPUSH (17:39)
[2024-12-31] MEDS: Prazosin HCL 1 MG CAPSULE PO (19:33)
[2024-12-31] MEDS: Atorvastatin Calcium 80 MG TABLET PO (19:33)
[2024-12-31] MEDS: rOPINIRole HCL 1 MG TABLET PO (19:33)
[2024-12-31] MEDS: Enoxaparin Sodium 40 MG/0.4 ML SYRINGE SUBCUT (19:33)
[2024-12-31] MEDS: Montelukast Sodium 10 MG TABLET PO (19:33)
[2024-12-31 20:31] LABS: Glucose, Whole Blood 84 mg/dL (60-115)
[2025-01-01] VITALS: BP 104/49; PULSE 72; RESP 17; TEMP 37.2
[2025-01-01 04:00] VITALS: BP 100/51; PULSE 65; RESP 17; TEMP 37; O2SAT 93
[2025-01-01] MEDS: Omeprazole 20 MG CAPSULE.DR PO (06:09)
[2025-01-01] MEDS: Levothyroxine Sodium 50 MCG TABLET PO (06:09)
[2025-01-01 07:17] LABS: Creatinine Clr Calc Pharmacy 89.3; Estimated Glomerular Filt Rate > 60
[2025-01-01 07:27] LABS: Glucose, Whole Blood 98 mg/dL (60-115)
[2025-01-01 07:31] VITALS: BP 104/50; PULSE 66; RESP 14; TEMP 36.6; O2SAT 94
[2025-01-01] MEDS: Docusate Sodium 100 MG CAPSULE PO (08:02)
[2025-01-01] MEDS: Calcium + Vitamin D 250 MG TABLET PO (08:02)
[2025-01-01] MEDS: Pregabalin 100 MG CAPSULE PO (08:02)
[2025-01-01] MEDS: Aspirin Enteric Coated 81 MG TABLET.DR PO (08:02)
[2025-01-01] MEDS: clonazePAM 1 MG TABLET PO (08:02)
[2025-01-01] MEDS: Loratadine 10 MG TABLET PO (08:03)
[2025-01-01] MEDS: Famotidine 20 MG TABLET PO (08:03)
[2025-01-01] MEDS: Sertraline HCL 100 MG TABLET PO (08:03)
[2025-01-01] MEDS: Perphenazine 4 MG TABLET PO (08:03)
[2025-01-01] MEDS: Furosemide 20 MG TABLET PO (08:03)
[2025-01-01] MEDS: levETIRAcetam in NaCl (iso-os) 1,000 MG/100 ML PIGGYBACK 400 MG IV (08:03)
[2025-01-01] MEDS: 0.9 % Sodium Chloride Flush 3 ML SYRINGE IVFLUSH (10:44)
[2025-01-01 11:33] LABS: Glucose, Whole Blood 92 mg/dL (60-115)
[2025-01-01 12:00] VITALS: BP 112/53; PULSE 71; RESP 20; TEMP 37; O2SAT 95
--- NOTE | 2025-01-01 14:36 | PM.DS ---
DS: Providers Provider Date of Service: 01/01/25 Date of admission: 12/29/24 17:46 Date of discharge: 01/01/25 Primary care physician: Angelica Osborne MD DS: Diagnosis Discharge Diagnosis (1) Acute encephalopathy: Status: Acute (2) E. coli UTI: Status: Acute DS: Summary Hospital Course Hospital Course: 64-year-old female with a PMH significant for COPD not on home O2, HLD, HTN, [id number] type 2 diabetes, hypothyroidism sciatica/chronic back pain, GERD, and mood disorder who presents to the ED from home after being assessed by [place] police department for increasing confusion. Pt apparently triggered her apartment alarm as a test to see if police department would arrive. PD found pt seemingly confused and called EMS to have her brought to the ED for further evaluation. When pt arrived to the ED was confused but speaking in full sentences. Pt was found unresponsive in bed sometime later by RN. Pt soon awoke/came to and seemed confused, unable to speak articulately. Pt was then loaded with Keppra though has no known seizure hx. Pt seen and evaluated in her room where she is alert and oriented to self and place, though not to time or situation. Pt appears confused with tangential and nonsensical speech, the pt is easy to redirect and answers appropriately and follows commands. Pt currently denies any acute medical complaints. No headache, neck stiffness, acute vision changes. Denies fever, chills. No nausea, vomiting, abdominal pain. Denies shortness or breath or difficulty breathing. No cough. Denies chest pain/pressure, palpitations. ? In the ED pt was tachycardic up to 101, tachypneic up to 22, and initially hypertensive at 142/97. Labs were significant for leukocytosis 12.4, initial lactic acid 11.9 with repeat 1.2 AST 42, ALT 33, CPK 613, CRP 3.81, and beta hydroxybutyrate 2.25. Stable H&H. No significant electrolyte abnormalities. Renal function WNL. Serial troponins negative. Initial VBG pH 7.14, POC 33, and bicarb of 11 with repeat 7.31, pCO2 39, and bicarb 20. UA without nitrites or bacteria, though a small amount of leukocyte esterase and 21-50 wbc's. Tox screen negative. Tested negative for flu, COVID, RSV. Tox screen and ethyl alcohol negative. CXR showed acute cardiopulmonary abnormality. CTA of head negative for acute intracranial hemorrhage. CTA of chest negative for pulmonary emboli, but showed mild emphysema independent atelectasis. CT of abdomen and pelvis showed hepatic steatosis otherwise negative for acute abdomen and pelvis. EKG demonstrated normal sinus rhythm without evidence of ST elevations or depressions. Pt was treated with IVF, vancomycin, Zosyn, and loaded with Keppra 2 g IV. Pt will be admitted to the hospital for treatment and further evaluation of acute encephalopathy of unclear etiology, most concerning for new onset seizure. Hospital course Patient admitted to telemetry where monitor failed to demonstrate any dysrhythmia that would have caused presenting complaint. Patient was given ceftriaxone and oral over the course of the next 48 hours mentation returned to baseline and she is ambulating in the hallway appropriate on the day of discharge. Concern for seizure however EEG preliminary failed to demonstrate any seizure disorder. At this point in time she will be sent home to complete a course of oral Ceftin and follow up with the PCP next available Time Attestation Discharge Coordination Time (in mins): 35 Quality: Safe Use of Opioids Does Pt have an Active Cancer Diagnosis on the Problem List?: No Quality: Stroke Does the patient have a stroke diagnosis?: No Physical Exam Vital Signs: Vital Signs: Last Vital Signs Temp 98.6 F 01/01/25 12:00 Pulse 71 01/01/25 12:00 Resp 20 01/01/25 12:00 BP 112/53 L 01/01/25 12:00 Pulse Ox 95 01/01/25 12:00 O2 Del Method Room Air 01/01/25 12:00 O2 Flow Rate 3 12/30/24 14:55 BMI result Body Mass Index 38.5 Const: Other: Awake alert nonsensical Resp: Other: Clear to auscultation bilaterally no rales rhonchi or wheezes Cardio: Other: No S4; positive S1-S2; no S3 murmurs rubs or gallops GI: Other: Soft and attention nondistended normoactive bowel sounds Neuro: Other: Awake alert oriented x3 in no acute distress. Motor is 5/5 all extremities. Sensation is intact. Cognition appropriate. Gait steady Extrem: Other: No edema bilaterally DS: Data Data Completed and Pending Labs on day of discharge: Laboratory Results - last 24 hr 12/31/24 12/31/24 01/01/25 15:41 20:20 06:29 Hold Purple Top SEE NOTE Creatinine 0.73 Estim Creat Clear Calc 89.3 Estimated GFR > 60 POC Glucose 98 84 01/01/25 01/01/25 07:17 11:29 Hold Purple Top Creatinine Estim Creat Clear Calc Estimated GFR POC Glucose 98 92 Preliminary micro results at discharge 12/29/24 10:58 Blood Culture - Preliminary Blood - Venous No growth after 48 hours. 12/29/24 10:52 Blood Culture - Preliminary Blood - Venous No growth after 48 hours. Discharge Plan Discharge Anticipated Discharge Date/Time: 01/01/25 14:32 Patient Disposition: Home, Self-Care Discharge Diagnosis: E coli UTI Referrals: Angelica Osborne MD [Primary Care Provider] - 1 Week Discharge Medications: Continued cetirizine 10 mg tablet 10 mg PO DAILY furosemide 20 mg tablet 20 mg PO DAILY pregabalin 100 mg capsule 100 mg PO BID chlorhexidine gluconate 0.12 % mouthwash 15 ml PO BID Rx Instructions: Swish 15 mL morning and night for 1 minute. Spit, do not swallow. Do not eat or drink for 30 minutes following use. urea 39 % Cream 1 appl TOPICAL DAILY Mounjaro 2.5 mg/0.5 mL pen injector 2.5 mg subcut QWEEK doxepin 50 mg capsule 50 mg PO BEDTIME ropinirole 1 mg tablet 1 mg PO BEDTIME prazosin 1 mg capsule 1 mg PO BEDTIME acetaminophen 650 mg tablet extended release 650 mg PO Q8H PRN (Reason: Pain) baclofen 20 mg tablet 20 mg PO BID PRN (Reason: Muscle Spasm) baclofen 20 mg tablet 20 mg PO DAILY PRN (Reason: Muscle Spasm) famotidine 20 mg tablet 20 mg PO DAILY perphenazine 4 mg tablet 4 mg PO BID docusate sodium 100 mg capsule 100 mg PO BID albuterol sulfate [Ventolin HFA] 90 mcg/actuation HFA aerosol inhaler 2 inh inhalation Q6H PRN (Reason: Shortness Of Breath Or Wheezing) fluticasone propionate 50 mcg/actuation spray,suspension 1 spray intranasal BID metformin 500 mg tablet extended release 24 hr 1,000 mg PO BID calcium carbonate-vitamin D3 600 mg-10 mcg (400 unit) tablet 1 tab PO BID melatonin 5 mg tablet 10 mg PO BEDTIME PRN (Reason: insomnia) aspirin [Adult Low Dose Aspirin] 81 mg tablet,delayed release (DR/EC) 81 mg PO DAILY clonazepam 1 mg tablet 1 mg PO BID levothyroxine 50 mcg tablet 50 mcg PO DAILY@0600 lisinopril 10 mg tablet 10 mg PO DAILY montelukast 10 mg tablet 10 mg PO BEDTIME pantoprazole 20 mg tablet,delayed release (DR/EC) 20 mg PO BID@0630,1630 rosuvastatin 40 mg tablet 40 mg PO BEDTIME sertraline 100 mg tablet 100 mg PO DAILY Discontinued cefuroxime axetil 250 mg tablet 250 mg PO BID 7 Days Qty: 14 0RF Discharge Orders: Discharge Order (Routine); Ordered 01/01/25 Ordered By: Óscar Pereiar Diet: Advance to usual diet Activity on Discharge: As tolerated Stand Alone Forms: Patient Portal Discharge page Print Language: Swedish Care Plan Goals: Complete course of Ceftin 500 mg twice daily to treat urinary tract infection. Health Concerns: Resume all your other meds as taken prior to the hospital Plan of Treatment: Follow up with the PCP next available Assessment: See discharge summary
--- NOTE | 2025-01-01 15:00 | MHC.CM.PN ---
PT MEDICALLY CLEARED FOR DC HOME W/RESUMP OF [employer], NO NEW SERVICES ORDERED, CM MET W/PT WHO REPORTS SHE WILL CALL HER BROTHER ONCE RN GOES OVER DC PAPERWORK HE IS NOT FAR.
== END 2025-01-01 15:48 | disposition home or self-care (01) | DRG 690 ==
LOC: HO.ED 15:12 → HO.EDOVER 17:55 → HO.IMC 12-30 23:20
PROVIDERS: Emergency Medicine; Admitting Provider Student in an Organized Health Care Education/Training Program; Emergency Provider Emergency Medicine; PCP Family Medicine; Visit Provider Hospitalist
DX: N39.0 Urinary tract infection, site not specified (principal); E87.21 Acute metabolic acidosis; G93.40 Encephalopathy, unspecified; F17.210 Nicotine dependence, cigarettes, uncomplicated; Z71.6 Tobacco abuse counseling; B96.20 Unspecified Escherichia coli [E. coli] as the cause of diseases classified elsewhere; T36.1X6A Underdosing of cephalosporins and other beta-lactam antibiotics, initial encounter; J44.9 Chronic obstructive pulmonary disease, unspecified; I95.2 Hypotension due to drugs; T46.4X5A Adverse effect of angiotensin-converting-enzyme inhibitors, initial encounter; I10 Essential (primary) hypertension; E03.9 Hypothyroidism, unspecified; K21.9 Gastro-esophageal reflux disease without esophagitis; Z20.822 Contact with and (suspected) exposure to COVID-19; Z79.890 Hormone replacement therapy; Z79.84 Long term (current) use of oral hypoglycemic drugs; Z79.899 Other long term (current) drug therapy
CPT/HCPCS: 0241U; 36415; 70450; 70551; 71045; 71046; 71275; 73630; 74177; 80048; 80053; 80076; 80143; 80179; 80202; 80307; 80320; 81001; 82010; 82140; 82248; 82375; 82550; 82565; 82693; 82803; 82947; 83605; 83690; 83735; 83880; 84145; 84484; 85025; 85027; 85652; 86140; 87040; 87086; 87088; 87186; 93005; 93971; 95816; 99285; J0696; J1650; J1953; J2543; J3370; J3371; P9047; Q9967

== ENCOUNTER → 2024-12-29 10:16 | Outpatient (BNV) | payer OTHER, SELFPAY | PROVIDERS: Admitting Provider Student in an Organized Health Care Education/Training Program; Emergency Provider Emergency Medicine; PCP Family Medicine; Visit Provider Internal Medicine Cardiovascular Disease | DX: R94.31 Abnormal electrocardiogram [ECG] [EKG] (principal); R41.82 Altered mental status, unspecified | CPT/HCPCS: 93010 ==

== ENCOUNTER → 2024-12-29 12:01 | Outpatient (BNV) | payer OTHER, SELFPAY | PROVIDERS: Emergency Provider Emergency Medicine; PCP Family Medicine; Visit Provider Radiology Diagnostic Radiology | DX: K76.0 Fatty (change of) liver, not elsewhere classified (principal); R41.82 Altered mental status, unspecified; R60.0 Localized edema; A41.9 Sepsis, unspecified organism | CPT/HCPCS: 70450; 70551; 71045; 71275; 74177; 93971 ==

== ENCOUNTER → 2024-12-29 17:46 | Outpatient (BNV) | payer OTHER, SELFPAY | PROVIDERS: Admitting Provider Student in an Organized Health Care Education/Training Program; Emergency Provider Emergency Medicine; PCP Family Medicine; Visit Provider Student in an Organized Health Care Education/Training Program | DX: G93.40 Encephalopathy, unspecified (principal); N39.0 Urinary tract infection, site not specified; B96.20 Unspecified Escherichia coli [E. coli] as the cause of diseases classified elsewhere | CPT/HCPCS: 99223; 99232; 99239; 99499 ==

== ENCOUNTER 2025-02-25 17:33 | Emergency (ER) | payer OTHER, SELFPAY ==
--- NOTE | ~2025-02-25 | XR_ITS ---
CLINICAL HISTORY: fishing hook in finger 3 view left of the 2nd digit Comparison: None Findings: No fractures or dislocations. No significant loss of joint space or osteophytes. No erosions. Spur imbedded in the soft tissues of the mid 2nd digit. IMPRESSION: 1. 2nd digit foreign body without evidence of osseous injury. This document has been electronically signed by: Marcelle Burkett MD on 02/25/2025 18:18:01
[2025-02-25 17:38] VITALS: BP 138/80; PULSE 81; O2SAT 98
--- NOTE | 2025-02-25 17:38 | ED_ITS ---
HPI - Skin/Abscess/Foreign Bdy General Chief complaint: General Medical Stated complaint: fishing hook in left hand, index finger Time Seen by Provider: 02/25/25 22:36 Source: patient Mode of arrival: ambulatory Limitations: no limitations History of Present Illness ED Provider: Dr. Janice Luke HPI narrative: Patient comes to the emergency room complaining of a fish hook being stuck in the left index finger. Also, patient complaining of a migraine headache. Patient states that she had her DTaP booster last year. Related Data Home Medications ?Medication ?Instructions ?Recorded ?Confirmed aspirin 81 mg tablet,delayed 81 mg PO DAILY 07/13/20 12/29/24 release (Adult Low Dose Aspirin) clonazepam 1 mg tablet 1 mg PO BID 07/13/20 12/29/24 levothyroxine 50 mcg tablet 50 mcg PO DAILY@0600 07/13/20 12/29/24 lisinopril 10 mg tablet 10 mg PO DAILY 07/13/20 12/29/24 montelukast 10 mg tablet 10 mg PO BEDTIME 07/13/20 12/29/24 pantoprazole 20 mg tablet,delayed 20 mg PO BID@0630,1630 07/13/20 12/29/24 release rosuvastatin 40 mg tablet 40 mg PO BEDTIME 07/13/20 12/29/24 sertraline 100 mg tablet 100 mg PO DAILY 07/13/20 12/29/24 acetaminophen 650 mg 650 mg PO Q8H PRN Pain 02/28/24 12/29/24 tablet,extended release albuterol sulfate 90 mcg/actuation 2 inh inhalation Q6H PRN Shortness 02/28/24 12/29/24 aerosol inhaler (Ventolin HFA) Of Breath Or Wheezing baclofen 20 mg tablet 20 mg PO BID PRN Muscle Spasm 02/28/24 12/29/24 baclofen 20 mg tablet 20 mg PO DAILY PRN Muscle Spasm 02/28/24 12/29/24 calcium 600 mg (as 1 tab PO BID 02/28/24 12/29/24 carbonate)-vitamin D3 10 mcg (400 unit) tablet docusate sodium 100 mg capsule 100 mg PO BID 02/28/24 12/29/24 doxepin 50 mg capsule 50 mg PO BEDTIME 02/28/24 12/29/24 famotidine 20 mg tablet 20 mg PO DAILY 02/28/24 12/29/24 fluticasone propionate 50 1 spray intranasal BID 02/28/24 12/29/24 mcg/actuation nasal spray,suspension melatonin 5 mg tablet 10 mg PO BEDTIME PRN insomnia 02/28/24 02/28/24 metformin 500 mg tablet,extended 1,000 mg PO BID 02/28/24 12/29/24 release 24 hr perphenazine 4 mg tablet 4 mg PO BID 02/28/24 12/29/24 prazosin 1 mg capsule 1 mg PO BEDTIME 02/28/24 12/29/24 ropinirole 1 mg tablet 1 mg PO BEDTIME 02/28/24 12/29/24 cetirizine 10 mg tablet 10 mg PO DAILY 12/29/24 12/29/24 chlorhexidine gluconate 0.12 % 15 ml PO BID 12/29/24 12/29/24 mouthwash furosemide 20 mg tablet 20 mg PO DAILY 12/29/24 12/29/24 pregabalin 100 mg capsule 100 mg PO BID 12/29/24 12/29/24 tirzepatide 2.5 mg/0.5 mL 2.5 mg subcut QWEEK 12/29/24 12/29/24 subcutaneous pen injector ([place]) urea 39 % topical cream 1 appl topical DAILY 12/29/24 12/29/24 Previous Rx's ?Medication ?Instructions ?Recorded acetaminophen 500 mg tablet 500 mg PO Q6H PRN fever or pain 02/25/25 #30 tabs sumatriptan succinate 50 mg tablet See Rx Instructions PO .COMPLEX 02/25/25 #10 tabs Allergies Allergy/AdvReac Type Severity Reaction Status Date / Time No Known Allergies Allergy Verified 02/25/25 17:41 [No Known Allergies*] Review of Systems Review of Systems: Constitutional : No Weight loss, No Fever, No Chills, No Night Sweats, No Fatigue, No Malaise ENT/Mouth : No Hearing loss, No Ear Pain, No Nasal Congestion, No Sinus Pain, No Hoarseness, No sore throat, No Rhinorrhea, No Swallowing Difficulty Eyes: No Eye Pain, No Swelling, No Redness, No Foreign Body, No Discharge, No Vision Changes Cardiovascular : No Chest Pain, No SOB, No Dyspnea on Exertion, No Orthopnea, No Edema, No Palpitations Respiratory : No Cough, No Sputum, No Wheezing, No Smoke Exposure, No Dyspnea Gastrointestinal : No Nausea, No Vomiting, No Diarrhea, No Constipation, No abdominal Pain, No Hematochezia, No Melena Genitourinary : no irregular bleeding, No Dysuria, No Urinary Frequency, No Hematuria, No Urinary Incontinence, No Urgency, No Flank Pain, No Urinary Flow Changes, No Hesitancy Musculoskeletal : No joint pain, No Myalgias, No Joint Swelling Skin : No Skin Lesions, No rash, complaining of fish hook being stuck the right index finger Neuro : No Weakness, No Numbness, No Paresthesias, No Loss of Consciousness, No Dizziness, complaining of a migraine Headache Psych : No Anxiety/Panic, No Depression, No SI/HI/AH/VH, No Social Issues, Heme/Lymph: No Bruising, No Bleeding,No Lymphadenopathy Endocrine : No Polyuria, No Polydipsia, No Temperature Intolerance [facility] Past Medical History Medical History GERD (gastroesophageal reflux disease) Glaucoma Asthma Depression Hypothyroidism Hyperlipidemia Hypertension Personal history of nicotine dependence Surgical History History of History of colonoscopy History of shoulder surgery (~2012) History of total hysterectomy with bilateral salpingo-oophorectomy (BSO) (~2005) Social History Social History Household Members: None Housing: Apartment Do you presently have visiting nurse or other home services: No Alcohol intake: never Comment: Pt refusing bed alarm and assistance with commode at bedside. Educated Patient Tobacco Use Status: Current everyday Tobacco user Cigarette Packs Per Day: 2 Cigarettes Per Day: 40.0 Advance Directives: No Advance Directives Information Provided: Yes service: No Physical Exam Vital Signs: Vital Signs: Last Vital Signs Temp 97.0 F 02/25/25 21:44 Pulse 71 02/25/25 21:44 Resp 18 02/25/25 21:44 BP 146/69 H 02/25/25 21:44 Pulse Ox 93 02/25/25 21:44 O2 Del Method Room Air 02/25/25 21:44 BMI result Body Mass Index 37.5 Const: Other: Appearance: Alert. Oriented X3. No acute distress. Eyes: Pupils equal, round and reactive to light. Complaining of photophobia ENT: Pharynx normal. Neck: Normal inspection. Neck supple. No lymph nodes noted. No crepitus CVS: Normal heart rate and rhythm. Pulses normal. Normal S1 and S2 Respiratory: No respiratory distress. Breath sounds normal. No Wheezing. No rales Abdomen: Soft and nontender. No rigidity. No distention. Skin: Skin warm and dry. Normal skin color. Normal skin turgor. Extremities: No lower extremity edema. No Lacerations. No Rash there is a fish hook stuck in the index finger palmar aspect Neuro: Oriented X 3. No motor deficit. No sensory deficit. Moving all extremities. No slurred speech. CN 2 through 12 grossly intact Psych: calm, cooperative, normal affect Course Course Course Narrative: This is a Rapid Medical Examination (RME) performed by Davie Sierra PA-C in triage. Full HPI, ROS, assessment and treatment plan per primary provider in the Main ED. Hx: 64 yo F BIBA for eval of barbed fishing hook stuck in L pointer finger x few hours. States there is 1 wilfredo in the hook. She did not attempt to remove the hook. Also endorses migraine. Declining Tylenol or Motrin from triage as it does not work . States her tetanus is up-to-date. PE/vitals: fishing hook stick in finger pad of L pointer finger. no active bleeding. Plan: xr, hook removal Medical Decision Making Medical Decision Making MDM Narrative: The finger was irrigated, cleaned with Betadine., the fish hook was successfully removed. Patient was given p.o. medication. Patient was given 1 time dose for the migraine headache. After the hook was removed, there was a small opening in the finger that kept bleeding. Patient takes aspirin. One stitch was applied put 6 0 Discharge Plan Discharge Clinical Impression: Fish hook in finger, Headache, migraine Patient Disposition: Home, Self-Care Instructions: Care For Your Stitches (ED), Migraine Headache (ED) Additional Instructions: Your stitches to be removed in 7 days. Please follow-up with your primary care physician tomorrow. If you have any worsening or new symptoms, please return to the emergency room or call 911 Prescriptions: New sumatriptan succinate 50 mg tablet See Rx Instructions .ROUTE .COMPLEX Qty: 10 0RF Rx Instructions: take 1 tab at onset of headache; if no relief may repeat 1 tab after at least 2 hrs; max = 4 tabs/24 hr acetaminophen 500 mg tablet 500 mg PO Q6H PRN (Reason: fever or pain) Qty: 30 0RF No Action cetirizine 10 mg tablet 10 mg PO DAILY furosemide 20 mg tablet 20 mg PO DAILY pregabalin 100 mg capsule 100 mg PO BID chlorhexidine gluconate 0.12 % mouthwash 15 ml PO BID Rx Instructions: Swish 15 mL morning and night for 1 minute. Spit, do not swallow. Do not eat or drink for 30 minutes following use. urea 39 % Cream 1 appl TOPICAL DAILY Mounjaro 2.5 mg/0.5 mL pen injector 2.5 mg subcut QWEEK doxepin 50 mg capsule 50 mg PO BEDTIME ropinirole 1 mg tablet 1 mg PO BEDTIME prazosin 1 mg capsule 1 mg PO BEDTIME acetaminophen 650 mg tablet extended release 650 mg PO Q8H PRN (Reason: Pain) baclofen 20 mg tablet 20 mg PO BID PRN (Reason: Muscle Spasm) baclofen 20 mg tablet 20 mg PO DAILY PRN (Reason: Muscle Spasm) famotidine 20 mg tablet 20 mg PO DAILY perphenazine 4 mg tablet 4 mg PO BID docusate sodium 100 mg capsule 100 mg PO BID albuterol sulfate [Ventolin HFA] 90 mcg/actuation HFA aerosol inhaler 2 inh inhalation Q6H PRN (Reason: Shortness Of Breath Or Wheezing) fluticasone propionate 50 mcg/actuation spray,suspension 1 spray intranasal BID metformin 500 mg tablet extended release 24 hr 1,000 mg PO BID calcium carbonate-vitamin D3 600 mg-10 mcg (400 unit) tablet 1 tab PO BID melatonin 5 mg tablet 10 mg PO BEDTIME PRN (Reason: insomnia) aspirin [Adult Low Dose Aspirin] 81 mg tablet,delayed release (DR/EC) 81 mg PO DAILY clonazepam 1 mg tablet 1 mg PO BID levothyroxine 50 mcg tablet 50 mcg PO DAILY@0600 lisinopril 10 mg tablet 10 mg PO DAILY montelukast 10 mg tablet 10 mg PO BEDTIME pantoprazole 20 mg tablet,delayed release (DR/EC) 20 mg PO BID@0630,1630 rosuvastatin 40 mg tablet 40 mg PO BEDTIME sertraline 100 mg tablet 100 mg PO DAILY Print Language: Vietnamese
[2025-02-25 17:39] VITALS: BP 154/53; PULSE 77; RESP 20; TEMP 36.2; O2SAT 96; BMI 37.5
[2025-02-25 21:44] VITALS: BP 146/69; PULSE 71; RESP 18; TEMP 36.1; O2SAT 93
--- NOTE | 2025-02-25 22:52 | PC.NURSE ---
Override 2 lidocaine medications for MD Luke d/t medication previously ordered, not available. MD to change orders.
[2025-02-25] MEDS: Lidocaine HCl 1 % 20 ML VIAL 10 ML INFILTRATI (23:22)
[2025-02-25] MEDS: Butalb/Acetamin/Caff 50/325/40 TABLET 1 TAB PO (23:22)
[2025-02-25 23:29] VITALS: BP 146/69; PULSE 71; RESP 18; TEMP 36.1; O2SAT 93
== END 2025-02-25 23:34 | disposition home or self-care (01) ==
PROVIDERS: Emergency Provider Emergency Medicine; PCP Family Medicine
DX: S61.241A Puncture wound with foreign body of left index finger without damage to nail, initial encounter (principal); W45.8XXA Other foreign body or object entering through skin, initial encounter; Y93.14 Activity, water aerobics and water exercise; Y92.89 Other specified places as the place of occurrence of the external cause; Y99.9 Unspecified external cause status; G43.909 Migraine, unspecified, not intractable, without status migrainosus; Z79.82 Long term (current) use of aspirin
CPT/HCPCS: 12001; 73140; 99283; 99284; J2003

== ENCOUNTER → 2025-02-25 17:41 | Outpatient (BNV) | payer OTHER, SELFPAY | PROVIDERS: Visit Provider Radiology Diagnostic Radiology | DX: S60.451A Superficial foreign body of left index finger, initial encounter (principal) | CPT/HCPCS: 73140 ==

== ENCOUNTER 2025-03-07 14:32 | Outpatient (REF) | payer OTHER, SELFPAY ==
--- OUTSIDE RECORDS SUMMARY | 2025-03-07 15:26 | XMS_ITS | Encounter Summary ---
Author Organization [employer] Address [address] [place] [address] Care Team Providers Care Hall Worker Name Role Phone Angelica Osborne MD Primary Care Provider [phone] Mao Mota PharmD Unavailable [phone] Armando De La Cruz SECURITY MANAGEMENT SPECIALIST Unavailable Unavailable Reason for Visit * Reason Comments Med Refill Encounter Details Date Type Department Care Team (Late st Contact Info) Description 08/23/2024 Refill [facility] [address] [place], [place] [phone] Angelica Osborne MD [address] [place], [place] [phone] Type 2 diabetes mellitus with hyperglycemia, without long-term current use of insulin ([facility]) Social History Tobacco Use [...] Care Team (Late st Contact Info) Description 04/19/2025 2:00 PM EDT Office Visit [facility] [address] [place], [place] [phone] Brayden, Shyla, OD [address] [place] [address] documented as of this encounter Goals Goal Patient Goal Type Associated Problems Recent Progress Patient-Stated? Author Quit using tobacco (cigarettes, smokeless, etc) Tobacco Use No Mao Mota, Margaux documented as of this encounter Visit Diagnoses Diagnosis Type 2 diabetes mellitus with hyperglycemia, without long-term current use of insulin ([facility]) documented in this encounter Additional Health Concerns Assessment Noted Time PHQ-9 Depression Total Score: 0 03/23/20 24 2:25 PM EDT documented as of this encounter Care Teams Hall Worker Relationship Specialty Start Date End Date Angelica Osborne MD [address] [place] [address] PCP - General Family Medicine 10/11/18 Mao Mota, MerD [address] [place] [phone] Pharmacist Internal Medicine 08/31/23 Armando De La Cruz FNP [address] [facility] [place] [address] Nurse Practitioner Family Medicine 08/31/23 documented as of this encounter
[2025-03-10 15:28] LABS: TS Negative Control Passed; TS Panel A 0; TS Panel B 0; TS Positive Control Passed; TSpotTB Negative (Negative)
== END 2025-03-07 14:33 | disposition home or self-care (01) ==
LOC: HO.HHCL 14:32
PROVIDERS: Visit Provider Family Medicine
DX: Z11.1 Encounter for screening for respiratory tuberculosis (principal)
CPT/HCPCS: 36415; 86481

== ENCOUNTER 2025-05-03 08:31 | Outpatient (REF) | payer OTHER, SELFPAY ==
--- OUTSIDE RECORDS SUMMARY | 2025-05-04 08:44 | XMS_ITS | Encounter Summary ---
Author Organization [employer] Address [address] [facility] [address] [place] [address] Care Team Providers Care Molder Trimmer Name Role Phone Angelica Osborne MD Primary Care Provider [phone] Mao Mota PharmD Unavailable [phone] Armando De La Cruz BROACH OPERATOR Unavailable Unavailable Reason for Visit * Reason Comments Med Refill Encounter Details Date Type Department Care Team (Late st Contact Info) Description 08/23/2024 Refill [facility] [address] [place], [place] [phone] Angelica Osborne MD [address] [place], [place] [phone] Type 2 diabetes mellitus with hyperglycemia, without long-term current use of insulin ([facility]) Social History Tobacco Use Types Packs/Day Years [...] Care Team (Late st Contact Info) Description 05/22/2025 3:45 PM EDT Office Visit [facility] [address] [place] [phone] Angelica Osborne MD [address] [place] [phone] documented as of this encounter Goals Goal Patient Goal Type Associated Problems Recent Progress Patient-Stated? Author Quit using tobacco (cigarettes, smokeless, etc) Tobacco Use No Mao Mota, Margaux documented as of this encounter Visit Diagnoses Diagnosis Type 2 diabetes mellitus with hyperglycemia, without long-term current use of insulin ([facility]) documented in this encounter Additional Health Concerns Assessment Noted Time PHQ-9 Depression Total Score: 0 03/23/20 24 2:25 PM EDT documented as of this encounter Care Teams Molder Trimmer Relationship Specialty Start Date End Date Angelica Osborne MD [address] [place] [phone] PCP - General Family Medicine 10/11/18 Mao Mota, MerD [address] [place] [address] [phone] Pharmacist Internal Medicine 08/31/23 Armando De La Cruz FNP [address] [place] [address] Nurse Practitioner Family Medicine 08/31/23 documented as of this encounter
--- OUTSIDE RECORDS SUMMARY | 2025-05-04 08:44 | XMS_ITS | Encounter Summary ---
Author Organization [facility] Address [address] [place] [address] Encounters * CPT with Jose Luis Thomas at [facility] on 2025-03-27 RN calling for pt, with left shoulder pain for over a week She has a h/o shoulder surgery years ago with no issues since. She denies any injuries or falls. The pain radiates into neck She is unsure if she has taken anything OTC. she is not on any blood thinners { reasonForRequest : pt having left shoulder , patientReports : , denies :[], chiefComplaints : Extremity Pain , pmh : COPD/Asthma, Hypertension , allergies : No Known Drug Allergies ,&quo t;otherAllergies : , painAssessment : Level null out of 10 ,&quo t;visitOutcome : , additionalComments :null} Dispatched to the call address for the female with shoulder pain. Pt states for a couple of weeks now she has had left shoulder pain. She describes the pain is a type of burning and tightness. She denies any recent trauma to the area. She has taken Tylenol without relief. She denies chest pain, diff breathing/sob, n/v/d, cough, fevers or other complaints. She has full ROM but with pain on elevation past horizontal. Pt denies Hx of blood thinners, bleeding ulcers or kidney issues. She confirmed she has no known allergies. Pt was found opening door, CAOx4, airway open and patent, breathing non labored, able to speak in full sentences, -JVD, -HEENT, skin PWD with good turgor, mucous membranes pink and moist, pupils PERRL, abd soft non tender/distended, +CMSx4, lungs CTA, -edema/swelling, afebrile. Myofascial trigger point noted to apex of left shoulder with referred pain to the lateral side of humoral head and posterior shoulder. myofascial trigger point with referred pain. Pt was assessed. [facility] consulted. Pt given 30mg IM (Left Deltoid) Ketorolac after confirming med rights. [facility] advised following up with PCP and asking about acupuncture. Pt also advised to use alternating ice/heat on the area and stretching the apex of the shoulder. Red flags discussed. ALL times are approx. IV_(FLUIDS_AND/OR_MEDICATION), MEDICATION_IM, ORAL_MEDICATION, WOUND_CARE, ORTHOSTATIC_VITAL_SIGNS Written by Jose Luis Thomas on 2025-03-27
--- OUTSIDE RECORDS SUMMARY | 2025-05-04 08:44 | XMS_ITS | Clinical Summary ---
Author Organization [facility] Address [address] [place] [address] Care Team Providers Care Forest Fire Management Officer Name Role Phone Unavailable Primary Care Provider Unavailabl e Social History Tobacco Use Types Packs/Day Years Used Date Smoking Tobacco: Never Assessed Comments Unknown Sex and Gender Information Value Date Recorded Sex Assigned at Not on file Legal Sex Female 6:12 PM EST Gender Identity Not on file Sexual Orientation Not on file Plan of Treatment Health Maintenance Due Date Last Done Comments Breast Cancer Screening 1962 DTaP,Tdap,and Td Vaccines (1 - Tdap) 1981 Cervical Cancer Screening: P ap Smear 1983 Pneumococcal Vaccine: 50+ Ye ars (1 of 1 - PCV) 2012 Zoster Vaccines (1 of 2) 2012 COVID-19 Vaccine ( - 2023-2 5 season) 2024 Depression Screening 10/11/2024 Influenza Vaccine (#1) 2025 RSV Immunization Adult Patie nts (1 - 1-dose 75+ series) 2037 HIB [...] patient's age to complete this topic Meningococcal B Vaccine Aged Out No l onger eligible based on patient's age to complete this topic RSV Immunization Patients Un mike 20 months Aged Out No longer eligible b ased on patient's age to complete this topic Varicella Vaccines Aged Out No longer eligible based on patient's age to complete this topic
--- OUTSIDE RECORDS SUMMARY | 2025-05-04 08:44 | XMS_ITS | Data Portability ---
Author Organization [employer], [facility] Address [address] [place] [address] Care Team Providers Care Warehouse Operations Associate Name Role Phone [facility] Referring Provider HIM CCA OTHER PAU LOPEZ Primary Care Provider Assessment Encounter Date Assessment Date Assessment LastModified by Organization Details LastModified Time 01/17/2024 01/17/2024 I have reviewed and agree with the assessment and plan as documented by the claims attorney. I provided real-time medical direction for this [...] precautions discussed. [email or web address] Not available 01/17/2024 20:09:48 03/27/2025 03/27/2025 Ms. Reis is a 64 yo F with COPD/Asthma, Hypertension who is calling today about L shoulder pain. Per patient and medic, patient with a knot on her L upper shoulder compared to R. Tried Tylenol. Doesn t have motrin. Sx now for over a week. She has a h/o shoulder surgery years ago with no issues since. She denies any injuries or falls. The pain radiates into neck She is not on any blood thinners. No renal history. Vitals stable. No chest pain or SOB. Given the sx, this seems most c/w muscular pain and spasm. No chest pain or history c/f STEMI or ACS. I do think it's reasonable without a renal history to do toradol IM and then advise for massage therapy and acupuncture. Comfortable keeping patient at home. I provided real -time medical direction via phone for this encounter, and was available for additional phone based assistance as needed. I have reviewed and agree with the Assessment and Plan as documented by the Public Health Aide. We discussed the diagnostic uncertainty of home visits and the risk associated with this. In this case the patient and I felt this to be an acceptable and reasonable amount of risk given the benefit of avoiding an ED visit. The patient given the opportunity to ask questions. Follow up with primary care was recommended, as needed. Advised if develops CP/severe SOB/turning blue/uncontrolle d n/v/d or black/bloody emesis or stool/ AMS/ syncope/ high fever unresponsive to APAP to call 911- verbalized understanding of instruction. [email or web address] Not available 03/27/2025 18:12:54 Plan of Treatment Reminders Order Date Submit Date Provider Last Modified By Organization Details Last Modified Time Details Appointments None recorded. Lab None recorded. Referral None recorded. Procedures None recorded. Surgeries None recorded. Imaging None recorded. Medication Orders ketorolac 30 mg/mL injection solution 2024 025 [email or web address] [email or web address] [facility], [address] [place] [address], [id number], 5 17:52:26 ketorolac 30 mg/mL injection solution 2024 025 [facility], [address] [place], [place], [id number], 5 14:46:29 Claritin 10 mg tablet 2023 024 [facility], [address] [place] [address], [id number], 4 15:55:56 ketorolac 30 mg/mL injection solution 2023 024 paysola Not available 4 20:09:49 naproxen 500 mg tablet 2023 [facility], [address] [place] [address], [id number], 4 08:48:32 Patient TargetsNo targets recorded. Patient InstructionsNo instructions recorded. Reason for Referral None Reported. Medical Equipment None Reported. Allergies No known drug allergies Medications Name Sig Start Date Stop Date [...] Available Not Available No t Available FreeStyle Anawalt Lite kit USE DIRECTED TO TEST BLOOD [...] Available No t Available Vitals Date Recorded Body temperature Heart rate Respiratory rate Oxygen saturation Oxygen saturation in Arterial blood by Pulse oximetry Body weight Systolic And Diastolic Provider Name and Address Organization Details Last Updated DateTime 4 98.3 [degF] 78 /min 18 /min 99 % 99 % 52525.9 2 g 118/80 mm[Hg] Not Available [employer] 4 14:27:35 Date Recorded Body weight Oxygen saturation Oxygen saturation in Arterial blood by Pulse oximetry Respiratory rate Heart rate Body height Systolic And Diastolic Provider Name and Address Organization Details Last Updated DateTime 4 699921. 776 g 96 % 96 % 16 /min 90 /min 160.02 cm 166/95 mm[Hg] Not Available [employer] 4 20:03:18 Date Recorded Heart rate Oxygen saturation Oxygen saturation in Arterial blood by Pulse oximetry Body temperature Respiratory rate Systolic And Diastolic Provider Name and Address Organization Details Last Updated DateTime 5 86 /min 97 % 97 % 98.8 [degF] 16 /min 142/74 mm[Hg] Not Available [employer] - production 5 14:25:35 Date Recorded Heart rate Body temperature Oxygen saturation Oxygen saturation in Arterial blood by Pulse oximetry Respiratory rate Systolic And Diastolic Provider Name and Address Organization Details Last Updated DateTime 5 84 /min 98.3 [degF] 96 % 96 % 18 /min 134/76 mm[Hg] Not Available [employer] 5 17:51:20 Date Recorded Body weight Oxygen saturation Oxygen saturation in Arterial blood by Pulse oximetry Respiratory rate Heart rate Body temperature Systolic And Diastolic Provider Name and Address Organization Details Last Updated DateTime 4 44024.4 g 97 % 97 % 16 /min 86 /min 98.6 [degF] 128/66 mm[Hg] Not Available [employer] 4 15:30:37 Social History None recorded. Functional Status None [...] Jose Manuel Lopes MD [facility] [address] [place] [phone] 08/04/2022 19:20:44 08/05/2022 10:20:40 Right side sciatica [id number] M54.31 [id number] Jose Manuel Lopes MD [facility] [address] [place] [address] [phone] 0 08/04/2022 19:21:13 03/23/2025 23:55:13 [id number] Juan Bermudez MD [facility] [address] [place] [address] [phone] 02/17/2023 16:38:14 02/18/2023 15:18:20 Sciatica [id number] M54.32 [id number] Alyssa Avendaño MD [facility] [address] [place] [address] [phone] 12/13/2023 17:49:53 12/13/2023 18:53:04 Osteoarthritis of knee 068434932 M17.9 [id number] Phan Sauceda MD [facility] [address] [place] [address] [phone] 0 12/17/2023 14:27:33 12/19/2023 16:25:27 Low back pain 694562920 M54.50 This 63-year-ol d female has had a flare-up of her lower back pain for the past several days. NSAIDs and Tylenol have been ineffectiv e. I ordered Toradol 30 mg IM. She will follow-up with her PCP. The patient agreed with this plan. [id number] [facility] [address] [place] [phone] 01/17/2024 20:03:15 01/18/2024 10:19:23 Right side sciatica [id number] M54.31 [id number] Linda Bansal MD [facility] - [address] [phone] 04/26/2024 15:30:35 04/26/2024 22:16:56 Pruritic disorder [id number] L29.9 63 year old female being evaluated [...] assessment and plan as documented by the claims attorney. I provided real-time medical direction for this encounter and was immediatel y available to provide additional phone-base d assistance as needed. We discussed the diagnostic uncertaint y of home visits and associated risks. We discussed the need to seek care urgently/e mergently in the setting of any new or worsening symptoms. [id number] [facility] [address] [place] [address] [phone] 02/22/2025 14:25:33 02/22/2025 16:12:28 Low back pain [id number] M54.50 As noted, we were called to see this patient regarding concerns of back pain. Evaluation in the field was performed by my claims attorney colleague, as noted above, I provided real-time direction and supervisio n for this visit. The evaluation revealed 64 yo woman with DM who calls for sciatic pain for several days. She has tried stretching , heat/ice and topicals without relief. She has not taken acetaminop hen or NSAIDs as she reports they don't work.Her PCP notes are reviewed. She had MINA in 2017 but no renal dysfunctio n recently.S he has no GI upset/GERD , bleeding disorder. She takes ASA 81 but not blood thinners. Impression :subacute back pain Plan:15mg IM ketorolac Dispositio n: We discussed the diagnostic uncertaint y of home visits and the risk associated with this. In this case, the patient and I felt this to be an acceptable and reasonable amount of risk given the benefit of avoiding an ED visit. We discussed the need to seek care urgently/e mergently in the setting of any new or worsening serious symptoms, particular ly changes to consciousn ess, chest pain, dyspnea. [id number] NANCIE RIVERO MD [facility] [address] [phone] 03/27/2025 17:51:18 03/27/2025 22:29:03 Pain of left shoulder region [id number] M25.512 Health Concerns Section Related Observation LastModified by Organization Detai ls LastModified Time None Recorded Concern Status LastModified by Organization Details LastModified Time None Recorded Advance Directives Directive None Recorded Payers Insurance Date Sequence Insurance Name Policy Number Policy Pelayo Covered Member ID Pelayo Member ID Guarantor Name 02/09/2025 1 [facility] - DOS PRIOR TO 2023 - DUAL ELIGIBLE (MEDICARE REPLACEMENT/ADV ANTAGE - HMO) Laurie Reis [id number] Laurie Reis 03/27/2025 1 [facility] - DOS ON OR AFTER 2023 - DUAL ELIGIBLE - JAIL OPTIONS AND ONE CARE (MEDICARE REPLACEMENT/ADV ANTAGE - HMO) Laurie Reis [id number] Laurie Reis Notes Date Note Type Note Provider Name and Address Organization Details Recorded Time 12/17/2023 text/html ROS as noted in the HPI HPI: Call to Laurie Reis, reports having lower back pain that is radiating to both legs x 1 day. Per pt no recent injury or fall. No abdominal pain, urinary sx, frequency or pain with urination. No weakness reported. No meds taken for pain. Pt offered same day appt. Pt declines wishes to be referred to [facility]. .................. .................. .................. .................. .................. .................. .................. ............... [facility] Nurse Triage Notes (Abida Peacock): Comments: CRC RN DID NOT NEED FURTHER INFO< [facility] Phan Sauceda MD [address] [place] [address],[address], [place], [address], [employer] 12/17/2023 14:31:25 01/17/2024 text/html HPI: Member with sciatica pain that started 1 week ago. Type of pain is chronic. Requestor unclear specific location of pain currently. No recent falls or trauma. Reports that member is taking OTC with no relief. .................. .................. .................. .................. .................. .................. .................. ............... Public Health Aide Note From Jeff Izquierdo: Pt reports acute on chronic bilateral sciatic nerve pain. Pt is requesting IM ketorolac which has worked in the past. Pt does not take any PO pain relief. Pt is alert, NAD. VSS. Afebrile. Non focal neuro exam. Normal gait. [facility] contacted and pt treated with ketorolac 15 mg IM, right deltoid. Pt educated on adverse reactions that repeated ketorolac can cause. Pt instructed to begin taking the naproxen bid when she receives it from the pharmacy. .................. .................. .................. .................. .................. .................. .................. ............... Disposition: Maxim Barnett MD [address] [place] [address],[address], [place], [address], [employer] 01/17/2024 20:51:46 04/26/2024 text/html HPI: overall itching, [...] .................. .................. .................. .................. .................. .................. ............... Public Health Aide Note From Royal Milner: Pt co itching all over with no rash or lesions. Neg insect bites visible. Pt denies throat swelling or sob, cp , dizziness, cough. Pt sts felt itchy for past week. No new detergents or meds. Pt sts tried Benadryl with no relief and lotion with no relief. Baseline vitals assessed. Skin evaluation. No appearance of rash. [facility] contacted and RX for ashwin called in. Pt has appt with pcp on Wednesday. Pt advised to get blood drawn to liver function when she goes to appt. Pt education on signs indicating the ER. .................. .................. .................. .................. .................. .................. .................. ............... Disposition: Fulfilled Linda Bansal MD [address] [facility],[address], [place], [address], [employer] 04/26/2024 19:07:10 02/22/2025 text/html HPI: [facility] nurse calling in to place a referral on patients behalf.Patient with acute on chronic right sided sciatica pain, and right knee.Per nurse patient didn't not want to answer questions, just demanded that she call [facility] for an injection .Per nurse patient told her that she was seen by us last year and got a shot for pain. .................. .................. .................. .................. .................. .................. .................. ............... [facility] Nurse Triage Notes (Germaine Alejandre): Reason For Request: pt is experiencing lower right sciatica pain, requesting injection Chief Complaints: Back Pain PMH: COPD/Asthma, Hypertension PMH Reviewed at 02/22/2025 13:39 Allergies Reviewed at 02/22/2025 13:39 Comments: HPI reviewed .................. .................. .................. .................. .................. .................. .................. ............... Public Health Aide Note From Marcio Galleogs: Dispatched to above address for lower back pain. On arrival patient 64 y/o F, met SC8 at the door, walking unassisted with normal gait, AOX4, airway patent, speaking in full sentences, good color, in no apparent distress. Patient reports she began having lower back pain on Wednesday, feels similar to previous episodes of sciatica pain down R leg, has attempted stretching warm baths and hot/ cold compresses without relief, reports this happened about 1 year ago [facility] that [facility]. Patients vital signs checked. Secondary assessment, pupils PERRL, airway patent, no JVD, trachea midline, equal chest rise and fall, lungs clear all wallace, abdomen soft non tender, no signs of trauma, good radial pulse, skin pink warm and dry. [facility] contacted, spoke with Dr. Mcadams, advised of patient complaints and exam findings. [facility] orders 15mg Toradol given IM. Patient administered 15mg Toradol IM. Patient advised of red flags home care and need for follow up. Patient has no additional questions or concerns at this time. SC8 clear. EOR. [facility] Medication Orders: ketorolac 30 mg/mL injection solution: Administered .................. .................. .................. .................. .................. .................. .................. ............... [facility] Consulted: Magdalene Mcadams .................. .................. .................. .................. .................. .................. .................. ............... Disposition: Maxim Mcadams MD [address] [facility],[address], [place], [address], [employer] 02/22/2025 14:49:45 03/27/2025 text/html ROS as noted in the HPI HPI: RN calling for pt, with left shoulder pain for over a week. She has a h/o shoulder surgery years ago with no issues since. She denies any injuries or falls. The pain radiates into neck. She is unsure if she has taken anything OTC. she is not on any blood thinners .................. .................. .................. .................. .................. .................. .................. ............... [facility] Nurse Triage Notes (Abida Peacock): Reason For Request: pt having left shoulder Chief Complaints: Extremity Pain PMH: COPD/Asthma, Hypertension PMH Reviewed at 03/27/2025 - :37 Allergies Reviewed at 03/27/2025:37 Pain Assessment: Level null out of 10 .................. .................. .................. .................. .................. .................. .................. ............... Public Health Aide Note From Óscar Moreno: Dispatched to the call address for the [...] point with referred pain. Pt was assessed. [facility] consulted. Pt given 30mg IM (Left Deltoid) Ketorolac after confirming med rights. C advised following up with PCP and asking about acupuncture. Pt also advised to use alternating ice/heat on the area and stretching the apex of the shoulder. Red flags discussed. ALL times are approx. [facility] Medication Orders: ketorolac 30 mg/mL injection solution: Administered .................. .................. .................. .................. .................. .................. .................. ............... [facility] Consulted: Nancie Rivero .................. .................. .................. .................. .................. .................. .................. ............... Disposition: Fulfilled NANCIE RIVERO MD [address] [facility],[address], [place], [address], [employer] 03/27/2025 18:49:59 OBGyn Episode No OBEpisode recorded.
== END 2025-05-03 08:32 | disposition home or self-care (01) ==
LOC: HO.HOSX 08:31
PROVIDERS: Visit Provider Orthopaedic Surgery
DX: Z13.89 Encounter for screening for other disorder (principal)

== ENCOUNTER 2025-06-13 14:46 | Outpatient (REF) | payer MEDICARE, SELFPAY ==
--- OUTSIDE RECORDS SUMMARY | 2025-06-14 15:57 | XMS_ITS | Encounter Summary ---
Author Organization [employer] Address [address] [facility] [address] [place] [address] Care Team Providers Care Motor Vehicle Dispatcher Name Role Phone Angelica Osborne MD Primary Care Provider [phone] Mao Mota PharmD Unavailable [phone] Armando De La Cruz CARPET YARN WINDER OPERATOR Unavailable Unavailable Reason for Visit * Reason Comments Med Refill Encounter Details Date Type Department Care Team (Late st Contact Info) Description 08/23/2024 Refill [facility] [address] [place], [place] [phone] Angelica Osborne MD [address] [place], [place] [phone] Type 2 diabetes mellitus with hyperglycemia, without long-term current use of insulin ([facility]) Social History Tobacco Use Types [...] Care Team (Late st Contact Info) Description 06/21/2025 11:30 AM EDT Office Visit [facility] [address] [place] [phone] Angelica Osborne MD [address] [place] [phone] documented as of this encounter Goals Goal Patient Goal Type Associated Problems Recent Progress Patient-Stated? Author Quit using tobacco (cigarettes, smokeless, etc) Tobacco Use No Mao Mota, MerD documented as of this encounter Visit Diagnoses Diagnosis Type 2 diabetes mellitus with hyperglycemia, without long-term current use of insulin ([facility]) documented in this encounter Additional Health Concerns Assessment Noted Time PHQ-9 Depression Total Score: 0 03/23/20 24 2:25 PM EDT documented as of this encounter Care Teams Motor Vehicle Dispatcher Relationship Specialty Start Date End Date Angelica Osborne MD [address] [place] [address] [phone] PCP - General Family Medicine 10/11/18 Mao Mota, MerD [address] [place] [address] [phone] Pharmacist Internal Medicine 08/31/23 Armando De La Cruz FNP [address] [place] [address] Nurse Practitioner Family Medicine 08/31/23 documented as of this encounter
--- OUTSIDE RECORDS SUMMARY | 2025-06-14 15:57 | XMS_ITS | Encounter Summary ---
Author Organization [employer] Address [address] [facility] [address] [place] [address] Care Team Providers Care Aluminizer Name Role Phone Angelica Osborne MD Primary Care Provider Mao Mota PharmD Unavailable [phone] Armando De La Cruz RN CASE MANAGER Unavailable Unavailable Reason for Visit * Reason Onset Date Comments Nurse Triage 05/23/2025 Encounter Details Date Type Department Care Team (Late st Contact Info) Description 05/23/2025 Telephone [facility] [address] [place], [place] [phone] Angelica Osborne MD [address] [place], [place] [phone] Nurse Triage Social History Tobacco Use Types Packs/Day Years Used Date Smoking Tobacco: Every Day Cigarettes 1.5 44 Passive Smoke Exposure: Current Smokeless Tobacco: Never Comments:Smokes 1-2 packs a day Alcohol Use Standard Drinks/Week Comments Defer 0 (1 standard drink = 0.6 oz pur e alcohol) Depression Answer Date Recorded Patient Health Questionnaire-9 Score 0 02/19/2025 Patient Health Questionnaire-9 Score 0 02/19/2025 Last PHQ-9: Questionnaire Data Not on file 0 02/19/2025 Housing Stability Answer Date Recorded What is [...] Date Recorded Patient Health Questionnaire-2 Score 0 02/19/2025 Comments Unknown Sex and Gender Information Value Date Recorded Sex Assigned at Female 08/10/2022 10:17 AM EDT Legal Sex Female 10:17 AM EDT Gender Identity Female 08/10/2022 10:17 AM EDT Sexual Orientation Choose not to disclose 2021 10:17 AM EDT documented as of this encounter Miscellaneous Notes * Telephone Encounter - Angelica Osborne MD - 05/25/2025 10:00 AM EDT Will discuss at next visit. * Telephone Encounter - Lashell Oviedo RN - 05/23/2025 12:21 PM EDT Called pt to triage, spoke to pt. Pt declines triage at this time and is calling today regarding some of her medications. Pt states requesting increase of her Pregabalin as is is not working as well anymore. Advised would need appt to speak to PCP about any medication additions or changes. Pt also requesting refills of Imitrex which does not look like it is prescribed by PCP, and wants to know status of the script for Mounjaro. Looking in the chart, this medication has been submitted for pre authorization and advised this to pt. Advised to call back as needed and that there are currently no open appts within proper time frame with PCP. Advised to call back as needed and will task to team nurses to follow up as needed. Pt understands and agrees with plan. Insurance verified. * Telephone Encounter - Yakov Vaca - 05/23/2025 10:56 AM EDT Symptom: Headache Outcome: Schedule a same-day appointment or talk to a nurse or provider today Reason: Caller denied all higher acuity questions Please contact pt at [phone]. documented in this encounter Plan of Treatment Upcoming Encounters Date Type Department Care Team (Late st Contact Info) Description 06/21/2025 11:30 AM EDT Office Visit [facility] [address] [place] [address] Angelica Osborne MD [address] [place] [phone] documented as of this encounter Goals Goal Patient Goal Type Associated Problems Recent Progress Patient-Stated? Author Quit using tobacco (cigarettes, smokeless, etc) Tobacco Use No Mao Mota, Margaux documented as of this encounter Visit Diagnoses Not on filedocumented in this encounter Additional Health Concerns Assessment Noted Time PHQ-9 Depression Total Score: 0 02/20/20 25 3:47 PM EDT documented as of this encounter Care Teams Aluminizer Relationship Specialty Start Date End Date Angelica Osborne MD [address] [place] [phone] PCP - General Family Medicine 10/11/18 Mao Mota, MerD [address] [place] [phone] Pharmacist Internal Medicine 08/31/23 Armando De La Cruz FNP [address] [place] [phone] Nurse Practitioner Family Medicine 08/31/23 documented as of this encounter
--- OUTSIDE RECORDS SUMMARY | 2025-06-14 15:57 | XMS_ITS | Encounter Summary ---
Author Organization [employer] Address [address] [facility] 7t [place] [address] Care Team Providers Care Technical Illustrator Name Role Phone Angelica Osborne MD Primary Care Provider [phone] Mao Mota PharmD Unavailable [phone] Armando De La Cruz RESIDENTIAL BUILDING INSPECTOR Unavailable Unavailable Reason for Visit * Reason Onset Date Comments Med Refill 05/25/2025 Encounter Details Date Type Department Care Team (Late st Contact Info) Description 05/25/2025 Telephone [facility] [address] [place], [place] [phone] Angelica Osborne MD [address] [place], [place] [phone] Med Refill Social History Tobacco Use Types Packs/Day Years [...] housing situation today? I have bee nickerson 05/29/[address] you li ve. Do you have problems with any of the following? None of the above 05/29/2025 Food Insecurity Answer Date Recorded Within the past 12 months, y ou worried that your food would run out before you got money to buy more: Never True 05/29/2025 Within the past 12 months,th e food you bought just didn't last and you didn't have enough money to get more: Never True Transportation Answer Date Recorded In the past 12 months, has l ack of transportation kept you from medical appts, meetings, work or from getting things needed for daily living? No 05/29/2025 Utilities Answer Date Recorded In the past 12 months, has t he electric, gas, oil or water company threatened to shut off services in your home? No 07/26/2023 Depression Answer Date Recorded Patient Health Questionnaire-2 Score 0 02/19/2025 Internet Access Answer Date Recorded Internet Access Q1 Yes 05/29/2025 Internet Access Q2 Not on file 05/29/2025 Comments Unknown Sex and Gender Information Value Date Recorded Sex Assigned at Female 08/10/2022 10:17 AM EDT Legal Sex Female 10:17 AM EDT Gender Identity Female 08/10/2022 10:17 AM EDT Sexual Orientation Choose not to disclose 2021 10:17 AM EDT documented as of this encounter Miscellaneous Notes * Telephone Encounter - Katherine Ricardo - 05/25/2025 2:47 PM EDT TC from pt requesting medication refill. Medications needing refill : - SUMAtriptan (Imitrex) 50 MG tablet To be sent to: - [facility] - [place], [place] - [address] [place] [address] documented in this encounter Plan of Treatment Upcoming Encounters Date Type Department Care Team (Late st Contact Info) Description 06/21/2025 11:30 AM EDT Office Visit [facility] [address] [place] [phone] Angelica Osborne MD [address] [place] [address] documented as of this encounter Goals Goal [...] documented as of this encounter Care Teams Technical Illustrator Relationship Specialty Start Date End Date Angelica Osborne MD [address] [place] [phone] PCP - General Family Medicine 10/11/18 Mao Mota, MerD [address] [place] [phone] Pharmacist Internal Medicine 08/31/23 Armando De La Cruz FNP [address] [place] [phone] Nurse Practitioner Family Medicine 08/31/23 documented as of this encounter
--- OUTSIDE RECORDS SUMMARY | 2025-06-14 15:57 | XMS_ITS | Encounter Summary ---
Author Organization [employer] Address 75 [facility] 7t [place] [address] Care Team Providers Care Parasitology Teacher Name Role Phone Angelica Osborne MD Primary Care Provider [phone] Mao Mota PharmD Unavailable [phone] Armando De La Cruz EMBROIDERER HAND Unavailable Unavailable Reason for Visit * Reason Onset Date Comments appt/partials periodic exam 08/17/2024 Encounter Details Date Type Department Care Team (Late st Contact Info) Description 08/17/2024 Telephone [facility] [address] [place], [place] [phone] Narendra Michele, DMD [address] [place], [place] [phone] appt/partials periodic exam Social History Tobacco Use [...] Description 06/21/2025 11:30 AM EDT Office Visit [facility] [address] [place] [address] Angelica Osborne MD [address] [place] [address] documented as of this encounter Goals Goal [...] documented as of this encounter Care Teams Parasitology Teacher Relationship Specialty Start Date End Date Angelica Osborne MD [address] [place] [address] PCP - General Family Medicine 10/11/18 Mao Mota, MerD [address] [place] [phone] Pharmacist Internal Medicine 08/31/23 Armando De La Cruz FNP [address] [place] [phone] Nurse Practitioner Family Medicine 08/31/23 documented as of this encounter
--- OUTSIDE RECORDS SUMMARY | 2025-06-14 15:57 | XMS_ITS | Encounter Summary ---
Author Organization [employer] Address 75 [facility] 7t [place] [address] Care Team Providers Care Contract Implementation Analyst Name Role Phone Angelica Osborne MD Primary Care Provider [phone] Mao Mota PharmD Unavailable [phone] Armando De La Cruz HOUSE BUILDER Unavailable Unavailable Reason for Visit * Reason Onset Date Comments Med Refill 05/22/2025 Encounter Details Date Type Department Care Team (Late st Contact Info) Description 05/22/2025 Telephone [facility] [address] [place], [place] [phone] Angelica Osborne MD [address] [place], [place] [phone] Med Refill Social History Tobacco Use Types [...] encounter Miscellaneous Notes * Telephone Encounter - Mana Call LPN - 05/22/2025 11:39 AM EDT Medication not prescribed by PCP. * Telephone Encounter - Esme Monet - 05/22/2025 11:37 AM EDT TC from pt requesting medication refill. Medications needing refill : SUMAtriptan (Imitrex) 50 MG tablet To be sent to: [facility] documented in this encounter Plan of Treatment Upcoming Encounters Date Type Department Care Team (Late st Contact Info) Description 06/21/2025 11:30 AM EDT Office Visit [facility] [address] [place], [place] [phone] Angelica Osborne MD [address] [place] [address] documented as of this encounter Goals Goal Patient Goal Type Associated Problems Recent Progress Patient-Stated? Author Quit using tobacco (cigarettes, smokeless, etc) Tobacco Use Mao Sims, PharmD documented as of this encounter Visit Diagnoses Not on filedocumented in this encounter Additional Health Concerns Assessment Noted Time PHQ-9 Depression Total Score: 0 02/20/20 25 3:47 PM EDT documented as of this encounter Care Teams Contract Implementation Analyst Relationship Specialty Start Date End Date Angelica Osborne MD [address] [place] [address] PCP - General Family Medicine 10/11/18 Mao Mota, PharmD [address] [place] [address] Pharmacist Internal Medicine 08/31/23 Armando De La Cruz FNP [address] [place] [phone] Nurse Practitioner Family Medicine 08/31/23 documented as of this encounter
--- OUTSIDE RECORDS SUMMARY | 2025-06-14 15:57 | XMS_ITS | Encounter Summary ---
Author Organization [employer] Address 75 [facility] 7t [place] [address] Care Team Providers Care Natural Sciences Professor Name Role Phone Angelica Osborne MD Primary Care Provider [phone] Mao Mota PharmD Unavailable [phone] Armando De La Cruz IRRIGATION WORKER Unavailable Unavailable Reason for Visit * Reason Onset Date Comments Medication Question 05/21/2025 Encounter Details Date Type Department Care Team (Late st Contact Info) Description 05/21/2025 Telephone [facility] [address] [place], [place] [phone] Angelica Osborne MD [address] [place], [place] [phone] Medication Question Social History Tobacco Use Types [...] encounter Miscellaneous Notes * Telephone Encounter - Esme Monet - 05/21/2025 9:40 AM EDT Tc from pt requesting dosage increase for the following medications pregabalin (Lyrica) 100 MG capsule and baclofen (Lioresal) 20 MG tablet. Pt scheduled for office visit with PCP on 05/22. documented in this encounter Plan of Treatment Upcoming Encounters Date Type Department Care Team (Late st Contact Info) Description 06/21/2025 11:30 AM EDT Office Visit [facility] [address] [place] [address] Angelica Osborne MD [address] [place] [address] documented as of this encounter Goals Goal [...] documented as of this encounter Care Teams Natural Sciences Professor Relationship Specialty Start Date End Date Angelica Osborne MD [address] [place] [address] PCP - General Family Medicine 10/11/18 Mao Mota, MerD [address] [place] [phone] Pharmacist Internal Medicine 08/31/23 Armando De La Cruz FNP [address] [place] [phone] Nurse Practitioner Family Medicine 08/31/23 documented as of this encounter
--- OUTSIDE RECORDS SUMMARY | 2025-06-14 15:58 | XMS_ITS | Encounter Summary ---
Author Organization [employer] Address [address] [place] [address] 7t [place] [address] Care Team Providers Care Test And Turn Up Technician Name Role Phone Angelica Osborne MD Primary Care Provider [phone] Mao Mota PharmD Unavailable [phone] Armando De La Cruz ALARM TECHNICIAN Unavailable Unavailable Reason for Visit * Reason Onset Date Comments PA 06/27/2024 Durable Medical Equipment 06/27/2024 Shower chair Encounter Details Date Type Department Care Team (Late st Contact Info) Description 06/27/2024 Telephone [facility] [address] [place], [place] [phone] Angelica Osborne MD [address] [place], [place] [phone] PA; Durable Medical Equipment (Shower chair) Social [...] Description 06/21/2025 11:30 AM EDT Office Visit [facility] [address] [place] [address] Angelica Osborne MD [address] [place] [address] documented as of this encounter Goals Goal [...] documented as of this encounter Care Teams Test And Turn Up Technician Relationship Specialty Start Date End Date Angelica Osborne MD [address] [place] [phone] PCP - General Family Medicine 10/11/18 Mao Mota, MerD [address] [place] [phone] Pharmacist Internal Medicine 08/31/23 Armando De La Cruz FNP [address] [place] [phone] Nurse Practitioner Family Medicine 08/31/23 documented as of this encounter
--- OUTSIDE RECORDS SUMMARY | 2025-06-14 15:58 | XMS_ITS | Encounter Summary ---
Author Organization [employer] [facility] Address [address] [place] [address] 7t [place] [address] Care Team Providers Care Laborer Landscape Name Role Phone Angelica Osborne MD Primary Care Provider [phone] Mao Mota PharmD Unavailable [phone] Armando De La Cruz PRODUCTION LEAD Unavailable Unavailable Reason for Visit * Reason Comments Med Refill Encounter Details Date Type Department Care Team (Late st Contact Info) Description 10/06/[address] [facility] [address] [place] [address] [phone] Angelica Osborne MD [address] [place] [address] [phone] Pain Social History Tobacco Use Types Packs/Day [...] Description 06/21/2025 11:30 AM EDT Office [address] [facility] [address] [place] [address] [phone] Angelica Osborne MD [address] [place] [address] [phone] documented as of this encounter Visit Diagnoses Diagnosis Pain Generalized pain documented in this encounter Care Teams Laborer Landscape Relationship Specialty Start Date End Date Angelica Osborne MD [address] [place] [phone] PCP - General Family Medicine 10/11/18 Mao Mota, MerD [address] [place] [phone] Pharmacist Internal Medicine 08/31/23 Armando De La Cruz FNP [address] [place] [phone] Nurse Practitioner Family Medicine 08/31/23 documented as of this encounter
--- OUTSIDE RECORDS SUMMARY | 2025-06-14 15:58 | XMS_ITS | Clinical Summary ---
Author Organization [facility] ity Address [address] [place] [address] Care Team Providers Care Hedis Abstractor Name Role Phone Unavailable Primary Care Provider [...]
--- OUTSIDE RECORDS SUMMARY | 2025-06-14 15:58 | XMS_ITS | Encounter Summary ---
Author Organization [employer] Address [address] [place] [address] 7t [place] [address] Care Team Providers Care Stone Operator Name Role Phone Angelica Osborne MD Primary Care Provider [phone] Mao Mota PharmD Unavailable [phone] Armando De La Cruz CUSTOM MOTORCYCLE PAINTER Unavailable Unavailable Encounter Details Date Type Department Care Team (Late st Contact Info) Description 02/17/2023 Telephone [facility] [address] [place], [place] [phone] Angelica Osborne MD [address] [place] [address] [phone] Social History Tobacco Use Types Packs/Day Years [...] Description 06/21/2025 11:30 AM EDT Office Visit [facility] MED[facility]INE [address] [place] [address] [phone] Angelica Osborne MD [address] [place] [address] [phone] documented as of this encounter Visit Diagnoses Not on filedocumented in this encounter Additional Health Concerns Assessment Noted Time PHQ-9 Depression Total Score: 2 02/16/20 3:26 PM EDT documented as of this encounter Care Teams Stone Operator Relationship Specialty Start Date End Date Angelica Osborne MD [address] [place] [address] PCP - General Family Medicine 10/11/18 Mao Mota, Margaux [address] [place] [phone] Pharmacist Internal Medicine 08/31/23 Armando De La Cruz FNP [address] [place] [phone] Nurse Practitioner Family Medicine 08/31/23 documented as of this encounter
--- OUTSIDE RECORDS SUMMARY | 2025-06-14 15:58 | XMS_ITS | Clinical Summary ---
Author Organization [employer] Address [address] [place] [address] [address] [place] [address] Care Team Providers [employer] Prescription Clerk Name Role Phone Angelica Osborne MD Primary Care Provider [phone] Mao Mota PharmD Unavailable [phone] Armando De La Cruz SPRING ASSEMBLER SUPERVISOR Unavailable Unavailable Allergies No known active allergies Medications Continuous Blood Gluc Transmit (Dexcom G6 transmitter) misc 1 each by Other route continuously. 1 each 07/26/20 23 Active Continuous Blood Gluc Sensor (Dexcom G6 Sensor) misc Use as directed 3 each 07/26/20 Active Continuous Blood Gluc Nurse Assistant (Dexcom G6 cte teacher) device Use as directed 1 each 07/26/20 23 Active Blood Glucose Monitoring Suppl (FreeStyle Lite) w/Device kitIndications: Type 2 diabetes mellitus with hyperglycemia, without long-term current use of insulin ([facility]) 1 kit Once per day. 1 kit 04/07/20 24 Active metFORMIN XR (Glucophage-XR) 500 MG 24 hr tabletIndicatio ns:Type 2 diabetes mellitus with hyperglycemia, without long-term current use of insulin (CMS/HCC) TAKE 2 TABLETS BY MOUTH BEFORE BREAKFAST AND EVENING MEAL DO NOT BREAK, CRUSH, DISSOLVE OR CHEW 120 tablet 11 07/12/20 24 Active Lancets (OneTouch Delica Plus [id number]) miscIndications :Type 2 diabetes mellitus with hyperglycemia, without long-term current use of insulin (CMS/HCC) TEST BLOOD SUGAR EVERY MORNING DIRECTED 100 each 11 09/01/20 24 Active montelukast (Singulair) 10 MG tablet TAKE 1 TABLET BY MOUTH EVERY EVENING 30 tablet 11/02/19 25 Active pantoprazole (ProtoNix) 20 MG EC tablet TAKE 1 TABLET BY MOUTH TWICE DAILY IN THE MORNING AND IN THE EVENING 180 tablet 3 11/09/19 25 Active rosuvastatin (Crestor) 40 MG tablet TAKE 1 TABLET BY MOUTH AT BEDTIME 90 tablet 3 12/06/19 25 Active levothyroxine (Synthroid, Levoxyl) 50 MCG tablet TAKE 1 TABLET BY MOUTH EVERY MORNING 90 tablet 3 12/06/19 25 Active fluticasone (Flonase) 50 MCG/ACT nasal sprayIndication s:Allergic rhinitis, unspecified seasonality, unspecified trigger INHALE 1 SPRAY IN EACH NOSTRIL TWICE DAILY IN THE MORNING AND IN THE EVENING 48 g 12/06/19 25 Active docusate sodium (Colace) 100 MG capsuleIndicati ons:Constipatio n, unspecified constipation type TAKE 1 CAPSULE BY MOUTH TWICE DAILY IN THE MORNING AND IN THE EVENING 180 capsule 3 12/06/19 25 Active chlorhexidine (Peridex) 0.12 % solution Swish 15 mL morning and night for 1 minute. Spit, do not swallow. Do not eat or drink for 30 minutes following use. 473 mL 12/15/19 25 Active Aspirin Low Dose 81 MG EC tablet TAKE 1 TABLET BY MOUTH EVERY MORNING 90 tablet 3 02/01/20 25 Active Tirzepatide (Mounjaro) 2.5 MG/0.5ML solution auto-injectorIn dications:Type 2 diabetes mellitus with hyperglycemia, without long-term current use of insulin (CMS/HCC) Inject 2.5 mg under the skin 1 (one) time per week. 2 mL 02/20/20 25 Active budesonide-form oterol (Symbicort) 160-4.5 MCG/ACT inhaler Inhale 2 puffs in the morning and at bedtime. May take additional 2 puffs every 4 hours as needed for difficulty breathing. Maximum 12 puffs / day 1 each 02/20/20 25 026 Active lisinopril 10 MG tablet TAKE 1 TABLET BY MOUTH EVERY MORNING 90 tablet 02/28/20 25 Active sertraline (Zoloft) 100 MG tabletIndicatio ns:Major depression with psychotic features (CMS/HCC) Take 1 tablet (100 mg) by mouth in the morning. 90 tablet 02/28/20 25 Active clonazePAM (KlonoPIN) 1 MG tabletIndicatio ns:Major depression with psychotic features (CMS/HCC) TAKE 1 TABLET BY MOUTH TWICE DAILY IN THE MORNING AND AT BEDTIME 60 tablet 5 03/16/20 25 Active cetirizine (ZyrTEC) 10 MG tabletIndicatio ns:Allergic rhinitis, unspecified seasonality, unspecified trigger TAKE 1 TABLET BY MOUTH EVERY MORNING 90 tablet 1 04/03/20 25 Active melatonin 5 MG tablet Take 2 tablets (10 mg) by mouth if needed at bedtime (difficulty sleeping). 180 tablet 04/03/20 25 Active doxepin (SINEquan) 50 MG capsuleIndicati ons:Major depression with psychotic features (CMS/HCC) Take 1 capsule (50 mg) by mouth at bedtime. 90 capsule 04/04/20 25 Active prazosin (Minipress) 1 MG capsule Take 1 capsule (1 mg) by mouth at bedtime. For bad dreams. 90 capsule 3 04/04/20 25 Active perphenazine 4 MG tabletIndicatio ns:Major depression with psychotic features (CMS/HCC) TAKE 1 TABLET BY MOUTH TWICE DAILY 180 tablet 3 04/18/20 25 Active Eyelid Cleansers (OcuSoft Lid Scrub Original) padsIndications :Meibomian gland disease of both eyes, unspecified eyelid Wipe both upper and lower eyelids once a day with one cloth. 30 each 04/19/20 25 Active olopatadine (Patanol) 0.1 % ophthalmic solutionIndicat ions:Meibomian gland disease of both eyes, unspecified eyelid Administer 1 drop into both eyes 2 times daily. 5 mL 5 04/19/20 25 026 Active glucose blood (OneTouch Verio) test stripIndication s:Type 2 diabetes mellitus with hyperglycemia, without long-term current use of insulin ([facility]) USE DIRECTED TO TEST BLOOD SUGAR EVERY MORNING BEFORE BREAKFAST 100 strip 04/25/20 25 Active Alcohol Swabs (Alcohol Prep) padsIndications :Type 2 diabetes mellitus with hyperglycemia, without long-term current use of insulin ([facility]) USE DAILY DIRECTED 100 each 04/25/20 25 Active Calcium Carb-Cholecalci ferol 600-10 MG-MCG tablet TAKE 1 TABLET BY MOUTH TWICE DAILY IN THE MORNING AND IN THE EVENING 180 tablet 05/01/20 25 Active famotidine (Pepcid) 20 MG tablet TAKE 1 TABLET BY MOUTH EVERY DAY 90 tablet 3 05/01/20 25 Active Ventolin HFA 108 (90 Base) MCG/ACT inhaler INHALE 2 PUFFS BY MOUTH EVERY 4 HOURS NEEDED FOR WHEEZING OR SHORTNESS OF BREATH 18 g 1 05/03/20 25 Active furosemide (Lasix) 20 MG tabletIndicatio ns:Bilateral lower extremity edema TAKE 1 TABLET BY MOUTH EVERY DAY 30 tablet 05/25/20 25 Active pregabalin (Lyrica) 150 MG capsuleIndicati ons:Abrasion of left index finger, initial encounter Take 1 capsule (150 mg) by mouth 2 times daily. 60 capsule 3 05/29/20 25 Active SUMAtriptan (Imitrex) 50 MG tablet TAKE 1 TABLET ONCE WITH FLUIDS EARLY POSSIBLE AFTER THE ONSET OF A MIGRAINE ATTACK, MAY REPEAT AFTER 2 HOURS IF HEADACHE RETURNS. DO NOT EXCEED 4 TABS IN A DAY. 9 tablet 3 05/31/20 25 Active ipratropium (Atrovent) 0.03 % nasal spray Administer 2 sprays into each nostril every 12 (twelve) hours. 30 mL 12 05/31/20 25 026 Active tiZANidine (Zanaflex) 4 MG tablet Take 1 tablet by mouth twice a day as needed for muscle spasm 60 tablet 3 05/31/20 25 Active Varenicline Tartrate, Starter, (Chantix Starting Month ) 0.5 MG X 11 & 1 MG X 42 tablet therapy pack Take 1 tablet by mouth 2 times daily. 53 each 05/31/20 25 Active rOPINIRole (Requip) 1 MG tablet TAKE 1 TABLET BY MOUTH AT BEDTIME 90 tablet 3 06/04/20 25 Active rOPINIRole (Requip) 1 MG tablet Take 1 tablet (1 mg) by mouth at bedtime. 90 tablet 3 03/23/20 24 025 Discontinued(R eorder (will not trigger notification to Pharmacy)) furosemide (Lasix) 20 MG tabletIndicatio ns:Bilateral lower extremity edema Take 1 tablet (20 mg) by mouth Once per day. 30 tablet 12/06/19 25 025 Discontinued pregabalin (Lyrica) 100 MG capsule TAKE 1 CAPSULE BY MOUTH TWICE DAILY 60 capsule 3 05/22 025 Discontinued(R eorder (will not trigger notification to Pharmacy)) baclofen (Lioresal) 20 MG tablet TAKE 1 TABLET BY MOUTH TWICE DAILY NEEDED MAY TAKE ADDITIONAL TABLET NEEDED FOR MUSCLE SPASMS 90 tablet 3 04/04/20 25 025 Discontinued(I neffective) SUMAtriptan (Imitrex) 50 MG tablet TAKE 1 TABLET ONCE WITH FLUIDS EARLY POSSIBLE AFTER THE ONSET OF A MIGRAINE ATTACK, MAY REPEAT AFTER 2 HOURS IF HEADACHE RETURNS. DO NOT EXCEED 4 TABS IN A DAY. 02/27/20 025 Discontinued(R eorder (will not trigger notification to Pharmacy)) mupirocin (Bactroban) 2 % ointmentIndicat ions:Abrasion of left index finger, initial encounter Apply topically 3 times daily for 10 days. 22 g 05/29/20 025 Active Problems Problem Noted Date Diagnosed Date Mood disorder 05/30/2025 Assessment & Plan (05/30/2025 5:55 AM EDT): - current Dx: MDD with psychotic features - likely PTSD. Possible ADHD since childhood, untreated. Possible bipolar. ?schizophrenia. - high LARA - polypharmacy - will arrange a visit tomorrow to address Swollen ankles 10/05/2024 Post-nasal drip 10/05/2024 Ill-fitting dentures 10/05/2024 Scratches 10/05/2024 Assessment & Plan (10/05/2024 2:19 PM EST): Patient with multiple scratches right hand from her cat, no discharge, no tenderness Will send a triple ointment abx to prevent infection Bilateral lower extremity edema 08/12/2024 Assessment & Plan (11/12/2024 12:49 PM EST): Chronic TTE and Bl LE venous US were ordered by walk-in clinic provider Currently on furosemide 20 mg daily; history of hyponatremia. Monitor electrolytes closely. Consider venous study for venous insufficiency Elevated legs, reduce sodium consumption, compression stocking Assessment & Plan (10/05/2024 2:16 PM EST): Patient is here at out [facility] with c/o bilateral LE edema , seen for this here at [facility] as well by Dr. Gore back August 11. Unfortunately it appears pt did not follow through with any of the recommendations from . Bao seems to have chronic LE swelling ,denies [...] workup Personal history of nicotine dependence 08/04/20 24 Right knee pain 08/04/2024 Transaminitis 02/29/2024 Assessment & Plan (02/20/2025 8:34 AM EDT): - likely MASLD - repeat lab - evaluate with US if abnormal lab Assessment & Plan (11/12/2024 12:53 PM EST): - likely MASLD - repeat lab - evaluate with US if abnormal lab Type 2 diabetes mellitus 03/10/2023 Assessment & Plan (05/30/2025 5:28 AM EDT): - A1C 5.8% on 05/29/2025. Improved from 6.1% on 02/19/25 - Dx February 2023, A1C 7.9% on 03/09/23 and RBG > 200 - Current Glucose monitoring system - Glucometer: Freestyle. - Continue metformin ER 1000 mg bid - Continue tirzepatide 2.5 mg weekly, further increase is not indicated at this time - Treatment Hx: Switched dulaglutide 1.5 mg weekly to tirzeptide 2.5 mg weekly in February 2025 - Lipid profile: 11/06/24 TC 160; TG 172; HDL 36; LDL 68 - Microalbumin: 11/06/24 ordered 60.7 - Eye exam: Referred - Feet exam: 11/06/24 - Immunizations: Pt had an adverse reaction to COVID vaccine. Pt does not want COVID vaccine Assessment & Plan (02/20/2025 8:31 AM EDT): - A1C 6.1% on 02/19/25, improved from 7.1% on 11/12/24 - Dx February 2023, A1C 7.9% on 03/09/23 and RBG > 200 - Current Glucose monitoring system - Glucometer: Freestyle. - Continue metformin ER 1000 mg bid - Switch dulaglutide 1.5 mg weekly to tirzeptide 2.5 mg weekly - Lipid profile: 11/06/24 TC 160; TG 172; HDL 36; LDL 68 - Microalbumin: 11/06/24 ordered 60.7 - Eye exam: Referred - Feet exam: 11/06/24 - Immunizations: Pt had an adverse reaction to COVID vaccine. Pt does not want COVID vaccine Assessment & Plan (11/12/2024 12:52 PM EST): - A1C 7.1% today, improved - Dx February 2023, A1C 7.9% on 03/09/23 and RBG > 200 - Current Glucose monitoring system - Glucometer: Freestyle. - Continue metformin ER 1000 mg bid - Switch dulaglutide 1.5 mg weekly to tirzeptide 2.5 mg weekly - Lipid profile: 03/09/23 TC 160; TG 367; HDL 45; LDL 71 - Microalbumin: 08/18/23 ordered - Eye exam: Referred - Feet exam: 11/06/24 - Immunizations: Pt had an adverse reaction to COVID vaccine. Pt does not want COVID vaccine Assessment & Plan (08/12/2024 3:27 PM EDT): [...] vaccine 03/10/2023 Fibromyalgia 03/09/2023 Assessment & Plan (05/30/2025 5:45 AM EDT): - Pain in shoulders, back, neck, thighs, hips, and legs - MITA weakly positive 1:40, negative RF, normal ESR and CRP - Increase Lyrica (pregabalin) to 150 mg BID. Discussed about judicious use - continue baclofen 20 mg tid prn - Treatment Hx: Gabapentin was changed to pregabalin in 2022. Muscle relaxant was changed from cyclobenzaprine to baclofen in 2022 - encouraged to stay physically active - acupuncture was recommended Assessment & Plan (11/12/2024 12:44 PM EST): - Pain in shoulders, back, neck, thighs, hips, and legs - MITA weakly positive 1:40, negative RF, normal ESR and CRP - Increase Lyrica (pregabalin) to 100 mg BID. Discussed about judicious use - continue baclofen 20 mg tid prn - Treatment Hx: [...] 20 pack years 03/09/2023 Assessment & Plan (02/20/2025 8:34 AM EDT): - Smoking > 20 pack years - Referred to lung cancer screening chest CT, but pt declined - will readdress at next visit Assessment & Plan (11/06/2024 4:18 PM EST): [...] cessation Tobacco dependence 01/04/2023 Assessment & Plan (05/29/2025 10:13 AM EDT): Work on smoking cessation Pt declined lung CA screening Assessment & Plan (02/20/2025 8:33 AM EDT): Work on smoking cessation Pt declined lung CA screening Assessment & Plan (11/06/2024 4:18 PM EST): [...] 11/26/2015 Acquired hypothyroidism 08/27/2015 Assessment & Plan (02/20/2025 8:29 AM EDT): - current replacement: levothyroxine 50 mcg daily - 03/09/23 TSH 2.77 mIU/L Assessment & Plan (11/06/2024 4:16 PM EST): [...] test Essential hypertension 08/27/2015 Assessment & Plan (05/30/2025 5:24 AM EDT): -Goal BP <130/80 per ACC/AHA. -BP at goal today -Discussed about the importance of lifestyle modification and medication adherence. -Medication: lisinopril 10 mg daily -Continue checking home BP -Treatment Hx: Discontinued HCTZ in Jun 2017 due to declined renal function. Improved renal function after its discontinuation and judicious use of NSAIDs Assessment & Plan (02/20/2025 8:29 AM EDT): -Goal BP < 140/90 per [...] in 3 -6 mo Assessment & Plan (11/06/2024 4:15 PM EST): [...] Migraine 02/25/2015 Dyslipidemia 12/04/2014 Assessment & Plan (05/29/2025 10:12 AM EDT): - lipid profile on 11/06/24 TC 138; TG 172; HDL 36; LDL 68 - current medication: Rosuvastatin 40 mg at bedtime - continue working on lifestyle modification Assessment & Plan (02/20/2025 8:33 AM EDT): - lipid profile on 11/06/24 TC 138; TG 172; HDL 36; LDL 68 - current medication: Rosuvastatin 40 mg at bedtime - continue working on lifestyle modification Assessment & Plan (11/06/2024 4:17 PM EST): [...] 09/21/2013 Allergic rhinitis 05/09/2012 Assessment & Plan (02/20/2025 8:31 AM EDT): - continue working on smoking cessation - continue cetirizine - continue montelukast - continue fluticasone nasal - continue ipratropium nasal - continue cromolyn eye gtt prn - continue ketotifen gtt prn Assessment & Plan (03/10/2023 2:06 PM EDT): - continue working on smoking cessation - continue cetirizine - continue montelukast - continue fluticasone nasal - continue ipratropium nasal - continue cromolyn eye gtt prn - continue ketotifen gtt prn Anxiety 05/09/2012 Assessment & Plan (05/30/2025 5:46 AM EDT): - MDD with anxiety- MDD with anxiety Assessment & Plan (02/20/2025 8:32 AM EDT): - MDD with anxiety Assessment & Plan (03/10/2023 2:15 PM EDT): - MDD with anxiety Asthma 05/09/2012 Assessment & Plan (02/20/2025 8:29 AM EDT): -Continue working on smoking cessation -Continue albuterol HFA prn -Consider PFT Assessment & Plan (11/06/2024 4:15 PM EST): [...] weight Shoulder pain 01/08/2009 Assessment & Plan (05/30/2025 5:56 AM EDT): - chronic - history of left shoulder surgery for left shoulder rotator cuff impingement in December 2012 Assessment & Plan (03/10/2023 1:52 PM EDT): - chronic - history of left shoulder surgery for left shoulder rotator cuff impingement in December 2012 Major depression with psychotic features 000 Assessment & Plan (05/30/2025 5:53 AM EDT): - Previous behavioral health service provider: [facility] - No medication change / adjustment / review since 2022 - Currently taking: Doxepin 50 mg at bedtime; Prazosin 1 mg at bedtime; Perphenazine 4 mg BID; Clonazepam 1 mg BID; Sertraline 100 mg daily; Melatonin 10 mg at bedtime, Ropinirole 1 mg at bedtime (restless legs). - Treatment Hx: previously on aripiprazole, which caused significant weight gain and diabetes - will schedule another visit tomorrow to address her mental health needs; patient agreed with the plan Assessment & Plan (02/20/2025 8:31 AM EDT): She is notsleeping well, apparently missing [...] medication management. Any issues or concerns, call C. All her questions were answered and I have wished her well. She agrees with the plan. Assessment & Plan (11/06/2024 4:18 PM EST): [...] medication management. Any issues or concerns, call C. All her questions were answered and I [...] medication management. Any issues or concerns, call C. All her questions were answered and I [...] Encounters Date Type Department Care Team Description 06/13/2025 Patient Outreach [facility] MEDICINE [address] [place] [phone] Angelica Osborne MD Pre-visit Planning (Pre-visit planning - LVM ) 06/04/2025 Refill [facility] CHC MED & PEDS [address] [place], [place] [id number] Angelica Osborne MD 06/01/[address] [address] Angelica Osborne MD Prior Authorization ([facility]: Mounjaro 2.5 MG) 05/31/2025 Orders Only [address] [id number] Angelica Osborne MD 05/31/[address] [address] Angelica Osborne MD DME Grab bars/shower bench 05/29/2025 3:00 PM EDT Office Visit [address] [address] Angelica Osborne MD Type 2 diabetes mellitus with hyperglycemia, without long-term current use of insulin ([facility]) (Primary Dx); Essential hypertension; Fibromyalgia; Abrasion of left index finger, initial encounter; Dyslipidemia; Class 1 obesity due to excess calories with serious comorbidity and body mass index (BMI) of 32.0 to 32.9 in adult; Major depression with psychotic features (CMS/HCC); Anxiety; Mood disorder (CMS/HCC); Lumbar back pain with radiculopathy affecting lower extremity; Chronic left shoulder pain; Chronic pain of right knee 05/29/2025 Travel 05/25/2025 Telephone [facility] MEDICINE [address] [facility] [place] [address] Angelica Osborne MD Med Refill 05/25/2025 Telephone [facility] MEDICINE [address] [facility] [place] [address] Angelica Osborne MD Nurse Triage 05/25/2025 Refill [facility] MEDICINE [address] [facility] [place] [address] Angelica Osborne MD Bilateral lower extremity edema 05/24/2025 Telephone [facility] MEDICINE [address] [facility] [place] [address] Angelica Osborne MD Nurse Triage 05/23/2025 Telephone [facility] MEDICINE [address] [facility] [place] [address] Angelica Osborne MD Prior Authorization 05/23/2025 Telephone [facility] MEDICINE [address] [facility] [place] [address] Angelica Osborne MD Nurse Triage 05/22/2025 Telephone [facility] MEDICINE [address] [facility] [place] [address] Angelica Osborne MD Med Refill 05/21/2025 Telephone [facility] MEDICINE [address] [facility] [place] [address] Angelica Osborne MD chartprep 05/21/2025 Telephone [facility] MEDICINE [address] [facility] [place] [address] Angelica Osborne MD Medication Question 05/14/2025 Patient Outreach [facility] MEDICINE [address] [facility] [place] [address] Angelica Osborne MD Pre-visit Planning (Pre-visit planning - LVM ) 05/03/2025 Refill [facility] MEDICINE [address] [facility] [place] [address] Angelica Osborne MD 04/30/2025 Refill [facility] MEDICINE [address] [facility] [place] [address] Angelica Osborne MD 04/24/2025 Refill [facility] MEDICINE [address] [facility] [place] [address] Luisana White ANP Type 2 diabetes mellitus with hyperglycemia, without long-term current use of insulin ([facility]) 04/23/2025 Telephone [facility] MEDICINE [address] [place] [address] Lena Guy RN NTTS Triage 04/19/2025 2:00 PM EDT Office Visit [facility] OPTOMETRY [address] [place] [address] Brayden, Shyla, OD Diabetes type 2, no ocular involvement ([facility]) (Primary Dx); Amblyopia of right eye; Crowded optic disc, bilateral; Meibomian gland disease of both eyes, unspecified eyelid; Nuclear sclerotic cataract of both eyes; H/O laser iridotomy; Presbyopia 04/19/2025 Travel 04/18/2025 Refill [facility] MED & PEDS [address] [place] [address] Angelica Osborne MD Major depression with psychotic features ([facility]) 04/04/2025 Refill [facility] MEDICINE [address] [place] [address] Angelica Osborne MD Major depression with psychotic features ([facility]) 04/02/2025 Refill [facility] CH[facility] MED & PEDS [address] [place] [address] Angelica Osborne MD Allergic rhinitis, unspecified seasonality, unspecified trigger 04/02/2025 Telephone [facility] MEDICINE [address] [place] [address] Julia Urena MA [place] recall 03/27/[address] [address] Angelica Osborne MD Nurse Triage from Last 3 Months Immunizations Immunization Administration Dates Next Due Influenza Injectable Quadriv [...] Not Answered Comments:Smokes 1-2 packs a day Alcohol Use [...] Access Q2 Not on file 05/29/2025 Comments No Sex and Gender Information Value Date Recorded Sex Assigned at Female 08/10/2022 10:17 AM EDT Legal Sex Female 10:17 AM EDT Gender Identity Female 08/10/2022 10:17 AM EDT Sexual Orientation Choose not to disclose 2021 10:17 AM EDT Last Filed Vital Signs Vital Sign Reading Time Taken Comments Blood Pressure 124/80 05/29/2025 3:14 PM EDT Pulse 82 05/29/2025 3:14 PM EDT Temperature 37.2 C (99 F) 05/29/2025 3:14 PM EDT Respiratory Rate 15 05/29/2025 3:14 PM EDT Oxygen Saturation 96% 05/29/2025 3:14 PM EDT Inhaled Oxygen Concentration - - Weight 84.2 kg (185 lb 9.6 oz) 05/29/2025 3:14 P M EDT Height 160 cm (5' 3 ) 05/29/2025 3:14 PM EDT Body Mass Index 32.88 05/29/2025 3:14 PM EDT Plan of Treatment Upcoming Encounters Date Type Department Care Team (Late st Contact Info) Description 06/21/2025 11:30 AM EDT Office Visit [facility] MEDICINE [address] [place] [phone] Angelica Osborne MD [address] [place] [address] Health Maintenance Due Date Last Done Comments CT Colonography 1962 Dental X-Ray: Bitewings 1962 FIT DNA/Cologuard 1962 FIT 1962 FOBT 1962 HIV Screening 1962 Sigmoidoscopy 1962 Hepatitis C Screening 1980 Lung Cancer Screening 2012 Dental Prophylaxis 07/18/2016 01/16/2016 Dental X-Ray: Full Mouth 07/27/2018 07/26/2015 Mammogram 06/28/2020 06/28/2018 Zoster Vaccines (2 of 2) 07/15/2020 05/20/2020, 0806/2020 RSV Patients and Patients Aged 60 years or older (1 - Risk 60-74 years 1-dose series) 2022 Dental Oral Exam 09/20/2022 03/20/2022, 07/26/2015 Colonoscopy 06/08/2023 06/08/2013 Colorectal Cancer Screening 06/08/2023 SDOH Screening 03/09/2024 03/09/2023 COVID-19 Vaccine ( - season) 2025 03/01/2021, 12/31/2020 Influenza Vaccine (#1) 2025 , 06/22/2023, 07/03/2022, Additional history exists Diabetes: Hemoglobin A1C 08/29/2025 025, 02/19/2025, 11/06/2024, Additional history exists Alcohol/Substance Use Screening 11/06/2025 11/06/2024 Diabetes: Foot Exam 11/06/2025 11/06/2024 Diabetes: Urine Protein Screening 11/06/2025 11/06/2024, 08/17/2023 Lipid Panel 11/06/2025 11/06/2024, 02/10, 02/03/2022 Depression Screening 02/19/2026 02/19/2025, 02/20/20 25 Disability Screening 02/19/2026 02/19/2025 Tobacco Screening 05/29/2026 05/29/2025 Eye Exam 04/19/2027 04/19/2025, 07/, 04/19/2025, Additional history exists DTaP/Tdap/Td Vaccines (4 - Td or Tdap) 05/01/2032 05/01/2022, 05/01/2022, 12/10/2011, Additional history exists Pneumococcal Vaccine: 50+ Years Completed 03/09/2023, 12/10/2011, 11/25/2006 HIB Vaccines Aged Out No longer eligi [...] etc) Tobacco Use No Mao Mota, Margaux Procedures Procedure Name Priority Date/Time Associated Diagnosis Comments POCT GLYCOSYLATED HEMOGLOBIN (HGB A1C) Routine 05/29/2025 3:16 PM EDT Type 2 diabetes mellitus with hyperglycemia, without long-term current use of insulin ([facility]) POCT GLUCOSE Routine 05/29/2025 3:16 PM EDT Type 2 diabetes mellitus with hyperglycemia, without long-term current use of insulin ([facility]) OCT, OPTIC NERVE - OU - BOTH EYES Routine 04/19/2025 2:00 PM EDT Crowded optic disc, bilateral ALBUMIN, RANDOM URINE W/CREATININE Routine 11/06/2024 4:14 PM EST Essential hypertension LIPID PANEL WITH REFLEX TO DIRECT LDL Routine 11/06/2024 4:14 PM EST Dyslipidemia PERIODIC ORAL EVALUATION - ESTABLISHED PATIENT Routine 03/20/2022 12:00 AM EDT BI MAMMOGRAM SCREENING BILATERAL Routine 06/28/2018 5:47 PM EDT PROPHYLAXIS - ADULT Routine 01/16/2016 1 2:00 AM EDT PANORAMIC RADIOGRAPHIC IMAGE Routine 07/26/2015 12:00 AM EDT HM COLONOSCOPY Routine 06/08/2013 from Last 3 Months or Most Recently Relevant to Health Maintenance Results * (ABNORMAL) POCT glycosylated hemoglobin (Hgb A1c) (05/29/2025 3:16 PM EDT) Hemoglobin A1C 5.8(A) 4.0 - 5.7 % QC Media Lot # [id number] Lot# Expiration Date 4,162, Blood Capillary blood specimen / Unknown 05/29/2025 3:16 PM EDT Angelica Osborne MD POINT OF CARE TEST ENTER/EDIT OR DERABLES Final Result * POCT glucose manually resulted (05/29/2025 3:16 PM EDT) Glucose Blood, POC 130 60 - 200 mg/dL QC Media Lot # [id number] Lot# Expiration Date [id number] Blood Capillary blood specimen / Unknown 05/29/2025 3:16 PM EDT Angelica Osborne MD POINT OF CARE TEST ENTER/EDIT OR DERABLES Final Result * OCT, Optic Nerve - OU - Both Eyes (04/19/2025 2:00 PM EDT) Narrative Shyla Owen, OD - 05/03/2025 12:16 PM EDT Images from the original result were not included. OCT OPTIC NERVE INTERPRETATION Optical Coherence Tomography Interpretation Report Test Details: OCT ONH Measurements: OD OS C/D Horizontal 0.00 0.00 C/D Vertical 0.00 0.00 Disc area 2.29mm 2 (poor mapping) 2.04mm 2 (poor mapping) RNFL Average 115microns 107microns Test findings: OD: thicker than average RNFL 360 degrees OS: thicker than average RNFL 360 degrees Impression and Plan: Likely crowded discs. Will monitor annually. us Shyla Owen OD OPHTH TOMOGRAPHY Final Result * (ABNORMAL) Lipid Panel with Reflex to Direct LDL (11/06/2024 4:14 PM EST) Triglycerides 172(H) <150 mg/dL [facility] Comment:Desirable Triglyceri de: less than 150 mg/dLBorderline High Triglyceride 150-199 mg/dLHigh Triglyceride: 200-499 mg/dLVery High Triglyceride: greater than or equal to 5OO mg/dL Cholesterol 138 <200 mg/dL [facility] Comment:Desirable Cholestero l: less than 200 mg/dLBorderline High Cholesterol: 200-239 mg/dLHigh Cholesterol: greater than 239 mg/dL LDL Cholesterol Calculated 68 <100 mg/dL [facility] Comment:Desirable LDL: less than 100 mg/dLNear Optimal/Above Optimal LDL: 110- 129 mg/dLBorderline High LDL: 130-159 mg/dLHigh LDL: 160-189 mg/dLVery High LDL: greater than or equal to 190 mg/dL HDL Cholesterol 36(L) >40 mg/dL [facility] Comment:Desirable HDL: great er than 40 mg/dL Note: This HDL assay may give artificially low results in patients with liver disease. Blood 11/06/2024 4:14 PM EST 11/06/2024 5:49 PM EST Angelica Osborne MD LAB BLOOD ORDERABLES Final Resul t [facility] [address] [place] [phone] * (ABNORMAL) Albumin, Random Urine W/Creatinine (11/06/2024 4:14 PM EST) Creatinine, Urine 106.99 mg/dL [facility] Microalbumin Urine 65.0 mg/L [facility] Microalbum Creatinine Ratio Ur 60.7(H) <30 ug/mg cr [facility] Comment:Albumin/Creatinine R atio Reference Ranges: Normal: < 30 ug/mg creatinine Microalbuminuria: 30 - 300 ug/mg creatinineClinical Albuminuria: > 300 ug/mg creatinine Urine 11/06/2024 4:14 PM EST 11/06/2024 5:52 PM EST Angelica Osborne MD LAB URINE ORDERABLES Final Resul t [facility] [address] [place] [address] [phone] * DIGITAL BILATERAL SCREEN 1 (06/28/2018 5:47 PM EDT) Anatomical Region Laterality Modality Breast Bilateral Mammography 06/28/2018 5:47 PM EDT Narrative 06/28/2018 5:50 PM EDT Refer to the Notes tab for result details [facility] Procedure: DIGITAL BILATERAL SCREEN 1 Procedure Note Provider, Daniele, - 01/02/2023 Refer to the Notes tab for result details [facility] Procedure: DIGITAL BILATERAL SCREEN 1 Angelica Osborne MD IMG BI PROCEDURES Final Result * Colonoscopy (06/08/2013) Colonoscopy Normal Normal Historical Provider HEALTH MAINTENANCE Final Result from Last 3 Months or Most Recently Relevant to Health Maintenance Insurance [facility] STANDARD [facility] MEDICARE ADVANTAGE DENTAL - [facility] [address] [place] [id number] Care Teams Lens And Frames Prescription Clerk Relationship Specialty Start Date End Date Angelica Osborne MD [address] [place], [place] PCP - General Family Medicine 10/11/18 Mao Mota, MerD [address] [place], [place] Pharmacist Internal Medicine 08/31/23 Armando De La Cruz FNP [address] [place] [address] Nurse Practitioner Family Medicine 08/31/23
--- OUTSIDE RECORDS SUMMARY | 2025-06-14 15:58 | XMS_ITS | Encounter Summary ---
Author Organization [employer] Address [address] [facility] 7t [place] [address] Care Team Providers Care Pan Greaser Name Role Phone Angelica Osborne MD Primary Care Provider [phone] Mao Mota PharmD Unavailable Armando De La Cruz MUNICIPAL ENGINEER Unavailable Unavailable Encounter Details Date Type Department Care Team (Late st Contact Info) Description 03/01/2025 Orders Only [facility] MEDICINE [address] [place], [place] [phone] Angelica Osborne MD [address] [place], [place] [phone] Encounter for screening for respiratory tuberculosis (Primary Dx) Social History Tobacco Use Types Packs/Day Years [...] Description 06/21/2025 11:30 AM EDT Office Visit [facility] MEDICINE [address] [place] [address] Angelica Osborne MD [address] [place] [address] documented as of this encounter Goals Goal Patient Goal Type Associated Problems Recent Progress Patient-Stated? Author Quit using tobacco (cigarettes, smokeless, etc) Tobacco Use No Mao Mota, MerD documented as of this encounter Procedures Procedure Name Priority Date/Time Associated Diagnosis Comments T-SPOT(R).TB Routine 03/07/2025 2:33 PM EDT Encounter for screening for respiratory tuberculosis documented in this encounter Results * T-SPOT??.TB (03/07/2025 2:33 PM EDT) [facility] T Spot TB Negative Negative [facility] Comment:A negative test resu lt does not exclude the possibilityof exposure to or infection with Mycobacteriumtuberculosis (M. tuberculosis). Patients with recentexposure to TB infected individuals exhibiting anegative T-SPOT.TB result should be considered forretesting within 6 weeks or if other relevant clinicalsymptoms indicate. Results from T-SPOT.TB testing mustbe used in conjunction with each individual'sepidemiological history, current medical status,and results of other diagnostic evaluations.The T-SPOT.TB test is qualitative and results arereported as positive, borderline, or negative, giventhat the test controls perform as expected. In linewith the Centers for Disease Control and Prevention's2010 recommendation to report quantitative measurementsalongside the qualitative result, the laboratoryprovides spot counts for informational purposes only.The T-SPOT.TB test should not be interpreted as aquantitative test. TS PANEL A 0 [facility] TS PANEL B 0 [facility] Negative Control Passed [facility] Positive Control Passed [facility] Comment:For additional infor annia, please refer tohttp://education.[employer]/faq/CSW718(This link is being provided for informational/educational purposes only.)THIS TEST WAS PERFORMED AT:[employer] [id number] [place] [id number] Sumit HALLMAN MD,PHD 03/07/2025 2:33 PM EDT 03/07/2025 4:15 PM EDT Angelica Osborne MD LAB BLOOD ORDERABLES Final Resul t [facility] [address] [place] [phone] documented in this encounter Visit Diagnoses Diagnosis Encounter for screening for respiratory tuberculosis- Primary documented in this encounter Additional Health Concerns Assessment Noted Time PHQ-9 Depression Total Score: 0 02/20/20 25 3:47 PM EDT documented as of this encounter Care Teams Pan Greaser Relationship Specialty Start Date End Date Angelica Osborne MD [address] [place] [address] PCP - General Family Medicine 10/11/18 Mao Mota, PharmD [address] [place] [address] Pharmacist Internal Medicine 08/31/23 Armando De La Cruz FNP [address] [place] [address] [place] [address] Nurse Practitioner Family Medicine 08/31/23 documented as of this encounter
--- OUTSIDE RECORDS SUMMARY | 2025-06-14 15:58 | XMS_ITS | Encounter Summary ---
Author Organization [employer] Address 75 [facility] 7t [place] [address] Care Team Providers Care Oil Refinery Operator Name Role Phone Angelica Osborne MD Primary Care Provider [phone] Mao Mota PharmD Unavailable [phone] Armando De La Cruz INDUSTRIAL RELATIONS COMMISSIONER Unavailable Unavailable Reason for Visit * Reason Comments Med Refill Encounter Details Date Type Department Care Team (Late st Contact Info) Description 08/13/2023 Refill [facility] MEDICINE [address] [place], [place] [phone] Angelica Osborne MD [address] [place], [place] [phone] Social History Tobacco Use Types Packs/Day Years [...] 06/21/2025 11:30 AM EDT Office Visit [facility] MEDICINE [address] [place] [address] Angelica Osborne MD [address] [place] [address] documented as of this encounter Visit Diagnoses Not on filedocumented in this encounter Additional Health Concerns Assessment Noted Time PHQ-9 Depression Total Score: 3 06/08/20 23 2:22 PM EDT documented as of this encounter Care Teams Oil Refinery Operator Relationship Specialty Start Date End Date Angelica Osborne MD [address] [place] [address] PCP - General Family Medicine 10/11/18 Mao Mota PharmD [address] [place] [address] Pharmacist Internal Medicine 08/31/23 Armando De La Cruz FNP [address] [place] [address] Nurse Practitioner Family Medicine 08/31/23 documented as of this encounter
--- OUTSIDE RECORDS SUMMARY | 2025-06-14 15:58 | XMS_ITS | Encounter Summary ---
Author Organization [employer] Address 75 [facility] 7t [place] [address] Care Team Providers Care Copyholder Name Role Phone Angelica Osborne MD Primary Care Provider [phone] Mao Mota PharmD Unavailable [phone] Armando De La Cruz STATE PILOT Unavailable Unavailable Encounter Details Date Type Department Care Team (Late st Contact Info) Description 08/16/2024 Telephone [facility] MEDICINE [address] [place], [place] [phone] Angelica Osborne MD [address] [place], [place] [phone] Social History Tobacco Use Types Packs/Day Years [...] 08/17/2024 9:19 AM EST TC placed to [facility] Centralized Scheduling to clarify the reason for ordering VASC US Lower Extremity Venous Duplex. Per provider the imaging was ordered In part to r/o DVT-low suspicion for chronicitybut also venous insufficiency . Per [facility] the ordering reason needs to be either one or the other as both have different appt times. (Either to rule out DVT or venous insufficiency) * Telephone Encounter - Agatha Palma - 08/16/2024 12:16 PM EST Tc from [place] with [facility] scheduling requesting Clarification on order sent 08/11/24. Would like to know if order was made to rule out DVT. Best contact # [phone]. documented in this encounter Plan of Treatment Upcoming Encounters Date Type Department Care Team (Late st Contact Info) Description 06/21/2025 11:30 AM EDT Office Visit [facility] MEDICINE [address] [place] [address] Angelica Osborne MD [address] [place], [place] [phone] documented as of this encounter Goals Goal [...] documented as of this encounter Care Teams Copyholder Relationship Specialty Start Date End Date Angelica Osborne MD [address] [place] [address] PCP - General Family Medicine 10/11/18 Mao Mota, PharmD [address] [place] [address] Pharmacist Internal Medicine 08/31/23 Armando De La Cruz FNP [address] [place] [address] Nurse Practitioner Family Medicine 08/31/23 documented as of this encounter
--- OUTSIDE RECORDS SUMMARY | 2025-06-14 15:58 | XMS_ITS | Encounter Summary ---
Author Organization [facility] Address 75 [facility] 7t [place] [address] Care Team Providers Care Burr Bench Operator Name Role Phone Angelica Osborne MD Primary Care Provider [phone] Mao Mota PharmD Unavailable [phone] Armando De La Cruz CHIEF PILOT Unavailable Unavailable Reason for Visit * Reason Onset Date Comments appt slip mailed 11/01/2024 Encounter Details Date Type Department Care Team (Late st Contact Info) Description 11/01/2024 Telephone [facility] ADULT DENTAL [address] [place], [place] [phone] Yves Barron DDS [address] [place], [place] [phone] appt slip mailed Social History Tobacco Use [...] Description 06/21/2025 11:30 AM EDT Office Visit [facility] MEDICINE [address] [place] [address] Angelica Osborne MD [address] [place] [address] documented as of this encounter Goals Goal [...] documented as of this encounter Care Teams Burr Bench Operator Relationship Specialty Start Date End Date Angelica Osborne MD [address] [place] [address] PCP - General Family Medicine 10/11/18 Mao Mota, MerD [address] [place] [address] Pharmacist Internal Medicine 08/31/23 Armando De La Cruz FNP [address] [place] [address] Nurse Practitioner Family Medicine 08/31/23 documented as of this encounter
--- OUTSIDE RECORDS SUMMARY | 2025-06-14 15:58 | XMS_ITS | Encounter Summary ---
Author Organization [employer] Address 75 [facility] 7t [place] [address] Care Team Providers Care Crime Scene Evidence Technician Name Role Phone Angelica Osborne MD Primary Care Provider [phone] Mao Mota PharmD Unavailable [phone] Armando De La Cruz COLOR CHECKER ROVING OR YARN Unavailable Unavailable Reason for Visit * Reason Onset Date Comments Medication Question 06/08/2023 Encounter Details Date Type Department Care Team (Late st Contact Info) Description 06/08/2023 Telephone [facility] MEDICINE [address] [place], [place] [phone] Angelica Osborne MD [address] [place], [place] [phone] Medication Question Social History Tobacco Use Types [...] AM EDT documented as of this encounter Functional Status * Over the past 2 weeks, how often have you been bothered by any of the following problems? Question Answer Date of Assessment Author Patient Health Questionnaire -2 Score 0 06/08/2023 2:22 PM EDT Imani Palacio MA * If you checked off any problems on this questionnaire so far, Question Answer Date of Assessment Author How difficult have these problems made it for you to do your work, take care of things at home, or get along with other people? Not difficult at all 06/08/2023 2:22 PM EDT Melba Palacio MA * Over the past 2 weeks, how often have you been bothered by any of the following problems? Question Answer Date of Assessment Author Little interest or pleasure in doing things Not at all 06/08/2023 2:22 PM EDT Queenie Palacio MA Feeling down, depressed, or hopeless Not at all 06/08/2023 2:22 PM MALLORYT Queenie Palacio [place] Trouble falling or staying asleep, or sleeping too much Not at all 06/08/2023 2:22 PM MALLORYT Queenie Palacio [place] Feeling tired or having little energy Not at all 06/08/2023 2:22 PM MALLORYT Queenie Palacio [place] Poor appetite or overeating More than half the days 06/08/2023 2:22 PM MALLORYT Queenie Palacio MA Feeling bad about yourself - or that you are a failure or have let yourself or your family down Not at all 06/08/2023 2:22 PM MALLORYT Queenie Palacio MA Trouble concentrating on things, such as reading the newspaper or watching television Not at all 06/08/2023 2:22 PM MALLORYT Queenie Palacio MA Moving or speaking so slowly that other people could have noticed? Or the opposite - being so fidgety or restless that you have been moving around a lot more than usual. Several days 06/08/2023 2:22 PM Queenie Puentes MA Thoughts that you would be better off or hurting yourself in some way Not at all 06/08/2023 2:22 PM Queenie Puentes MA Patient Health Questionnaire-9 Score 3 06/08/2023 2:22 PM Queenie Puentes MA documented as of this encounter Miscellaneous Notes * Telephone Encounter - Darby Mann, RN - 06/08/2023 1:49 PM EDT T/C [...] this time. * Telephone Encounter - Caryn Colindres - 06/08/2023 12:08 PM EDT Tc from patient requesting to get a new script for a reader and sensor instead of using the test strips. documented in this encounter Plan of Treatment Upcoming Encounters Date Type Department Care Team (Late st Contact Info) Description 06/21/2025 11:30 AM EDT Office Visit [facility] MEDICINE [address] [place] [phone] Angelica Osborne MD [address] [place] [address] documented as of this encounter Visit Diagnoses Not on filedocumented in this encounter Additional Health Concerns Assessment Noted Time PHQ-9 Depression Total Score: 3 06/08/20 23 2:22 PM EDT documented as of this encounter Care Teams Crime Scene Evidence Technician Relationship Specialty Start Date End Date Angelica Osborne MD [address] [place] [address] PCP - General Family Medicine 10/11/18 Mao Mota, MerD [address] [place] [address] Pharmacist Internal Medicine 08/31/23 Armando De La Cruz FNP [address] [place] [address] Nurse Practitioner Family Medicine 08/31/23 documented as of this encounter
--- OUTSIDE RECORDS SUMMARY | 2025-06-14 15:58 | XMS_ITS | Encounter Summary ---
Author Organization [facility] Address [address] [place] [address] Encounters * CPT with [facility] at [place] on 2025-06-02 { reasonForRequest : Pt reporting that her spine is killing her tonight>icing it currently but noting pain all the way up to her neck and all the way down> , patientReports : , denies :[ Falls with head strike andLOC , Falls from a standing position, no LOC, patient is amnestic to the event ,"Falls with isolated injury and deformity noted to limb , Falls with inability to move post fall , Cool extremities after fall or injury ], chiefComplaints : Back Pain , pmh : COPD/Asthma, Hypertension , allergies : No Known Drug Allergies , otherAllergies : , painAssessment : & quot;, visitOutcome : , additionalComments : 64 y.o female complains of Back Pain - Chronic back pain\n\n'My spine it killing.\ Old injury \n\nDenies bruising - Denies fever\n\nRequesting pain management \n\n\nI provided information on the mobile health provider response time and advised the patient and/or caregiver to monitor reported signs and symptoms.I discussed the warning signs of when to seek emergency care. } Pt chief complaint today of back pain that is chronic. Pt state that she is having continued pain for the past 1 year however this latest bout of pain has been occurring for approx 1 month, pt notes pain is targeted between her scapula, going down her back and ending in her lower back with possibleflair up of her sciatic nerve. Pt state that pain is a 10/10 level and stinging. Pt has been using extra strength acetaminophen with very little positive effect. Pt also notes she has been started onscripts for both pregablin as well as baclofen which she was unable to acquire today due to missingthe bus. Pt notes she is looking for a general assessment today as well as potential treatment. Pt e xpresses she currently has no cp, sob, NVD, dizziness or changes in vision. NKDA Nonneural focal exam, afebrile, pt is able to ambulate without any use of a walking device and or person. Vitals are WNL for the baseline of the pt. Lungs or sent as clear bilaterally upon auscultation. Benign abdominal assessment, no new and or worsening lower extremity edema noted. Pt is CAOX4 with an GCS of 15. POC blood work acquired with no significant abnormalities noted. [facility] Olivier Cassidy consulted. Pt provided 30 mg of intramuscular ketorlac for pain management. Pt informed to contact her pcp at her earliest convenience for further assessment. Pt is informed she may also take 1 gram of oral acetaminophen every 8 hours as needed. Pt informed of red flag S&S and told to contact emergency services if any present. IV_(FLUIDS_AND/OR_MEDICATION), MEDICATION_IM, ORAL_MEDICATION, EKG Written by Medical [facility] on 2025-06-02
--- OUTSIDE RECORDS SUMMARY | 2025-06-14 15:58 | XMS_ITS | Encounter Summary ---
Author Organization [employer] Address 75 [facility] 7t [place] [address] Care Team Providers Care Office Machine Technician Name Role Phone Angelica Osborne MD Primary Care Provider [phone] Mao Mota PharmD Unavailable [phone] Armando De La Cruz WEB SITE DEVELOPER Unavailable Unavailable Reason for Visit * Reason Onset Date Comments Hospital Follow-up 01/02/2025 Encounter Details Date Type Department Care Team (Late st Contact Info) Description 01/02/2025 Telephone [facility] MEDICINE [address] [place], [place] [phone] Angelica Osborne MD [address] [place], [place] [phone] Hospital Follow-up Social History Tobacco Use Types Packs/Day Years [...] encounter Miscellaneous Notes * Telephone Encounter - Heena Lester - 01/02/2025 12:50 PM EDT Tc from pt requesting a HDF appt. Hospital: [facility] Date of admission: 12/29/24 Discharge date: 01/01/25 Diagnosed: UTI *Send message to [place] Clinical Care Coordinators [phone] documented in this encounter Plan of Treatment Upcoming Encounters Date Type Department Care Team (Late st Contact Info) Description 06/21/2025 11:30 AM EDT Office Visit [facility] MEDICINE [address] [place] [address] Angelica Osborne MD [address] [place] [address] documented as of this encounter Goals Goal [...] documented as of this encounter Care Teams Office Machine Technician Relationship Specialty Start Date End Date Angelica Osborne MD [address] [place] [address] PCP - General Family Medicine 10/11/18 aMo Mota PharmD [address] [place] [address] Pharmacist Internal Medicine 08/31/23 Armando De La Cruz FNP [address] [place] [address] Nurse Practitioner Family Medicine 08/31/23 documented as of this encounter
--- OUTSIDE RECORDS SUMMARY | 2025-06-14 15:58 | XMS_ITS | Encounter Summary ---
Author Organization [employer] Address 75 [facility] 7t [place] [address] Care Team Providers Care Special Certificate Dictator Name Role Phone Angelica Osborne MD Primary Care Provider [phone] Mao Mota PharmD Unavailable [phone] Armando De La Cruz HOTEL MAID Unavailable Unavailable Reason for Visit * Reason Onset Date Comments Medication Question 06/30/2023 Encounter Details Date Type Department Care Team (Late st Contact Info) Description 06/30/2023 Telephone [facility] MEDICINE [address] [place], [place] [phone] Angelica Osborne MD [address] [place], [place] [phone] Medication Question Social History Tobacco Use Types [...] Description 06/21/2025 11:30 AM EDT Office Visit [facility] 230 [place] [address] Angelica Osborne MD [address] [place] [address] documented as of this encounter Visit Diagnoses Not on filedocumented in this encounter Additional Health Concerns Assessment Noted Time PHQ-9 Depression Total Score: 3 06/08/20 2:22 PM EDT documented as of this encounter Care Teams Special Certificate Dictator Relationship Specialty Start Date End Date Angelica Osborne MD [address] [place] [address] PCP - General Family Medicine 10/11/18 Mao Mota, MerD [address] [place] [address] Pharmacist Internal Medicine 08/31/23 Armando De La Cruz FNP [address] [place] [address] 29997 Nurse Practitioner Family Medicine 08/31/23 documented as of this encounter
--- OUTSIDE RECORDS SUMMARY | 2025-06-14 15:58 | XMS_ITS | Continuity of Care Document ---
Author Name Jose Luis Thomas Address [address] [place] [address] Organization Unknown Address [address] [place] [address] Medications No known medications Problems No known problems
--- OUTSIDE RECORDS SUMMARY | 2025-06-14 15:58 | XMS_ITS | Encounter Summary ---
Author Organization [employer] Address 75 [facility] 7t [place] [address] Care Team Providers Care Surveying Technician Name Role Phone Angelica Osborne MD Primary Care Provider [phone] Mao Mota PharmD Unavailable [phone] Armando De La Cruz CONSTRUCTION CONTROLLER Unavailable Unavailable Reason for Visit * Reason Onset Date Comments Nurse Triage 09/06/2023 Encounter Details Date Type Department Care Team (Late st Contact Info) Description 09/06/2023 Telephone [facility] 230 [place], [place] [phone] Angelica Osborne MD 230 [place], [place] [phone] Nurse Triage Social History Tobacco Use Types [...] declines request apt next month. Apt with BOTTLING LINE ATTENDANT White 09/17/23 @ 115pm. Advised to try ice/ [...] 11:30 AM EDT Office Visit [facility] 230 [place] [address] Angelica Osborne MD 230 [place] [address] documented as of this encounter Goals Goal [...] documented as of this encounter Care Teams Surveying Technician Relationship Specialty Start Date End Date Angelica Osborne MD [address] [place] [address] PCP - General Family Medicine 10/11/18 Mao Mota, PharmD [address] [place] [address] Pharmacist Internal Medicine 08/31/23 Armando De La Cruz FNP [address] [place] [address] Nurse Practitioner Family Medicine 08/31/23 documented as of this encounter
--- OUTSIDE RECORDS SUMMARY | 2025-06-14 15:58 | XMS_ITS | Encounter Summary ---
Author Organization [employer] Address [address] [facility] 7t [place] [address] Care Team Providers Care Control Panel Operator Crude Unit Name Role Phone Angelica Osborne MD Primary Care Provider [phone] Mao Mota PharmD Unavailable [phone] Armando De La Cruz Unavailable Unavailable Reason for Visit * Reason Comments Med Refill Encounter Details Date Type Department Care Team (Late st Contact Info) Description 02/27/2024 Refill [facility] MED & PEDS [address] [place] [address] Armando De La Cruz FNP Major depression [...] Description 06/21/2025 11:30 AM EDT Office Visit [facility] MEDICINE [address] [place] [address] Angelica Osborne MD [address] [place] [address] documented as of this encounter Goals Goal [...] documented as of this encounter Care Teams Control Panel Operator Crude Unit Relationship Specialty Start Date End Date Angelica Osborne MD [address] [place] [address] PCP - General Family Medicine 10/11/18 Mao Mota, PharmD [address] [place] [address]16 Pharmacist Internal Medicine 08/31/23 Armando De La Cruz FNP [address] [place] [address] Nurse Practitioner Family Medicine 08/31/23 documented as of this encounter
--- OUTSIDE RECORDS SUMMARY | 2025-06-14 15:58 | XMS_ITS | Encounter Summary ---
Author Organization [employer] Address 75 [facility] 7t [place] [address] Care Team Providers Care Affiliate Marketing Specialist Name Role Phone Angelica Osborne MD Primary Care Provider Mao Mota PharmD Unavailable Armando De La Cruz AUTOMATIC SPOOLER OPERATOR Unavailable Unavailable Encounter Details Date Type Department Care Team (Late st Contact Info) Description 07/26/2023 Orders Only [facility] MEDICINE 230 [place], [place] [phone] Angelica Osborne MD 230 [place], [place] [phone] Social History Tobacco Use Types Packs/Day Years [...] Description 06/21/2025 11:30 AM EDT Office Visit [facility] MEDICINE 230 [place] [address] Angelica Osborne MD [address] [place] [address] documented as of this encounter Visit Diagnoses Not on filedocumented in this encounter Additional Health Concerns Assessment Noted Time PHQ-9 Depression Total Score: 3 06/08/20 23 2:22 PM EDT documented as of this encounter Care Teams Affiliate Marketing Specialist Relationship Specialty Start Date End Date Angelica Osborne MD [address] [place] [address] PCP - General Family Medicine 10/11/18 Mao Mota PharmD [address] [place] [address] 63392 Pharmacist Internal Medicine 08/31/23 Armando De La Cruz FNP [address] [place] [address] Nurse Practitioner Family Medicine 08/31/23 documented as of this encounter
--- OUTSIDE RECORDS SUMMARY | 2025-06-14 15:58 | XMS_ITS | Encounter Summary ---
Author Organization [employer] Address 75 [facility] 7t [place] [address] Care Team Providers Care Driver Operator Name Role Phone Angelica Osborne MD Primary Care Provider Mao Mota PharmD Unavailable [phone] Armando De La Cruz TRAFFIC DIRECTOR Unavailable Unavailable Reason for Visit * Reason Onset Date Comments Nurse Triage 01/25/2024 Encounter Details Date Type Department Care Team (Late st Contact Info) Description 01/25/2024 Telephone [facility] MEDICINE 230 [place], [place] [phone] Angelica Osborne MD 230 [place], [place] [phone] Nurse Triage Social History Tobacco Use Types [...] . Pt is advised to come to [facility] open till 8pm today, 830am-800pm tomorrow. [...] Description 06/21/2025 11:30 AM EDT Office Visit [facility] MEDICINE 230 [place] [address] Angelica Osborne MD 230 [place] [address] documented as of this encounter Goals Goal [...] documented as of this encounter Care Teams Driver Operator Relationship Specialty Start Date End Date Angelica Osborne MD [address] [place] [address] PCP - General Family Medicine 10/11/18 Mao Mota, PharmD [address] [place] [address]274 Pharmacist Internal Medicine 08/31/23 Armando De La Cruz FNP [address] [place] [address] Nurse Practitioner Family Medicine 08/31/23 documented as of this encounter
--- OUTSIDE RECORDS SUMMARY | 2025-06-14 15:58 | XMS_ITS | Encounter Summary ---
Author Organization [employer] Address [address] [place] [address] 7t [place] [address] Care Team Providers Care Audio/Video Technician Name Role Phone Angelica Osborne MD Primary Care Provider [phone] Mao Mota PharmD Unavailable [phone] Armando De La Cruz SENIOR FIELD SERVICE ENGINEER Unavailable Unavailable Reason for Visit * Reason Onset Date Comments Appointment Request 02/01/2023 Encounter Details Date Type Department Care Team (Late st Contact Info) Description 02/01/2023 Telephone [facility] MEDICINE 230 [place], [place] [phone] Angelica Osborne MD 230 [place], [place] [phone] Appointment Request Social History Tobacco Use Types [...] from 01/04/23) ) Please contact pt at [phone] documented in this encounter Plan of Treatment Upcoming Encounters Date Type Department Care Team (Late st Contact Info) Description 06/21/2025 11:30 AM EDT Office Visit [facility] MEDICINE 230 [place] [address] Angelica Osborne MD 230 [place] [address] documented as of this encounter Visit Diagnoses Not on filedocumented in this encounter Additional Health Concerns Assessment Noted Time PHQ-9 Depression Total Score: 0 10/20/19 23 3:40 PM EST documented as of this encounter Care Teams Audio/Video Technician Relationship Specialty Start Date End Date Angelica Osborne MD 230 [place] [address] PCP - General Family Medicine 10/11/18 Mao Mota, MerD [address] [place] [address]78 Pharmacist Internal Medicine 08/31/23 Armando De La Cruz FNP [address] [place] [address] Nurse Practitioner Family Medicine 08/31/23 documented as of this encounter
--- OUTSIDE RECORDS SUMMARY | 2025-06-14 15:58 | XMS_ITS | Continuity of Care Document ---
Author Name [employer] Address [address] [place] [address] Organization Unknown Address [address] [place] [address] Medications No known medications Problems No known problems
--- OUTSIDE RECORDS SUMMARY | 2025-06-14 15:58 | XMS_ITS | Encounter Summary ---
Author Organization [employer] Address 75 [facility] 7t [place] [address] Care Team Providers Care Casting Room Helper Name Role Phone Angelica Osborne MD Primary Care Provider [phone] Mao Mota PharmD Unavailable [phone] Armando De La Cruz ACCOUNT ASSOCIATE Unavailable Unavailable Encounter Details Date Type Department Care Team (Late st Contact Info) Description 05/31/2025 Orders Only [facility] MEDICINE 230 [place], [place] [phone] Angelica Osborne MD 230 [place], [place] [phone] Social History Tobacco Use Types Packs/Day Years [...] 06/21/2025 11:30 AM EDT Office Visit [facility] MED[facility]INE 230 [place] [address] Angelica Osborne MD 230 [place] [address] documented as of this encounter Goals Goal Patient Goal Type Associated Problems Recent Progress Patient-Stated? Author Quit using tobacco (cigarettes, smokeless, etc) Tobacco Use No Mao Mota PharmD documented as of this encounter Visit Diagnoses Not on filedocumented in this encounter Additional Health Concerns Assessment Noted Time PHQ-9 Depression Total Score: 0 02/20/20 25 3:47 PM EDT documented as of this encounter Care Teams Casting Room Helper Relationship Specialty Start Date End Date Angelica Osborne MD [address] [place] [address] PCP - General Family Medicine 10/11/18 Mao Mota, MerD [address] [place] [address] 71049 Pharmacist Internal Medicine 08/31/23 Armando De La Cruz FNP 230 [place] [address] Nurse Practitioner Family Medicine 08/31/23 documented as of this encounter
--- OUTSIDE RECORDS SUMMARY | 2025-06-14 15:58 | XMS_ITS | Encounter Summary ---
Author Organization [employer] Address 75 [facility] 7t [place] [address] Care Team Providers Care Head Of Human Resources Name Role Phone Angelica Osborne MD Primary Care Provider [phone] Mao Mota PharmD Unavailable [phone] Armando De La Cruz PIANO MECHANIC Unavailable Unavailable Encounter Details Date Type Department Care Team (Late st Contact Info) Description 10/09/2024 Telephone [facility] MEDICINE 230 [place], [place] [phone] Angelica Osborne MD 230 [place], [place] [phone] Social History Tobacco Use Types Packs/Day Years [...] EDT Office Visit [facility] MED[facility]INE [address] [place] [address] Angelica Osborne MD [address] [place] [address] documented as of this encounter Goals Goal [...] documented as of this encounter Care Teams Head Of Human Resources Relationship Specialty Start Date End Date Angelica Osborne MD [address] [place] [address] PCP - General Family Medicine 10/11/18 Mao Mota, MerD [address] [place] [address]152 Pharmacist Internal Medicine 08/31/23 Armando De La Cruz FNP [address] [place] [address] Nurse Practitioner Family Medicine 08/31/23 documented as of this encounter
--- OUTSIDE RECORDS SUMMARY | 2025-06-14 15:58 | XMS_ITS | Encounter Summary ---
Author Organization [employer] Address [address] [facility] [address] 7t [place] [address] Care Team Providers Care Flipping Machine Operator Name Role Phone Angelica Osborne MD Primary Care Provider [phone] Mao Mota PharmD Unavailable [phone] Armando De La Cruz Unavailable Unavailable Reason for Visit * Reason Comments Med Refill Encounter Details Date Type Department Care Team (Late st Contact Info) Description 11/05/2023 Refill [facility] MED & PEDS [address] [place] [address] Armando De La Cruz FNP Major depression [...] 06/21/2025 11:30 AM EDT Office Visit [facility] MEDICINE [address] [place] [address] Angelica Osborne MD [address] [place] [address] documented as of this encounter Goals Goal [...] documented as of this encounter Care Teams Flipping Machine Operator Relationship Specialty Start Date End Date Angelica Osborne MD [address] [place] [address] PCP - General Family Medicine 10/11/18 Mao Mota, MerD [address] [place] [address] 68471 Pharmacist Internal Medicine 08/31/23 Armando De La Cruz FNP [address] [place] [address]00 Nurse Practitioner Family Medicine 08/31/23 documented as of this encounter
--- OUTSIDE RECORDS SUMMARY | 2025-06-14 15:58 | XMS_ITS | Encounter Summary ---
Author Organization [employer] Address 75 [facility] 7t [place] [address] Care Team Providers Care Flooring Professional Name Role Phone Angelica Osborne MD Primary Care Provider [phone] Mao Mota PharmD Unavailable [phone] Armando De La Cruz DIRECTOR OF SURGERY Unavailable Unavailable Reason for Visit * Reason Onset Date Comments Nurse Triage 12/13/2023 Encounter Details Date Type Department Care Team (Late st Contact Info) Description 12/13/2023 Telephone [facility] MEDICINE 230 [place], [place] [phone] Angelica Osborne MD 230 [place], [place] [phone] Nurse Triage Social History Tobacco Use Types [...] ineffective. Pt is offered to come to [facility] today but, declines. Pt is unable [...] accepted this outcome Please contact pt at [phone] documented in this encounter Plan of Treatment Upcoming Encounters Date Type Department Care Team (Late st Contact Info) Description 06/21/2025 11:30 AM EDT Office Visit [facility] MEDICINE 230 [place] [address] Angelica Osborne MD 230 [place] [address] documented as of this encounter Goals Goal [...] documented as of this encounter Care Teams Flooring Professional Relationship Specialty Start Date End Date Angelica Osborne MD [address] [place] [address] PCP - General Family Medicine 10/11/18 Mao Mota, MerD [address] [place] [address]797 Pharmacist Internal Medicine 08/31/23 Armando De La Cruz FNP [address] [place] [address]81 Nurse Practitioner Family Medicine 08/31/23 documented as of this encounter
--- OUTSIDE RECORDS SUMMARY | 2025-06-14 15:58 | XMS_ITS | Encounter Summary ---
Author Organization [employer] Address 75 [facility] 7t [place] [address] Care Team Providers Care Gum Maker Name Role Phone nAgelica Osborne MD Primary Care Provider [phone] Mao Mota PharmD Unavailable [phone] Armando De La Cruz SOLDERING MACHINE OPERATOR Unavailable Unavailable Reason for Visit * Reason Comments Pre-visit Planning Pre-visit planning - LVM Encounter Details Date Type Department Care Team (Late st Contact Info) Description 06/13/2025 Patient Outreach [facility] MEDICINE 230 [place], [place] [phone] Angelica Osborne MD 230 [place], [place] [phone] Pre-visit Planning (Pre-visit planning - LVM ) Social History Tobacco Use Types Packs/Day Years [...] AM EDT documented as of this encounter Progress Notes * Aurelia Zarate - 06/13/2025 3:54 PM EDT CHERRIE Mendez placed outbound call to patient to complete pre-visit planning. No answer at this time. Patient name and were not confirmed. CC left voicemail requesting return call. Direct contact information provided. documented in this encounter Plan of Treatment Upcoming Encounters Date Type Department Care Team (Late st Contact Info) Description 06/21/2025 11:30 AM EDT Office Visit [facility] MEDICINE 230 [place] [address] Angelica Osborne MD 230 [place] [address] documented as of this encounter Goals Goal [...] documented as of this encounter Care Teams Gum Maker Relationship Specialty Start Date End Date Angelica Osborne MD [address] [place] [address] PCP - General Family Medicine 10/11/18 Mao Mota, Margaux [address] [place] [address] 70975 Pharmacist Internal Medicine 08/31/23 Armando De La Cruz FNP [address] [place] [address] 72398 Nurse Practitioner Family Medicine 08/31/23 documented as of this encounter
--- OUTSIDE RECORDS SUMMARY | 2025-06-14 15:58 | XMS_ITS | Encounter Summary ---
Author Organization [facility] Address [address] [place] [address] 7t [place] [address] Care Team Providers Care Director Of Institutional Giving Name Role Phone Angelica Osborne MD Primary Care Provider [phone] Mao Mota PharmD Unavailable [phone] Armando De La Cruz RETAIL MANAGER Unavailable Unavailable Encounter Details Date Type Department Care Team (Late st Contact Info) Description 10/07/2022 Orders Only [facility] 230 [place], [place] [phone] [place]a Villa, RN 230 [place], [place] [phone] Social History Tobacco Use Types Packs/Day Years [...] Description 06/21/2025 11:30 AM EDT Office Visit [facility] MEDICINE [address] [place] [address] [phone] Angeliac Osobrne MD 230 [place], [place] [phone] documented as of this encounter Visit Diagnoses Not on filedocumented in this encounter Care Teams Director Of Institutional Giving Relationship Specialty Start Date End Date Angelica Osborne MD [address] [place] [address] PCP - General Family Medicine 10/11/18 Mao Mota, MerD [address] [place] [address] 98050 Pharmacist Internal Medicine 08/31/23 Armando De La Cruz FNP [address] [place] [address]13 Nurse Practitioner Family Medicine 08/31/23 documented as of this encounter
--- OUTSIDE RECORDS SUMMARY | 2025-06-14 15:58 | XMS_ITS | Encounter Summary ---
Author Organization [facility] Address [address] [place] [address] 7t [place] [address] Care Team Providers Care Digital Marketing Consultant Name Role Phone Angelica Osborne MD Primary Care Provider [phone] Mao Mota PharmD Unavailable [phone] Armando De La Cruz RESIDENTIAL REAL ESTATE APPRAISER Unavailable Unavailable Encounter Details Date Type Department Care Team (Late st Contact Info) Description 03/22/2023 Orders Only [facility] MEDICINE [address] [place] [address] [phone] Odalys Frank LPN Social History Tobacco Use Types [...] EDT Office Visit [facility] MEDICINE [address] [place] [address] [phone] Angelica Osborne MD [address] [place] [address] [phone] documented as of this encounter Visit Diagnoses Not on filedocumented in this encounter Additional Health Concerns Assessment Noted Time PHQ-9 Depression Total Score: 2 02/16/20 23 3:26 PM EDT documented as of this encounter Care Teams Digital Marketing Consultant Relationship Specialty Start Date End Date Angelica Osborne MD [address] [place] [address] PCP - General Family Medicine 10/11/18 Mao Mota, Margaux [address] [place] [address] 91231 Pharmacist Internal Medicine 08/31/23 Armando De La Cruz FNP [address] [place] [address] 00568 Nurse Practitioner Family Medicine 08/31/23 documented as of this encounter
--- OUTSIDE RECORDS SUMMARY | 2025-06-14 15:58 | XMS_ITS | Encounter Summary ---
Author Organization [employer] Address [address] [place] [address] 7t [place] [address] Care Team Providers Care Financial Agent Name Role Phone Angelica Osborne MD Primary Care Provider [phone] Mao Mota PharmD Unavailable Armando De La Cruz AIRLINE CAPTAIN Unavailable Unavailable Reason for Visit * Reason Onset Date Comments Med Refill Appointment 04/07/2023 LVM-Re: her appt for today as [id number] @2pm. Encounter Details Date Type Department Care Team (Late Contact Info) Description 04/07/[address] [facility] MEDICINE 230 [place], [place] [phone] Angelica Osborne MD 230 [place], [place] [phone] Social History Tobacco Use Types Packs/Day Years [...] Department Care Team (Late Contact Info) Description 06/21/2025 11:30 AM EDT Office Visit [facility] MEDICINE 230 [place] [address] Angelica Osborne MD 230 [place] [address] documented as of this encounter Visit Diagnoses Not on filedocumented in this encounter Additional Health Concerns Assessment Noted Time PHQ-9 Depression Total Score: 2 02/16/20 23 3:26 PM EDT documented as of this encounter Care Teams Financial Agent Relationship Specialty Start Date End Date Angelica Osborne MD [address] [place] [address] PCP - General Family Medicine 10/11/18 Mao Mota, MerD [address] [place] [address] 54095 Pharmacist Internal Medicine 08/31/23 Armando De La Cruz FNP [address] [place] [address] [phone] Nurse Practitioner Family Medicine 08/31/23 documented as of this encounter
== END 2025-06-13 14:47 | disposition home or self-care (01) ==
LOC: HO.HOSX 14:46
PROVIDERS: Visit Provider Orthopaedic Surgery
DX: Z13.89 Encounter for screening for other disorder (principal)

== ENCOUNTER 2025-06-26 14:36 | Outpatient (REF) | payer MEDICARE, SELFPAY ==
--- OUTSIDE RECORDS SUMMARY | 2025-06-21 11:30 | XMS_ITS | Encounter Summary ---
Author Organization [employer] Address [address] [place] [address] [address] [place] [address] Care Team Providers Care Edge Stripper Name Role Phone Angelica Osborne MD Primary Care Provider [phone] Mao Mota PharmD Unavailable [phone] Armando De La Cruz [employer]LECTRONICS SYSTEM MECHANIC Unavailable Unavailable Reason for Referral * Imaging (Routine) - Authorized Specialty Diagnoses / Procedures Referred By Jovani t Referred To Contact Radiology Diagnoses Breast cancer screening by mammogram Procedures BI Mammogram Screening Tomosynthesis Bilateral Angelica Osborne MD [address] [place] [address] Phone: tel: fax: [address] Phone: tel: fax: Referral ID Status Reason Start Date Expiration Date V isits Requested Visits Authorized [id number] Authorized 06/22/2025 06/22/2026 1 1 * Imaging (Routine) - Authorized Specialty Diagnoses / Procedures Referred By Contac t Referred To Contact Cardiology Diagnoses Bilateral lower extremity edema Procedures Transthoracic Echo (TTE) Complete Angelica Osborne MD [address] [place] [address] Phone: tel: fax: [address] Phone: tel: fax: Referral ID Status Reason Start Date Expiration Date Visits Requested Visits Authorized [id number] Authorized Perform Procedure 06/22/2025 06/22/2026 1 1 Encounter Details Date Type Department Care Team (Late st Contact Info) Description 06/21/2025 11:30 AM EDT Office Visit [facility] [address] [place] [address] Angelica Osborne MD [address] [place] [address] Essential hypertension (Primary Dx); Dyslipidemia; Type 2 diabetes mellitus with hyperglycemia, without long-term current use of insulin (CMS/HCC); Acquired hypothyroidism; Routine screening for STI (sexually transmitted infection); Right forearm pain; Acute left ankle pain; Acute bilateral knee pain; Acute midline low back pain without sciatica; Acute coccygeal pain; Mood disorder (CMS/HCC); Major depression with psychotic features (CMS/HCC); Dysthymia; Anxiety; Fibromyalgia; Chronic left shoulder pain; Tobacco dependence; Smoking greater than 20 pack years; Bilateral lower extremity edema; Breast cancer screening by mammogram Social History Tobacco Use Types Packs/Day Years [...] shut off services in your home? No 06/21/2025 Depression Answer Date Recorded Patient Health Questionnaire-2 [...] Sign Reading Time Taken Comments Blood Pressure - - Pulse 78 06/21/2025 11:31 AM EDT Temperature 36.2 C (97.1 F) 06/21/2025 11:31 AM EDT Respiratory Rate 20 06/21/2025 11:31 AM EDT Oxygen Saturation 98% 06/21/2025 11:31 AM EDT Inhaled Oxygen Concentration - - Weight 82 kg (180 lb 12.8 oz) 06/21/2025 11:31 A M EDT Height - - Body Mass Index 32.03 05/29/2025 3:14 PM EDT documented in this encounter Progress Notes * Angelica Osborne MD - 06/21/2025 11:30 AM EDT Subjective Laurie Reis is a 64 y.o. female who has hypertension, diabetes mellitus type 2, dyslipidemia, hypothyroidism, mood disorder, and tobacco use, and patient presents for follow-up of her chronic conditions. Background: Problem List[1] Our last encounter was 05/29/2025. A1c 5.8%. Agreed not to increase tirzepatide the dose. Increase pregabalin to 150 mg. Patient became tearful when she was talking about her childhood. Interval history: Patient missed appointment next day to continue our discussion on her overdue screening tests, including mammography, colon cancer screening, and lung cancer screening. PT-1 arrangement was requested. Today: Patient states she recently injured herself while trying to remove bere root from the ground. When the root to came out, she flew in the air and landed on her wrist and tailbone. Since then, she is having right forearm/wrist pain and swelling, bilateral knee pain, left ankle pain and swelling, and coccyx pain. She is right-handed. Patient has upcoming appointment with orthopedist on July 17 for left shoulder. Patient states she missed appointment for echocardiogram, and requests it to be rescheduled. Patient agrees to have chest CT, and will work on smoking cessation. Patient agreed to have mammography. Patient is aware that she has a large breast. Patient agreed to have a colon cancer screening eventually. She received Cologuard, but is unable to understand the instruction. Patient will bring the package at the next visit. Review of Systems Constitutional: Negative for activity change, appetite change and fever. Respiratory: Negative for shortness of breath. Cardiovascular: Negative for chest pain. Objective Vitals: 06/21/25 1131 Pulse: 78 Resp: 20 Temp: 97.1 ??F (36.2 ??C) TempSrc: Temporal SpO2: 98% Weight: 180 lb 12.8 oz (82 kg) Physical Exam Constitutional: General: She is not in acute distress. Appearance: Normal appearance. She is not ill-appearing. HENT: Head: Normocephalic and atraumatic. Mouth/Throat: Mouth: Mucous membranes are moist. Eyes: Extraocular Movements: Extraocular movements intact. Pupils: Pupils are equal, round, and reactive to light. Cardiovascular: Rate and Rhythm: Normal rate and regular rhythm. Heart sounds: No murmur heard. Pulmonary: Effort: Pulmonary effort is normal. No respiratory distress. Breath sounds: Normal breath sounds. No wheezing or rhonchi. Musculoskeletal: Comments: No obvious deformity or skin discoloration of right wrist and forearm. Slightly swollen. Tender. Normal range of motion, but pain with supination and pronation. No obvious deformity or skin discoloration over the left ankle. Slightly swollen. No increased warmth. Slightly tender. Patient is able to bear weight. Ambulating with a walker. Skin: General: Skin is warm. Neurological: Mental Status: She is alert. Mental status is at baseline. Psychiatric: Comments: At the baseline. Results: Lab Results Component Value Date NA 139 12/29/2024 K 3.9 12/29/2024 CL 107 12/29/2024 CO2 20 (L) 12/29/2024 BUN 16 12/29/2024 CREATININE 0.81 12/29/2024 CRCLCALCPH 80.5 12/29/2024 EGFR >60 12/29/2024 GLUCOSE 78 12/29/2024 TOTALBILIRUB 0.4 11/06/2024 AST 23 11/06/2024 ALT 30 11/06/2024 TOTPROTEIN 7.8 11/06/2024 ALB 4.4 11/06/2024 ALP 94 11/06/2024 Lab Results Component Value Date TRIG 172 (H) 11/06/2024 CHOL 138 11/06/2024 LDLCHOLCAL 68 11/06/2024 HDL 36 (L) 11/06/2024 Lab Results Component Value Date HGBA1C 5.8 (A) 05/29/2025 MICROALBUR 65.0 11/06/2024 CREATUR 106.99 11/06/2024 MICROALBCREU 60.7 (H) 11/06/2024 Lab Results Component Value Date TSH 0.66 11/06/2024 Assessment/Plan Problem List Items Addressed This Visit Major depression with psychotic features (CMS/HCC) - Previous behavioral health service provider: [facility] [...] which caused significant weight gain and diabetes Acquired hypothyroidism - current replacement: levothyroxine 50 mcg daily - 11/06/2024 TSH 0.266 mIU/L -Continue current treatment plan Relevant Medications meloxicam (Mobic) 7.5 MG tablet Other Relevant Orders TSH with Reflex to Free T4 Anxiety - MDD with anxiety Dysthymia Dyslipidemia - lipid profile on 11/06/24 TC 138; TG 172; HDL 36; LDL 68 - current medication: Rosuvastatin 40 mg at bedtime - continue working on lifestyle modification Relevant Orders Lipid Panel with Reflex to Direct LDL Essential hypertension - Primary -Goal BP <130/80 per ACC/AHA. -BP at goal today -Discussed about the importance of lifestyle modification and medication adherence. -Medication: lisinopril 10 mg daily -Continue checking home BP -Treatment Hx: Discontinued HCTZ in Jun 2017 due to declined renal function. Improved renal function after its discontinuation and judicious use of NSAIDs Relevant Orders Albumin, Random Urine W/Creatinine Comprehensive Metabolic Panel Shoulder pain - chronic - history of left shoulder surgery for left shoulder rotator cuff impingement in December 2012 - Upcoming appointment with orthopedist Relevant Medications meloxicam (Mobic) 7.5 MG tablet Tobacco dependence - Smoking 1 to 3 ppd for the last 47 years - Patient had CDTM with our pharmacist for smoking cessation in 2022 - Tried to quit smoking 2020, lasted 4 days - Has been prescribed nicotine replacement, but has not tried - Current stage of change: Precontemplation - Continue discussing about smoking cessation and assess her stage of change - Pt agreed lung CA screening Fibromyalgia - Pain in shoulders, back, neck, thighs, hips, and legs - MITA weakly positive 1:40, negative RF, normal ESR and CRP - Continue Lyrica (pregabalin) 150 mg BID. Discussed about judicious use - continue baclofen 20 mg tid prn - Treatment Hx: Gabapentin was changed to pregabalin in 2022. Muscle relaxant was changed from cyclobenzaprine to baclofen in 2022. - encouraged to stay physically active - acupuncture was recommended Relevant Medications meloxicam (Mobic) 7.5 MG tablet Smoking greater than 20 pack years - Smoking > 20 pack years - Referred to lung cancer screening chest CT. Patient declined previously, and now agreed. Type 2 diabetes mellitus ([facility]/HCC) - A1C 5.8% on 05/29/2025. Improved from 6.1% on 02/19/25 - Dx February 2023, A1C 7.9% on 03/09/23 and RBG > 200 - Current Glucose monitoring system - Glucometer: Cartilixyle. - Continue metformin ER 1000 mg bid [...] vaccine. Pt does not want COVID vaccine Relevant Orders Vitamin B12 (Cobalamin) and Folate Panel, Serum Albumin, Random Urine W/Creatinine Bilateral lower extremity edema Chronic TTE and Bl LE venous US were ordered by walk-in clinic provider Currently on furosemide 20 mg daily; history of hyponatremia. Monitor electrolytes closely. Consider venous study for venous insufficiency Elevated legs, reduce sodium consumption, compression stocking Reschedule echo Relevant Orders Transthoracic Echo (TTE) Complete Mood disorder (CMS/HCC) - current Dx: MDD with psychotic features - likely PTSD. Possible ADHD since childhood, untreated. Possible bipolar. ?schizophrenia. - high LARA - polypharmacy Other Visit Diagnoses Routine screening for STI (sexually transmitted infection) Relevant Orders HIV-1/2 Antigen and Antibodies, Fourth Generation, with Reflexes Hepatitis C Antibody with Reflex to HCV, RNA, Quantitative, Real-Time PCR Hepatitis B surface antigen, EIA Hepatitis B Core Antibody, Total Hepatitis B Surface Antibody, Qualitative Right forearm pain - judicious use of COX2 inhibitor - rest, ice, LARA bandage, activity modification Relevant Medications meloxicam (Mobic) 7.5 MG tablet Other Relevant Orders XR Wrist 3+ Views Right Acute left ankle pain - judicious use of COX2 inhibitor - rest, ice, LARA bandage, elevate leg Relevant Medications meloxicam (Mobic) 7.5 MG tablet Other Relevant Orders XR Ankle 3+ Views Left Acute bilateral knee pain Relevant Medications meloxicam (Mobic) 7.5 MG tablet Other Relevant Orders XR Knee 1-2 Views Bilateral Acute midline low back pain without sciatica Relevant Medications meloxicam (Mobic) 7.5 MG tablet Acute coccygeal pain Relevant Medications meloxicam (Mobic) 7.5 MG tablet Other Relevant Orders XR Sacrum Coccyx 2+ Views Breast cancer screening by mammogram Relevant Medications meloxicam (Mobic) 7.5 MG tablet Other Relevant Orders BI Mammogram Screening Tomosynthesis Bilateral Allergies[2] Current Outpatient Medications Medication Instructions Alcohol Swabs (Alcohol Prep) pads USE DAILY DIRECTED Aspirin Low Dose 81 mg, Oral, Every morning Blood Glucose Monitoring Suppl (FreeStyle Lite) w/Device kit 1 kit, Does not apply, Daily budesonide-formoterol (Symbicort) 160-4.5 MCG/ACT inhaler 2 puffs, Inhalation, 2 times daily RT, May take additional 2 puffs every 4 hours as needed for difficulty breathing. Maximum 12 puffs / day Calcium Carb-Cholecalciferol 600-10 MG-MCG tablet TAKE 1 TABLET BY MOUTH TWICE DAILY IN THE MORNINGAND IN THE EVENING cetirizine (ZYRTEC) 10 mg, Oral, Every morning chlorhexidine (Peridex) 0.12 % solution Swish 15 mL morning and night for 1 minute. Spit, do not swallow. Do not eat or drink for 30 minutes following use. clonazePAM (KlonoPIN) 1 MG tablet TAKE 1 TABLET BY MOUTH TWICE DAILY IN THE MORNING AND AT BEDTIME Continuous Blood Gluc Video Production Coordinator (Dexcom G6 public relations intern) device Use as directed Continuous Blood Gluc Sensor (Dexcom G6 Sensor) misc Use as directed Continuous Blood Gluc Transmit (Dexcom G6 transmitter) misc 1 each, Other, Continuous docusate sodium (Colace) 100 MG capsule TAKE 1 CAPSULE BY MOUTH TWICE DAILY IN THE MORNING AND IN THE EVENING doxepin (SINEQUAN) 50 mg, Oral, Nightly Eyelid Cleansers (OcuSoft Lid Scrub Original) pads Wipe both upper and lower eyelids once a day with one cloth. famotidine (PEPCID) 20 mg, Oral, Daily fluticasone (Flonase) 50 MCG/ACT nasal spray INHALE 1 SPRAY IN EACH NOSTRIL TWICE DAILY IN THE MORNING AND IN THE EVENING furosemide (LASIX) 20 mg, Oral, Daily glucose blood (Vimodiuch Verio) test strip USE DIRECTED TO TEST BLOOD SUGAR EVERY MORNING BEFORE BREAKFAST ipratropium (Atrovent) 0.03 % nasal spray 2 sprays, Each Nostril, Every 12 hours Lancets (NginxTouch Delica Plus Ioidbc22F) mis TEST BLOOD SUGAR EVERY MORNING DIRECTED levothyroxine (Synthroid, Levoxyl) 50 MCG tablet TAKE 1 TABLET BY MOUTH EVERY MORNING lisinopril 10 mg, Oral, Every morning melatonin 10 mg, Oral, Nightly PRN meloxicam (MOBIC) 7.5 mg, Oral, Every 12 hours PRN metFORMIN XR (Glucophage-XR) 500 MG 24 hr tablet TAKE 2 TABLETS BY MOUTH BEFORE BREAKFAST AND EVENING MEAL DO NOT BREAK, CRUSH, DISSOLVE OR CHEW montelukast (Singulair) 10 MG tablet TAKE 1 TABLET BY MOUTH EVERY EVENING Mounjaro 2.5 mg, Subcutaneous, Weekly olopatadine (Patanol) 0.1 % ophthalmic solution 1 drop, Both Eyes, 2 times daily pantoprazole (ProtoNix) 20 MG EC tablet TAKE 1 TABLET BY MOUTH TWICE DAILY IN THE MORNING AND IN THE EVENING perphenazine 4 MG tablet TAKE 1 TABLET BY MOUTH TWICE DAILY prazosin (MINIPRESS) 1 mg, Oral, Nightly, For bad dreams. pregabalin (LYRICA) 150 mg, Oral, 2 times daily rOPINIRole (Requip) 1 MG tablet TAKE 1 TABLET BY MOUTH AT BEDTIME rosuvastatin (Crestor) 40 MG tablet TAKE 1 TABLET BY MOUTH AT BEDTIME sertraline (ZOLOFT) 100 mg, Oral, Every morning SUMAtriptan (Imitrex) 50 MG tablet TAKE 1 TABLET ONCE WITH FLUIDS EARLY POSSIBLE AFTER THE ONSET OF A MIGRAINE ATTACK, MAY REPEAT AFTER 2 HOURS IF HEADACHE RETURNS. DO NOT EXCEED 4 TABS IN A DAY. tiZANidine (Zanaflex) 4 MG tablet Take 1 tablet by mouth twice a day as needed for muscle spasm Varenicline Tartrate, Starter, (Chantix Starting Month ) 0.5 MG X 11 & 1 MG X 42 tablet therapy pack 1 tablet, Oral, 2 times daily Ventolin HFA 108 (90 Base) MCG/ACT inhaler INHALE 2 PUFFS BY MOUTH EVERY 4 HOURS NEEDED FOR WHEEZING OR SHORTNESS OF BREATH Follow-up: 2 mo or sooner if any problem arises. [1] Patient Active Problem List Diagnosis Major depression with psychotic features (CMS/HCC) Acquired hypothyroidism Allergic rhinitis Anxiety Asthma Constipation Benign paroxysmal positional vertigo Dysthymia Chronic sinusitis Dyslipidemia Essential hypertension Glaucoma Headache Insomnia Lumbar back pain with radiculopathy affecting lower extremity Migraine Shoulder pain Obesity Tobacco dependence Restless leg syndrome Fibromyalgia Smoking greater than 20 pack years Urinary incontinence Seasonal allergic rhinitis Type 2 diabetes mellitus (CMS/HCC) Adverse reaction to COVID-19 vaccine Transaminitis Personal history of nicotine dependence Right knee pain Bilateral lower extremity edema Swollen ankles Post-nasal drip Ill-fitting dentures Scratches Mood disorder (CMS/HCC) [2] No Known Allergies documented in this encounter Miscellaneous Notes * Assessment & Plan Note - Angelica Osborne MD - 06/22/2025 1:17 PM EDTAssociated Problem(s): Smoking greater than 20 pack years - Smoking > 20 pack years - Referred to lung cancer screening chest CT. Patient declined previously, and now agreed. * Assessment & Plan Note - Angelica Osborne MD - 06/22/2025 1:16 PM EDTAssociated Problem(s): Tobacco dependence - Smoking 1 to 3 ppd for the last 47 years - Patient had CDTM with our pharmacist for smoking cessation in 2022 - Tried to quit smoking 2020, lasted 4 days - Has been prescribed nicotine replacement, but has not tried - Current stage of change: Precontemplation - Continue discussing about smoking cessation and assess her stage of change - Pt agreed lung CA screening * Assessment & Plan Note - Angelica Osborne MD - 06/22/2025 1:16 PM EDTAssociated Problem(s): Bilateral lower extremity edema Chronic TTE and Bl LE venous US were ordered by walk-in clinic provider Currently on furosemide 20 mg daily; history of hyponatremia. Monitor electrolytes closely. Consider venous study for venous insufficiency Elevated legs, reduce sodium consumption, compression stocking Reschedule echo * Assessment & Plan Note - Angelica Osborne MD - 06/22/2025 1:15 PM EDTAssociated Problem(s): Shoulder pain - chronic - history of left shoulder surgery for left shoulder rotator cuff impingement in December 2012 - Upcoming appointment with orthopedist * Assessment & Plan Note - Angelica Osborne MD - 06/22/2025 1:15 PM EDTAssociated Problem(s): Fibromyalgia - Pain in shoulders, back, neck, thighs, hips, and legs - MITA weakly positive 1:40, negative RF, normal ESR and CRP - Continue Lyrica (pregabalin) 150 mg BID. Discussed about judicious use - continue baclofen 20 mg tid prn - Treatment Hx: Gabapentin was changed to pregabalin in 2022. Muscle relaxant was changed from cyclobenzaprine to baclofen in 2022. - encouraged to stay physically active - acupuncture was recommended * Assessment & Plan Note - Angelica Osborne MD - 06/22/2025 1:14 PM EDTAssociated Problem(s): Anxiety - MDD with anxiety * Assessment & Plan Note - Angelica Osborne MD - 06/22/2025 1:14 PM EDTAssociated Problem(s): Major depression with psychotic features (CMS/HCC) - Previous behavioral health service provider: [facility] [...] which caused significant weight gain and diabetes * Assessment & Plan Note - Angelica Osborne MD - 06/22/2025 1:13 PM EDTAssociated Problem(s): Mood disorder ([facility]) - current Dx: MDD with psychotic features - likely PTSD. Possible ADHD since childhood, untreated. Possible bipolar. ?schizophrenia. - high LARA - polypharmacy * Assessment & Plan Note - Angelica Osborne MD - 06/22/2025 1:13 PM EDTAssociated Problem(s): Acquired hypothyroidism - current replacement: levothyroxine 50 mcg daily - 11/06/2024 TSH 0.266 mIU/L -Continue current treatment plan * Assessment & Plan Note - Angelica Osborne MD - 06/21/2025 5:54 AM EDTAssociated Problem(s): Type 2 diabetes mellitus ([facility]) - A1C 5.8% on 05/29/2025. Improved from 6.1% on 02/19/25 - Dx February 2023, A1C 7.9% on 03/09/23 and RBG > 200 - Current Glucose monitoring system - Glucometer: Cartilixyle. - Continue metformin ER 1000 mg bid [...] vaccine. Pt does not want COVID vaccine * Assessment & Plan Note - Angelica Osborne MD - 06/21/2025 5:54 AM EDTAssociated Problem(s): Dyslipidemia - lipid profile on 11/06/24 TC 138; TG 172; HDL 36; LDL 68 - current medication: Rosuvastatin 40 mg at bedtime - continue working on lifestyle modification * Assessment & Plan Note - Angelica Osborne MD - 06/21/2025 5:54 AM EDTAssociated Problem(s): Essential hypertension -Goal BP <130/80 per ACC/AHA. -BP at goal today -Discussed about the importance of lifestyle modification and medication adherence. -Medication: lisinopril 10 mg daily -Continue checking home BP -Treatment Hx: Discontinued HCTZ in Jun 2017 due to declined renal function. Improved renal function after its discontinuation and judicious use of NSAIDs documented in this encounter Plan of Treatment Upcoming Encounters Date Type Department Care Team (Late st Contact Info) Description 07/02/2025 3:30 PM EDT Office Visit [facility] [address] [place] [address] Yves Barron DDS [address] [place] [address] 08/21/2025 3:30 PM EST Office Visit [facility] [address] [place] [address] Angelica Osborne MD [address] [place] [address] Pending Results Name Type Priority Associated Diagnoses Date /Time Lipid Panel with Reflex to Direct LDL Lab Routine Dyslipidemia 06/26/2025 2:50 PM EDT Comprehensive Metabolic Panel Lab Routine Essential hypertension 06/26/2025 2:50 PM EDT TSH with Reflex to Free T4 Lab Routine Acquired hypothyroidism 06/26/2025 2:50 PM EDT Scheduled Orders Name Type Priority Associated Diagnoses Orde r Schedule Vitamin B12 (Cobalamin) and Folate Panel, Serum Lab Routine Type 2 diabetes mellitus with hyperglycemia, without long-term current use of insulin (CMS/HCC) Expected: 06/21/2025 (Approximate), Expires: 06/21/2026 HIV-1/2 Antigen and Antibodies, Fourth Generation, with Reflexes Lab Routine Routine screening for STI (sexually transmitted infection) Expected: 06/21/2025 (Approximate), Expires: 06/21/2026 Hepatitis C Antibody with Reflex to HCV, RNA, Quantitative, Real-Time PCR Lab Routine Routine screening for STI (sexually transmitted infection) Expected: 06/21/2025 (Approximate), Expires: 06/21/2026 Hepatitis B surface antigen, EIA Lab Routine Routine screening for STI (sexually transmitted infection) Expected: 06/21/2025 (Approximate), Expires: 06/21/2026 Hepatitis B Core Antibody, Total Lab Routine Routine screening for STI (sexually transmitted infection) Expected: 06/21/2025 (Approximate), Expires: 06/21/2026 Hepatitis B Surface Antibody, Qualitative Lab Routine Routine screening for STI (sexually transmitted infection) Expected: 06/21/2025 (Approximate), Expires: 06/21/2026 Transthoracic Echo (TTE) Complete Echocardiography Routine Bilateral lower extremity edema Expected: 06/22/2025 (Approximate), Expires: 06/22/2027 BI Mammogram Screening Tomosynthesis Bilateral Imaging Routine Breast cancer screening by mammogram Expected: 06/22/2025, Expires: 08/22/2026 documented as of this encounter Goals Goal Patient Goal Type Associated Problems Recent Progress Patient-Stated? Author Quit using tobacco (cigarettes, smokeless, etc) Tobacco Use Mao Sims, MerD documented as of this encounter Procedures Procedure Name Priority Date/Time Associated Diagnosis Comments XR WRIST 3+ VIEWS RIGHT Routine 06/26/2025 3:57 PM EDT Right forearm pain XR ANKLE 3+ VIEWS LEFT Routine 06/26/2025 3:44 PM EDT Acute left ankle pain XR KNEE 4+ VIEWS BILATERAL Routine 06/26/2025 3:42 PM EDT XR SACRUM COCCYX 2+ VIEWS Routine 06/26/2025 3:35 PM EDT Acute coccygeal pain TSH W/REFLEX TO FT4 Routine 06/26/2025 2 :50 PM EDT Acquired hypothyroidism LIPID PANEL WITH REFLEX TO DIRECT LDL Routine 06/26/2025 2:50 PM EDT Dyslipidemia ALBUMIN, RANDOM URINE W/CREATININE Routine 06/26/2025 2:50 PM EDT Essential hypertension Type 2 diabetes mellitus with hyperglycemia, without long-term current use of insulin ([facility]) COMPREHENSIVE METABOLIC PANEL Routine 06/26/2025 2:50 PM EDT Essential hypertension documented in this encounter Results * XR Wrist 3+ Views Right (06/26/2025 3:57 PM EDT) Anatomical Region Laterality Modality Upper Extremities, Wrist Right Radiogr aphic Imaging 06/26/2025 3:57 PM EDT Narrative 06/26/2025 4:22 PM EDT [address] [address] XRay Report Signed Patient: Laurie Reis MR#: [id number] : 1960 Acct:[id number] Age/Sex: 64 / F ADM Date: 06/26/25 Loc: .[facility] Attending Dr: Angelica Osborne MD Ordering Physician: Angelica Osborne MD Date of Service: 06/26/25 Procedure(s): XR wrist RT min 3V Accession Number(s): [id number] cc: Angelica Osborne MD Reason for Exam: right arm contusion and sprain EXAMINATION: XR WRIST, RIGHT CLINICAL INFORMATION: right arm contusion and sprain COMPARISON: None available. TECHNIQUE: PA, lateral, oblique, and scaphoid views of the right wrist. FINDINGS: Linear metallic density posterior to the fifth metacarpal head is probably a foreign body embedded in the soft tissues. Metal rings obscure the base of the third and fourth metacarpals. Small marginal ossified is are evident involving the first CC, MCP and IP joints. No fractures are evident. XR/XR wrist RT min 3V IMPRESSION: No acute abnormality. Mild osteoarthritis involving the first ray. Metallic foreign body adjacent the fifth metacarpal head. Electronically signed by: Donald Haley MD 06/26/2025 04:19 PM EDT Dictated By: Donald Haley MD Signed By: <Electronically signed by Donald Haley MD in OV> 06/26/251618 DD/ 56 TD/TT: 06/26/251556 Sand Slinger: Procedure Note Aleshater, Image - 06/26/[address] [address] XRay Report Signed Patient: Laurie Reis MMR#: [id number] : 1960cct:[id number] Age/Sex: 64 / FADM Date: 06/26/25 Loc: HO.HHCX Attending Dr: Angelica Osborne MD Ordering Physician: Angelica Osborne MD Date of Service: 06/26/25 Procedure(s): XR wrist RT min 3V Accession Number(s): [id number] cc: Angelica Osborne MD Reason for Exam: right arm contusion and sprain EXAMINATION: XR WRIST, RIGHT CLINICAL INFORMATION: right arm contusion and sprain COMPARISON: None available. TECHNIQUE: PA, lateral, oblique, and scaphoid views of the right wrist. FINDINGS: Linear metallic density posterior to the fifth metacarpal head is probably a foreign body embedded in the soft tissues. Metal rings obscure the base of the third and fourth metacarpals. Small marginal ossified is are evident involving the first CC, MCP and IP joints. No fractures are evident. XR/XR wrist RT min 3V IMPRESSION: No acute abnormality. Mild osteoarthritis involving the first ray. Metallic foreign body adjacent the fifth metacarpal head. Electronically signed by: Donald Haley MD 06/26/2025 04:19 PM EDT Dictated By: Donald Haley MD Signed By: <Electronically signed by Donald Haley MD in OV> 06/26/251618 DD/ 56 TD/TT: 06/26/251556 Sand Slinger: Angelica Osborne MD IMG XR PROCEDURES Edited Result - Final * XR Ankle 3+ Views Left (06/26/2025 3:44 PM EDT) Anatomical Region Laterality Modality Lower Extremities, Ankle Left Radiogr aphic Imaging 06/26/2025 3:44 PM EDT Narrative 06/26/2025 4:17 PM EDT [address] [address] XRay Report Signed Patient: Laurie Reis MR#: [id number] : 1960 Acct:[id number] Age/Sex: 64 / F ADM Date: 06/26/25 Loc: .HHCX Attending Dr: Angelica Osborne MD Ordering Physician: Angelica Osborne MD Date of Service: 06/26/25 Procedure(s): XR ankle LT min 3V Accession Number(s): [id number] cc: Angelica Osborne MD Reason for Exam: left ankle pain, swelling, pain with weight-bearing, contusion EXAMINATION: XR ANKLE, LEFT CLINICAL INFORMATION: left ankle pain, swelling, pain with weight-bearing, contusion COMPARISON: None available. TECHNIQUE: AP, lateral, and mortise views of the left ankle. FINDINGS: No fracture, dislocation, or suspicious bone lesions. Ankle mortise is intact. The talar dome is normal. The subtalar joints and calcaneus appear normal. There is no ankle joint effusion. There is no soft tissue abnormality. XR/XR ankle LT min 3V IMPRESSION: Normal left ankle. Electronically signed by: Sushant Ibarra MD 06/26/2025 04:14 PM EDT Dictated By: Sushant Ibarra MD Signed By: <Electronically signed by Sushant Ibarra MD in OV> 06/26/25 1614 DD/ 1544 TD/TT: 06/26/25 1557 Sand Slinger: Procedure Note Donotuseinterpreter, Image - 06/26/[address] [address] XRay Report Signed Patient: Laurie Reis MMR#: [id number] : 1960cct:[id number] Age/Sex: 64 / FADM Date: 06/26/25 Loc: HO.CX Attending Dr: Angelica Osborne MD Ordering Physician: Angelica Osborne MD Date of Service: 06/26/25 Procedure(s): XR ankle LT min 3V Accession Number(s): [id number] cc: Angelica Osborne MD Reason for Exam: left ankle pain, swelling, pain with weight-bearing,contusion EXAMINATION: XR ANKLE, LEFT CLINICAL INFORMATION: left ankle pain, swelling, pain with weight-bearing, contusion COMPARISON: None available. TECHNIQUE: AP, lateral, and mortise views of the left ankle. FINDINGS: No fracture, dislocation, or suspicious bone lesions. Ankle mortise is intact. The talar dome is normal. The subtalar joints and calcaneus appear normal. There is no ankle joint effusion. There is no soft tissue abnormality. XR/XR ankle LT min 3V IMPRESSION: Normal left ankle. Electronically signed by: Sushant Ibarra MD 06/26/2025 04:14 PM EDT Dictated By: Sushant Ibarra MD Signed By: <Electronically signed by Sushant Ibarra MD in OV> 06/26/25 1614 DD/ 1544 TD/TT: 06/26/25 1557 Sand Slinger: Angelica Osborne MD IMG XR PROCEDURES Edited Result - Final * XR Knee 4+ Views Bilateral (06/26/2025 3:42 PM EDT) Anatomical Region Laterality Modality Lower Extremities, Knee Bilateral [facility] 06/26/2025 3:42 PM EDT Narrative 06/26/2025 4:20 PM EDT [address] [address] XRay Report Signed Patient: Laurie Reis MR#: [id number] : 1960 Acct:[id number] Age/Sex: 64 / F ADM Date: 06/26/25 Loc: HO.CX Attending Dr: Angelica Osborne MD Ordering Physician: Angelica Osborne MD Date of Service: 06/26/25 Procedure(s): XR Knee Norman 4V Accession Number(s): [id number] cc: Angelica Osborne MD Reason for Exam: contusion, b/l knee pain EXAMINATION: XR KNEE, NORMAN 4V CLINICAL INFORMATION: contusion, b/l knee pain COMPARISON: 01/10/2019. TECHNIQUE: Four views of each knee. FINDINGS: LEFT KNEE: No fracture or joint effusion. Alignment is anatomic. Joint spaces are maintained. No abnormal soft tissue calcification. RIGHT KNEE: No fracture or joint effusion. Alignment is anatomic. Joint spaces are maintained. No abnormal soft tissue calcification. XR/XR Knee Norman 4V IMPRESSION: Normal bilateral knee radiographs. Electronically signed by: Sushant Ibarra MD 06/26/2025 04:16 PM EDT RP Dictated By: Sushant Ibarra MD Signed By: <Electronically signed by Sushant Ibarra MD in OV> 06/26/25 1616 DD/ 1542 TD/TT: 06/26/25 1557 Sand Slinger: Procedure Note Donotuseinterpreter, Image - 06/26/2025 [place] [address] XRay Report Signed Patient: Laurie Reis MMR#: [id number] : 2Acct:[id number] Age/Sex: 64 / FADM Date: 06/26/25 Loc: HO.HHCX Attending Dr: Angelica Osborne MD Ordering Physician: Angelica Osborne MD Date of Service: 06/26/25 Procedure(s): XR Knee Norman 4V Accession Number(s): [id number] cc: Angelica Osborne MD Reason for Exam: contusion, b/l knee pain EXAMINATION: XR KNEE, NORMAN 4V CLINICAL INFORMATION: contusion, b/l knee pain COMPARISON: 01/10/2019. TECHNIQUE: Four views of each knee. FINDINGS: LEFT KNEE: No fracture or joint effusion. Alignment is anatomic. Joint spaces are maintained. No abnormal soft tissue calcification. RIGHT KNEE: No fracture or joint effusion. Alignment is anatomic. Joint spaces are maintained. No abnormal soft tissue calcification. XR/XR Knee Norman 4V IMPRESSION: Normal bilateral knee radiographs. Electronically signed by: Sushant Ibarra MD 06/26/2025 04:16 PM EDT RP Dictated By: Sushant Ibarra MD Signed By: <Electronically signed by Sushant Ibarra MD in OV> 06/26/25 1616 DD/ 1542 TD/TT: 06/26/25 1557 Sand Slinger: Angelica Osborne MD IMG XR PROCEDURES Edited Result - Final * XR Sacrum Coccyx 2+ Views (06/26/2025 3:35 PM EDT) Anatomical Region Laterality Modality Sacrum, Coccyx Radiographic Carin ging 06/26/2025 3:35 PM EDT Narrative 06/26/2025 4:18 [place] [address] XRay Report Signed Patient: Laurie Reis MR#: [id number] : 1960 Acct:[id number] Age/Sex: 64 / F ADM Date: 06/26/25 Loc: HO.HHCX Attending Dr: Angelica Osborne MD Ordering Physician: Angelica Osborne MD Date of Service: 06/26/25 Procedure(s): XR sacrum coccyx min 2V Accession Number(s): [id number] cc: Angelica Osborne MD Reason for Exam: contusion, tailbone pain EXAMINATION: XR SACRUM AND COCCYX CLINICAL INFORMATION: contusion, tailbone pain COMPARISON: None available. TECHNIQUE: 2 views of the sacrum and 2 views of the coccyx were obtained. FINDINGS: No fracture lucency or abnormal contour is evident in the sacrum. Mild degenerative irregularity is seen in the SI joints. XR/XR sacrum coccyx min 2V IMPRESSION: Unremarkable sacrum. Mild SI joint degeneration Electronically signed by: Donald Haley MD 06/26/2025 04:16 PM EDT RP Dictated By: Donald Haley MD Signed By: <Electronically signed by Donald Haley MD in OV> 06/26/25 1616 DD/ 1535 TD/TT: 06/26/25 1557 Sand Slinger: Procedure Note Donotjosé miguelter, Image - 06/26/[address] [address] XRay Report Signed Patient: Laurie Reis MMR#: [id number] : 1960cct:[id number] Age/Sex: 64 / FADM Date: 06/26/25 [facility]: Angelica Osborne MD Ordering Physician: Angelica Osborne MD Date of Service: 06/26/25 Procedure(s): XR sacrum coccyx min 2V Accession Number(s): [id number] cc: Angelica Osborne MD Reason for Exam: contusion, tailbone pain EXAMINATION: XR SACRUM AND COCCYX CLINICAL INFORMATION: contusion, tailbone pain COMPARISON: None available. TECHNIQUE: 2 views of the sacrum and 2 views of the coccyx were obtained. FINDINGS: No fracture lucency or abnormal contour is evident in the sacrum. Mild degenerative irregularity is seen in the SI joints. XR/XR sacrum coccyx min 2V IMPRESSION: Unremarkable sacrum. Mild SI joint degeneration Electronically signed by: Donald Haley MD 06/26/2025 04:16 PM EDT Dictated By: Donald Haley MD Signed By: <Electronically signed by Donald Haley MD in OV> 06/26/25 1616 DD/ 1535 TD/TT: 06/26/25 1557 Sand Slinger: Angelica Osborne MD IMG XR PROCEDURES Edited Result - Final * (ABNORMAL) Albumin, Random Urine W/Creatinine (06/26/2025 2:50 PM EDT) Creatinine, Urine 222.63 mg/dL [facility] Microalbumin Urine 806.0 mg/L [facility] Microalbum Creatinine Ratio Ur 362.0(H) <30 ug/mg cr [facility] Comment:Albumin/Creatinine R atio Reference Ranges: Normal: < 30 ug/mg creatinine Microalbuminuria: 30 - 300 ug/mg creatinineClinical Albuminuria: > 300 ug/mg creatinine Urine 06/26/2025 2:50 PM EDT 06/26/2025 4:22 PM EDT us Angelica Osborne MD LAB URINE ORDERABLES Final Resul t [facility] [address] [place] [address] [phone] documented in this encounter Visit Diagnoses Diagnosis Essential hypertension- Primary Unspecified essential hypertension Dyslipidemia Other and unspecified hyperlipidemia Type 2 diabetes mellitus with hyperglycemia, without long-term current use of insulin (CMS/HCC) Acquired hypothyroidism Unspecified hypothyroidism Routine screening for STI (sexually transmitted infection) Screening examination for venereal disease Right forearm pain Acute left ankle pain Acute bilateral knee pain Acute midline low back pain without sciatica Acute coccygeal pain Mood disorder (CMS/HCC) Unspecified episodic mood disorder Major depression with psychotic features (CMS/HCC) Dysthymia Dysthymic disorder Anxiety Anxiety state, unspecified Fibromyalgia Unspecified myalgia and myositis Chronic left shoulder pain Pain in joint, shoulder region Tobacco dependence Tobacco use disorder Smoking greater than 20 pack years Bilateral lower extremity edema Breast cancer screening by mammogram documented in this encounter Additional Health Concerns Assessment Noted Time PHQ-9 Depression Total Score: 0 02/20/20 25 3:47 PM EDT documented as of this encounter Care Teams Edge Stripper Relationship Specialty Start Date End Date Angelica Osborne MD [address] [place] [address] PCP - General Family Medicine 10/11/18 Mao Mota, MerD [address] [place] [address] Pharmacist Internal Medicine 08/31/23 Armando De La Cruz FNP [address] [place] [address] Nurse Practitioner Family Medicine 08/31/23 documented as of this encounter
--- NOTE | ~2025-06-26 | XR_ITS ---
EXAMINATION: XR KNEE, NORMAN 4V CLINICAL INFORMATION: contusion, b/l knee pain COMPARISON: 01/10/2019. TECHNIQUE: Four views of each knee. FINDINGS: LEFT KNEE: No fracture or joint effusion. Alignment is anatomic. Joint spaces are maintained. No abnormal soft tissue calcification. RIGHT KNEE: No fracture or joint effusion. Alignment is anatomic. Joint spaces are maintained. No abnormal soft tissue calcification. XR/XR Knee Norman 4V IMPRESSION: Normal bilateral knee radiographs. Electronically signed by: Sushant Ibarra MD 06/26/2025 04:16 PM EDT
--- NOTE | ~2025-06-26 | XR_ITS ---
EXAMINATION: XR WRIST, RIGHT CLINICAL INFORMATION: right arm contusion and sprain COMPARISON: None available. TECHNIQUE: PA, lateral, oblique, and scaphoid views of the right wrist. FINDINGS: Linear metallic density posterior to the fifth metacarpal head is probably a foreign body embedded in the soft tissues. Metal rings obscure the base of the third and fourth metacarpals. Small marginal ossified is are evident involving the first CC, MCP and IP joints. No fractures are evident. XR/XR wrist RT min 3V IMPRESSION: No acute abnormality. Mild osteoarthritis involving the first ray. Metallic foreign body adjacent the fifth metacarpal head. Electronically signed by: Donald Haley MD 06/26/2025 04:19 PM EDT
--- NOTE | ~2025-06-26 | XR_ITS ---
EXAMINATION: XR ANKLE, LEFT CLINICAL INFORMATION: left ankle pain, swelling, pain with weight-bearing, contusion COMPARISON: None available. TECHNIQUE: AP, lateral, and mortise views of the left ankle. FINDINGS: No fracture, dislocation, or suspicious bone lesions. Ankle mortise is intact. The talar dome is normal. The subtalar joints and calcaneus appear normal. There is no ankle joint effusion. There is no soft tissue abnormality. XR/XR ankle LT min 3V IMPRESSION: Normal left ankle. Electronically signed by: Sushant Ibarra MD 06/26/2025 04:14 PM EDT
--- NOTE | ~2025-06-26 | XR_ITS ---
EXAMINATION: XR SACRUM AND COCCYX CLINICAL INFORMATION: contusion, tailbone pain COMPARISON: None available. TECHNIQUE: 2 views of the sacrum and 2 views of the coccyx were obtained. FINDINGS: No fracture lucency or abnormal contour is evident in the sacrum. Mild degenerative irregularity is seen in the SI joints. XR/XR sacrum coccyx min 2V IMPRESSION: Unremarkable sacrum. Mild SI joint degeneration Electronically signed by: Donald Haley MD 06/26/2025 04:16 PM EDT
[2025-06-26 16:38] LABS: B Type Natriuretic Peptide 140 pg/mL (<100)
[2025-06-26 16:56] LABS: Alanine Aminotransferase 22 U/L (0-31); Albumin Level 4.5 g/dL (3.5-5.0); Alkaline Phosphatase 74 U/L (39-117); Anion Gap 11 (12-20); Aspartate Amino Transferase 24 U/L (5-31); Blood Urea Nitrogen 18 mg/dL (9-16); Calcium 9.4 mg/dL (8.4-10.2); Carbon Dioxide 24 mmol/L (22-29); Chloride 110 mmol/L (96-108); Cholesterol 111 mg/dL (<200); Estimated Glomerular Filt Rate 43; HDL Cholesterol 35 mg/dL (>40); Potassium 4.3 mmol/L (3.3-5.1); Sodium 141 mmol/L (135-145); Total Protein 6.9 g/dL (6.5-8.0); Triglycerides 99 mg/dL (<150)
[2025-06-26 17:12] LABS: Microalbum/Creatinine Ratio Ur 362.0 ug/mg cr (<30)
[2025-06-26 17:18] LABS: Folate 5.7 ng/mL (> or = 4.0); Vitamin B12 338 pg/mL (200-900)
--- OUTSIDE RECORDS SUMMARY | 2025-06-26 18:17 | XMS_ITS | Encounter Summary ---
Author Organization [employer] Address [address] [facility] [address]t [place] [address] Care Team Providers Care Stained Glass Artist Name Role Phone Angelica Osborne MD Primary Care Provider [phone] Mao Mota PharmD Unavailable [phone] Armando De La Cruz STORAGE WORKER Unavailable Unavailable Reason for Visit * Reason Onset Date Comments Med Refill 05/25/2025 Encounter Details Date Type Department Care Team (Late st Contact Info) Description 05/25/2025 Telephone [facility] [address] [place], [place] [phone] Angelica Osborne MD [address] [place], [place] [phone] Med Refill Social History Tobacco Use Types [...] MG tablet To be sent to: - [facility] - [place], [place] - [address] [place] [address] documented in this encounter Plan of Treatment Upcoming Encounters Date Type Department Care Team (Late st Contact Info) Description 07/02/2025 3:30 PM EDT Office Visit [facility] ADULT DENTAL [address] [place] [address] Yves Barron DDS [address] [place] [address] 08/21/2025 3:30 PM EST Office Visit [facility] [address] [place] [address] Angelica Osborne MD [address] [place] [address] documented as of this encounter Goals Goal [...] documented as of this encounter Care Teams Stained Glass Artist Relationship Specialty Start Date End Date Angelica Osborne MD [address] [place] [address] PCP - General Family Medicine 10/11/18 Mao Mota, PharmD [address] [place] [address] Pharmacist Internal Medicine 08/31/23 Armando De La Cruz FNP [address] [place] [address] Nurse Practitioner Family Medicine 08/31/23 documented as of this encounter
--- OUTSIDE RECORDS SUMMARY | 2025-06-26 18:17 | XMS_ITS | Encounter Summary ---
Author Organization [email or web address] Address [address] [facility] 7t [place] [address] Care Team Providers Care Diesel Engine Assembler Name Role Phone Angelica Osborne MD Primary Care Provider [phone] Mao Mota PharmD Unavailable [phone] Armando De La Cruz USED CAR MAKE READY MECHANIC Unavailable Unavailable Encounter Details Date Type Department Care Team (Late st Contact Info) Description 08/16/2024 Telephone [facility] [address] [place], [place] [phone] Angelica Osborne MD [address] [place], [place] [phone] Social History Tobacco Use Types Packs/Day Years [...] 08/17/2024 9:19 AM EST TC placed to [facility] Centralized Scheduling to clarify the reason for ordering VASC US Lower Extremity Venous Duplex. Per provider the imaging was ordered In part to r/o DVT-low suspicion for chronicitybut also venous insufficiency . Per [facility] the ordering reason needs to be either one or the other as both have different appt times. (Either to rule out DVT or venous insufficiency) * Telephone Encounter - Agatha Palma - 08/16/2024 12:16 PM EST Tc from [place] with [facility] scheduling requesting Clarification on order sent 08/11/24. Would like to know if order was made to rule out DVT. Best contact # [phone]. documented in this encounter Plan of Treatment Upcoming Encounters Date Type Department Care Team (Late st Contact Info) Description 07/02/2025 3:30 PM EDT Office Visit [facility] ADULT D[facility]AL [address] [place] [address] Yves Barron DDS [address] [place] [address] 08/21/2025 3:30 PM EST Office Visit [facility] [address] [place] [address] Angelica Osborne MD [address] [place] [address] documented as of this encounter Goals Goal [...] documented as of this encounter Care Teams Diesel Engine Assembler Relationship Specialty Start Date End Date Angelica Osborne MD [address] [place] [address] PCP - General Family Medicine 10/11/18 Mao Mota, PharmD [address] [place] [address] Pharmacist Internal Medicine 08/31/23 Armando De La Cruz FNP [address] [place] [address] Nurse Practitioner Family Medicine 08/31/23 documented as of this encounter
--- OUTSIDE RECORDS SUMMARY | 2025-06-26 18:17 | XMS_ITS | Encounter Summary ---
Author Organization [employer] [facility] Address [address] [place] [address] 7t [place] [address] Care Team Providers Care Machine Marker Name Role Phone Angelica Osborne MD Primary Care Provider [phone] Mao Mota PharmD Unavailable [phone] Armando De La Cruz LOCKSMITH APPRENTICE Unavailable Unavailable Encounter Details Date Type Department Care Team (Late st Contact Info) Description 03/22/2023 Orders Only [facility] [address] [place], [place] [phone] Odalys Frank LPN Social History Tobacco Use [...] Description 07/02/2025 3:30 PM EDT Office Visit [facility] ADULT DENTAL [address] [place], [place] [phone] Yves Barron DDS [address] [place], [place] [phone] 08/21/2025 3:30 PM EST Office Visit [facility] [address] [place] [address] Angelica Osborne MD [address] [place] [address] documented as of this encounter Visit Diagnoses Not on filedocumented in this encounter Additional Health Concerns Assessment Noted Time PHQ-9 Depression Total Score: 2 02/16/20 23 3:26 PM EDT documented as of this encounter Care Teams Machine Marker Relationship Specialty Start Date End Date Angelica Osborne MD [address] [place] [address] PCP - General Family Medicine 10/11/18 Mao Mota, MerD [address] [place] [address] Pharmacist Internal Medicine 08/31/23 Armando De La Cruz FNP [address] [place] [address] Nurse Practitioner Family Medicine 08/31/23 documented as of this encounter
--- OUTSIDE RECORDS SUMMARY | 2025-06-26 18:17 | XMS_ITS | Encounter Summary ---
Author Organization [employer] Address [address] [facility] 7t [place] [address] Care Team Providers Care Computer Designer Name Role Phone Angelica Osborne MD Primary Care Provider [phone] Mao Mota PharmD Unavailable [phone] Armando De La Cruz DIE SETTER Unavailable Unavailable Reason for Visit * Reason Onset Date Comments Medication Question 05/21/2025 Encounter Details Date Type Department Care Team (Late st Contact Info) Description 05/21/2025 Telephone [facility] [address] [place], [place] [phone] Angelica Osborne MD [address] [place], [place] [phone] Medication Question Social History Tobacco Use Types [...] Description 07/02/2025 3:30 PM EDT Office Visit [facility] ADULT DENTAL [address] [place] [address] Yves Barron DDS [address] [place] [address] 08/21/2025 3:30 PM EST Office Visit [facility] [address] [place] [address] Angelica Osborne MD [address] [place] [address] documented as of this encounter Goals Goal [...] documented as of this encounter Care Teams Computer Designer Relationship Specialty Start Date End Date Angelica Osborne MD [address] [place] [address] PCP - General Family Medicine 10/11/18 Mao Mota, PharmD [address] [place] [address] Pharmacist Internal Medicine 08/31/23 Armando De La Cruz FNP [address] [place] [address] Nurse Practitioner Family Medicine 08/31/23 documented as of this encounter
--- OUTSIDE RECORDS SUMMARY | 2025-06-26 18:17 | XMS_ITS | Encounter Summary ---
Author Organization [employer] Address [address] [facility] 7t [place] [address] Care Team Providers Care Banking Representative Name Role Phone Angelica Osborne MD Primary Care Provider [phone] Mao Mota PharmD Unavailable [phone] Armando De La Cruz WIRE TAPER Unavailable Unavailable Reason for Visit * Reason Onset Date Comments appt/partials periodic exam 08/17/2024 Encounter Details Date Type Department Care Team (Late st Contact Info) Description 08/17/2024 Telephone [facility] ADULT DENTAL [address] [place], [place] [phone] Narendra Michele, DMD [address] [place], [place] [phone] appt/partials periodic exam Social History Tobacco Use [...] the repair. Please reach out to patient documented in this encounter Plan of Treatment Upcoming Encounters Date Type Department Care Team (Late st Contact Info) Description 07/02/2025 3:30 PM EDT Office Visit [facility] ADULT D[facility] [address] [place], [place] [phone] Yves Barron DDS [address] [place], [place] [phone] 08/21/2025 3:30 PM EST Office Visit [facility] [address] [place] [address] Angelica Osborne MD [address] [place], [place] [phone] documented as of this encounter Goals Goal [...] as of this encounter Care Teams Banking Representative Relationship Specialty Start Date End Date Angelica Osborne MD [address] [place] [address] PCP - General Family Medicine 10/11/18 Mao Mota, PharmD [address] [place] [address] Pharmacist Internal Medicine 08/31/23 Armando De La Cruz FNP [address] [place] [address] Nurse Practitioner Family Medicine 08/31/23 documented as of this encounter
--- OUTSIDE RECORDS SUMMARY | 2025-06-26 18:17 | XMS_ITS | Encounter Summary ---
Author Organization [employer] Address [address] [facility] 7t [place] [address] Care Team Providers Care Shortage Worker Name Role Phone Angelica Osborne MD Primary Care Provider [phone] Mao Mota PharmD Unavailable [phone] Armando De La Cruz HEART COORDINATOR Unavailable Unavailable Reason for Visit * Reason Onset Date Comments Med Refill 05/22/2025 Encounter Details Date Type Department Care Team (Late st Contact Info) Description 05/22/2025 Telephone [facility] [address] [place], [place] [phone] Angelica Osborne MD [address] [place], [place] [phone] Med Refill Social History Tobacco Use Types [...] 50 MG tablet To be sent to: [facility] documented in this encounter Plan of Treatment Upcoming Encounters Date Type Department Care Team (Late st Contact Info) Description 07/02/2025 3:30 PM EDT Office Visit [facility] ADULT DENTAL [address] [place] [address] Yves Barron DDS [address] [place] [address] 08/21/2025 3:30 PM EST Office Visit [facility] MED[facility] [address] [place] [address] Angelica Osborne MD [address] [place] [address] documented as of this encounter Goals Goal [...] documented as of this encounter Care Teams Shortage Worker Relationship Specialty Start Date End Date Angelica Osborne MD [address] [place] [address] PCP - General Family Medicine 10/11/18 Mao Mota, PharmD [address] [place] [phone] Pharmacist Internal Medicine 08/31/23 Armando De La Cruz FNP [address] [place] [address] Nurse Practitioner Family Medicine 08/31/23 documented as of this encounter
--- OUTSIDE RECORDS SUMMARY | 2025-06-26 18:17 | XMS_ITS | Encounter Summary ---
Author Organization [employer] Address [address] [place] [address] 7t [place] [address] Care Team Providers Care Slate Cutter Operator Name Role Phone Angelica Osborne MD Primary Care Provider [phone] Mao Mota PharmD Unavailable [phone] Armando De La Cruz PATIENT OBSERVER Unavailable Unavailable Reason for Visit * Reason Comments Med Refill Encounter Details Date Type Department Care Team (Late st Contact Info) Description 10/06/2022 Refill [facility] [address] [place] [phone] Angelica Osborne MD [address] [place] [phone] Pain Social History Tobacco Use Types Packs/Day [...] Description 07/02/2025 3:30 PM EDT Office Visit [facility] ADULT DENTAL [address] [place] [address] Yves Barron DDS [address] [place] [address] 08/21/2025 3:30 PM EST Office Visit [facility] [address] [place] [address] Angelica Osborne MD [address] [place] [address] documented as of this encounter Visit Diagnoses Diagnosis Pain Generalized pain documented in this encounter Care Teams Slate Cutter Operator Relationship Specialty Start Date End Date Angelica Osborne MD [address] [place] [address] PCP - General Family Medicine 10/11/18 Mao Mota, MerD [address] [place] [address] Pharmacist Internal Medicine 08/31/23 Armando De La Cruz FNP [address] [place] [address] Nurse Practitioner Family Medicine 08/31/23 documented as of this encounter
--- OUTSIDE RECORDS SUMMARY | 2025-06-26 18:17 | XMS_ITS | Encounter Summary ---
Author Organization [employer] Address [address] [facility] 7t [place] [address] Care Team Providers Care Narrow Fabric Loom Fixer Name Role Phone Angelica Osborne MD Primary Care Provider [phone] Mao Mota PharmD Unavailable [phone] Armando De La Cruz SHEET TESTER Unavailable Unavailable Encounter Details Date Type Department Care Team (Late st Contact Info) Description 02/17/2023 Telephone [facility] MED & PEDS [address] [place], [place] [phone] Angelica Osborne MD [address] [place] [address] [phone] Social History Tobacco Use Types Packs/Day Years [...] Description 07/02/2025 3:30 PM EDT Office Visit [facility] ADULT DENTAL [address] [place] [address] [phone] Yves Barron DDS [address] [place] [address] 08/21/2025 3:30 PM EST Office Visit [facility] MEDICINE [address] [place] [address] [phone] Angelica Osborne MD [address] [place] [phone] documented as of this encounter Visit Diagnoses Not on filedocumented in this encounter Additional Health Concerns Assessment Noted Time PHQ-9 Depression Total Score: 2 02/16/20 23 3:26 PM EDT documented as of this encounter Care Teams Narrow Fabric Loom Fixer Relationship Specialty Start Date End Date Angelica Osborne MD [address] [place] [phone] PCP - General Family Medicine 10/11/18 Mao Mota, MerD [address] [place] [phone] Pharmacist Internal Medicine 08/31/23 Armando De La Cruz FNP [address] [place] [phone] Nurse Practitioner Family Medicine 08/31/23 documented as of this encounter
--- OUTSIDE RECORDS SUMMARY | 2025-06-26 18:17 | XMS_ITS | Encounter Summary ---
Author Organization [employer] Address [address] [facility] 7[address] [place] [address] Care Team Providers Care Director Online Marketing Name Role Phone Angelica Osborne MD Primary Care Provider [phone] Mao Mota PharmD Unavailable [phone] Armando De La Cruz MUTUAL FUND ACCOUNTANT Unavailable Unavailable Reason for Visit * Reason Comments Med Refill Encounter Details Date Type Department Care Team (Late st Contact Info) Description 08/23/2024 Refill [facility] MEDICINE [address] [place], [place] [phone] Angelica Osborne MD [address] [place], [place] [phone] Type 2 diabetes mellitus with hyperglycemia, without long-term current use of insulin ([facility]) Social History Tobacco Use Types [...] Description 07/02/2025 3:30 PM EDT Office Visit [facility] ADULT DENTAL [address] [place] [phone] Yves Barron DDS [address] [place] [phone] 08/21/2025 3:30 PM EST Office Visit [facility] MEDICINE [address] [place] [phone] Angelica Osborne MD [address] [place] [phone] documented as of this encounter Goals Goal Patient Goal Type Associated Problems Recent Progress Patient-Stated? Author Quit using tobacco (cigarettes, smokeless, etc) Tobacco Use No Mao Mota, PharmD documented as of this encounter Visit Diagnoses Diagnosis Type 2 diabetes mellitus with hyperglycemia, without long-term current use of insulin ([facility]) documented in this encounter Additional Health Concerns Assessment Noted Time PHQ-9 Depression Total Score: 0 03/23/20 24 2:25 PM EDT documented as of this encounter Care Teams Director Online Marketing Relationship Specialty Start Date End Date Angelica Osborne MD [address] [place] [phone] PCP - General Family Medicine 10/11/18 Mao Mota, MerD [address] [place] [address] Pharmacist Internal Medicine 08/31/23 Armando De La Cruz FNP [address] [place] [address] Nurse Practitioner Family Medicine 08/31/23 documented as of this encounter
--- OUTSIDE RECORDS SUMMARY | 2025-06-26 18:17 | XMS_ITS | Encounter Summary ---
Author Organization [employer] Address [address] [place] [address] 7t [place] [address] Care Team Providers Care Cut Roll Machine Offbearer Name Role Phone Angelica Osborne MD Primary Care Provider [phone] Mao Mota PharmD Unavailable [phone] Armando De La Cruz DISTANCE EDUCATION TEACHER Unavailable Unavailable Reason for Visit * Reason Onset Date Comments Appointment Request 02/01/2023 Encounter Details Date Type Department Care Team (Late st Contact Info) Description 02/01/2023 Telephone [facility] MEDICINE [address] [place], [place] [phone] Angelica Osborne MD [address] [place], [place] [phone] Appointment Request Social History Tobacco Use Types [...] from 01/04/23) ) Please contact pt at [phone] documented in this encounter Plan of Treatment Upcoming Encounters Date Type Department Care Team (Late st Contact Info) Description 07/02/2025 3:30 PM EDT Office Visit [facility] ADULT DENTAL [address] [place] [address] Yves Barron DDS [address] [place] [address] 08/21/2025 3:30 PM EST Office Visit [facility] MEDICINE [address] [place] [address] Angelica Osborne MD [address] [place] [address] documented as of this encounter Visit Diagnoses Not on filedocumented in this encounter Additional Health Concerns Assessment Noted Time PHQ-9 Depression Total Score: 0 10/20/19 3:40 PM EST documented as of this encounter Care Teams Cut Roll Machine Offbearer Relationship Specialty Start Date End Date Angelica Osborne MD [address] [place] [address] PCP - General Family Medicine 10/11/18 Mao Mota, MerD [address] [place] [phone] Pharmacist Internal Medicine 08/31/23 Armando De La Cruz FNP [address] [place] [address] Nurse Practitioner Family Medicine 08/31/23 documented as of this encounter
--- OUTSIDE RECORDS SUMMARY | 2025-06-26 18:17 | XMS_ITS | Encounter Summary ---
Author Organization [employer] Address [address] [facility] [address] [place] [address] Care Team Providers Care Imcu Nurse Name Role Phone Angelica Osborne MD Primary Care Provider [phone] Mao Mota PharmD Unavailable [phone] Armando De La Cruz PRODUCTION ILLUSTRATOR Unavailable Unavailable Reason for Visit * Reason Onset Date Comments Nurse Triage 05/23/2025 Encounter Details Date Type Department Care Team (Late st Contact Info) Description 05/23/2025 Telephone [facility] MEDICINE [address] [place], [place] [phone] Angelica Osborne MD [address] [place], [place] [phone] Nurse Triage Social History Tobacco Use Types [...] higher acuity questions Please contact pt at [phone]. documented in this encounter Plan of Treatment Upcoming Encounters Date Type Department Care Team (Late st Contact Info) Description 07/02/2025 3:30 PM EDT Office Visit [facility] ADULT DENTAL [address] [place] [address] Yves Barron DDS [address] [place] [address] 08/21/2025 3:30 PM EST Office Visit [facility] MEDICINE [address] [place] [address] Angelica Osborne MD [address] [place] [address] documented as of this encounter Goals Goal [...] documented as of this encounter Care Teams Imcu Nurse Relationship Specialty Start Date End Date Angelica Osborne MD [address] [place] [phone] PCP - General Family Medicine 10/11/18 Mao Mota, MerD [address] [place] [phone] Pharmacist Internal Medicine 08/31/23 Armando De La Cruz FNP [address] [place] [phone] Nurse Practitioner Family Medicine 08/31/23 documented as of this encounter
--- OUTSIDE RECORDS SUMMARY | 2025-06-26 18:18 | XMS_ITS | Clinical Summary ---
Author Organization [employer] Address [address] [place] [address] [address] [place] [address] Care Team Providers Care Client Operations Manager Name Role Phone Angelica Osborne MD Primary Care Provider [phone] Mao Mota PharmD Unavailable [phone] Armando De La Cruz VIOLIN MAKER HAND Unavailable Unavailable Allergies No known active allergies Medications Continuous Blood Gluc Transmit (Dexcom G6 transmitter) misc 1 each by Other route continuously. 1 each 07/26/20 23 Active Continuous Blood Gluc Sensor (Dexcom G6 Sensor) misc Use as directed 3 each 07/26/20 Active Continuous Blood Gluc Area Operations Manager (Dexcom G6 external grinder tool) device Use as directed 1 each 07/26/20 23 Active Blood Glucose Monitoring Suppl (FreeStyle Lite) w/Device kitIndications: Type 2 diabetes mellitus with hyperglycemia, without long-term current use of insulin ([facility]) 1 kit Once per day. 1 kit 04/07/20 24 Active metFORMIN XR (Glucophage-XR) 500 MG 24 hr tabletIndicatio ns:Type 2 diabetes mellitus with hyperglycemia, without long-term current use of insulin (CMS/HCC) TAKE 2 TABLETS BY MOUTH BEFORE BREAKFAST AND EVENING MEAL DO NOT BREAK, CRUSH, DISSOLVE OR CHEW 120 tablet 11 07/12/20 24 Active Lancets (OneTouch Delica Plus [id number]) miscIndications :Type 2 diabetes mellitus with hyperglycemia, [...] without long-term current use of insulin ([facility]) USE DIRECTED TO TEST BLOOD SUGAR EVERY MORNING BEFORE BREAKFAST 100 strip 04/25/20 25 Active Alcohol Swabs (Alcohol Prep) padsIndications :Type 2 diabetes mellitus with hyperglycemia, without long-term current use of insulin ([facility]) USE DAILY DIRECTED 100 each [...] BEDTIME 90 tablet 3 06/04/20 25 Active meloxicam (Mobic) 7.5 MG tablet Take 1 tablet (7.5 mg) by mouth every 12 (twelve) hours if needed for moderate pain for up to 7 days. 7 tablet 06/22/20 25 025 Active rOPINIRole (Requip) 1 MG tablet Take 1 tablet (1 mg) by mouth at bedtime. 90 tablet 3 03/23/20 24 025 Discontinued(R eorder (will not trigger notification to Pharmacy)) pregabalin (Lyrica) 100 MG capsule TAKE 1 CAPSULE BY MOUTH TWICE DAILY 60 capsule 3 03/01/20 25 025 Discontinued(R eorder (will not trigger notification [...] for 10 days. 22 g 05/29/20 025 traMADol (Ultram) 50 MG tablet Take 50 mg by mouth every 12 (twelve) hours if needed for severe pain. 025 Discontinued(M ed list cleanup (will not trigger notification to Pharmacy)) Active Problems Problem Noted Date Diagnosed Date Mood disorder 05/30/2025 Assessment & Plan (06/22/2025 1:13 PM EDT): - current Dx: MDD with psychotic features - likely PTSD. Possible ADHD since childhood, untreated. Possible bipolar. ?schizophrenia. - high LARA - polypharmacy Assessment & Plan (05/30/2025 5:55 AM EDT): [...] lower extremity edema 08/12/2024 Assessment & Plan (06/22/2025 1:16 PM EDT): Chronic TTE and Bl LE venous US were ordered by walk-in clinic provider Currently on furosemide 20 mg daily; history of hyponatremia. Monitor electrolytes closely. Consider venous study for venous insufficiency Elevated legs, reduce sodium consumption, compression stocking Reschedule echo Assessment & Plan (11/12/2024 12:49 PM EST): Chronic TTE and Bl LE venous US were ordered by walk-in clinic provider Currently on furosemide 20 mg daily; history of hyponatremia. Monitor electrolytes closely. Consider venous study for venous insufficiency Elevated legs, reduce sodium consumption, compression stocking Assessment & Plan (10/05/2024 2:16 PM EST): Patient is here at out [facility] with c/o bilateral LE edema , seen for this here at [facility] as well by Dr. Gore back August [...] 2 diabetes mellitus 03/10/2023 Assessment & Plan (06/21/2025 5:54 AM EDT): - A1C 5.8% on 05/29/2025. [...] not want COVID vaccine Assessment & Plan (05/30/2025 5:28 AM EDT): [...] vaccine 03/10/2023 Fibromyalgia 03/09/2023 Assessment & Plan (06/22/2025 1:15 PM EDT): - Pain in shoulders, back, [...] - acupuncture was recommended Assessment & Plan (05/30/2025 5:45 AM EDT): [...] 20 pack years 03/09/2023 Assessment & Plan (06/22/2025 1:17 PM EDT): - Smoking > 20 pack years - Referred to lung cancer screening chest CT. Patient declined previously, and now agreed. Assessment & Plan (02/20/2025 8:34 AM EDT): [...] cessation Tobacco dependence 01/04/2023 Assessment & Plan (06/22/2025 1:24 PM EDT): - Smoking 1 to 3 ppd for [...] change - Pt agreed lung CA screening Assessment & Plan (05/29/2025 10:13 AM EDT): [...] 11/26/2015 Acquired hypothyroidism 08/27/2015 Assessment & Plan (06/22/2025 1:13 PM EDT): - current replacement: levothyroxine 50 mcg daily - 11/06/2024 TSH 0.266 mIU/L -Continue current treatment plan Assessment & Plan (02/20/2025 8:29 AM EDT): [...] test Essential hypertension 08/27/2015 Assessment & Plan (06/21/2025 5:54 AM EDT): -Goal BP <130/80 per ACC/AHA. -BP at goal today -Discussed about the importance of lifestyle modification and medication adherence. -Medication: lisinopril 10 mg daily -Continue checking home BP -Treatment Hx: Discontinued HCTZ in Jun 2017 due to declined renal function. Improved renal function after its discontinuation and judicious use of NSAIDs Assessment & Plan (05/30/2025 5:24 AM EDT): [...] Migraine 02/25/2015 Dyslipidemia 12/04/2014 Assessment & Plan (06/21/2025 5:54 AM EDT): - lipid profile on 11/06/24 TC 138; TG 172; HDL 36; LDL 68 - current medication: Rosuvastatin 40 mg at bedtime - continue working on lifestyle modification Assessment & Plan (05/29/2025 10:12 AM EDT): [...] gtt prn Anxiety 05/09/2012 Assessment & Plan (06/22/2025 1:14 PM EDT): - MDD with anxiety Assessment & Plan (05/30/2025 5:46 AM EDT): [...] weight Shoulder pain 01/08/2009 Assessment & Plan (06/22/2025 1:15 PM EDT): - chronic - history of left shoulder surgery for left shoulder rotator cuff impingement in December 2012 - Upcoming appointment with orthopedist Assessment & Plan (05/30/2025 5:56 AM EDT): - chronic - history of left shoulder surgery for left shoulder rotator cuff impingement in December 2012 Assessment & Plan (03/10/2023 1:52 PM EDT): - chronic - history of left shoulder surgery for left shoulder rotator cuff impingement in December 2012 Major depression with psychotic features 000 Assessment & Plan (06/22/2025 1:14 PM EDT): - Previous behavioral health service provider: [...] which caused significant weight gain and diabetes Assessment & Plan (05/30/2025 5:53 AM EDT): [...] medication management. Any issues or concerns, call [facility]. All her questions were answered and I [...] medication management. Any issues or concerns, call [facility]. All her questions were answered and I [...] medication management. Any issues or concerns, call [facility]. All her questions were answered and [...] Encounters Date Type Department Care Team Description 06/26/2025 Results Follow-Up [facility] [place] [address] Angelica Osborne MD XR Wrist 3+ Views Right 06/26/2025 Results Follow-Up [facility] [place] [address] Angelica Osborne MD B Type Natriuretic Peptide (BNP) 06/26/2025 Orders Only [facility] [place] [address] Diana Zuniga MD 06/26/[address] [facility] [place] [address] Angelica Osborne MD Lab Orders 06/22/[address] [facility] [place] [address] Angelica Osborne MD form 06/21/2025 11:30 AM EDT Office Visit [facility] [place] [address] Angelica Osborne MD Essential hypertension (Primary Dx); Dyslipidemia; Type 2 diabetes mellitus with hyperglycemia, without long-term current use of insulin ([facility]); Acquired hypothyroidism; Routine screening for STI (sexually transmitted infection); Right forearm pain; Acute left ankle pain; Acute bilateral knee pain; Acute midline low back pain without sciatica; Acute coccygeal pain; Mood disorder ([facility]); Major depression with psychotic features ([facility]); Dysthymia; Anxiety; Fibromyalgia; Chronic left shoulder pain; Tobacco dependence; Smoking greater than 20 pack years; Bilateral lower extremity edema; Breast cancer screening by mammogram 06/21/2025 Travel 06/20/[address] [address] Angelica Osborne MD chart prep 06/13/2025 Patient Outreach [address] [address] Angelica Osborne MD Pre-visit Planning (Pre-visit planning - LVM ) 06/04/2025 Refill [facility] [address] [place] [address] Angelica Osborne MD 06/01/[address] [address] Angelica Osborne MD Prior Authorization ([employer] [facility]: Mounjaro 2.5 MG) 05/31/2025 Orders Only [address] [address] Angelica Osborne MD 05/31/[address] [address] Angelica Osborne MD DME Grab bars/shower bench 05/29/2025 3:00 PM EDT Office Visit [address] [address] Angelica Osborne MD Type 2 diabetes mellitus with hyperglycemia, without long-term current use of insulin ([facility]) (Primary Dx); Essential hypertension; Fibromyalgia; Abrasion of [...] of right knee 05/29/2025 Travel 05/25/2025 Telephone [facility] MEDICINE [address] [place] [phone] Angelica Osborne MD Med Refill 05/25/2025 Telephone [facility] [address] [place] [phone] Angelica Osborne MD Nurse Triage 05/25/2025 Refill [facility] [address] [place] [address] Angelica Osborne MD Bilateral lower extremity edema 05/24/2025 Telephone [facility] [address] [place] [address] Angelica Osborne MD Nurse Triage 05/23/2025 Telephone [facility] [address] [place] [address] Angelica Osborne MD Prior Authorization 05/23/2025 Telephone [facility] [address] [place] [address] Angelica Osborne MD Nurse Triage 05/22/2025 Telephone [facility] [address] [place] [address] Angelica Osborne MD Med Refill 05/21/2025 Telephone [facility] [address] [place] [address] Angelica Osborne MD chartprep 05/21/2025 Telephone [facility] [address] [place] [phone] Angelica Osborne MD Medication Question 05/14/2025 Patient Outreach [facility] [address] [place] [phone] Angelica Osborne MD Pre-visit Planning (Pre-visit planning - LVM ) 05/03/2025 Refill [facility] [address] [place] [phone] Angelica Osborne MD 04/30/2025 Refill [facility] [address] [place] [address] Angelica Osborne MD 04/24/2025 Refill [facility] [address] [place] [address] Luisana White ANP Type 2 diabetes mellitus with hyperglycemia, without long-term current use of insulin (CMS/HCC) 04/23/2025 Telephone [facility] MEDICINE [address] [place] [address] Lena Guy, BETTYE NTTS Triage 04/19/2025 2:00 PM EDT Office Visit [facility] OPTOMETRY [address] [place] [address] BraydenShyla pulido, OD Diabetes type 2, no ocular involvement (CMS/HCC) (Primary Dx); Amblyopia of right eye; Crowded optic disc, bilateral; Meibomian gland disease of both eyes, unspecified eyelid; Nuclear sclerotic cataract of both eyes; H/O laser iridotomy; Presbyopia 04/19/2025 Travel 04/18/2025 Refill [facility] [address] [place], [place] [phone] Angelica Osborne MD Major depression with psychotic features ([facility]/HCC) 04/04/2025 Refill [facility] MEDICINE [address] [place] [address] Angelica Osborne MD Major depression with psychotic features ([facility]/HCC) 04/02/2025 Refill [facility] [address] [place] [address] Angelica Osborne MD Allergic rhinitis, unspecified seasonality, unspecified trigger 04/02/2025 Telephone [facility] MED[facility] [address] [place] [phone] Julia Urena MA Pearl recall 03/27/2025 Telephone [facility] MED[facility]INE [address] [place] [address] Angelica Osborne MD Nurse Triage from Last [...] Pressure 124/80 05/29/2025 3:14 PM EDT Pulse 78 06/21/2025 11:31 AM EDT Temperature 36.2 C (97.1 F) 06/21/2025 11:31 AM EDT Respiratory Rate 20 06/21/2025 11:31 AM EDT Oxygen Saturation 98% 06/21/2025 11:31 AM EDT Inhaled Oxygen Concentration - - Weight 82 kg (180 lb 12.8 oz) 06/21/2025 11:31 A M EDT Height 160 cm (5' 3 ) 05/29/2025 3:14 PM EDT Body Mass Index 32.03 05/29/2025 3:14 PM EDT Plan of Treatment Upcoming Encounters Date Type Department Care Team (Late st Contact Info) Description 07/02/2025 3:30 PM EDT Office Visit [facility] ADULT DENTAL [address] [place] [address] Yves Barron, DDS [address] [place] [address] 08/21/2025 3:30 PM EST Office Visit [facility] MEDICINE [address] [place] [address] Angelica Osborne MD [address] [place] [address] Health Maintenance Due Date Last Done Comments [...] Colonoscopy 06/08/2023 06/08/2013 Colorectal Cancer Screening 06/08/2023 COVID-19 Vaccine ( season) 2025 03/01/2021, 12/31/2020 Influenza Vaccine (#1) 2025 4, 06/22/2023, 07/03/2022, Additional history exists Diabetes: Hemoglobin A1C 08/29/2025 025, 02/19/2025, 11/06/2024, Additional history exists Alcohol/Substance Use Screening 11/06/2025 11/06/2024 Diabetes: Foot Exam 11/06/2025 11/06/2024 Depression Screening 02/19/2026 02/19/2025, 02/20/20 25 Disability Screening 02/19/2026 02/19/2025 SDOH Screening 06/21/2026 06/21/2025 Tobacco Screening 06/22/2026 06/22/2025 Diabetes: Urine Protein Screening 06/26/2026 06/26/2025, 11/06/2024, 08/17/2023 Lipid Panel 06/26/2026 06/26/2025, 10/12, 03/09/2023, Additional history exists Eye Exam 04/19/2027 04/19/2025, 04/10, 04/19/2025, Additional history exists DTaP/Tdap/Td Vaccines (4 [...] 06/26/2025 3:35 PM EDT Acute coccygeal pain CREATINE KINASE, TOTAL Routine 06/26/2025 2:50 PM EDT B TYPE NATRIURETIC PEPTIDE (BNP) Routine 06/26/2025 2:50 PM EDT TSH W/REFLEX TO FT4 Routine 06/26/2025 2 :50 PM EDT Acquired hypothyroidism COMPREHENSIVE METABOLIC PANEL Routine 06/26/2025 2:50 PM EDT Essential hypertension ALBUMIN, RANDOM URINE W/CREATININE Routine 06/26/2025 2:50 PM EDT Essential hypertension Type 2 diabetes mellitus with hyperglycemia, without long-term current use of insulin (CMS/HCC) LIPID PANEL WITH REFLEX TO DIRECT LDL Routine 06/26/2025 2:50 PM EDT Dyslipidemia VITAMIN B12/FOLATE, SERUM PANEL Routine 06/26/2025 2:50 PM EDT Type 2 diabetes mellitus with hyperglycemia, without long-term current use of insulin (CMS/HCC) POCT GLYCOSYLATED HEMOGLOBIN (HGB A1C) Routine 05/29/2025 3:16 PM EDT Type 2 diabetes mellitus with hyperglycemia, without long-term current use of insulin (CMS/HCC) POCT GLUCOSE Routine 05/29/2025 3:16 PM EDT Type 2 diabetes mellitus with hyperglycemia, without long-term current use of insulin ([facility]) OCT, OPTIC NERVE - OU - BOTH EYES Routine 04/19/2025 2:00 PM EDT Crowded optic disc, bilateral PERIODIC ORAL EVALUATION - ESTABLISHED PATIENT Routine 03/20/2022 12:00 AM EDT BI MAMMOGRAM SCREENING BILATERAL Routine 06/28/2018 5:47 PM EDT PROPHYLAXIS - ADULT Routine 01/16/2016 1 2:00 AM EDT PANORAMIC RADIOGRAPHIC IMAGE Routine 07/26/2015 12:00 AM EDT HM COLONOSCOPY Routine 06/08/2013 from Last 3 Months or Most Recently Relevant to Health Maintenance Results * XR Wrist 3+ Views Right (06/26/2025 3:57 PM EDT) Anatomical Region Laterality Modality Upper Extremities, Wrist Right Radiogr aphic Imaging 06/26/2025 3:57 PM EDT Narrative 06/26/2025 4:22 PM EDT [address] [address] XRay Report Signed Patient: Laurie Reis MR#: [id number] : 1960 Acct:[id number] Age/Sex: 64 / F ADM Date: 06/26/25 Loc: HO.HHCX Attending Dr: Angelica Osborne MD Ordering Physician: Angelica Osborne MD Date of Service: 06/26/25 Procedure(s): XR wrist RT min 3V Accession Number(s): [id number] cc: Angelica Osborne MD Reason for Exam: [...] by Donald Haley MD in OV> 06/26/25 1619 DD/ 1557 TD/TT: 06/26/25 1557 Sql Ssis Developer: Procedure Note Donotuseinterpreter, Image - 06/26/[address] [address] XRay Report Signed Patient: Laurie Reis MMR#: [id number] : 1960cct:[id number] Age/Sex: 64 / FADM Date: 06/26/25 Loc: HO.HHCX Attending Dr: Angelica Osborne MD Ordering Physician: Angelica Osborne MD Date of Service: 06/26/25 Procedure(s): XR wrist RT min 3V Accession Number(s): [id number] cc: Angelica Osborne MD Reason for Exam: [...] by Donald Haley MD in OV> 06/26/25 1619 DD/ 1557 TD/TT: 06/26/25 1557 Sql Ssis Developer: Angelica Osborne MD IMG XR PROCEDURES Edited Result - Final * XR Ankle 3+ Views Left (06/26/2025 3:44 PM EDT) Anatomical Region Laterality Modality Lower Extremities, Ankle Left Radiogr aphic Imaging 06/26/2025 3:44 PM EDT Narrative 06/26/2025 4:17 PM EDT [address] [address] XRay Report Signed Patient: Laurie Reis MR#: [id number] : 1960 Acct:[id number] Age/Sex: 64 / F ADM Date: 06/26/25 Loc: HO.HHCX Attending Dr: Angelica Osborne MD Ordering Physician: Angelica Osborne MD Date of Service: 06/26/25 Procedure(s): XR ankle LT min 3V Accession Number(s): [id number] cc: Angelica Osborne MD Reason for Exam: [...] Sushant Ibarra MD 06/26/2025 04:14 PM EDT RP Dictated By: Sushant Ibarra MD Signed By: <Electronically signed by Sushant Ibarra MD in OV> 06/26/25 1614 DD/ 1544 TD/TT: 06/26/25 1557 Sql Ssis Developer: Procedure Note Donotuseinterpreter, Image - 06/26/2025 [place] [address] XRay Report Signed Patient: Laurie Reis [facility]#: [id number] : 1960cct:[id number] Age/Sex: 64 / FADM Date: 06/26/25 Loc: .HHCX Attending Dr: Angelica Osborne MD Ordering Physician: Angelica Osborne MD Date of Service: 06/26/25 Procedure(s): XR ankle LT min 3V Accession Number(s): [id number] cc: Angelica Osborne MD Reason for Exam: [...] 06/26/25 1614 DD/ 1544 TD/TT: 06/26/25 1557 Sql Ssis Developer: Angelica Osborne MD IMG XR PROCEDURES Edited Result - Final * XR Knee 4+ Views Bilateral (06/26/2025 3:42 PM EDT) Anatomical Region Laterality Modality Lower Extremities, Knee Bilateral [facility] 06/26/2025 3:42 PM EDT Narrative 06/26/2025 4:20 [place] [address] XRay Report Signed Patient: Laurie Reis MR#: [id number] : 1960 Acct:[id number] Age/Sex: 64 / F ADM Date: 06/26/25 [facility]: Angelica Osborne MD Ordering Physician: Angelica Osborne MD Date of Service: 06/26/25 Procedure(s): XR Knee Norman 4V Accession Number(s): [id number] cc: Angelica Osborne MD Reason for Exam: [...] 06/26/25 1616 DD/ 1542 TD/TT: 06/26/25 1557 Sql Ssis Developer: Procedure Note Donotuseinterpreter, Image - 06/26/[address] [address] XRay Report Signed Patient: Laurie Reis MMR#: [id number] : 2Acct:[id number] Age/Sex: 64 / FADM Date: 06/26/25 Loc: .HHCX Attending Dr: Angelica Osborne MD Ordering Physician: Angelica Osborne MD Date of Service: 06/26/25 Procedure(s): XR Knee Norman 4V Accession Number(s): [id number] cc: Angelica Osborne MD Reason for Exam: [...] 06/26/25 1616 DD/ 1542 TD/TT: 06/26/25 1557 Sql Ssis Developer: Angelica Osborne MD IMG XR PROCEDURES Edited Result - Final * XR Sacrum Coccyx 2+ Views (06/26/2025 3:35 PM EDT) Anatomical Region Laterality Modality Sacrum, Coccyx Radiographic Carin ging 06/26/2025 3:35 PM EDT Narrative 06/26/2025 4:18 PM EDT [address] [address] XRay Report Signed Patient: Laurie Reis MR#: [id number] : 1960 Acct:[id number] Age/Sex: 64 / F ADM Date: 06/26/25 Loc: HO.HHCX Attending Dr: Angelica Osborne MD Ordering Physician: Angelica Osborne MD Date of Service: 06/26/25 Procedure(s): XR sacrum coccyx min 2V Accession Number(s): [id number] cc: Angelica Osborne MD Reason for Exam: [...] 06/26/25 1616 DD/ 1535 TD/TT: 06/26/25 1557 Sql Ssis Developer: Procedure Note Donotsuzieinterpreter, Image - 06/26/[address] [address] XRay Report Signed Patient: Laurie Reis MMR#: [id number] : 1960cct:[id number] Age/Sex: 64 / FADM Date: 06/26/25 Loc: HO.HHCX Attending Dr: Angelica Osborne MD Ordering Physician: Angelica Osborne MD Date of Service: 06/26/25 Procedure(s): XR sacrum coccyx min 2V Accession Number(s): [id number] cc: Angelica Osborne MD Reason for Exam: [...] 06/26/25 1616 DD/ 1535 TD/TT: 06/26/25 1557 Sql Ssis Developer: Angelica Osborne MD IMG XR PROCEDURES Edited Result - Final * Vitamin B12 (Cobalamin) and Folate Panel, Serum (06/26/2025 2:50 PM EDT) Vitamin B12 338 200 - 900 pg/mL [facility] Comment:NORMAL 200-900 PG/M L INDETERMINATE 160-199 PG/ML DEFICIENT < 160 PG/ML Folate 5.7 > or = 4.0 ng/mL [facility] Comment:Reference Values:> o r = 4.0 ng/mL< 4.0 ng/mL suggests folate deficiency Methotrexate, aminopterin and folinic acid(leucovorin) are chemotherapeutic agents whose molecularstructures are similar to folate; therefore, the Architectfolate assay cannot be used for patients using these drugs. Blood 06/26/2025 2:50 PM EDT 06/26/2025 4:11 PM EDT us Angelica Osborne MD LAB BLOOD ORDERABLES Final Resul t Performing Organization Address [facility] Co de Phone Number [facility] [address] [place] [phone] * (ABNORMAL) Albumin, Random Urine W/Creatinine (06/26/2025 2:50 PM EDT) Creatinine, Urine 222.63 mg/dL [facility] Microalbumin Urine 806.0 mg/L [facility] Microalbum Creatinine Ratio Ur 362.0(H) <30 ug/mg cr [facility] Comment:Albumin/Creatinine R atio Reference Ranges: Normal: < 30 ug/mg creatinine Microalbuminuria: 30 - 300 ug/mg creatinineClinical Albuminuria: > 300 ug/mg creatinine Urine 06/26/2025 2:50 PM EDT 06/26/2025 4:22 PM EDT us Angelica Osborne MD LAB URINE ORDERABLES Final Resul t Performing Organization Address [facility] de Phone Number [facility] [address] [place] [phone] * (ABNORMAL) B Type Natriuretic Peptide (BNP) (06/26/2025 2:50 PM EDT) B Type Natriuretic Peptide 140(H) <100 pg/mL [facility] 06/26/2025 2:50 PM EDT 06/26/2025 4:11 PM EDT us Diana Gonzalez MD LAB BLOOD ORDERAB LES Final Result Performing Organization Address [facility] Co de Phone Number [facility] [address] [place] [phone] * (ABNORMAL) POCT glycosylated hemoglobin (Hgb A1c) (05/29/2025 3:16 PM EDT) Hemoglobin A1C 5.8(A) 4.0 - 5.7 % QC Media Lot # [id number] Lot# Expiration Date Blood Capillary blood specimen / Unknown 05/29/2025 3:16 PM EDT us Angelica Osborne MD POINT OF CARE TEST ENTER/EDIT OR DERABLES Final Result * POCT glucose manually resulted (05/29/2025 3:16 PM EDT) Glucose Blood, POC 130 60 - 200 mg/dL QC Media Lot # [id number] Lot# Expiration Date Blood Capillary blood specimen / Unknown 05/29/2025 [...] Plan: Likely crowded discs. Will monitor annually. Shyla Owen OD OPHTH TOMOGRAPHY Final Result * DIGITAL BILATERAL SCREEN 1 (06/28/2018 5:47 PM EDT) Anatomical Region Laterality Modality Breast Bilateral Mammography 06/28/2018 5:4 7 PM EDT Narrative 06/28/2018 5:50 PM EDT Refer to the Notes tab for result details [facility] Procedure: DIGITAL BILATERAL SCREEN 1 Procedure Note ProviderDaniele MD - 01/02/2023 Refer to the Notes tab for result details [facility] Procedure: DIGITAL BILATERAL SCREEN 1 Angelica Osborne MD IMG BI PROCEDURES Final Result * Colonoscopy (06/08/2013) [facility] [facility] Normal Normal Historical Provider HEALTH MAINTENANCE Final Result from Last 3 Months or Most Recently Relevant to Health Maintenance Insurance [facility] MEDICARE ADVANTAGE DENTAL [facility] [address] [place] [address] Care Teams Client Operations Manager Relationship Specialty Start Date End Date Angelica Osborne MD [address] [place] [address] PCP - General Family Medicine 10/11/18 Mao Mota, MerD [address] [place] [address] Pharmacist Internal Medicine 08/31/23 Armando De La Cruz FNP [address] [place] [address] Nurse Practitioner Family Medicine 08/31/23
--- OUTSIDE RECORDS SUMMARY | 2025-06-26 18:18 | XMS_ITS | Encounter Summary ---
Author Organization [employer] Address [address] [facility] [address] 7t [place] [address] Care Team Providers Care Exceptional Student Education Teacher Name Role Phone Angelica Osborne MD Primary Care Provider Mao Mota PharmD Unavailable [phone] Armando De La Cruz Unavailable Unavailable Reason for Visit * Reason Comments Med Refill Encounter Details Date Type Department Care Team (Late st Contact Info) Description 11/05/2023 Refill [facility] [address] [place] [address] Armando De La Cruz FNP Major depression [...] Description 07/02/2025 3:30 PM EDT Office Visit [facility] ADULT DENTAL [address] [place] [address] Yves Barron DDS [address] [place] [address] 08/21/2025 3:30 PM EST Office Visit [facility] MEDICINE [address] [place] [address] Angelica Osborne MD [address] [place] [address] documented as of this encounter Goals Goal [...] documented as of this encounter Care Teams Exceptional Student Education Teacher Relationship Specialty Start Date End Date Angelica Osborne MD [address] [place] [address] PCP - General Family Medicine 10/11/18 Mao Mota, MerD [address] [place] [address] Pharmacist Internal Medicine 08/31/23 Armando De La Cruz FNP [address] [place] [address] Nurse Practitioner Family Medicine 08/31/23 documented as of this encounter
--- OUTSIDE RECORDS SUMMARY | 2025-06-26 18:18 | XMS_ITS | Encounter Summary ---
Author Organization [employer] Address [address] [facility] 7t [place] [address] Care Team Providers Care Cupola Melter Name Role Phone Angelica Osborne MD Primary Care Provider [phone] Mao Mota PharmD Unavailable [phone] Armando De La Cruz CATAPULT AND ARRESTING GEAR OFFICER Unavailable Unavailable Reason for Visit * Reason Onset Date Comments form 06/22/2025 Encounter Details Date Type Department Care Team (Late st Contact Info) Description 06/22/2025 Telephone [facility] MEDICINE [address] [place], [place] [phone] Angelica Osborne MD [address] [place], [place] [phone] form Social History Tobacco Use Types Packs/Day Years [...] encounter Miscellaneous Notes * Telephone Encounter - Mitchel Cerda - 06/22/2025 8:46 AM EDT Tc from Neisha with [email or web address] reporting that there is a [facility] prescription form that she has been faxed for the fourth time that needs to be filled and faxed back. If it is not faxed by next week, they are not able to process the script. Any questions contact neisha at [phone] documented in this encounter Plan of Treatment Upcoming Encounters Date Type Department Care Team (Late st Contact Info) Description 07/02/2025 3:30 PM EDT Office Visit [facility] ADULT DENTAL [address] [place], [place] [phone] Yves Barron DDS [address] [place] [address] 08/21/2025 3:30 PM EST Office Visit [facility] MEDICINE [address] [place] [address] Angelica Osborne MD [address] [place] [address] documented as of this encounter Goals Goal [...] documented as of this encounter Care Teams Cupola Melter Relationship Specialty Start Date End Date Angelica Osborne MD [address] [place] [address] PCP - General Family Medicine 10/11/18 Mao Mota, PharmD [address] [place] [address] Pharmacist Internal Medicine 08/31/23 Armando De La Cruz FNP [address] [place] [address] Nurse Practitioner Family Medicine 08/31/23 documented as of this encounter
--- OUTSIDE RECORDS SUMMARY | 2025-06-26 18:18 | XMS_ITS | Encounter Summary ---
Author Organization [employer] Address 75 [facility] 7t [place] [address] Care Team Providers Care Payment Poster Name Role Phone Angelica Osborne MD Primary Care Provider [phone] Mao Mota PharmD Unavailable [phone] Armando De La Cruz LIME MIXER TENDER Unavailable Unavailable Encounter Details Date Type Department Care Team (Late st Contact Info) Description 10/09/[address] [facility] MEDICINE [address] [place], [place] [phone] Angelica Osborne MD 230 [place], [place] [phone] Social History Tobacco Use Types Packs/Day Years [...] Description 07/02/2025 3:30 PM EDT Office Visit [facility] ADULT DENTAL [address] [place] [address] Yves Barron DDS [address] [place] [address] 08/21/2025 3:30 PM EST Office Visit [facility] MEDICINE [address] [place] [address] Angelica Osborne MD [address] [place] [address] documented as of this encounter Goals Goal [...] documented as of this encounter Care Teams Payment Poster Relationship Specialty Start Date End Date Angelica Osborne MD [address] [place] [address] PCP - General Family Medicine 10/11/18 Mao Mota, MerD [address] [place] [address] Pharmacist Internal Medicine 08/31/23 Armando De La Cruz FNP [address] [place] [address] Nurse Practitioner Family Medicine 08/31/23 documented as of this encounter
--- OUTSIDE RECORDS SUMMARY | 2025-06-26 18:18 | XMS_ITS | Encounter Summary ---
Author Organization [employer] Address 75 [facility] 7t [place] [address] Care Team Providers Care Breeding Manager Name Role Phone Angelica Osborne MD Primary Care Provider [phone] Mao Mota PharmD Unavailable [phone] Armando De La Cruz PROJECT CONTROL OFFICER Unavailable Unavailable Encounter Details Date Type Department Care Team (Late st Contact Info) Description 06/26/2025 Orders Only [facility] MEDICINE 230 [place], [place] [phone] Diana Zuniga MD 230 [place], [place] [phone] Social History Tobacco Use Types Packs/Day Years [...] your housing situation today? I have bee liya 05/29/[address] you li [...] Description 07/02/2025 3:30 PM EDT Office Visit [facility] ADULT DENTAL [address] [place] [address] Yves Barron DDS [address] [place] [address] 08/21/2025 3:30 PM EST Office Visit [facility] MEDICINE [address] [place] [address] Angelica Osborne MD 230 [place] [address] Pending Results Name Type Priority Associated Diagnoses Date /Time Creatine Kinase, Total Lab Routine 2:50 PM EDT documented as of this encounter Goals Goal Patient Goal Type Associated Problems Recent Progress Patient-Stated? Author Quit using tobacco (cigarettes, smokeless, etc) Tobacco Use No Mao Mota, Margaux documented as of this encounter Procedures Procedure Name Priority Date/Time Associated Diagnosis Comments B TYPE NATRIURETIC PEPTIDE (BNP) Routine 06/26/2025 2:50 PM EDT CREATINE KINASE, TOTAL Routine 06/26/2025 2:50 PM EDT documented in this encounter Results * (ABNORMAL) B Type Natriuretic Peptide (BNP) (06/26/2025 2:50 PM EDT) B Type Natriuretic Peptide 140(H) <100 pg/mL [facility] 06/26/2025 2:50 PM EDT 06/26/2025 4:11 PM EDT us Diana Gonzalez MD LAB BLOOD ORDERAB LES Final Result [facility] [address] [place] [address] [phone] documented in this encounter Visit Diagnoses Not on filedocumented in this encounter Additional Health Concerns Assessment Noted Time PHQ-9 Depression Total Score: 0 02/20/20 25 3:47 PM EDT documented as of this encounter Care Teams Breeding Manager Relationship Specialty Start Date End Date Angelica Osborne MD [address] [place] [address] PCP - General Family Medicine 10/11/18 Mao Mota, MerD [address] [place] [address] Pharmacist Internal Medicine 08/31/23 Armando De La Cruz FNP [address] [place] [address] Nurse Practitioner Family Medicine 08/31/23 documented as of this encounter
--- OUTSIDE RECORDS SUMMARY | 2025-06-26 18:18 | XMS_ITS | Encounter Summary ---
Author Organization [employer] Address [address] [facility] 7t [place] [address] Care Team Providers Care Chainstitch Seat Joiner Name Role Phone Angelica Osborne MD Primary Care Provider [phone] Mao Mota PharmD Unavailable [phone] Armando De La Cruz QUILL STRIPPER Unavailable Unavailable Reason for Visit * Reason Onset Date Comments Nurse Triage 12/13/2023 Encounter Details Date Type Department Care Team (Late st Contact Info) Description 12/13/2023 Telephone [facility] MEDICINE [address] [place], [place] [phone] Angelica Osborne MD [address] [place], [place] [phone] Nurse Triage Social History Tobacco Use Types [...] ineffective. Pt is offered to come to [facility] today but, declines. Pt is unable to [...] accepted this outcome Please contact pt at [phone] documented in this encounter Plan of Treatment Upcoming Encounters Date Type Department Care Team (Late st Contact Info) Description 07/02/2025 3:30 PM EDT Office Visit [facility] ADULT DENTAL [address] [place] [address] Yves Barron DDS [address] [place] [address] 08/21/2025 3:30 PM EST Office Visit [facility] MEDICINE [address] [place] [address] Angelica Osborne MD [address] [place] [address] documented as of this encounter Goals Goal [...] documented as of this encounter Care Teams Chainstitch Seat Joiner Relationship Specialty Start Date End Date Angelica Osborne MD [address] [place] [address] PCP - General Family Medicine 10/11/18 Mao Mota, PharmD [address] [place] [address] Pharmacist Internal Medicine 08/31/23 Armando De La Cruz FNP [address] [place] [address] Nurse Practitioner Family Medicine 08/31/23 documented as of this encounter
--- OUTSIDE RECORDS SUMMARY | 2025-06-26 18:18 | XMS_ITS | Encounter Summary ---
Author Organization [employer] Address [address] [facility] 7t [place] [address] Care Team Providers Care Special Education Resource Room Teacher Name Role Phone Angelica Osborne MD Primary Care Provider [phone] Mao Mota PharmD Unavailable [phone] Armando De La Cruz TRIM MOUNTER Unavailable Unavailable Reason for Visit * Reason Onset Date Comments Medication Question 06/08/2023 Encounter Details Date Type Department Care Team (Late st Contact Info) Description 06/08/[address] [facility] MEDICINE [address] [place], [place] [phone] Angelica Osborne MD 230 [place], [place] [phone] Medication Question Social History Tobacco Use Types [...] 07/02/2025 3:30 PM EDT Office Visit [facility] ADULT DENTAL 230 [place] [address] Yves Barron DDS 230 [place] [address] 08/21/2025 3:30 PM EST Office Visit [facility] MEDICINE 230 [place] [address] Angelica Osborne MD [address] [place] [address] documented as of this encounter Visit Diagnoses Not on filedocumented in this encounter Additional Health Concerns Assessment Noted Time PHQ-9 Depression Total Score: 3 06/08/20 23 2:22 PM EDT documented as of this encounter Care Teams Special Education Resource Room Teacher Relationship Specialty Start Date End Date Angelica Osborne MD [address] [place] [address] PCP - General Family Medicine 10/11/18 Mao Mota, PharmD [address] [place] [address] Pharmacist Internal Medicine 08/31/23 Armando De La Cruz FNP [address] [place] [address] Nurse Practitioner Family Medicine 08/31/23 documented as of this encounter
--- OUTSIDE RECORDS SUMMARY | 2025-06-26 18:18 | XMS_ITS | Encounter Summary ---
Author Organization [employer] Address 75 [facility] 7t [place] [address] Care Team Providers Care Plate Driller Name Role Phone Angelica Osborne MD Primary Care Provider [phone] Mao Mota PharmD Unavailable [phone] Armando De La Cruz SPACE PLANNER Unavailable Unavailable Encounter Details Date Type Department Care Team (Late st Contact Info) Description 06/26/2025 Results Follow-Up [facility] MEDICINE 230 [place], [place] [phone] Angelica Osborne MD 230 [place], [place] [phone] XR Wrist 3+ Views Right Social History Tobacco Use Types Packs/Day Years [...] Description 07/02/2025 3:30 PM EDT Office Visit [facility] ADULT DENTAL 230 [place] [address] Yves Barron DDS [address] [place] [address] 08/21/2025 3:30 PM EST Office Visit [facility] MEDICINE [address] [place] [address] Angelica Osborne MD [address] [place] [address] documented as of this encounter Goals Goal [...] documented as of this encounter Care Teams Plate Driller Relationship Specialty Start Date End Date Angelica Osborne MD [address] [place] [address] PCP - General Family Medicine 10/11/18 Mao Mota, MerD [address] [place] [address] Pharmacist Internal Medicine 08/31/23 Armando De La Cruz FNP [address] [place] [address] Nurse Practitioner Family Medicine 08/31/23 documented as of this encounter
--- OUTSIDE RECORDS SUMMARY | 2025-06-26 18:18 | XMS_ITS | Encounter Summary ---
Author Organization [employer] Address [address] [facility] [address] 7t [place] [address] Care Team Providers Care Wrapping Machine Helper Name Role Phone Angelica Osborne MD Primary Care Provider [phone] Mao Mota PharmD Unavailable [phone] Armando De La Cruz Unavailable Unavailable Reason for Visit * Reason Comments Med Refill Encounter Details Date Type Department Care Team (Late st Contact Info) Description 02/27/2024 Refill [facility] P[facility] [address] [place] [address] Armando De La Cruz FNP Major depression [...] 07/02/2025 3:30 PM EDT Office Visit [facility] ADULT DENTAL [address] [place] [address] Yves Barron DDS [address] [place] [address] 08/21/2025 3:30 PM EST Office Visit [facility] MEDICINE [address] [place] [address] Angelica Osborne MD [address] [place] [address] documented as of this encounter Goals Goal [...] as of this encounter Care Teams Wrapping Machine Helper Relationship Specialty Start Date End Date Angelica Osborne MD [address] [place] [address] 23928 PCP - General Family Medicine 10/11/18 Mao Mota PharmD [address] [place] [address] 66227 Pharmacist Internal Medicine 08/31/23 Armando De La Cruz FNP [address] [place] [address] Nurse Practitioner Family Medicine 08/31/23 documented as of this encounter
--- OUTSIDE RECORDS SUMMARY | 2025-06-26 18:18 | XMS_ITS | Encounter Summary ---
Author Organization [employer] Address 75 [facility] 7t [place] [address] Care Team Providers Care Administrative Hearing Officer Name Role Phone Angelica Osborne MD Primary Care Provider [phone] Mao Mota PharmD Unavailable [phone] Armando De La Cruz PRINT SHOP STENOGRAPHER Unavailable Unavailable Reason for Visit * Reason Onset Date Comments Hospital Follow-up 01/02/2025 Encounter Details Date Type Department Care Team (Late st Contact Info) Description 01/02/2025 Telephone [facility] MEDICINE 230 [place], [place] [phone] Angelica Osborne MD 230 [place], [place] [phone] Hospital Follow-up Social History Tobacco Use Types [...] from pt requesting a HDF appt. Hospital: [facility] Date of admission: 12/29/24 Discharge date: 01/01/25 Diagnosed: UTI *Send message to [place] [facility] Coordinators [phone] documented in this encounter Plan of Treatment Upcoming Encounters Date Type Department Care Team (Late st Contact Info) Description 07/02/2025 3:30 PM EDT Office Visit [facility] ADULT DENTAL 230 [place] [address] Yves Barron DDS [address] [place] [address] 08/21/2025 3:30 PM EST Office Visit [facility] MEDICINE [address] [place] [address] Angelica Osborne MD [address] [place] [address] documented as of this encounter Goals Goal [...] documented as of this encounter Care Teams Administrative Hearing Officer Relationship Specialty Start Date End Date Angelica Osborne MD [address] [place] [address] PCP - General Family Medicine 10/11/18 Mao Mota, PharmD [address] [place] [address] Pharmacist Internal Medicine 08/31/23 Armando De La Cruz FNP [address] [place] [address] Nurse Practitioner Family Medicine 08/31/23 documented as of this encounter
--- OUTSIDE RECORDS SUMMARY | 2025-06-26 18:18 | XMS_ITS | Encounter Summary ---
Author Organization [employer] Address [address] [facility] 7t [place] [address] Care Team Providers Care Tacker Elastic Band Name Role Phone Angelica Osborne MD Primary Care Provider [phone] Mao Mota PharmD Unavailable [phone] Armando De La Cruz COMPUTER INSTALLER Unavailable Unavailable Reason for Visit * Reason Onset Date Comments Nurse Triage 01/25/2024 Encounter Details Date Type Department Care Team (Late st Contact Info) Description 01/25/2024 Telephone [facility] MEDICINE 230 [place], [place] [phone] Angelica Osborne MD 230 [place], [place] [phone] Nurse Triage Social History Tobacco Use Types [...] . Pt is advised to come to [facility] open till 8pm today, 830am-800pm tomorrow. [...] Description 07/02/2025 3:30 PM EDT Office Visit [facility] ADULT DENTAL 230 [place] [address] Yves Barron DDS 230 [place] [address] 08/21/2025 3:30 PM EST Office Visit [facility] MEDICINE [address] [place] [address] Angelica Osborne MD [address] [place] [address] documented as of this encounter Goals Goal [...] documented as of this encounter Care Teams Tacker Elastic Band Relationship Specialty Start Date End Date Angelica Osborne MD [address] [place] [address] PCP - General Family Medicine 10/11/18 Mao Mota, PharmD [address] [place] [address]663 Pharmacist Internal Medicine 08/31/23 Armando De La Cruz FNP [address] [place] [address] Nurse Practitioner Family Medicine 08/31/23 documented as of this encounter
--- OUTSIDE RECORDS SUMMARY | 2025-06-26 18:18 | XMS_ITS | Encounter Summary ---
Author Organization [employer] Address 75 [facility] 7t [place] [address] Care Team Providers Care Still Operator Whiskey Name Role Phone Angelica Osborne MD Primary Care Provider [phone] Mao Mota PharmD Unavailable [phone] Armando De La Cruz PUBLIC WORKS SUPERVISOR Unavailable Unavailable Reason for Visit * Reason Onset Date Comments Medication Question 06/30/2023 Encounter Details Date Type Department Care Team (Late st Contact Info) Description 06/30/2023 Telephone [facility] MEDICINE 230 [place], [place] [phone] Angelica Osborne MD 230 [place], [place] [phone] Medication Question Social History Tobacco Use Types [...] [facility] ADULT DENTAL [address] [place] [address] Yves Barron DDS [address] [place] [address] 08/21/2025 3:30 PM EST Office Visit [facility] MEDICINE [address] [place] [address] Angelica Osborne MD [address] [place] [address] documented as of this encounter Visit Diagnoses Not on filedocumented in this encounter Additional Health Concerns Assessment Noted Time PHQ-9 Depression Total Score: 3 06/08/20 2:22 PM EDT documented as of this encounter Care Teams Still Operator Whiskey Relationship Specialty Start Date End Date Angelica Osborne MD [address] [place] [address] PCP - General Family Medicine 10/11/18 Mao Mota, MerD [address] [place] [address] Pharmacist Internal Medicine 08/31/23 Armando De La Cruz FNP [address] [place] [address] Nurse Practitioner Family Medicine 08/31/23 documented as of this encounter
--- OUTSIDE RECORDS SUMMARY | 2025-06-26 18:18 | XMS_ITS | Encounter Summary ---
Author Organization [employer] Address 75 [facility] 7t [place] [address] Care Team Providers Care Mainspring Torque Tester Name Role Phone Angelica Osborne MD Primary Care Provider [phone] Mao Mota PharmD Unavailable [phone] Armando De La Cruz AUTOMOTIVE SERVICE PROFESSIONAL Unavailable Unavailable Reason for Visit * Reason Onset Date Comments Nurse Triage 09/06/2023 Encounter Details Date Type Department Care Team (Late st Contact Info) Description 09/06/2023 Telephone [facility] MEDICINE 230 [place], [place] [phone] Angelica Osborne MD 230 [place], [place] [phone] Nurse Triage Social History Tobacco Use Types [...] declines request apt next month. Apt with RECORD PRESS SUPERVISOR White 09/17/23 @ 115pm. Advised to try [...] Description 07/02/2025 3:30 PM EDT Office Visit [facility] ADULT DENTAL 230 [place] [address] Yves Barron DDS 230 [place] [address] 08/21/2025 3:30 PM EST Office Visit [facility] MEDICINE [address] [place] [address] Angelica Osborne MD 230 [place] [address] documented as of this encounter Goals Goal [...] documented as of this encounter Care Teams Mainspring Torque Tester Relationship Specialty Start Date End Date Angelica Osborne MD [address] [place] [address] PCP - General Family Medicine 10/11/18 Mao Mota, PharmD [address] [place] [address] Pharmacist Internal Medicine 08/31/23 Armando De La Cruz FNP [address] [place] [address] Nurse Practitioner Family Medicine 08/31/23 documented as of this encounter
--- OUTSIDE RECORDS SUMMARY | 2025-06-26 18:18 | XMS_ITS | Encounter Summary ---
Author Organization [employer] Address 75 [facility] 7t [place] [address] Care Team Providers Care Ranch Manager Name Role Phone Angelica Osborne MD Primary Care Provider Mao Mota PharmD Unavailable [phone] Armando De La Cruz CARROTING MACHINE OFFBEARER Unavailable Unavailable Encounter Details Date Type Department Care Team (Late st Contact Info) Description 05/31/2025 Orders Only [facility] MEDICINE 230 [place], [place] [phone] Angelica Osborne MD 230 [place], [place] [phone] Social History Tobacco Use Types Packs/Day Years [...] Description 07/02/2025 3:30 PM EDT Office Visit [facility] ADULT DENTAL 230 [place] [address] Yves Barron DDS 230 [place] [address] 08/21/2025 3:30 PM EST Office Visit [facility] MEDICINE 230 [place] [address] Angelica Osborne MD [address] [place] [address] documented as of this encounter Goals Goal [...] documented as of this encounter Care Teams Ranch Manager Relationship Specialty Start Date End Date Angelica Osborne MD [address] [place] [address] PCP - General Family Medicine 10/11/18 Mao Mota, Margaux [address] [place] [address] Pharmacist Internal Medicine 08/31/23 Armando De La Cruz FNP [address] [place] [address] Nurse Practitioner Family Medicine 08/31/23 documented as of this encounter
--- OUTSIDE RECORDS SUMMARY | 2025-06-26 18:18 | XMS_ITS | Encounter Summary ---
Author Organization [email or web address] Address 75 [facility] 7t [place] [address] Care Team Providers Care Blow Pit Helper Name Role Phone Angelica Osborne MD Primary Care Provider [phone] Mao Mota PharmD Unavailable [phone] Armando De La Cruz MACHINE TOOL ELECTRICIAN Unavailable Unavailable Encounter Details Date Type Department Care Team (Late st Contact Info) Description 07/26/2023 Orders Only [facility] MEDICINE [address] [place], [place] [phone] Angelica Osborne MD [address] [place], [place] [phone] Social History Tobacco Use Types Packs/Day Years [...] Description 07/02/2025 3:30 PM EDT Office Visit [facility] ADULT DENTAL [address] [place] [address] Yves Barron DDS [address] [place] [address] 08/21/2025 3:30 PM EST Office Visit [facility] MEDICINE [address] [place] [address] Angelica Osborne MD [address] [place] [address] documented as of this encounter Visit Diagnoses Not on filedocumented in this encounter Additional Health Concerns Assessment Noted Time PHQ-9 Depression Total Score: 3 06/08/20 23 2:22 PM EDT documented as of this encounter Care Teams Blow Pit Helper Relationship Specialty Start Date End Date Angelica Osborne MD [address] [place] [address] PCP - General Family Medicine 10/11/18 Mao Mota, MerD [address] [place] [address] 11352 Pharmacist Internal Medicine 08/31/23 Armando De La Cruz FNP [address] [place] [address] 26735 Nurse Practitioner Family Medicine 08/31/23 documented as of this encounter
--- OUTSIDE RECORDS SUMMARY | 2025-06-26 18:18 | XMS_ITS | Encounter Summary ---
Author Organization [employer] Address 75 [facility] 7t [place] [address] Care Team Providers Care Upholsterer Limousine And Hearse Name Role Phone Angelica Osborne MD Primary Care Provider [phone] Mao Mota PharmD Unavailable [phone] Armando De La Cruz GEOGRAPHIC INFORMATION SYSTEM SURVEYOR Unavailable Unavailable Reason for Visit * Reason Comments Med Refill Encounter Details Date Type Department Care Team (Late st Contact Info) Description 08/13/2023 Refill [facility] MEDICINE [address] [place], [place] [phone] Angelica Osbrone MD 230 [place], [place] [phone] Social History Tobacco Use Types Packs/Day Years [...] 3:30 PM EDT Office Visit [facility] ADULT DENTAL [address] [place] [address] Yves Barron DDS [address] [place] [address] 08/21/2025 3:30 PM EST Office Visit [facility] MEDICINE [address] [place] [address] Angelica Osborne MD [address] [place] [address] documented as of this encounter Visit Diagnoses Not on filedocumented in this encounter Additional Health Concerns Assessment Noted Time PHQ-9 Depression Total Score: 3 06/08/20 23 2:22 PM EDT documented as of this encounter Care Teams Upholsterer Limousine And Hearse Relationship Specialty Start Date End Date Angelica Osborne MD [address] [place] [address] 28417 PCP - General Family Medicine 10/11/18 Mao Mota, MerD [address] [place] [address] [phone] Pharmacist Internal Medicine 08/31/23 Armando De La Cruz FNP [address] [place] [address] 48441 Nurse Practitioner Family Medicine 08/31/23 documented as of this encounter
--- OUTSIDE RECORDS SUMMARY | 2025-06-26 18:18 | XMS_ITS | Encounter Summary ---
Author Organization [employer] Address 75 [facility] 7t [place] [address] Care Team Providers Care Structural Steel Ironworker Name Role Phone Angelica Osborne MD Primary Care Provider [phone] Mao Mota PharmD Unavailable [phone] Armando De La Cruz RECEPTIONIST SCHEDULER Unavailable Unavailable Encounter Details Date Type Department Care Team (Late st Contact Info) Description 06/26/2025 Results Follow-Up [facility] MEDICINE 230 [place], [place] [phone] Angelica Osborne MD 230 [place], [place] [phone] B Type Natriuretic Peptide (BNP) Social History Tobacco Use Types Packs/Day Years [...] Description 07/02/2025 3:30 PM EDT Office Visit [facility] ADULT DENTAL [address] [place] [address] Yves Barron DDS [address] [place] [address] 08/21/2025 3:30 PM EST Office Visit [facility] MEDICINE [address] [place] [address] Angelica Osborne MD [address] [place] [address] documented as of this encounter Goals Goal [...] documented as of this encounter Care Teams Structural Steel Ironworker Relationship Specialty Start Date End Date Angelica Osborne MD [address] [place] [address] 43616 PCP - General Family Medicine 10/11/18 Mao Mota, MerD [address] [place] [address] 07897 Pharmacist Internal Medicine 08/31/23 Armando De La Cruz FNP [address] [place] [address] 24305 Nurse Practitioner Family Medicine 08/31/23 documented as of this encounter
--- OUTSIDE RECORDS SUMMARY | 2025-06-26 18:18 | XMS_ITS | Encounter Summary ---
Author Organization [employer] Address [address] [place] [address] 7t [place] [address] Care Team Providers Care Haunted History Tour Guide Name Role Phone Angelica Osborne MD Primary Care Provider [phone] Mao Mota PharmD Unavailable [phone] Armando De La Cruz SOCIAL WORK ADMINISTRATOR Unavailable Unavailable Encounter Details Date Type Department Care Team (Late st Contact Info) Description 10/07/2022 [facility] Health Information Management [address] [place] [address] [phone] Mana Villa, RN [address] [place] [address] Social History Tobacco Use Types Packs/Day Years [...] Description 07/02/2025 3:30 PM EDT Office Visit [facility] ADULT DENTAL [address] [place] [address] [phone] Yves Barron DDS 230 [place] [address] 08/21/2025 3:30 PM EST Office Visit [facility] MEDICINE [address] [place] [address] [phone] Angelica Osborne MD 230 [place] [address] documented as of this encounter Visit Diagnoses Not on filedocumented in this encounter Care Teams Haunted History Tour Guide Relationship Specialty Start Date End Date Angelica Osborne MD [address] [place] [address] 26992 PCP - General Family Medicine 10/11/18 Mao Mota, MerD [address] [place] [address] 21025 Pharmacist Internal Medicine 08/31/23 Armando De La Cruz FNP [address] [place] [address] 7[address] Nurse Practitioner Family Medicine 08/31/23 documented as of this encounter
--- OUTSIDE RECORDS SUMMARY | 2025-06-26 18:18 | XMS_ITS | Encounter Summary ---
Author Organization [employer] Address [address] [place] [address] 7t [place] [address] Care Team Providers Care Press Assistant Name Role Phone Angelica Osborne MD Primary Care Provider [phone] Mao Mota PharmD Unavailable [phone] Armando De La Cruz ANALYSIS ENGINEER Unavailable Unavailable Reason for Visit * Reason Onset Date Comments PA 06/27/2024 Durable Medical Equipment 06/27/2024 Shower chair Encounter Details Date Type Department Care Team (Late st Contact Info) Description 06/27/2024 Telephone [facility] MEDICINE [address] [place], [place] [phone] Angelica Osborne MD [address] [place], [place] [phone] PA; Durable Medical Equipment (Shower chair) Social [...] Description 07/02/2025 3:30 PM EDT Office Visit [facility] ADULT DENTAL [address] [place] [address] Yves Barron DDS [address] [place] [address] 08/21/2025 3:30 PM EST Office Visit [facility] MEDICINE [address] [place] [address] Angelica Osborne MD [address] [place] [address] documented as of this encounter Goals Goal [...] documented as of this encounter Care Teams Press Assistant Relationship Specialty Start Date End Date Angelica Osborne MD [address] [place] [address] PCP - General Family Medicine 10/11/18 Mao Mota, PharmD [address] [place] [address] 17384 Pharmacist Internal Medicine 08/31/23 Armando De La Cruz FNP [address] [place] [address] 51483 Nurse Practitioner Family Medicine 08/31/23 documented as of this encounter
--- OUTSIDE RECORDS SUMMARY | 2025-06-26 18:18 | XMS_ITS | Encounter Summary ---
Author Organization [employer] Address 75 [facility] 7t [place] [address] Care Team Providers Care Hydraulic Jack Mechanic Name Role Phone Angelica Osborne MD Primary Care Provider [phone] Mao Mota PharmD Unavailable [phone] Armando De La Cruz HIGH DENSITY TALC COATER OPERATOR Unavailable Unavailable Encounter Details Date Type Department Care Team (Latest Contact Info) Description 06/21/2025 Travel Social History Tobacco Use Types Packs/Day [...] is your housing situation today? I have ebe nickerson 05/29/[address] you [...] EDT Office Visit [facility] ADULT DENTAL [address] [place] [address] Yves Barron DDS [address] [place] [address] 08/21/2025 3:30 PM EST Office Visit [facility] MEDICINE [address] [place] [address] Angelica Osborne MD [address] [place] [address] documented as of this encounter Goals Goal [...] documented as of this encounter Care Teams Hydraulic Jack Mechanic Relationship Specialty Start Date End Date Angelica Osborne MD [address] [place] [address] 37937 PCP - General Family Medicine 10/11/18 Mao Mota PharmD [address] [place] [address] 28820 Pharmacist Internal Medicine 08/31/23 Armando De La Cruz FNP [address] [place] [address] [place] [address] Nurse Practitioner Family Medicine 08/31/23 documented as of this encounter
--- OUTSIDE RECORDS SUMMARY | 2025-06-26 18:18 | XMS_ITS | Encounter Summary ---
Author Organization [employer] Address [address] [place] [address] 7t [place] [address] Care Team Providers Care Freelance Director Name Role Phone Angelica Osborne MD Primary Care Provider [phone] Mao Mota PharmD Unavailable [phone] Armando De La Cruz DIVISIONAL STOREKEEPER Unavailable Unavailable Reason for Visit * Reason Onset Date Comments Med Refill Appointment 04/07/2023 LVM-Re: her appt for today as [id number] @2pm. Encounter Details Date Type Department Care Team (Late Contact Info) Description 04/07/2023 Refill [facility] MEDICINE 230 [place], [place] [phone] Angelica Osborne MD 230 [place], [place] [phone] Social History Tobacco Use Types Packs/Day Years [...] Department Care Team (Late Contact Info) Description 07/02/2025 3:30 PM EDT Office Visit [facility] ADULT DENTAL 230 [place] [address] Yves Barron DDS 230 [place] [address] 08/21/2025 3:30 PM EST Office Visit [facility] MEDICINE [address] [place] [address] Angelica Osborne MD 230 [place] [address] documented as of this encounter Visit Diagnoses Not on filedocumented in this encounter Additional Health Concerns Assessment Noted Time PHQ-9 Depression Total Score: 2 02/16/20 3:26 PM EDT documented as of this encounter Care Teams Freelance Director Relationship Specialty Start Date End Date Angelica Osborne MD [place], [place] [phone] PCP - General Family Medicine 10/11/18 Mao Mota, MerD [address] [place] [address] [phone] Pharmacist Internal Medicine 08/31/23 Armando De La Cruz FNP [address] [place] [address] 58578 Nurse Practitioner Family Medicine 08/31/23 documented as of this encounter
--- OUTSIDE RECORDS SUMMARY | 2025-06-26 18:18 | XMS_ITS | Encounter Summary ---
Author Organization [employer] Address 75 [facility] 7t [place] [address] Care Team Providers Care Social And Political Studies Professor Name Role Phone Angelica Osborne MD Primary Care Provider [phone] Mao Mota PharmD Unavailable [phone] Armando De La Cruz EQUIPMENT MECHANIC Unavailable Unavailable Reason for Visit * Reason Onset Date Comments appt slip mailed 11/01/2024 Encounter Details Date Type Department Care Team (Late st Contact Info) Description 11/01/2024 Telephone [facility] ADULT DENTAL [address] [place], [place] [phone] Yves Barron DDS [address] [place], [place] [phone] appt slip mailed Social History Tobacco Use [...] Description 07/02/2025 3:30 PM EDT Office Visit [facility] ADULT DENTAL [address] [place] [address] Yves Barron DDS [address] [place] [address] 08/21/2025 3:30 PM EST Office Visit [facility] MEDICINE [address] [place] [address] Angelica Osborne MD [address] [place] [address] documented as of this encounter Goals Goal [...] documented as of this encounter Care Teams Social And Political Studies Professor Relationship Specialty Start Date End Date Angelica Osborne MD [address] [place] [address] PCP - General Family Medicine 10/11/18 Mao Mota, MerD [address] [place] [address]652 Pharmacist Internal Medicine 08/31/23 Armando De La Cruz FNP [address] [place] [address] Nurse Practitioner Family Medicine 08/31/23 documented as of this encounter
--- OUTSIDE RECORDS SUMMARY | 2025-06-26 18:18 | XMS_ITS | Encounter Summary ---
Author Organization [employer] Address 75 [facility] 7t [place] [address] Care Team Providers Care Terminal Operations Manager Name Role Phone Angelica Osborne MD Primary Care Provider [phone] Mao Mota PharmD Unavailable [phone] Armando De La Cruz ELECTRONIC SALES AND SERVICE TECHNICIAN Unavailable Unavailable Encounter Details Date Type Department Care Team (Late st Contact Info) Description 03/01/2025 Orders Only [facility] MEDICINE [address] [place], [place] [phone] Angelica Osborne MD [address] [place], [place] [phone] Encounter for screening for respiratory tuberculosis (Primary [...] Description 07/02/2025 3:30 PM EDT Office Visit [facility] ADULT DENTAL [address] [place] [address] Yves Barron DDS [address] [place] [address] 08/21/2025 3:30 PM EST Office Visit [facility] MEDICINE [address] [place] [address] Angelica Osborne MD [address] [place] [address] documented as of this encounter Goals Goal [...] Results * T-SPOT??.TB (03/07/2025 2:33 PM EDT) Pathologist [facility] T Spot TB Negative Negative [facility] Comment:A negative test resu lt [...] as aquantitative test. TS PANEL A 0 [facility] TS PANEL B 0 [facility] Negative Control Passed [facility] Positive Control Passed [facility] Comment:For additional infor mation, please refer tohttp://education.[employer]/faq/NSO904(This link is being provided for informational/educational purposes only.)THIS TEST WAS PERFORMED AT:[employer] [id number] [place] [address]MEPUFCQSATISH HALLMAN MD,PHD 03/07/2025 2:33 PM EDT 03/07/2025 4:15 PM EDT us Angelica Osborne MD LAB BLOOD ORDERABLES Final Resul t [facility] [address] [place] [address] [phone] documented in this encounter Visit Diagnoses Diagnosis Encounter for screening for respiratory tuberculosis- Primary documented in this encounter Additional Health Concerns Assessment Noted Time PHQ-9 Depression Total Score: 0 02/20/20 25 3:47 PM EDT documented as of this encounter Care Teams Terminal Operations Manager Relationship Specialty Start Date End Date Angelica Osborne MD [address] [place] [address] 31232 PCP - General Family Medicine 10/11/18 Mao Mota, MerD [address] [place] [address] 6[address] Pharmacist Internal Medicine 08/31/23 Armando De La Cruz FNP [address] [place] [address] 9[address] Nurse Practitioner Family Medicine 08/31/23 documented as of this encounter
--- OUTSIDE RECORDS SUMMARY | 2025-06-26 18:18 | XMS_ITS | Encounter Summary ---
Author Organization [employer] Address 75 [facility] 7t [place] [address] Care Team Providers Care Outdoor Adventure Instructor Name Role Phone Angelica Osborne MD Primary Care Provider [phone] Mao Mota PharmD Unavailable [phone] Armando De La Cruz DIVE MASTER Unavailable Unavailable Reason for Visit * Reason Onset Date Comments Lab Orders 06/26/2025 Encounter Details Date Type Department Care Team (Late st Contact Info) Description 06/26/2025 Telephone [facility] MEDICINE [address] [place], [place] [phone] Angelica Osborne MD 230 [place], [place] [phone] Lab Orders Social History Tobacco Use Types [...] encounter Miscellaneous Notes * Telephone Encounter - Massimo Pal - 06/26/2025 12:01 PM EDT Tc from pt stating she wants to have Xray done in [facility] * Telephone Encounter - April Carpio RN - 06/26/2025 11:41 AM EDT Telephone call returned to pt regarding below message. NO answer. Left v/m informing XR ordered, she can come in anytime or call back to let us know where she wants to get them done so we can fax orders. If pt returns call, please ask if she wants it done somewhere other than [facility]? If so, where? We willfax orders at her request. Thank you! * Telephone Encounter - Mitchel Cerda - 06/26/2025 11:18 AM EDT Tc from pt requesting Xray orders. Contact pt at [phone] documented in this encounter Plan of Treatment Upcoming Encounters Date Type Department Care Team (Late st Contact Info) Description 07/02/2025 3:30 PM EDT Office Visit [facility] ADULT DENTAL [address] [place] [address] Yves Barron DDS [address] [place] [address] 08/21/2025 3:30 PM EST Office Visit [facility] MEDICINE [address] [place] [address] Angelica Osborne MD [address] [place] [address] documented as of this encounter Goals Goal [...] documented as of this encounter Care Teams Outdoor Adventure Instructor Relationship Specialty Start Date End Date Angelica Osborne MD [address] [place] [phone] PCP - General Family Medicine 10/11/18 Mao Mota PharmD [address] [place] [address] 85969 Pharmacist Internal Medicine 08/31/23 Armando De La Cruz FNP [address] [place] [address] Nurse Practitioner Family Medicine 08/31/23 documented as of this encounter
[2025-06-26 20:50] LABS: Reflex LDLD? No
[2025-06-28 06:07] LABS: HBS Num1 1.12 mIU/mL (0-7.99); HBc Num1 0.07 S/CO (0.00-0.79); HBsAGNum1 0.49 S/CO (0.00-0.99); HIV Num 1 0.04 S/CO (0.00-0.99); Hepatitis B Surface Antigen Negative (Negative); ~HepC Num1 0.09 S/CO (0.00-0.79); ~Hepatitis B Surface Antibody NONREACTIVE (Nonreactive); ~Hepatitis C Antibody Nonreactive (Nonreactive)
== END 2025-06-26 14:37 | disposition home or self-care (01) ==
LOC: HO.HHCX 14:36
PROVIDERS: Student in an Organized Health Care Education/Training Program; PCP Family Medicine; Visit Provider Family Medicine
DX: S63.91XA Sprain of unspecified part of right wrist and hand, initial encounter (principal); S50.11XA Contusion of right forearm, initial encounter; S30.0XXA Contusion of lower back and pelvis, initial encounter; S80.01XA Contusion of right knee, initial encounter; S80.02XA Contusion of left knee, initial encounter; S90.02XA Contusion of left ankle, initial encounter; E11.65 Type 2 diabetes mellitus with hyperglycemia; I10 Essential (primary) hypertension; E78.5 Hyperlipidemia, unspecified; N17.9 Acute kidney failure, unspecified; M62.82 Rhabdomyolysis; E03.9 Hypothyroidism, unspecified; Z11.3 Encounter for screening for infections with a predominantly sexual mode of transmission; Z13.6 Encounter for screening for cardiovascular disorders; Z11.59 Encounter for screening for other viral diseases; Z13.29 Encounter for screening for other suspected endocrine disorder; Z11.4 Encounter for screening for human immunodeficiency virus [HIV]; X58.XXXA Exposure to other specified factors, initial encounter
CPT/HCPCS: 36415; 72220; 73110; 73564; 73610; 80053; 80061; 82043; 82550; 82570; 82607; 82746; 83880; 84443; 86704; 86706; 86803; 87340; 87389

== ENCOUNTER → 2025-06-26 15:08 | Outpatient (BNV) | payer MEDICARE, SELFPAY | PROVIDERS: PCP Family Medicine; Visit Provider Radiology Diagnostic Radiology | DX: M25.569 Pain in unspecified knee (principal); M25.572 Pain in left ankle and joints of left foot | CPT/HCPCS: 72220; 73110; 73564; 73610 ==

== ENCOUNTER 2025-07-17 12:04 | Outpatient (REF) | payer MEDICARE, SELFPAY | END 2025-07-17 12:05 | disposition home or self-care (01) | LOC: HO.HOSX 12:04 | PROVIDERS: Visit Provider Orthopaedic Surgery | DX: Z13.89 Encounter for screening for other disorder (principal) ==